=== PATIENT | female | born 1940 | race Caucasian/White ===

== ENCOUNTER 2016-04-13 20:08 | Observation (INO) ==
[2016-04-13 22:48] LABS: Basophils % 0.1 %; Hematocrit 38.5 % (35.3-44.9); Hemoglobin 12.8 g/dL (11.5-15.4); Immature Platelets 9.6 % (1.1-6.1); Lymphocytes # 0.6 K/mcL (0.6-4.6); Lymphocytes % 7.9 %; Mean Corpuscular HGB Conc 33.2 g/dL (31.6-35.5); Mean Corpuscular Volume 87.3 fL (83.0-100.0); Mean Platelet Volume 11.8 fL (9.4-12.4); Monocytes # 0.8 K/mcL (0.0-1.3); Platelet Count 177 K/mcL (140-400); Red Blood Count 4.41 M/mcL (3.82-4.97); Red Cell Distribution Width 14.6 % (11.5-14.5)
[2016-04-13 22:50] LABS: Neutrophils # 5.7 K/mcL (1.6-8.9)
[2016-04-13] MEDS ORDERED: 0.9 % Sodium Chloride 1,000 ML IVC ONE (23:03)
[2016-04-13 23:06] LABS: BUN/Creatinine Ratio 32 (6-26); Blood Urea Nitrogen 19 mg/dL (7-20); Calcium 9.2 mg/dL (8.6-10.8); Carbon Dioxide 23 mEq/L (19-29); Chloride 98 mEq/L (98-109); Glucose 98 mg/dL (70-99); Osmolality,Calculated 278 (280-300); Potassium 3.9 mEq/L (3.5-4.5); Sodium 133 mEq/L (136-145); eGFR For African Americans > 60 (> 60); eGFR For Non-African Americans > 60 (> 60)
[2016-04-13 23:25] LABS: Platelet Estimate Normal (Normal); Reactive Lymphocytes Present (Not Present)
--- NOTE | 2016-04-14 00:45 | Emergency Department Note ---
Disposition Clinical Impression: Community acquired pneumonia Disposition: Admitted As Inpatient Condition: Fair General Adult HPI - General Chief complaint: ED Weakness Stated complaint: poor appetite, weakness Time Seen by Provider: 04/13/16 21:49 Source: patient Limitations: no limitations Nursing Notes Reviewed: Yes Vital Signs Reviewed: Yes - History of Present Illness HPI Narrative: 75 y/o female with 3 days of decreased PO intake. She says she just doesn't feel hungry. She was treated 2 weeks ago for bronchitis but is still coughing. She has had weight loss over the last year. She denies dyspnea or CP. No fever. Pain Scale: 0 Improves with: nothing Worsens with: nothing Associated symptoms: Reports: denies other symptoms - Related Data Allergies Allergy/AdvReac Type Severity Reaction Status Date / Time No Known Allergies Allergy Verified 04/13/16 20:14 All systems ED: reviewed and negative except as stated. Constitutional: Denies: fever ENT ED: Denies: throat pain Cardiovascular: Denies: chest pain Respiratory: Reports: cough Gastrointestinal: Denies: abdominal pain, nausea Integumentary: Denies: rash Past Medical History - Past Medical History Medical history: Reports: myocardial infarction - Social History Smoking Status: Never smoker Smokeless Tobacco Status: No Alcohol use: Reports: none Drug use: Reports: none Physical Exam - General Limitations: no limitations General appearance: alert, in no apparent distress - Head Head exam: atraumatic - Eye Eye exam: Present: normal appearance - ENT ENT exam: normal exam - Respiratory Respiratory exam: Present: other (right sided rhonchi. No resp distress) - Cardiovascular Cardiovascular exam: Present: normal rhythm, tachycardia - Abdominal Exam Abdominal exam: Present: soft, Non-Tender - Extremities Exam Extremities exam: Present: normal inspection - Neurological Exam Neurological exam: Present: alert, oriented X3 - Psychiatric Psychiatric exam: Present: normal affect, normal mood Course Course Narrative: She is afebrile. PNA is present. Due to lack of oral intake and pneumonia in an elderly female I will admit with levaquin and IV NS. Accepted for admission by Dr Ness. Vital Signs Temperature 97.4 F L 04/13/16 20:11 Pulse Rate 104 04/13/16 20:11 Respiratory Rate 18 04/13/16 20:11 Blood Pressure 115/76 04/13/16 20:11 O2 Sat by Pulse Oximetry 93 L 04/13/16 20:11 Temperature 97.4 F L 04/13/16 20:11 Pulse Rate 104 04/14/16 00:42 Respiratory Rate 16 04/14/16 00:42 Blood Pressure 111/74 04/14/16 00:42 O2 Sat by Pulse Oximetry 93 L 04/14/16 00:59 Oxygen Delivery Oxygen Delivery Room Air Medical Decision Making - Medical Records Medical records reviewed: Yes I reviewed the patient's medical records. - Lab Data Lab results reviewed: Yes I reviewed the patient's lab results. Result diagrams: 04/13/16 22:39 04/13/16 22:39 Lab Results 04/13/16 04/13/16 04/13/16 Range/Units 22:39 22:39 22:39 WBC 7.1 (4.3-11.1) K/mcL RBC 4.41 (3.82-4.97) M/mcL Hgb 12.8 (11.5-15.4) g/dL Hct 38.5 (35.3-44.9) % MCV 87.3 (83.0-100.0) fL MCH 29.0 (28.0-33.3) pg MCHC 33.2 (31.6-35.5) g/dL RDW 14.6 H (11.5-14.5) % Plt Count 177 (140-400) K/mcL MPV 11.8 (9.4-12.4) fL Immature Gran % 1.0 (0-4) % Seg Neutrophils % 80.0 % Lymphocytes % 7.9 % Monocytes % 11.0 % Eosinophils % 0.0 % Basophils % 0.1 % Neutrophils # 5.7 (1.6-8.9) K/mcL Lymphocytes # 0.6 (0.6-4.6) K/mcL Monocytes # 0.8 (0.0-1.3) K/mcL Eosinophils # 0.0 (0.0-0.6) K/mcL Basophils # 0.0 (0.0-0.2) K/mcL Reactive Lymphocytes Present A (Not Present) Platelet Estimate Normal (Normal) Immature Plt Fraction 9.6 H (1.1-6.1) % Sodium 133 L (136-145) mEq/L Potassium 3.9 (3.5-4.5) mEq/L Chloride 98 (98-109) mEq/L Carbon Dioxide 23 (19-29) mEq/L BUN 19 (7-20) mg/dL Creatinine 0.59 (0.57-1.11) mg/dL Est GFR ( Amer) > 60 (> 60) Est GFR (Non-Af Amer) > 60 (> 60) BUN/Creatinine Ratio 32 H (6-26) Glucose 98 (70-99) mg/dL Calculated Osmolality 278 L (280-300) Calcium 9.2 (8.6-10.8) mg/dL Troponin I 0.00 (0-0.03) ng/mL - Radiology Data Radiology results reviewed: Yes I reviewed the patient's radiology results. Chest X-Ray 04/13/16 22:30 IMPRESSION: 1. Right mid and right lower lung opacities are suspicious for pneumonia 2. Hyperinflated lungs suggestive of COPD. D/ / Fito Wilkinson MD / Fito Wilkinson MD Interpreting Provider: Fito Wilkinson MD Attestation Statement - Attestation Attestation: I, Horace Macias MD, personally performed a history and physical exam of the patient and discussed their management with the resident. I reviewed the resident's note and agree with the documented findings, medical decision making , and plan of care. 75-year-old female presents to the emergency department with family complaining of decreased appetite and decreased oral intake over the past 3 days. Patient lives with family. She has had significant weight loss over the past several months. She also has had a cough with some green sputum production over the past several days. Subjective fever yesterday. On examination patient is a cachectic elderly female in no acute distress. She is alert and oriented and answers questions appropriately. There is no cyanosis or diaphoresis. Breath sounds are equal bilaterally with some rales over the right. No wheezes noted. Heart regular with a mild tachycardia. Abdomen soft and nontender with normal bowel sounds. Labs reviewed. Chest x-ray shows a right mid and lower lung pneumonia. The hospitalists, Dr. Ness, was consulted and accepted admission of the patient.
[2016-04-14] MEDS ORDERED: Acetaminophen 325 MG TABLET PO PRN (05:11)
--- NOTE | 2016-04-14 05:28 | Internal Med History&Physical ---
Date of Encounter: 04/14/16 Time of Encounter: 05:26 Assessment and Plan (1) Hypoxemia Current visit: Yes Status: Acute We will treat her with oxygen by nasal cannula. Maintain oxygen saturation above 92%. Check oxygen saturation on room air for home oxygen qualification. (2) Adult failure to thrive Current visit: Yes Status: Acute Nutrition consult. (3) Community acquired pneumonia Current visit: Yes Status: Acute Continue with Levaquin. Follow-up blood cultures. Check Streptococcus and Legionella antigens. Oxygen by nasal cannula. Bronchodilators as needed. The patient can be transitioned to oral antibiotics soon and discharged home. Internal Medicine - H&P: HPI Chief complaint: Weight loss Admitted From: Emergency Dept Plans for Post Hospital Care: Home History of present illness: Ms. Brown is a 75 year old female who was brought to the hospital for weight loss and failure to thrive. She reports cough and shortness of breath that has been worsening for the last 3 days. Reports associated fevers and chills and decreased appetite. She had very little oral intake for the last 2 days. Workup done in the emergency department included a chest x-ray which showed right lung infiltrate. She was treated with antibiotics and referred for admission Review of systems pertinent for generalized weakness, chronic joint aches, shortness of breath cough and weight loss otherwise 10 point review of systems was negative. Family history was reviewed and found to be noncontributory due to patient's advanced age. Past Med Surg Social Fam HX - Past Medical History Medical history: myocardial infarction - Past Surgical History Surgical History: hysterectomy - Social History Smoking Status: Former smoker Smokeless Tobacco Status: No Alcohol use: none Drug use: none - Family History Father Family Member Ethnicity: Non- Living Status: Age at : 70 Cause of : lung cancer Hx Family Cancer: Yes (lung cancer) Brother Age: 76 Family Member Ethnicity: Non- Living Status: Still Living Hx Family Cardiac Disorders: Yes (SC) Hx Family Respiratory Disorders: Yes (COPD) Sister Living Status: Age at : 75 Cause of : cancer Hx Family Respiratory Disorders: Yes (COPD) Hx Family Cancer: Yes (lung cancer) Internal Medicine - H&P: Meds Allergies No Known Allergies Allergy (Verified 04/13/16 20:14) All Systems PM: A 10-system review of systems was performed and is negative for pertinent findings except as documented above in the HPI. - Constitutional Vitals: Temp Pulse Resp BP Pulse Ox 99.3 F 107 18 113/77 90 L 04/14/16 02:19 04/14/16 02:19 04/14/16 02:19 04/14/16 02:04/14/16 02:19 - Respiratory Respiratory exam: Present: CTAB. Absent: accessory muscle use, rales, rhonchi, wheezes Additional comments: Severe kyphoscoliosis. - Cardiovascular Cardiovascular exam: Present: RRR, +S1, +S2. Absent: diastolic murmur, gallop, rubs, systolic murmur - GI/Abdominal GI/Abdominal exam: Present: normal bowel sounds, soft, no peritoneal signs. Absent: distended, tenderness - Skin Skin exam: Present: dry, intact Internal Med - H&P Results - Labs CBC & Chem 7: 04/13/16 22:39 04/13/16 22:39
[2016-04-14] MEDS: Levofloxacin 750 MG/150 ML 750 MG/150 ML BAG IVPB SCH ×2 (06:16→09:01)
[2016-04-14] MEDS: *HR* Heparin 5,000 UNIT/ML VIAL SQ SCH ×2 (06:16→18:07)
[2016-04-14] MEDS ORDERED: 0.9 % Sodium Chloride 1,000 ML ONE (06:58)
[2016-04-14] MEDS ORDERED: 0.9 % Sodium Chloride 1,000 ML IVC ONE (06:59)
[2016-04-14] MEDS ORDERED: Levofloxacin 750 MG/150 ML 750 MG/150 ML BAG IVPB SCH (09:00)
[2016-04-14 11:17] LABS: Magnesium 1.2 mg/dL (1.6-2.6); Phosphorous 2.5 mg/dL (2.3-4.7)
--- NOTE | 2016-04-14 11:20 | Event Note ---
Date of Encounter: 04/14/16 Time of Encounter: 11:13 75-year-old female with history of coronary artery disease and possible COPD admitted with failure to thrive, decreased appetite and noted to have right lower lobe pneumonia. Patient seen and examined at bedside. Elderly frail and cachectic female with severe kyphosis. Awake, alert and oriented to place and person. Chest-severe scoliosis noted. S1, S2 heard, regular rate and rhythm, tachycardia. Decreased breath sounds at right base. No active wheezing. Abdomen-soft and nontender Chest x-ray shows hyperexpanded lung aceves with consolidation in right lower and middle aceves Right lung community-acquired pneumonia-follow blood cultures and continue IV Levaquin. Supportive care. Supplemental oxygen as needed. Patient continues to be persistently tachycardic, will get CT angiogram of chest to rule out pulmonary embolism. Start telemetry monitoring. Failure to thrive, cachexia-nutrition consult. Start a trial of Remeron for appetite stimulation and to treat possible depression. Physical therapy evaluation. Check electrolytes, serum albumin.
[2016-04-14 14:04] LABS: Bilirubin,Urine Small (Negative); Blood,Urine Trace-lysed (Negative); Clarity,Urine Slightly Cloudy (Clear); Glucose,Urine (UA) Normal (Normal); Ketones,Urine 40 mg/dL (Negative); Leukocyte Esterase,Urine Negative (Negative); Nitrite,Urine Negative (Negative); Protein,Urine 100 mg/dL (Neg-Trace); Specific Gravity,Urine 1.025 (1.010-1.025); Urobilinogen,Urine >=8.0 mg/dL (Normal)
[2016-04-14 14:06] LABS: Color,Urine Dark Yellow (Yellow)
[2016-04-14 14:06] LABS: Albumin 2.1 g/dL (3.5-5.0); Albumin/Globulin Ratio 0.5 (1.1-2.2); Bilirubin,Direct 0.4 mg/dL (0.0-0.5); Bilirubin,Indirect 0.3 mg/dL (0.0-1.2); Bilirubin,Total 0.7 mg/dL (0.2-1.2); Globulin 3.9 g/dL (2.4-3.5)
[2016-04-14 14:08] LABS: Bacteria,Urine None Seen per hpf (None-Few); Hyaline Casts,Urine None Seen per lpf (None-Few); RBC,Urine 0-3 per hpf (0-3); Squamous Epithelial Cell,Urine Moderate per lpf (None-Few); WBC,Urine 0-3 per hpf (0-3)
[2016-04-14 14:21] LABS: Amorphous Sediment,Urine Few (Few); Yeast,Urine Few per hpf (None Seen)
[2016-04-14] MEDS ORDERED: Magnesium Sulfate 2 GM in D5% in Water 100 ML IVPB ONE (15:45)
--- NOTE | 2016-04-14 20:00 | Electrocardiograph Report ---
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
--- NOTE | 2016-04-14 20:04 | Electrocardiograph Report ---
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
[2016-04-14] MEDS: Mirtazapine 15 MG TABLET PO SCH (21:15)
[2016-04-15] MEDS: *HR* Heparin 5,000 UNIT/ML VIAL SQ SCH ×2 (06:05→18:50)
[2016-04-15 06:16] LABS: Basophils % 0.2 %; Hematocrit 36.3 % (35.3-44.9); Hemoglobin 12.3 g/dL (11.5-15.4); Immature Granulocytes % 2.6 % (0-4); Lymphocytes # 0.5 K/mcL (0.6-4.6); Lymphocytes % 8.4 %; Mean Corpuscular HGB Conc 33.9 g/dL (31.6-35.5); Mean Corpuscular Hemoglobin 29.7 pg (28.0-33.3); Mean Corpuscular Volume 87.7 fL (83.0-100.0); Mean Platelet Volume 11.1 fL (9.4-12.4); Monocytes # 0.7 K/mcL (0.0-1.3); Monocytes % 13.6 %; Platelet Count 213 K/mcL (140-400); Red Blood Count 4.14 M/mcL (3.82-4.97); Red Cell Distribution Width 14.8 % (11.5-14.5); Segmented Neutrophils % 75.2 %
[2016-04-15 06:29] LABS: BUN/Creatinine Ratio 21 (6-26); Blood Urea Nitrogen 11 mg/dL (7-20); Calcium 8.7 mg/dL (8.6-10.8); Carbon Dioxide 26 mEq/L (19-29); Chloride 100 mEq/L (98-109); Glucose 94 mg/dL (70-99); Magnesium 1.6 mg/dL (1.6-2.6); Osmolality,Calculated 279 (280-300); Potassium 3.2 mEq/L (3.5-4.5); Sodium 135 mEq/L (136-145); eGFR For African Americans > 60 (> 60); eGFR For Non-African Americans > 60 (> 60)
[2016-04-15] MEDS ORDERED: Potassium Chloride Elixir 20 MEQ/15 ML UDC PO ONE (10:40)
--- NOTE | 2016-04-15 11:29 | Internal Med Progress Note ---
Date of Encounter: 04/15/16 Time of Encounter: 10:45 - Assessment and plan (1) Community acquired pneumonia Current Visit: Yes Status: Acute Assessment and plan: Chest XRay and CTA chest shows bibasal Pneumonia, no pulmonary embolism, 1.7cm spiculated nodule in RUL. Blood cultures and urine for Legionella and Strep pneumo Ag negative. Continue IV antibiotics-Levaquin. Continue supportive care and supplemental oxygen as needed. Physical therapy evaluation recommends home health services. However, patient is noted to be extremely cachectic and will benefit from inpatient rehabilitation. This has been discussed with the patient and her daughter at bedside in great detail, along with the complex case manager, however patient continues to refuse placement and would like to just go home. (2) Hypokalemia Current Visit: Yes Status: Acute Assessment and plan: Supplement with IV and oral potassium chloride. Serum magnesium noted to be normal today. (3) Lung nodule Current Visit: Yes Status: Chronic Assessment and plan: CT chest showed 1.7 cm nodule in right upper/middle lobe. This has been reviewed with pulmonology, who recommended outpatient follow-up and repeat CT chest in 8 weeks. (4) Adult failure to thrive Current Visit: Yes Status: Chronic Assessment and plan: Started mirtazapine for appetite stimulation and for possible depression. Continue nutritional supplements as tolerated. Patient and family counseled regarding the various reasons for anorexia and weight loss and strongly recommended to follow up as outpatient. Patient is noted to be noncompliant with primary care provider visits. (5) COPD (chronic obstructive pulmonary disease) Current Visit: Yes Status: Chronic Assessment and plan: Not noted to be in acute exacerbation. Not on any treatment at home. Continue when necessary bronchodilators and supplemental oxygen as needed. Qualifiers: COPD type: unspecified COPD Qualified Code(s): J44.9 - Chronic obstructive pulmonary disease, unspecified (6) CAD (coronary artery disease) Current Visit: Yes Status: Chronic Qualifiers: Coronary Disease-Associated Artery/Lesion type: [place] artery [place] vs. transplanted heart: [place] heart Associated angina: without angina Qualified Code(s): I25.10 - Atherosclerotic heart disease of [place] coronary artery without angina pectoris - Subjective Interval history: Has intermittent coughing bouts but reports doing well. No chest pain, dyspnea, weakness. Able to work with PT; refuses to be placed at inpatient rehab and wants to go home; plan of care also d/w patient's daughter at bedside. - Constitutional Vitals: Temp Pulse Resp BP Pulse Ox 98.5 F 96 14 108/78 95 04/15/16 10:27 04/15/16 10:27 04/15/16 10:27 04/15/16 10:27 04/15/16 10:27 General appearance: Present: cachectic (very frail, cachectic, kyphosis), A&O X 3, answers questions appropriately - Respiratory Respiratory exam: Present: rales (faint bibasal rales). Absent: accessory muscle use, rhonchi, wheezes - Cardiovascular Cardiovascular exam: Present: RRR, +S1, +S2, tachycardia. Absent: diastolic murmur, gallop, rubs, systolic murmur - GI/Abdominal GI/Abdominal exam: Present: normal bowel sounds, soft, no peritoneal signs. Absent: distended, tenderness - Extremities Exam Extremities exam: Present: full ROM, warm, radial pulses palpable and symetrical. Absent: calf tenderness, cyanotic, pedal edema Internal Medicine: Result - Labs CBC & Chem 7: 04/15/16 05:56 04/15/16 05:56 Labs: Short CBC 04/15/16 Range/Units 05:56 WBC 5.4 (4.3-11.1) K/mcL Hgb 12.3 (11.5-15.4) g/dL Hct 36.3 (35.3-44.9) % Plt Count 213 (140-400) K/mcL Neutrophils # 4.0 (1.6-8.9) K/mcL BMP 04/15/16 05:56 Sodium 135 L Potassium 3.2 L Chloride 100 Carbon Dioxide 26 BUN 11 Creatinine 0.52 L Glucose 94 Calcium 8.7 Liver Function 04/14/16 Range/Units 10:51 Total Bilirubin 0.7 (0.2-1.2) mg/dL Direct Bilirubin 0.4 (0.0-0.5) mg/dL AST 29 (5-34) Units/L ALT 13 (0-55) Units/L Alkaline Phosphatase 66 (38-126) Units/L Albumin 2.1 L (3.5-5.0) g/dL - Impressions Impressions Chest CTA 04/14/16 11:30 IMPRESSION: No definite pulmonary embolus or aortic dissection Bilateral pleural effusions with bilateral lower lobe lung consolidation. Secretions are seen in the lower lobe airways bilaterally. Consider aspiration in the appropriate clinical scenario. Peripheral opacity in the right middle lobe, extending superiorly into the right upper lobe. The component in the right upper lobe appears spiculated. This area of consolidation could be postinflammatory infectious or an early finding of carcinoma. D/ / Lopez Lind MD / Lopez Lind MD Interpreting Provider: Lopez Lind MD Consult Discharge Plan - Plan Referrals: NO,PCP [Primary Care Provider] -
[2016-04-15] MEDS: Mirtazapine 15 MG TABLET PO SCH (21:29)
[2016-04-16] MEDS: Levofloxacin 750 MG/150 ML 750 MG/150 ML BAG IVPB SCH (06:07)
[2016-04-16] MEDS: *HR* Heparin 5,000 UNIT/ML VIAL SQ SCH ×2 (06:07→20:45)
[2016-04-16] MEDS ORDERED: 0.9 % Sodium Chloride 1,000 ML ONE ×2 (07:14→07:34)
[2016-04-16] MEDS ORDERED: *HR* Heparin 5,000 UNIT/ML VIAL IVP PRN ×2 (08:29)
[2016-04-16] MEDS ORDERED: *HR* Heparin 5,000 UNIT/ML VIAL IVP ONE (08:29)
[2016-04-16] MEDS ORDERED: Heparin 25,000 UNIT/500 ML D5W 25,000 UNIT/500 ML MLS IVC SCH (08:30)
[2016-04-16 08:52] LABS: INR 1.3; Prothrombin Time 13.7 Seconds (9.4-12.1)
[2016-04-16 08:54] LABS: Activated Partial Thrombo Time 40.3 Seconds (26.0-36.0)
--- NOTE | 2016-04-16 08:58 | Internal Med Progress Note ---
Date of Encounter: 04/16/16 Time of Encounter: 08:52 - Assessment and plan (1) Atrial fibrillation with RVR Current Visit: Yes Status: Acute Assessment and plan: Episode of supraventricular tachycardia, currently atrial fibrillation with rapid ventricular response. New-onset. Case discussed with cardiology, will consult to follow. Patient did not respond to 10 mg IV Cardizem push, we will give another 10 mg and start IV Cardizem drip. We will also start IV heparin drip for possible cardioversion, if needed. Check stat CBC, BMP, magnesium and phosphorus, troponin and lactic acid. Check 2-D echocardiogram. Telemetry monitoring. Patient will be transferred to stepdown ICU for closer monitoring. His risk of complications high. Critical care time spent- 45min (2) Community acquired pneumonia Current Visit: Yes Status: Acute Assessment and plan: Improving. Continue IV antibiotics-Levaquin. Continue supportive care and supplemental oxygen as needed. (3) Hypokalemia Current Visit: Yes Status: Resolved (4) Lung nodule Current Visit: Yes Status: Chronic Assessment and plan: CT chest showed 1.7 cm nodule in right upper/middle lobe. This has been reviewed with pulmonology, who recommended outpatient follow-up and repeat CT chest in 8 weeks. (5) Adult failure to thrive Current Visit: Yes Status: Chronic Assessment and plan: Started mirtazapine for appetite stimulation and for possible depression. Continue nutritional supplements as tolerated. Patient and family counseled regarding the various reasons for anorexia and weight loss and strongly recommended to follow up as outpatient. Patient is noted to be noncompliant with primary care provider visits. (6) COPD (chronic obstructive pulmonary disease) Current Visit: Yes Status: Chronic Assessment and plan: Not noted to be in acute exacerbation. Not on any treatment at home. Continue when necessary bronchodilators and supplemental oxygen as needed. We will need to be on bronchodilators and inhaled corticosteroids at home. Qualifiers: COPD type: unspecified COPD Qualified Code(s): J44.9 - Chronic obstructive pulmonary disease, unspecified (7) CAD (coronary artery disease) Current Visit: Yes Status: Chronic Qualifiers: Coronary Disease-Associated Artery/Lesion type: [place] artery [place] vs. transplanted heart: [place] heart Associated angina: without angina Qualified Code(s): I25.10 - Atherosclerotic heart disease of [place] coronary artery without angina pectoris - Subjective Interval history: Rapid response was called at 7:10 AM. Patient was noted to be in mild distress with chest discomfort and shortness of breath. Vital signs showed-afebrile, pulse rate 236, blood [id number], RR- 20, O2 sat- 95% Chest- S1, S2 heard, regular, tachycardic; lungs are clear to auscultation EKG showed an irregular narrow complex tachycardia with rate in 200s. The patient was connected to telemetry and EKG and received 6 mg of IV adenosine push, to which she responded well, with improvement in heart rate to 110s and she felt symptomatically better. She was also started on IV normal saline bolus. Patient continues to have tachycardia, mild shortness of breath. Her heart rate started increasing to 150s and repeat EKG showed narrow complex irregular tachycardia, atrial fibrillation. No reported nausea, vomiting, abdominal pain or chest pain. Plan of care discussed with patient's daughter at bedside. Patient will be transferred to stepdown ICU at this time for closer monitoring. Patient was planned for possible discharge today, which is being held due to the above. - Constitutional Vitals: Temp Pulse Resp BP Pulse Ox 98.1 F 218 15 114/73 99 04/16/16 07:44 04/16/16 07:44 04/16/16 03:55 04/16/16 03:55 04/16/16 07:44 General appearance: Present: cachectic (very frail, cachectic, kyphosis), A&O X 3, answers questions appropriately - Respiratory Respiratory exam: Present: CTAB. Absent: accessory muscle use, rales, rhonchi, wheezes - Cardiovascular Cardiovascular exam: Present: RRR, +S1, +S2, tachycardia. Absent: diastolic murmur, gallop, rubs, systolic murmur - GI/Abdominal GI/Abdominal exam: Present: normal bowel sounds, soft, no peritoneal signs. Absent: distended, tenderness - Extremities Exam Extremities exam: Present: warm, radial pulses palpable and symetrical. Absent : calf tenderness, cyanotic, pedal edema - Neurological Exam Neurological exam: Present: CN II-XII intact, oriented X3, no focal deficits. Absent: pronater drift, facial droop, speech deficit - Skin Skin exam: Present: dry, intact Internal Medicine: Result - Labs CBC & Chem 7: 04/15/16 05:56 04/15/16 05:56 Consult Discharge Plan - Plan Referrals: NO,PCP [Primary Care Provider] -
[2016-04-16 09:38] LABS: Hematocrit 39.8 % (35.3-44.9); Hemoglobin 12.7 g/dL (11.5-15.4); Mean Corpuscular HGB Conc 31.9 g/dL (31.6-35.5); Mean Corpuscular Hemoglobin 28.7 pg (28.0-33.3); Mean Platelet Volume 11.1 fL (9.4-12.4); Platelet Count 253 K/mcL (140-400); Red Blood Count 4.42 M/mcL (3.82-4.97); Red Cell Distribution Width 14.8 % (11.5-14.5)
[2016-04-16 09:51] LABS: BUN/Creatinine Ratio 19 (6-26); Blood Urea Nitrogen 10 mg/dL (7-20); Calcium 7.9 mg/dL (8.6-10.8); Carbon Dioxide 23 mEq/L (19-29); Chloride 104 mEq/L (98-109); Glucose 91 mg/dL (70-99); Osmolality,Calculated 285 (280-300); Phosphorous 2.9 mg/dL (2.3-4.7); Sodium 138 mEq/L (136-145); eGFR For African Americans > 60 (> 60); eGFR For Non-African Americans > 60 (> 60)
[2016-04-16 09:53] LABS: Magnesium 1.4 mg/dL (1.6-2.6); Potassium 3.9 mEq/L (3.5-4.5)
[2016-04-16 10:03] LABS: Lymphocytes # 0.4 K/mcL (0.6-4.6); Neutrophils # 5.9 K/mcL (1.6-8.9)
[2016-04-16 10:04] LABS: Anisocytosis 1+ (Not Present)
--- NOTE | 2016-04-16 11:42 | Pulmonology Consult Note ---
Date of Encounter: 04/16/16 Time of Encounter: 10:15 Assessment and Plan (1) Atrial fibrillation with RVR Current Visit: Yes Status: Resolved Patient seen with Dr. Larry and she is in sinus rhythm, also discussed with pastry cook apprentice, patient will be seen. I talked to the daughter briefly that I don' t think it will be a good idea to do chest compression with her cachexia and chest wall deformity and she understand that. She is going to talk to her mother. Patient in sinus rhythm and it could be hypoxia induced. Echo if not done, it is recommended. (2) Community acquired pneumonia Current Visit: Yes Status: Acute Patient on appropriate antibiotic (3) COPD (chronic obstructive pulmonary disease) Current Visit: Yes Status: Chronic Patient to be on Xopenox inhalation due to her A fib. I feel she has poor prognosis. Qualifiers: COPD type: unspecified COPD Qualified Code(s): J44.9 - Chronic obstructive pulmonary disease, unspecified (4) Lung nodule Current Visit: Yes Status: Suspected Reviewed CT chest, I feel possibility of round atelectasis is in the differential diagnosis and due to her weakness and cachexia, I feel the best course of action to follow up chest CT as outpatient in about 8-12 week. This was discussed with primary team. History of Present Illness Consult date: 04/16/16 Requesting physician: Dalila Larry Reason for consult: dyspnea, other (lung nodule and A.fib.) Chief complaint: Dyspnea History of present illness: This is a pleasant 75 year old female with history of smoking in the past. She is poor historian and was found to have A. fib with RVR, fortunately she responded to the treatment. She denies any chest pain, but she has dyspnea and she has been losing weight. She denies any hemoptysis and overall it is difficult to obtain a good history from patient. She had CT chest and there are multiple abnormalities. She stated she takes inhalers, but she doesn't remember the names. Past Med Surg Social Fam HX - Past Medical History Medical history: myocardial infarction - Past Surgical History Surgical History: hysterectomy - Social History Smoking Status: Former smoker Smokeless Tobacco Status: No Alcohol use: none Drug use: none - Family History Father Family Member Ethnicity: Non- Living Status: Age at : 70 Cause of : lung cancer Hx Family Cancer: Yes (lung cancer) Brother Age: 76 Family Member Ethnicity: Non- Living Status: Still Living Hx Family Cardiac Disorders: Yes ([place]) Hx Family Respiratory Disorders: Yes (COPD) Sister Living Status: Age at : 75 Cause of : cancer Hx Family Respiratory Disorders: Yes (COPD) Hx Family Cancer: Yes (lung cancer) Medications and Allergies Albuterol Sulfate [Albuterol Inhaler] 1 puff IH Q4-6H PRN 04/14/16 [History] Calcium Carbonate/Vitamin D3 [Calcium 500 mg Chewable Tablet] 1 each PO DAILY [History] Potassium 99 mg PO DAILY 04/14/16 [History] Allergies No Known Allergies Allergy (Verified 04/14/16 10:40) All Systems: A 10-system review of systems was performed and is negative for pertinent findings except as documented above in the HPI. Physical Examination Vital Signs: Vital Signs, Last 4 Hours Temp Pulse Resp BP Pulse Ox 04/16/16 11:29 102 18 131/70 95 04/16/16 11:06 98.1 F 106 22 131/70 97 04/16/16 10:00 132/71 04/16/16 09:49 130/69 96 04/16/16 09:43 110 16 141/77 99 04/16/16 09:32 167 16 103/75 96 04/16/16 09:10 98.1 F 167 28 105/81 98 04/16/16 09:04 172 105/81 04/16/16 07:44 98.1 F 218 99 General appearance: lethargic, other (Looks acutely ill) Eyes: nonicteric ENT: oropharynx dry Mallampati (class): 1 Neck: supple Effort: mildly labored Inspection: hyperextended, scoliosis, kyphosis Auscultation: bilateral: diminished breath sounds Cardiovascular: regular rate and rhythm Gastrointestinal: normoactive bowel sounds Extremities: no cyanosis normal mental status, non-focal exam (Patient is very weak) depressed Results - Laboratory Findings CBC and BMP: 04/16/16 09:28 04/16/16 09:28 PT/INR, D-dimer PT 13.7 Seconds (9.4-12.1) H 04/16/16 08:41 Abnormal lab findings: Abnormal lab results RDW 14.8 % (11.5-14.5) H 04/16/16 09:28 Lymphocytes # 0.4 K/mcL (0.6-4.6) L 04/16/16 09:28 Reactive Lymphocytes Present (Not Present) A 04/13/16 22:39 Immature Plt Fraction 9.6 % (1.1-6.1) H 04/13/16 22:39 Anisocytosis 1+ (Not Present) A 04/16/16 09:28 PT 13.7 Seconds (9.4-12.1) H 04/16/16 08:41 APTT 40.3 Seconds (26.0-36.0) H 04/16/16 08:41 Creatinine 0.53 mg/dL (0.57-1.11) L 04/16/16 09:28 Calcium 7.9 mg/dL (8.6-10.8) L 04/16/16 09:28 Magnesium 1.4 mg/dL (1.6-2.6) L 04/16/16 09:28 Albumin 2.1 g/dL (3.5-5.0) L 04/14/16 10:51 Globulin 3.9 g/dL (2.4-3.5) H 04/14/16 10:51 Albumin/Globulin Ratio 0.5 (1.1-2.2) L 04/14/16 10:51 Urine Clarity Slightly Cloudy (Clear) A 04/13/16 13:53 Urine Protein 100 mg/dL (Neg-Trace) H 04/13/16 13:53 Urine Ketones 40 mg/dL (Negative) H 04/13/16 13:53 Urine Blood Trace-lysed (Negative) H 04/13/16 13:53 Urine Bilirubin Small (Negative) H 04/13/16 13:53 Urine Urobilinogen >=8.0 mg/dL (Normal) H 04/13/16 13:53 Ur Squamous Epith Cells Moderate per lpf (None-Few) H 04/13/16 13:53 Urine Yeast Few per hpf (None Seen) H 04/13/16 13:53 - Microbiology Findings Microbiology Findings: Microbiology, Last 48 Hours 04/14/16 13:53 Streptococcus pneumoniae Antigen (M - Final Urine,Clean Catch 04/14/16 13:53 Legionella Antigen - Final Urine,Catheterized 04/14/16 01:17 Blood Culture - Preliminary Peripheral Venipuncture No growth. 04/14/16 01:12 Blood Culture - Preliminary Peripheral Venipuncture No growth. - Diagnostic Findings CT scan - chest: report reviewed, image reviewed - Clinical Findings Intake & Output: Intake & Output 04/15/16 04/16/16 04/16/16 23:59 07:59 15:59 Intake Total 120 / 120 0 / 0 0 / 0 Output Total 400 / 400 0 / 0 Balance -280 / -280 0 / 0 - Weight 34.292 kg 38.3 kg Consult Discharge Plan - Plan Referrals: NO,PCP [Primary Care Provider] -
--- NOTE | 2016-04-16 14:34 | Cardiology Consult Note ---
Date of Encounter: 04/16/16 Time of Encounter: 13:00 Assessment and Plan (1) Tachycardia Current Visit: Yes Status: Acute Ms. Brown's telemetry was reviewed from this morning. It demonstrates a regular narrow complex tachycardia possibly atrial tachycardia in setting of pneumonia. There is no identifiable atrial fibrillation. Presently, she has sinus tachycardia, HR 100's. We will stop heparin. She can be started on low dose aspirin. We are awaiting echo findings. In the meantime, we will start her on low dose BB. Discussion w patient/family: The assessment and plan as outlined above was discussed with the patient and/or family members who expressed understanding and agreement. All questions were answered. Thank you for involving us in the care of your patient. Please call with any questions. History of Present Illness Consult date: 04/16/16 Requesting physician: Dalila Larry Consult reason: Tachycardia Chief complaint: SOB History of present illness: Ms. Brown is a 75 year old female admitted for pneumonia and failure to thrive who developed tachycardia this morning. Primary team was concerned for AF and called for further evaluation. At the bedside, the patient appears comfortable. She is accompanied by her family members. She has no particular concerns. She did not remember having palpitations. She is not having chest pain. Past Med Surg Social Fam HX - Past Medical History Attestation: Yes The following information was validated with the patient. Source: obtained from family Medical history: myocardial infarction - Past Surgical History Surgical History: hysterectomy - Social History Smoking Status: Former smoker Smokeless Tobacco Status: No Alcohol use: none Drug use: none - Family History Father Family Member Ethnicity: Non- Living Status: Age at : 70 Cause of : lung cancer Hx Family Cancer: Yes (lung cancer) Brother Age: 76 Family Member Ethnicity: Non- Living Status: Still Living Hx Family Cardiac Disorders: Yes ([place]) Hx Family Respiratory Disorders: Yes (COPD) Sister Living Status: Age at : 75 Cause of : cancer Hx Family Respiratory Disorders: Yes (COPD) Hx Family Cancer: Yes (lung cancer) Medications and Allergies Albuterol Sulfate [Albuterol Inhaler] 1 puff IH Q4-6H PRN 04/14/16 [History] Calcium Carbonate/Vitamin D3 [Calcium 500 mg Chewable Tablet] 1 each PO DAILY [History] Potassium 99 mg PO DAILY 04/14/16 [History] Allergies No Known Allergies Allergy (Verified 04/14/16 10:40) All Systems Review: A 10-system review of systems was performed and is negative for pertinent findings except as documented above in the HPI. - Cardiovascular Cardiovascular: as per HPI Physical Examination Vital Signs, Last 4 Hours Temp Pulse Resp BP Pulse Ox 04/16/16 12:29 106 16 157/74 98 04/16/16 11:29 102 18 131/70 95 04/16/16 11:06 98.1 F 106 22 131/70 97 General: Conversant, No Apparent Distress HEENT: Mucus Membranes Moist Cardiac: Other (Tachycardia, no murmur) Lungs: Other (diminished breath sounds, poor inspiratory effort) Neuro: Alert and responsive, No focal deficits noted Abdomen: Soft, Other (audible bowel sounds) Extremities: No Edema, Normal Pulses Results 04/16/16 09:28 04/16/16 09:28 Lab Results 04/16/16 04/16/16 04/16/16 08:41 09:28 09:28 WBC 7.4 Hgb 12.7 Hct 39.8 Plt Count 253 INR 1.3 APTT 40.3 H Sodium 138 Potassium 3.9 Chloride 104 Carbon Dioxide 23 BUN 10 Creatinine 0.53 L Glucose 91 Calcium 7.9 L Magnesium 1.4 L Troponin I 04/16/16 09:28 WBC Hgb Hct Plt Count INR APTT Sodium Potassium Chloride Carbon Dioxide BUN Creatinine Glucose Calcium Magnesium Troponin I 0.01 - Imaging and Cardiology Chest Xray: report reviewed Other Results: Chest CT report reviewed - EKG Interpretation EKG results cardiology: other (Telemetry reviewed; demonstrates regular tachycardia possibly atrial tach) Consult Discharge Plan - Plan Referrals: NO,PCP [Primary Care Provider] -
[2016-04-16] MEDS: Levalbuterol Neb 0.63 MG/3 ML IH SCH ×2 (15:40→21:53)
--- NOTE | 2016-04-16 17:01 | ECHO - Doppler Report ---
Echo with Saline Contrast Name: Amparo Brown Date of Study: 04/16/2016 Date: 1940 Ht: 60.0 in Medical Record#: [id number] Age: 75 Wt: 84.0 lb Gender: Female BSA: 1.29 Order #: [id number] Location: [facility] Room #: 2N12 Reading Physician: Lorraine Vásquez DO Segment Assembler: Tim Sosa RDCS Ordering Physician: Gemini Larry MD Primary Physician: Indications: Atrial Fibrillation Impressions: LVEF 60%. Normal left ventricular size and systolic function. There is evidence of mild diastolic dysfunction of the left ventricle. Normal right ventricular size and function. Moderate mitral regurgitation. Mild-moderate tricuspid regurgitation. No pulmonary hypertension. There is evidence of a PFO with agitated saline contrast. Left Ventricular Wall Motion: Rest Echo Findings All wall segments showed normal motion. Findings: Study Quality * Technically adequate exam. ECG Findings * Sinus tachycardia. Left Ventricle * LVEF 60%. * Normal LV chamber size, wall thickness and function. * Mild left ventricular diastolic dysfunction. Mitral Valve * No mitral stenosis. * Mildly thickened mitral valve leaflets. * Moderate mitral regurgitation. Aortic Valve * No aortic regurgitation. * No aortic stenosis. * Mildly calcified aortic valve leaflets. * Trileaflet aortic valve. Tricuspid Valve * Miildly thickened leaflets. * No tricuspid stenosis. * Mild-moderate tricuspid regurgitation. * Estimated RA pressure is 3 mmHg. * Estimated RVSP is 27 mmHg. * No pulmonary hypertension. Pulmonic Valve * Normal pulmonic valve structure. * No pulmonic stenosis. * Trace pulmonic regurgitation. Pulmonary Artery * Normal visualized portions of the main pulmonary artery. Right Ventricle * Normal right ventricular structure and function. Right Atrium * Normal right atrial size. Left Atrium * Severely dilated left atrium. Interatrial Septum * There is a PFO by color doppler. * There is a PFO by agitated saline contrast, IVC * Normal IVC dimensions and inspiratory collapse. History Measurements: BP: 157/ 74 2D Normal Values RVIDd: 3.30 cm <2.7 cm IVSd: 1.00 cm 0.6 - 1.0 cm LVIDd: 3.70 cm 3.7 - 5.6 cm LVPWd: .80 cm 0.6 - 1.1 cm LVIDs: 2.30 cm 1.5 - 3.6 cm AO: 3.00 cm < 4.0 cm LA: 3.30 cm 2.0 - 4.0cm %FS: 37.80 cm >25 % LA volume: 68 Mitral Valve Peak E:.66 m/sec Peak A:.83 m/sec E/A Ratio:0.8 Peak E' Lat Davidson:9.36 cm/s Peak E' Med Davidson:4.97 cm/s E/E' Lat Ratio:7 E/E' Med Ratio:13.2 Tricuspid Valve TV Regurg Peak Grad: 24.00mmHg TV Regurg Peak Davidson: 2.47m/sec Updated by Lorraine Vásquez on 04/16/2016 4:55:17 PM electronically signed on 04/16/2016 4:56:03 PM with status of Final Wall Motion [place]: 1=Normal, 2=Hypokinesis, 3=Akinesis, 4=Dyskinesis, 5=Aneurysmal, 6=Hyperkinetic, X=Not Visualized (Blank)=Missing
[2016-04-16] MEDS ORDERED: Magnesium Sulfate 2 GM in D5% in Water 100 ML IVPB ONE (18:40)
[2016-04-16] MEDS ORDERED: *HR* Heparin 5,000 UNIT/ML VIAL SQ SCH (19:00)
[2016-04-16] MEDS: Mirtazapine 15 MG TABLET PO SCH (20:45)
[2016-04-17] MEDS: Levalbuterol Neb 0.63 MG/3 ML IH SCH ×4 (03:47→21:32)
[2016-04-17] MEDS: *HR* Heparin 5,000 UNIT/ML VIAL SQ SCH ×2 (07:32→21:26)
[2016-04-17] MEDS: Aspirin 81 MG TAB.CHEW PO SCH (07:33)
[2016-04-17] MEDS ORDERED: Magnesium Sulfate 2 GM in D5% in Water 100 ML IVPB ONE (07:45)
--- NOTE | 2016-04-17 11:04 | Event Note ---
Date of Encounter: 04/17/16 Time of Encounter: 11:03 - Cardiology Event Note Overnight telemetry was reviewed. No evidence for AF. Continue aspirin and lopresssor. No further recommendations. We will sign off.
[2016-04-17] MEDS ORDERED: Mag Hydrox/Al Hydrox/Simeth 30 ML UDC PO PRN (11:53)
[2016-04-17] MEDS ORDERED: Pantoprazole 40 MG VIAL IVP ONE (11:53)
--- NOTE | 2016-04-17 13:45 | Discharge Summary ---
Date of Encounter: 04/17/16 Time of Encounter: 13:40 - Discharge Diagnosis (1) Atrial fibrillation with RVR Priority: Primary Status: Ruled-out (2) Community acquired pneumonia Priority: Primary Status: Acute (3) Hypokalemia Priority: Primary Status: Resolved (4) Lung nodule Priority: Secondary Status: Chronic (5) Adult failure to thrive Priority: Secondary Status: Chronic (6) COPD (chronic obstructive pulmonary disease) Priority: Secondary Status: Chronic Qualifiers: COPD type: unspecified COPD Qualified Code(s): J44.9 - Chronic obstructive pulmonary disease, unspecified (7) CAD (coronary artery disease) Priority: Secondary Status: Chronic Qualifiers: Coronary Disease-Associated Artery/Lesion type: [place] artery [place] vs. transplanted heart: [place] heart Associated angina: without angina Qualified Code(s): I25.10 - Atherosclerotic heart disease of [place] coronary artery without angina pectoris (8) Hypomagnesemia Priority: Primary Status: Acute - Discharge Medications Prescriptions: Aspirin 81 mg PO DAILY #30 tab.chew Lactose-Reduced Food [Ensure Active Clear] 1 bottle PO TID #90 can Levofloxacin [Levaquin] 500 mg PO DAILY #7 tablet Magnesium Oxide [Mgo] 400 mg PO BID #30 tablet Metoprolol [Lopressor] 25 mg PO BID #30 tablet Mirtazapine [Remeron] 7.5 mg PO HS #20 tablet Omeprazole [PriLOSEC] 20 mg PO DAILY #30 cap Home Medications: Albuterol Sulfate [Albuterol Inhaler] 1 puff IH Q4-6H PRN 04/14/16 [History] Calcium Carbonate/Vitamin D3 [Calcium 500 mg Chewable Tablet] 1 each PO DAILY [History] Potassium 99 mg PO DAILY 04/14/16 [History] Aspirin 81 mg PO DAILY #30 tab.chew 04/17/16 [Rx] Lactose-Reduced Food [Ensure Active Clear] 1 bottle PO TID #90 can 04/17/16 [Rx] Levofloxacin [Levaquin] 500 mg PO DAILY #7 tablet 04/17/16 [Rx] Magnesium Oxide [Mgo] 400 mg PO BID #30 tablet 04/17/16 [Rx] Metoprolol [Lopressor] 25 mg PO BID #30 tablet 04/17/16 [Rx] Mirtazapine [Remeron] 7.5 mg PO HS #20 tablet 04/17/16 [Rx] Omeprazole [PriLOSEC] 20 mg PO DAILY #30 cap 04/17/16 [Rx] Allergies/Adverse Reactions: Allergies No Known Allergies Allergy (Verified 04/14/16 10:40) Procedures/tests Complete & Pending: Procedures Performed prior 72 hours Category Date Time Status ECG 12 lead ECG [ECG] Routine Y 04/16/16 07:18 Ordered EV echocardiogram Stat Y 04/16/16 08:47 Completed Date of admission: 04/14/16 01:11 Primary care physician: PCP NO Consults: 04/14/16 03:07 Consult to Nutrition [CONS] Routine Comment: Consulting Provider: NUTRITION Reason for Dietary Consult: MST Score Consult to Acute Care Physician [CONS] Routine Reason for SW Consult: Possible need for home health services d/t weakness, weight loss, and increased difficulty walking 04/14/16 10:09 Consult to Occupational Therapy [CONS] Routine Comment: Evaluate, develop and implement POC Consult to Physical Therapy [CONS] Routine Comment: Evaluate, develop and implement POC 04/16/16 08:47 Consult to Cardiology [CONS] Routine Comment: Consulting Provider: Cardiology Marie Reason for Consult: SVT, new-onset a.fib with RVR Call Completed: Yes 04/17/16 08:31 Consult to Palliative Care [CONS] Routine Comment: Consulting Provider: Palliative Care Marie Discharging clinician: Dalila Larry Anticipated date of discharge: 04/17/16 - Patient Status Disposition: Home Health Service Condition: Fair Functional capacity at discharge: uses cane/walker Overall status at discharge: patient is progressing back to baseline - Discharge Instructions Instructions: Metoprolol (By mouth), Aspirin (By mouth), Omeprazole (By mouth) , Mirtazapine (By mouth), Levofloxacin (By mouth), Magnesium (By mouth), Pneumonia (DC) Follow Up With: ColBalbir ross DO [Primary Care Provider] - (THIS OFFICE WILL NOT MAKE A FOLLOW UP APPOINTMENT. HE WANTS THE PATIENT OR FAMILY TO CALL AND MAKE THE APPOINTMENT. THANKS) NO,PCP [Non-Partnered Physician] - Additional Instructions: F/up with PCP in 2 weeks - Diet and Activity Activity: as per physical therapy Diet: low fat, low cholesterol (high calorie, Ensure supplements), low salt diet Hospital course: Ms. Brown is a 75 year old female with the above medical problems who was initially admitted with worsening shortness of breath. Chest x-ray done in the emergency room showed evidence of right lower lobe pneumonia and patient was started on IV hydration and IV antibiotics-Levaquin. She was also started on supplemental oxygen and bronchodilators. Patient was noted to have extreme cachexia and protein calorie malnutrition. She was noted to have poor appetite and started on Megace. Nutrition consult was obtained and she was started on ensure supplements. Physical therapy evaluation was done and recommended home health services. However, given patient's extreme malnutrition and failure to thrive, patient and family were encouraged to consider short-term rehabilitation placement, which patient has strongly refused. Patient was being planned for discharge when she developed acute tachycardia and shortness of breath. She was noted to have SVT, that responded to 6 mg of IV adenosine. She continued to have narrow complex irregular tachycardia after this, and she was briefly started on IV Cardizem and heparin drips for possible new onset atrial fibrillation. Cardiology was consulted and after review of telemetry strips, patient was deemed to be having mostly sinus tachycardia and Cardizem and heparin drips for discontinued. She was started on low-dose aspirin and metoprolol, which she tolerated well, with better heart rate control. Echocardiogram was done which showed preserved ejection fraction, mild left ventricular diastolic dysfunction, moderate MR and mild TR. Patient is currently doing well and not requiring supplemental oxygen. She is medically stable for discharge with outpatient follow-up and oral antibiotics. - Time Spent with Patient Total time spent providing and/or coordinating discharge services: Greater than 30 minutes (50 min) - Constitutional Vitals: Temp Pulse Resp BP Pulse Ox 98.0 F 98 16 147/84 93 L 04/17/16 11:00 04/17/16 11:00 04/17/16 11:00 04/17/16 11:04/17/16 11:00 General appearance: Present: cachectic (very frail, cachectic, kyphosis), A&O X 3, answers questions appropriately - Respiratory Respiratory exam: Present: CTAB. Absent: accessory muscle use, rales, rhonchi, wheezes - Cardiovascular Cardiovascular exam: Present: RRR, +S1, +S2. Absent: diastolic murmur, gallop, rubs, systolic murmur
--- NOTE | 2016-04-17 13:47 | Physician Discharge Referral ---
Home Health/Hosp Referral Info Transfer to: Home Health Attending Provider: Dalila Larry Provider in Charge Post Discharge: PCP - Diagnosis (1) Atrial fibrillation with RVR Priority: Primary Status: Ruled-out (2) Community acquired pneumonia Priority: Primary Status: Acute (3) Hypokalemia Priority: Primary Status: Resolved (4) Lung nodule Priority: Secondary Status: Chronic (5) Adult failure to thrive Priority: Secondary Status: Chronic (6) COPD (chronic obstructive pulmonary disease) Priority: Secondary Status: Chronic (7) CAD (coronary artery disease) Priority: Secondary Status: Chronic (8) Hypomagnesemia Priority: Primary Status: Acute - Respiratory Orders Smoking Cessation: Smoking cessation has been advised. For more information, call the [employer] Quit Line at [phone]-NOW. - Diet/Nutrition Diet/Nutrition Orders: Cardiac (high calorie) Diet/Nutrition: List: Ensure Plus clear 1 can PO TID - Activity Activity Orders: Ambulate - Services Needed Following services are medically necessary services: Nursing, Physical Therapy, Occupational Therapy - Transfer Medications Prescriptions: Aspirin 81 mg PO DAILY #30 tab.chew Lactose-Reduced Food [Ensure Active Clear] 1 bottle PO TID #90 can Levofloxacin [Levaquin] 500 mg PO DAILY #7 tablet Magnesium Oxide [Mgo] 400 mg PO BID #30 tablet Metoprolol [Lopressor] 25 mg PO BID #30 tablet Mirtazapine [Remeron] 7.5 mg PO HS #20 tablet Omeprazole [PriLOSEC] 20 mg PO DAILY #30 cap Home Medications: Albuterol Sulfate [Albuterol Inhaler] 1 puff IH Q4-6H PRN 04/14/16 [History] Calcium Carbonate/Vitamin D3 [Calcium 500 mg Chewable Tablet] 1 each PO DAILY [History] Potassium 99 mg PO DAILY 04/14/16 [History] Aspirin 81 mg PO DAILY #30 tab.chew 04/17/16 [Rx] Lactose-Reduced Food [Ensure Active Clear] 1 bottle PO TID #90 can 04/17/16 [Rx] Levofloxacin [Levaquin] 500 mg PO DAILY #7 tablet 04/17/16 [Rx] Magnesium Oxide [Mgo] 400 mg PO BID #30 tablet 04/17/16 [Rx] Metoprolol [Lopressor] 25 mg PO BID #30 tablet 04/17/16 [Rx] Mirtazapine [Remeron] 7.5 mg PO HS #20 tablet 04/17/16 [Rx] Omeprazole [PriLOSEC] 20 mg PO DAILY #30 cap 04/17/16 [Rx] Allergies/Adverse Reactions: Allergies No Known Allergies Allergy (Verified 04/14/16 10:40) Certification: Further, I certify that my clinical findings support that this patient is homebound (i.e. absences from home require considerable and taxing effort and are for medical reasons or voodoo services or infrequently or short duration when for other reasons) because: Homebound Reason: Patient requires assistance of a person or device to safely leave home, Leaving home requires considerable and taxing effort due to condition Attestation: My signature below is to certify that this patient is under my care and that I, or nurse practitioner, or a physician's media assistant working with me, has a face-to -face encounter with this patient.
--- NOTE | 2016-04-17 16:00 | Palliative - Consult Note ---
Date of Encounter: 04/17/16 Time of Encounter: 12:30 - Assessment and Plan (1) Community acquired pneumonia Current Visit: Yes Status: Acute Assessment and plan: Chest x-ray reported as showing pneumonia. Patient is being treated aggressively for this with antibiotics. At this time white count is normal, her is no fever, blood cultures negative antigens negative. And per hospitalist team. (2) Tachycardia Current Visit: Yes Status: Acute Assessment and plan: episode of SVT might not atrial fibrillation. Cardiology recommended continuing Lopressor they have signed off. (3) COPD (chronic obstructive pulmonary disease) Current Visit: Yes Status: Chronic Qualifiers: COPD type: unspecified COPD Qualified Code(s): J44.9 - Chronic obstructive pulmonary disease, unspecified (4) Lung nodule Current Visit: Yes Status: Chronic Assessment and plan: Pulmonary feels that this is probably round atelectasis would be good to repeat CT scan as an outpatient a every 12 weeks. Further workup until after repeat CT. (5) Hypokalemia Current Visit: Yes Status: Resolved Assessment and plan: She is taking potassium, but having difficult time swallowing it at times. She does not like it. But she is taking it. (6) Adult failure to thrive Current Visit: Yes Status: Chronic Assessment and plan: She is cachectic, and clearly is having trouble with thrive him and is 2.1 at this time. However the patient is able to get around the house fairly well at this time does not meet hospice criteria. She is however willing to accept the possibility of home health care. She does not wish to have any rehabilitation in a nursing facility. Place a social work consult for advanced directives as well as home health care. (7) Goals of care, counseling/discussion Current Visit: Yes Status: Acute Assessment and plan: Patient does not wish to be placed on a ventilator and after describing that in the event of cardiac arrest this would require a ventilator patient has opted for DNRCCA, DNI. The patient wishes to go home and does not wish to entertain going to a long term for rehabilitation. She will however except the possibility of home health care. Does need to fill out advanced directives this and she wishes to have her daughter Kisha Pickens at [phone] for medical power of disability attorney. Have consulted social work to do the advanced directives and to try to set up home health care for her. Palliative-CN HPI - Data of Consult Patient: new to practice Requesting Physician: Dalila Larry MD Primary Care Provider: PCP NO - Consult Narrative Palliative Care/Comfort Measures: Palliative care Reason for consult: Goals of care, CODE STATUS History of present illness: Ms. Brown is a 75 year old female CC: Dalila Larry MD Was initially brought to the hospital for weight loss and failure to thrive. Having cough and shortness of breath and been worsening for 3 days prior to admission. However been having increasing problems with decreased appetite and decreased G for the last year and particularly bad over the last month. She has had repeated bouts of rhonchi this. When she came in the hospital this time it was noted she had very little oral intake. An x-ray showed a right lung infiltrate is treated with antibiotics and the patient admitted. He has had weight loss, joint aches and shortness breath cough with sputum production. It is being treated currently for pneumonia. At this time the patient has no complaints of pain no complaint of shortness of breath. Past Med Surg Social Fam HX - Past Medical History Medical history: myocardial infarction - Past Surgical History Surgical History: hysterectomy - Social History Smoking Status: Former smoker Smokeless Tobacco Status: No Alcohol use: none Drug use: none - Family History Father Family Member Ethnicity: Non- Living Status: Age at : 70 Cause of : lung cancer Hx Family Cancer: Yes (lung cancer) Brother Age: 76 Family Member Ethnicity: Non- Living Status: Still Living Hx Family Cardiac Disorders: Yes ([place]) Hx Family Respiratory Disorders: Yes (COPD) Sister Living Status: Age at : 75 Cause of : cancer Hx Family Respiratory Disorders: Yes (COPD) Hx Family Cancer: Yes (lung cancer) Medications and Allergies Albuterol Sulfate [Albuterol Inhaler] 1 puff IH Q4-6H PRN 04/14/16 [History] Calcium Carbonate/Vitamin D3 [Calcium 500 mg Chewable Tablet] 1 each PO DAILY [History] Potassium 99 mg PO DAILY 04/14/16 [History] Aspirin 81 mg PO DAILY #30 tab.chew 04/17/16 [Rx] Lactose-Reduced Food [Ensure Active Clear] 1 bottle PO TID #90 can 04/17/16 [Rx] Levofloxacin [Levaquin] 500 mg PO DAILY #7 tablet 04/17/16 [Rx] Magnesium Oxide [Mgo] 400 mg PO BID #30 tablet 04/17/16 [Rx] Metoprolol [Lopressor] 25 mg PO BID #30 tablet 04/17/16 [Rx] Mirtazapine [Remeron] 7.5 mg PO HS #20 tablet 04/17/16 [Rx] Omeprazole [PriLOSEC] 20 mg PO DAILY #30 cap 04/17/16 [Rx] Allergies No Known Allergies Allergy (Verified 04/14/16 10:40) - Constitutional Constitutional ROS PAL: decreased appetite, anorexia, chills - EENT Eyes: no discharge, no pain Ears: no ear discharge, no ear pain Ears, nose, mouth, throat: no dysphagia, no epistaxis, no facial pain, no mouth pain, no nasal congestion - Cardiovascular Cardiovascular ROS: no chest pain, no chest pain at rest, no chest pain with activity - Respiratory Respiratory: cough, dyspnea, dyspnea on exertion, chest congestion, excessive phlegm production, change in phlegm color - Gastrointestinal Gastrointestinal: no constipation, no diarrhea, no nausea, no vomiting - Genitourinary Palliative ROS female: no urinary frequency, no urinary hesitancy, no urinary incontinence - Musculoskeletal Musculoskeletal ROS IM: muscle weakness, no myalgias, no neck pain - Integumentary ROS Integumentary: no rash, no skin pain, no sores - Neurological Neurological ROS: frequent falls, weakness, no behavioral changes, no dizziness , no focal weakness - Psychiatric Psychiatric general PM: no change in appetite, no confusion, no homicidal ideation, no hopelessness, no suicidal ideation - Endocrine Endocrine IM: other (Diabetes no thyroid problems.) Palliative Care-Exam - Constitutional Vitals: Temp Pulse Resp BP Pulse Ox 98.0 F 98 16 147/84 93 L 04/17/16 11:00 04/17/16 11:00 04/17/16 11:00 04/17/16 11:00 04/17/16 11:00 General appearance: Present: no acute distress, thin - Eye Eye exam: Present: EOMI, normal appearance, PERRL - ENT ENT exam: Present: mucous membranes dry (Slightly), normal oropharynx (Has dentures) - Neck Neck exam: Present: normal inspection - Respiratory Respiratory exam: Present: decreased breath sounds - Cardiovascular Cardiovascular exam: Present: RRR - GI/Abdominal Exam GI/Abdominal exam: Present: normal bowel sounds. Absent: soft, tenderness - Rectal Rectal exam: Present: deferred - Extremities Exam Extremities exam: Present: normal inspection. Absent: pedal edema, tenderness - Neurological Exam Neurological exam: Present: alert, oriented X3 - Psychiatric Psychiatric exam: Present: normal affect, normal mood. Absent: agitated, anxious - Skin Skin exam: Present: dry, warm Internal Medicine - CN: Reslt - Labs CBC & Chem 7: 04/16/16 09:28 04/16/16 09:28 - ABG Interpretation ABG results: PT/INR, D-dimer PT 13.7 Seconds (9.4-12.1) H 04/16/16 08:41 Consult Discharge Plan - Plan Additional Instructions: F/up with PCP in 2 weeks Referrals: NO,PCP [Primary Care Provider] - Prescriptions: Aspirin 81 mg PO DAILY #30 tab.chew Lactose-Reduced Food [Ensure Active Clear] 1 bottle PO TID #90 can Levofloxacin [Levaquin] 500 mg PO DAILY #7 tablet Magnesium Oxide [Mgo] 400 mg PO BID #30 tablet Metoprolol [Lopressor] 25 mg PO BID #30 tablet Mirtazapine [Remeron] 7.5 mg PO HS #20 tablet Omeprazole [PriLOSEC] 20 mg PO DAILY #30 cap Palliative Quality Palliative Quality: Screen for Code Status: Yes, Screen for Goals of Care: Yes, Screen for Pain: Yes, If Pain Regimen Started, Initiate Bowel Regimen: NA (O pain regimen started.), Screen for Nausea/Vomitting: Yes Code Status: 04/14/16 05:11 Resuscitation Status: Active [RES] Routine Comment: Resuscitation Status: Full Code
[2016-04-17] MEDS: Acetylcysteine 10% 2 ML INHSOL IH SCH ×2 (16:09→21:32)
[2016-04-17] MEDS: Mirtazapine 15 MG TABLET PO SCH (21:25)
[2016-04-17] MEDS: Potassium Chloride Elixir 20 MEQ/15 ML UDC PO SCH (21:31)
[2016-04-18] MEDS: Acetylcysteine 10% 2 ML INHSOL IH SCH ×2 (04:35→10:01)
[2016-04-18] MEDS: Levalbuterol Neb 0.63 MG/3 ML IH SCH ×2 (04:35→10:01)
[2016-04-18] MEDS: Levofloxacin 750 MG/150 ML 750 MG/150 ML BAG IVPB SCH (06:33)
[2016-04-18] MEDS: *HR* Heparin 5,000 UNIT/ML VIAL SQ SCH (08:01)
[2016-04-18] MEDS: Aspirin 81 MG TAB.CHEW PO SCH (08:04)
[2016-04-18] MEDS: Potassium Chloride Elixir 20 MEQ/15 ML UDC PO SCH (08:06)
[2016-04-18 12:11] VITALS: BP 155/79
--- NOTE | 2016-04-18 13:12 | Internal Med Progress Note ---
Date of Encounter: 04/18/16 Time of Encounter: 13:10 - Assessment and plan (1) Atrial fibrillation with RVR Current Visit: Yes Status: Ruled-out (2) Community acquired pneumonia Current Visit: Yes Status: Acute Assessment and plan: Improving. Patient is medically stable for discharge home today. [facility] referral has been completed. She is not requiring any supplemental O2 at this time. Will be discharged on oral antibiotics. (3) Hypokalemia Current Visit: Yes Status: Resolved (4) Lung nodule Current Visit: Yes Status: Chronic (5) Adult failure to thrive Current Visit: Yes Status: Chronic (6) COPD (chronic obstructive pulmonary disease) Current Visit: Yes Status: Chronic Qualifiers: COPD type: unspecified COPD Qualified Code(s): J44.9 - Chronic obstructive pulmonary disease, unspecified (7) CAD (coronary artery disease) Current Visit: Yes Status: Chronic Qualifiers: Coronary Disease-Associated Artery/Lesion type: [place] artery [place] vs. transplanted heart: [place] heart Associated angina: without angina Qualified Code(s): I25.10 - Atherosclerotic heart disease of [place] coronary artery without angina pectoris (8) Hypomagnesemia Current Visit: Yes Status: Acute - Subjective Interval history: Appears and feels much better today. Sitting in a chair, having lunch. No chest pain, shortness of breath. - Constitutional Vitals: Temp Pulse Resp BP Pulse Ox 97.9 F 101 17 155/79 92 L 04/18/16 12:07 04/18/16 12:07 04/18/16 12:07 04/18/16 12:07 04/18/16 12:07 General appearance: Present: cachectic (very frail, cachectic, kyphosis), A&O X 3, answers questions appropriately - Respiratory Respiratory exam: Present: CTAB. Absent: accessory muscle use, rales, rhonchi, wheezes - Cardiovascular Cardiovascular exam: Present: RRR, +S1, +S2. Absent: diastolic murmur, gallop, rubs, systolic murmur Internal Medicine: Result - Labs CBC & Chem 7: 04/16/16 09:28 04/16/16 09:28 - ABG Interpretation ABG results: PT/INR, D-dimer PT 13.7 Seconds (9.4-12.1) H 04/16/16 08:41 Consult Discharge Plan - Plan Additional Instructions: F/up with PCP in 2 weeks Referrals: Colopy,Balbir Shah DO [Primary Care Provider] - (THIS OFFICE WILL NOT MAKE A FOLLOW UP APPOINTMENT. HE WANTS THE PATIENT OR FAMILY TO CALL AND MAKE THE APPOINTMENT. THANKS) NO,PCP [Non-Partnered Physician] - Prescriptions: Aspirin 81 mg PO DAILY #30 tab.chew Lactose-Reduced Food [Ensure Active Clear] 1 bottle PO TID #90 can Levofloxacin [Levaquin] 500 mg PO DAILY #7 tablet Magnesium Oxide [Mgo] 400 mg PO BID #30 tablet Metoprolol [Lopressor] 25 mg PO BID #30 tablet Mirtazapine [Remeron] 7.5 mg PO HS #20 tablet Omeprazole [PriLOSEC] 20 mg PO DAILY #30 cap
--- NOTE | 2016-04-18 13:15 | Event Note ---
Date of Encounter: 04/18/16 Time of Encounter: 11:30 Ms. Brown denies needs. Her daughter-Kisha Cervantes- reports an improvement in health/appearance since yesterday. Advanced directives completed. protective services case worker following for discharge needs. The palliative care team will sign off. Please re-consult if needed.
[2016-04-18] MEDS ORDERED: FLU VACC QS2016-17 36MOS UP/PF 0.5 ML SYRINGE IM ONE (14:06)
--- NOTE | 2016-04-18 16:02 | Electrocardiograph Report ---
[place] [id number] Test Date: 2016-04-16 Pat Name: Amparo Brown Department: 115 Room: 2N12 Gender: F Shower Room Attendant: : 1940 Requested By: Gemini Larry Order Number: [id number] Reading MD: Joseph Wolf MD Measurements Intervals [place] Rate: 218 P: SC: 0 QRS: -26 QRSD: 87 T: 171 QT: 198 QTc: 301 Interpretive Statements SUPRAVENTRICULAR TACHYCARDIA BORDERLINE LEFT AXIS DEVIATION Electronically Signed On 04-18-2016 16:00:18 EST by Joseph Wolf MD
--- NOTE | 2016-04-18 21:39 | Electrocardiograph Report ---
[place] [id number] Test Date: 2016-04-16 Pat Name: Amparo Brown Department: 115 Room: 2N12 Gender: F Brand Manager: : 1940 Requested By: Gemini Larry Order Number: [id number] Reading MD: Joseph Wolf MD Measurements Intervals [place] Rate: 168 P: ND: 0 QRS: -22 QRSD: 94 T: 25 QT: 254 QTc: 345 Interpretive Statements ATRIAL FIBRILLATION WITH RAPID VENTRICULAR RESPONSE BORDERLINE LEFT AXIS DEVIATION NONSPECIFIC ST \T\ T-WAVE ABNORMALITY Electronically Signed On 04-18-2016 21:37:23 EST by Joseph Wolf MD
--- NOTE | 2016-04-18 21:41 | Electrocardiograph Report ---
[place] [id number] Test Date: 2016-04-16 Pat Name: Amparo Brown Department: 110 Room: 2N12 Gender: F Jig Filler: : 1940 Requested By: Gemini Larry Order Number: [id number] Reading MD: Joseph Wolf MD Measurements Intervals [place] Rate: 110 P: 41 HI: 122 QRS: -25 QRSD: 93 T: -7 QT: 317 QTc: 382 Interpretive Statements SINUS TACHYCARDIA WITH OCCASIONAL ECTOPIC PREMATURE COMPLEXES BORDERLINE LEFT AXIS DEVIATION poor r wave progression Electronically Signed On 04-18-2016 21:39:16 EST by Joseph Wolf MD
[2016-04-19] MEDS ORDERED: levoFLOXacin 750 MG TABLET PO SCH (09:00)
== END 2016-04-18 14:50 | disposition home health service (06) ==
LOC: EMEROO 20:08 → 3ANU 20:08 → 2NNU 04-16 09:13
PROVIDERS: ADMIT Internal Medicine; ATTEND Internal Medicine

== ENCOUNTER 2016-09-22 12:30 | Inpatient (IN) ==
[2016-09-22] MEDS ORDERED: Ondansetron 4 MG/2 ML VIAL IVP ONE ×2 (13:17→18:23)
[2016-09-22] MEDS ORDERED: *HR* Morphine 2 MG/ML SYRINGE IVP ONE ×2 (13:17→18:20)
[2016-09-22] MEDS ORDERED: 0.9 % Sodium Chloride 1,000 ML IVC ONE (13:17)
--- NOTE | 2016-09-22 13:22 | Emergency Department Note ---
Disposition Clinical Impression: Small bowel obstruction Disposition: Admitted As Inpatient Condition: Fair Referrals: NO,PCP [Primary Care Provider] - Forms: Work/School Release, ED Satisfaction Letter Time of Disposition: 17:55 Abdominal Pain HPI - General Chief Complaint: ED Abdominal Pain Stated Complaint: Vomiting/Weakness/Abd Pain Time Seen by Provider: 09/22/16 13:09 Source: patient, family Mode of arrival: private vehicle Limitations: no limitations Nursing Notes Reviewed: Yes Vital Signs Reviewed: Yes - History of Present Illness Pt Subjective Complaint: abdominal pain Onset (ago): hour(s) (Started yesterday evening) Consistency: constant Location: RUQ, RLQ Pain Severity: moderate Pain Scale: 6 Quality: cramping, sharp Radiation: none Migration to: no migration Improves with: nothing Worsens with: nothing Associated symptoms: Reports: nausea, vomiting. Denies: diarrhea Treatments prior to arrival: none - Related Data Home Medications Medication Instructions Recorded Confirmed Albuterol Sulfate [Albuterol 1 puff IH Q4-6H PRN 04/14/16 09/22/16 Inhaler] Calcium Carbonate/Vitamin D3 1 each PO DAILY 04/14/16 09/22/16 [Calcium 500 mg Chewable Tablet] Potassium 99 mg PO DAILY 04/14/16 09/22/16 Cyanocobalamin (Vitamin B-12) 1,000 mcg PO DAILY 09/22/16 09/22/16 [Vitamin B12] Famotidine [Pepcid] 20 mg PO DAILY 09/22/16 09/22/16 Previous Rx's Medication Instructions Recorded Magnesium Oxide [Mgo] 400 mg PO BID #30 tablet 04/17/16 Metoprolol [Lopressor] 25 mg PO BID #30 tablet 04/17/16 Allergies Allergy/AdvReac Type Severity Reaction Status Date / Time No Known Allergies Allergy Verified 04/14/16 10:40 All systems ED: reviewed and negative except as stated. Constitutional: Denies: fever, chills ENT ED: Denies: ear pain, throat pain, congestion Cardiovascular: Denies: chest pain, palpitations Respiratory: Denies: cough, dyspnea Gastrointestinal: Reports: abdominal pain, nausea, vomiting. Denies: diarrhea, constipation Genitourinary: Denies: urgency, dysuria, frequency Musculoskeletal: Denies: back pain Integumentary: Denies: rash Neurological: Denies: headache Abdominal Pain PMH - Past Medical History Medical history: Reports: hypertension, myocardial infarction Female Surgical History: Reports: hysterectomy, other (Hiatal hernia repair) - Social History Smoking status: Former smoker Alcohol use: Reports: none Drug use: Reports: none Physical Exam - General Limitations: no limitations General appearance: alert, in no apparent distress - Head Head exam: atraumatic, normocephalic - Eye Eye exam: Present: normal appearance, PERRL, EOMI. Absent: scleral icterus, conjunctival injection - ENT ENT exam: normal exam, normal oropharynx, mucous membranes moist, normal external ear exam - Neck Neck exam: Present: normal inspection, full ROM - Chest Chest inspection: Present: normal inspection, symmetric chest wall rise. Absent : tenderness - Respiratory Respiratory exam: Present: normal lung sounds bilaterally. Absent: respiratory distress, wheezes - Cardiovascular Cardiovascular exam: Present: regular rate, normal rhythm, normal heart sounds - Abdominal Exam Abdominal exam: Present: soft, tenderness, distention, diminished bowel sounds Abdominal tenderness: Present: RUQ, RLQ - Extremities Exam Extremities exam: Present: normal inspection, full ROM. Absent: pedal edema - Back Exam Back exam: Absent: tenderness - Neurological Exam Neurological exam: Present: alert, oriented X3 - Psychiatric Psychiatric exam: Present: normal affect, normal mood - Skin Skin exam: Present: warm, dry. Absent: rash Course Course Narrative: Patient presents with a complaint of vomiting and abdominal pain. All this came on yesterday evening. She does not remember if the pain or the vomiting came first. Pain has been persistent. On exam her belly looks distended and she is very tender to palpation in the right lower quadrant and right mid to upper quadrants. I started belly pain workup. I think we need to proceed with CT scan of the abdomen. Medications were ordered for symptom relief. Disposition will be based on diagnostic results and reevaluation. - Reevaluation(s) Reevaluation #1: Labs look okay but CAT scan shows a small bowel obstruction. Patient will need to be admitted. We will place the NG tube and I will consult surgery. Time: 16:48 - Consultations Consultation #1: Dr. More, surgery - I discussed the case with surgery on-call. We discussed the presentation and ER course and imaging results. He agrees his NG tube and recommends admission to hospitalist with a surgery consult. I will call the hospitalist Time: 17:29 Consultation #2: Gale rCuz, hospitalist service - I discussed the case with hospital service. We discussed presentation and ER course. We discussed diagnostic results and consultations. Patient has been accepted to the hospitalist service. Time: 17:55 Vital Signs Temperature 98.1 F 09/22/16 12:32 Pulse Rate 95 09/22/16 12:32 Respiratory Rate 16 09/22/16 12:32 Blood Pressure 137/86 09/22/16 12:32 O2 Sat by Pulse Oximetry 94 09/22/16 12:32 Temperature 98.1 F 09/22/16 12:32 Pulse Rate 104 09/22/16 16:47 Respiratory Rate 16 09/22/16 16:47 Blood Pressure 101/89 09/22/16 16:47 O2 Sat by Pulse Oximetry 94 09/22/16 16:47 Oxygen Delivery Oxygen Delivery Room Air Abdominal Pain - Medical Records Medical records reviewed: Yes I reviewed the patient's medical records. - Lab Data Lab results reviewed: Yes I reviewed the patient's lab results. Result diagrams: 09/22/16 12:48 09/22/16 12:48 Lab Results 09/22/16 09/22/16 09/22/16 Range/Units 12:48 12:48 12:48 WBC 10.1 (4.3-11.1) K/mcL RBC 4.86 (3.82-4.97) M/mcL Hgb 14.3 (11.5-15.4) g/dL Hct 43.1 (35.3-44.9) % MCV 88.7 (83.0-100.0) fL MCH 29.4 (28.0-33.3) pg MCHC 33.2 (31.6-35.5) g/dL RDW 15.0 H (11.5-14.5) % Plt Count 218 (140-400) K/mcL MPV 11.3 (9.4-12.4) fL Immature Gran % 0.7 (0-4) % Seg Neutrophils % 91.2 % Lymphocytes % 4.1 % Monocytes % 3.9 % Eosinophils % 0.0 % Basophils % 0.1 % Neutrophils # 9.2 H (1.6-8.9) K/mcL Lymphocytes # 0.4 L (0.6-4.6) K/mcL Monocytes # 0.4 (0.0-1.3) K/mcL Eosinophils # 0.0 (0.0-0.6) K/mcL Basophils # 0.0 (0.0-0.2) K/mcL PT 10.9 (9.4-12.1) Seconds INR 1.0 APTT 30.6 (26.0-36.0) Seconds Sodium 133 L (136-145) mEq/L Potassium 4.1 (3.5-4.5) mEq/L Chloride 97 L (98-109) mEq/L Carbon Dioxide 28 (19-29) mEq/L BUN 14 (7-20) mg/dL Creatinine 0.66 (0.57-1.11) mg/dL Est GFR ( Amer) > 60 (> 60) Est GFR (Non-Af Amer) > 60 (> 60) BUN/Creatinine Ratio 21 (6-26) Glucose 148 H (70-99) mg/dL Calculated Osmolality 279 L (280-300) Lactic Acid (0.5-2.2) mmol/L Calcium 9.9 (8.6-10.8) mg/dL Total Bilirubin 0.7 (0.2-1.2) mg/dL Direct Bilirubin 0.3 (0.0-0.5) mg/dL Indirect Bilirubin 0.4 (0.0-1.2) mg/dL AST 21 (5-34) Units/L ALT 15 (0-55) Units/L Alkaline Phosphatase 70 (38-126) Units/L Troponin I (0-0.03) ng/mL Serum Total Protein 8.4 H (6.0-8.3) g/dL Albumin 4.2 (3.5-5.0) g/dL Globulin 4.2 H (2.4-3.5) g/dL Albumin/Globulin Ratio 1.0 L (1.1-2.2) Amylase 44 (25-125) Units/L Lipase < 10 (8-78) Units/L Urine Color (Yellow) Urine Clarity (Clear) Urine pH (5.0-8.0) pH Units Ur Specific [place] (1.010-1.025) Urine Protein (Neg-Trace) mg/dL Urine Glucose (UA) (Normal) mg/dL Urine Ketones (Negative) mg/dL Urine Blood (Negative) Urine Nitrite (Negative) Urine Bilirubin (Negative) Urine Urobilinogen (Normal) mg/dL Ur Leukocyte Esterase (Negative) Urine Microscopic RBC (0-3) per hpf Urine Microscopic WBC (0-3) per hpf Ur Squamous Epith Cells (None-Few) per lpf Urine Bacteria (None-Few) per hpf Hyaline Casts (None-Few) per lpf Ur Culture Indicated? (NO) 09/22/16 09/22/16 09/22/16 Range/Units 12:48 13:44 14:20 WBC (4.3-11.1) K/mcL RBC (3.82-4.97) M/mcL Hgb (11.5-15.4) g/dL Hct (35.3-44.9) % MCV (83.0-100.0) fL MCH (28.0-33.3) pg MCHC (31.6-35.5) g/dL RDW (11.5-14.5) % Plt Count (140-400) K/mcL MPV (9.4-12.4) fL Immature Gran % (0-4) % Seg Neutrophils % % Lymphocytes % % Monocytes % % Eosinophils % % Basophils % % Neutrophils # (1.6-8.9) K/mcL Lymphocytes # (0.6-4.6) K/mcL Monocytes # (0.0-1.3) K/mcL Eosinophils # (0.0-0.6) K/mcL Basophils # (0.0-0.2) K/mcL PT (9.4-12.1) Seconds INR APTT (26.0-36.0) Seconds Sodium (136-145) mEq/L Potassium (3.5-4.5) mEq/L Chloride (98-109) mEq/L Carbon Dioxide (19-29) mEq/L BUN (7-20) mg/dL Creatinine (0.57-1.11) mg/dL Est GFR ( Amer) (> 60) Est GFR (Non-Af Amer) (> 60) BUN/Creatinine Ratio (6-26) Glucose (70-99) mg/dL Calculated Osmolality (280-300) Lactic Acid 2.3 H (0.5-2.2) mmol/L Calcium (8.6-10.8) mg/dL Total Bilirubin (0.2-1.2) mg/dL Direct Bilirubin (0.0-0.5) mg/dL Indirect Bilirubin (0.0-1.2) mg/dL AST (5-34) Units/L ALT (0-55) Units/L Alkaline Phosphatase (38-126) Units/L Troponin I 0.00 (0-0.03) ng/mL Serum Total Protein (6.0-8.3) g/dL Albumin (3.5-5.0) g/dL Globulin (2.4-3.5) g/dL Albumin/Globulin Ratio (1.1-2.2) Amylase (25-125) Units/L Lipase (8-78) Units/L Urine Color Yellow (Yellow) Urine Clarity Slightly Hazy (Clear) Urine pH 7.0 (5.0-8.0) pH Units Ur Specific [place] 1.016 (1.010-1.025) Urine Protein 30 H (Neg-Trace) mg/dL Urine Glucose (UA) Normal (Normal) mg/dL Urine Ketones Trace H (Negative) mg/dL Urine Blood Negative (Negative) Urine Nitrite Negative (Negative) Urine Bilirubin Negative (Negative) Urine Urobilinogen Normal (Normal) mg/dL Ur Leukocyte Esterase Negative (Negative) Urine Microscopic RBC 5-15 H (0-3) per hpf Urine Microscopic WBC 0-3 (0-3) per hpf Ur Squamous Epith Cells Moderate H (None-Few) per lpf Urine Bacteria None Seen (None-Few) per hpf Hyaline Casts None Seen (None-Few) per lpf Ur Culture Indicated? NO (NO) - Radiology Data Radiology results reviewed: Yes I reviewed the patient's radiology results.
[2016-09-22 13:38] LABS: Basophils % 0.1 %; Hematocrit 43.1 % (35.3-44.9); Hemoglobin 14.3 g/dL (11.5-15.4); Immature Granulocytes % 0.7 % (0-4); Lymphocytes # 0.4 K/mcL (0.6-4.6); Lymphocytes % 4.1 %; Mean Corpuscular HGB Conc 33.2 g/dL (31.6-35.5); Mean Corpuscular Hemoglobin 29.4 pg (28.0-33.3); Mean Corpuscular Volume 88.7 fL (83.0-100.0); Mean Platelet Volume 11.3 fL (9.4-12.4); Monocytes # 0.4 K/mcL (0.0-1.3); Monocytes % 3.9 %; Neutrophils # 9.2 K/mcL (1.6-8.9); Platelet Count 218 K/mcL (140-400); Red Blood Count 4.86 M/mcL (3.82-4.97); Segmented Neutrophils % 91.2 %
[2016-09-22 13:48] LABS: Alanine Aminotransferase 15 Units/L (0-55); Albumin 4.2 g/dL (3.5-5.0); Alkaline Phosphatase 70 Units/L (38-126); Amylase 44 Units/L (25-125); Aspartate Amino Transferase 21 Units/L (5-34); BUN/Creatinine Ratio 21 (6-26); Bilirubin,Direct 0.3 mg/dL (0.0-0.5); Bilirubin,Indirect 0.4 mg/dL (0.0-1.2); Bilirubin,Total 0.7 mg/dL (0.2-1.2); Blood Urea Nitrogen 14 mg/dL (7-20); Calcium 9.9 mg/dL (8.6-10.8); Carbon Dioxide 28 mEq/L (19-29); Chloride 97 mEq/L (98-109); Globulin 4.2 g/dL (2.4-3.5); Glucose 148 mg/dL (70-99); Osmolality,Calculated 279 (280-300); Potassium 4.1 mEq/L (3.5-4.5); Sodium 133 mEq/L (136-145); Total Protein 8.4 g/dL (6.0-8.3); eGFR For African Americans > 60 (> 60); eGFR For Non-African Americans > 60 (> 60)
[2016-09-22 13:49] LABS: Lipase < 10 Units/L (8-78)
[2016-09-22 13:50] LABS: Prothrombin Time 10.9 Seconds (9.4-12.1)
[2016-09-22 13:53] LABS: Activated Partial Thrombo Time 30.6 Seconds (26.0-36.0)
[2016-09-22 14:26] LABS: Bilirubin,Urine Negative (Negative); Blood,Urine Negative (Negative); Color,Urine Yellow (Yellow); Glucose,Urine (UA) Normal (Normal); Ketones,Urine Trace mg/dL (Negative); Leukocyte Esterase,Urine Negative (Negative); Nitrite,Urine Negative (Negative); Protein,Urine 30 mg/dL (Neg-Trace); Specific Gravity,Urine 1.016 (1.010-1.025); Urobilinogen,Urine Normal (Normal)
[2016-09-22 14:28] LABS: Bacteria,Urine None Seen per hpf (None-Few); Hyaline Casts,Urine None Seen per lpf (None-Few); Squamous Epithelial Cell,Urine Moderate per lpf (None-Few); WBC,Urine 0-3 per hpf (0-3)
[2016-09-22 14:30] LABS: Clarity,Urine Slightly Hazy (Clear)
[2016-09-22] MEDS ORDERED: Naloxone 0.4 MG/ML INJ IVP PRN (20:07)
--- NOTE | 2016-09-22 20:14 | Internal Med History&Physical ---
Date of Encounter: 09/22/16 Time of Encounter: 20:12 Assessment and Plan (1) Small bowel obstruction Current visit: Yes Status: Acute Consult surgery. Conservative management with nothing by mouth, okay for mouth swab and ice chips. IV fluids, monitor hospital course closely (2) COPD (chronic obstructive pulmonary disease) Current visit: No Status: Chronic Stable no acute exacerbation on albuterol when necessary at home Qualifiers: COPD type: unspecified COPD Qualified Code(s): J44.9 - Chronic obstructive pulmonary disease, unspecified (3) Atrial fibrillation Current visit: No Status: Chronic On metoprolol by mouth. Given nothing by mouth status would convert to IV metoprolol schedule. She is not on anticoagulation for atrial fibrillation at home Qualifiers: Qualified Code(s): I48.2 - Chronic atrial fibrillation Internal Medicine - H&P: HPI Chief complaint: Nausea vomiting abdominal pain History of present illness: Ms. Brown is a 75 year old female who presents with acute onset nausea with clear emesis and abdominal pain. Was subsequently found to have small bowel obstruction. She reports developing symptoms since yesterday evening with a sensation of nausea with intermittent clear emesis. Associated with belly pain poorly localized in the epigastric periumbilical region. Worse with food improve without food. She reports last bowel movements yesterday morning and was noted to be regular by her standards. Of note her surgical history includes a hysterectomy many decades ago. She also had a hiatal hernia surgery about 3- 4 years ago. She denies any other history of surgery and abdomen otherwise. Past Med Surg Social Fam HX - Past Medical History Medical history: hypertension, myocardial infarction - Past Surgical History Surgical History: hysterectomy, other (Surgery for Hiatal Hernia) - Social History Smoking Status: Former smoker Smokeless Tobacco Status: No Alcohol use: none Drug use: none - Family History Father Family Member Ethnicity: Non- Living Status: Hx Family Cancer: Yes (lung cancer) Brother Family Member Ethnicity: Non- Living Status: Still Living Hx Family Cardiac Disorders: Yes ([place]) Hx Family Respiratory Disorders: Yes (COPD) Sister Living Status: Hx Family Respiratory Disorders: Yes (COPD) Hx Family Cancer: Yes (lung cancer) Internal Medicine - H&P: Meds Albuterol Sulfate [Albuterol Inhaler] 1 puff IH Q4-6H PRN 04/14/16 [History] Calcium Carbonate/Vitamin D3 [Calcium 500 mg Chewable Tablet] 1 each PO DAILY [History] Potassium 99 mg PO DAILY 04/14/16 [History] Magnesium Oxide [Mgo] 400 mg PO BID #30 tablet 04/17/16 [Rx] Metoprolol [Lopressor] 25 mg PO BID #30 tablet 04/17/16 [Rx] Cyanocobalamin (Vitamin B-12) [Vitamin B12] 1,000 mcg PO DAILY 09/22/16 [History ] Famotidine [Pepcid] 20 mg PO DAILY 09/22/16 [History] Allergies No Known Allergies Allergy (Verified 04/14/16 10:40) All Systems PM: A 10-system review of systems was performed and is negative for pertinent findings except as documented above in the HPI. Review of systems: ROS 14 point review of systems reviewed. Pertinent positive or negative as per HPI or otherwise reviewed as negative - Constitutional Vitals: Temp Pulse Resp BP Pulse Ox 98.3 F 108 16 116/84 90 09/22/16 19:41 09/22/16 19:41 09/22/16 19:41 09/22/16 19:41 09/22/16 19:41 Exam: General - AAO x 3 Psych - Appropriate affect/speech. No agitation Eyes - CRISTOBAL. Eye lids intact. No scleral icterus ENT - Oral mucosa pink, dentition intact. External ear clear/dry/intact. No thyromegaly Lymphatics - No cervical/inguinal lympadenopathy Neuro - No gross peripheral or central neuro deficits with intact CN 2-12 exam Heart - tachycardia. RRR. S1 and S2 present. No added HS/murmurs appreciated. No elevated JVD appreciated. No calf swellings/erythema Lung - Adequate air entry b/l, No crackes/wheezes appreciated GI - NG tube in situ, periumbilical epigastric tenderness, no guarding or rigidity noted. No hepatosplenomegaly/ascities. - No CVA/suprapubic tenderness or palpable bladder distension Skin - Intact. No rash/petechiae/ecchymosis. Warm extremities MSK - Joints with normal ROM. No joint swellings Internal Med - H&P Results - Labs CBC & Chem 7: 09/22/16 12:48 09/22/16 12:48
[2016-09-22] MEDS ORDERED: Ipratropium/Albuterol Neb 3 ML IH PRN (20:17)
[2016-09-22] MEDS: Ringers Solution, Lactated 1,000 ML IVC SCH (22:01)
[2016-09-22] MEDS: Ipratropium/Albuterol Neb 3 ML IH SCH (22:40)
[2016-09-22] MEDS: *HR* Metoprolol 5 MG/5 ML VIAL IVP SCH (23:28)
[2016-09-23] MEDS: Prochlorperazine 10 MG/2 ML VIAL IVP PRN (00:25)
[2016-09-23] MEDS: Ipratropium/Albuterol Neb 3 ML IH SCH ×4 (03:27→21:15)
[2016-09-23] MEDS: *HR* Enoxaparin 30 MG/0.3 ML SYRINGE SQ SCH (05:22)
[2016-09-23] MEDS: *HR* Metoprolol 5 MG/5 ML VIAL IVP SCH ×4 (05:22→23:17)
[2016-09-23 05:23] LABS: Basophils % 0.1 %; Hematocrit 45.5 % (35.3-44.9); Hemoglobin 15.2 g/dL (11.5-15.4); Immature Granulocytes % 0.6 % (0-4); Lymphocytes # 0.6 K/mcL (0.6-4.6); Lymphocytes % 3.9 %; Mean Corpuscular HGB Conc 33.4 g/dL (31.6-35.5); Mean Corpuscular Hemoglobin 29.9 pg (28.0-33.3); Mean Corpuscular Volume 89.4 fL (83.0-100.0); Mean Platelet Volume 11.7 fL (9.4-12.4); Neutrophils # 13.1 K/mcL (1.6-8.9); Platelet Count 227 K/mcL (140-400); Red Blood Count 5.09 M/mcL (3.82-4.97); Red Cell Distribution Width 15.2 % (11.5-14.5); Segmented Neutrophils % 88.4 %
[2016-09-23 05:38] LABS: BUN/Creatinine Ratio 19 (6-26); Blood Urea Nitrogen 13 mg/dL (7-20); Calcium 9.3 mg/dL (8.6-10.8); Carbon Dioxide 28 mEq/L (19-29); Chloride 98 mEq/L (98-109); Glucose 133 mg/dL (70-99); Magnesium 1.7 mg/dL (1.6-2.6); Osmolality,Calculated 280 (280-300); Potassium 4.2 mEq/L (3.5-4.5); Sodium 134 mEq/L (136-145); eGFR For African Americans > 60 (> 60); eGFR For Non-African Americans > 60 (> 60)
[2016-09-23] MEDS: *HR* Morphine 2 MG/ML SYRINGE IVP PRN ×3 (06:59→20:44)
[2016-09-23] MEDS: Ringers Solution, Lactated 1,000 ML IVC SCH ×2 (08:00→16:54)
[2016-09-23] MEDS: Ondansetron 4 MG/2 ML VIAL IVP PRN ×2 (08:01→20:44)
[2016-09-23] MEDS: Pantoprazole 40 MG VIAL IVP SCH (08:01)
--- NOTE | 2016-09-23 13:05 | Internal Med Progress Note ---
<Jamil Puentes - Last Filed: 09/23/16 17:34> Date of Encounter: 09/23/16 Time of Encounter: 10:15 - Assessment and plan (1) Small bowel obstruction Current Visit: Yes Status: Acute Assessment and plan: -SBO likely secondary to adhesions from previous abdominal surgeries -CT abdomen shows SBO with mild-moderate bowel wall inflammation -Hx of hysterectomy and hiatal hernia repair in past 3 years. -Constipation and obstipation for 2d -Nonbloody emesis, possible billiary fluid per patient description -Surgery is on board, Patient is NPO with NG tube for gastric decompression -We will provide IV fluids for hydration and monitor vitals. This patient is currently a good candidate for conservative therapy, but we will be prepared to evaluate surgical necessity throughout her stay. (2) Leukocytosis Current Visit: Yes Status: Acute Assessment and plan: -Etiology unknown -Patient has known SBO shown on CT, likely secondary to adhesions from previous surgery -CT: 1. Multiple dilated loops of small bowel suspicious for a small bowel obstruction at the level of the distal small bowel. Delineation of anatomy is difficult given paucity of intraperitoneal fat and absence of oral contrast in the distal bowel. Although not well seen on this exam, there may be thickening of multiple loops of small bowel wall in the right hemipelvis/right lower quadrant, secondary to edema/inflammation. 2. Small amount of free fluid in the pelvis. -WBC 14.8. -Patient is currently afebrile, normotensive, and HR wnl -We have started ciprofloxacin and metronidazole IV for empiric coverage of anaerobes and GI bacteria -We will monitor Qualifiers: Leukocytosis type: unspecified Qualified Code(s): D72.829 - Elevated white blood cell count, unspecified (3) COPD (chronic obstructive pulmonary disease) Current Visit: No Status: Chronic Assessment and plan: -Stable condition, O2 94 on room air -No acute distress, patient is not complaining of active productive cough -We will provide Duonebs and monitor O2 Qualifiers: COPD type: unspecified COPD Qualified Code(s): J44.9 - Chronic obstructive pulmonary disease, unspecified (4) HTN (hypertension) Current Visit: Yes Status: Acute Assessment and plan: -The patient is currently hypertensive at 154/87 -We will monitor vitals closely, and consider adjusting anti-hypertensives after determining that the patient is stable, however we do not want to attempt too tight regulation with a rising WBC and potential infection. Qualifiers: Hypertension type: essential hypertension Qualified Code(s): I10 - Essential (primary) hypertension (5) DVT prophylaxis Current Visit: Yes Status: Acute Assessment and plan: BRITTNEY Barton Patient is not on home anticoagulation because AFib has been ruled out on previous admission by cardiology 04/17/16 - "Cardiology was consulted and after review of telemetry strips, patient was deemed to be having mostly sinus tachycardia and Cardizem and heparin drips for discontinued." We will consider the risk for paroxismal atrial fibrillation, however there is currently no documentation or irregular rhythm from this admission. 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 - Subjective Interval history: The patient is lying in bed at time of the exam. She has an NG tube in place which appears to have drained about 200 mL. He says that she is still uncomfortable and experiencing some pain however she is feeling mildly better. She denies any flatulence at this time. - Constitutional Vitals: Temp Pulse Resp BP Pulse Ox 98.6 F 89 16 159/97 98 09/23/16 11:37 09/23/16 11:37 09/23/16 11:37 09/23/16 11:37 09/23/16 11:37 General appearance: Present: cooperative, mild distress, A&O X 3, pleasant, underweight, answers questions appropriately Exam: The patient does not appear to be in any distress. - Head Head exam: Present: atraumatic, normocephalic - Eye Eye exam: Present: PERRL, conjuntiva pink, sclera anicteric Pupils: Present: PERRL - Neck Neck exam general surgery: Present: supple, trachea midline. Absent: lymphadenopathy - Respiratory Respiratory exam: Present: CTAB. Absent: accessory muscle use, rales, rhonchi, wheezes - Cardiovascular Cardiovascular exam: Present: RRR, +S1, +S2. Absent: diastolic murmur, gallop, rubs, systolic murmur - GI/Abdominal GI/Abdominal exam: Present: distended, firm, hypoactive bowel sounds, soft, no peritoneal signs. Absent: guarding, mass, normal bowel sounds, rigid, tenderness - Extremities Exam Extremities exam: Present: warm, radial pulses palpable and symetrical. Absent : calf tenderness, cyanotic, pedal edema - Neurological Exam Neurological exam: Present: CN II-XII intact, oriented X3, no focal deficits. Absent: pronater drift, facial droop, speech deficit - Skin Skin exam: Present: dry, intact Internal Medicine: Result - Labs CBC & Chem 7: 09/23/16 04:27 09/23/16 04:27 Labs: Short CBC 09/23/16 Range/Units 04:27 WBC 14.8 H (4.3-11.1) K/mcL Hgb 15.2 (11.5-15.4) g/dL Hct 45.5 H (35.3-44.9) % Plt Count 227 (140-400) K/mcL Neutrophils # 13.1 H (1.6-8.9) K/mcL BMP 09/23/16 04:27 Sodium 134 L Potassium 4.2 Chloride 98 Carbon Dioxide 28 BUN 13 Creatinine 0.69 Glucose 133 H Calcium 9.3 - ABG Interpretation ABG results: PT/INR, D-dimer PT 10.9 Seconds (9.4-12.1) 09/22/16 12:48 Consult Discharge Plan - Plan Referrals: Balbir Cole DO [Primary Care Provider] - <Tom Vanessa P - Last Filed: 09/23/16 17:41> Date of Encounter: 09/23/16 - Constitutional Vitals: Temp Pulse Resp BP Pulse Ox 98.5 F 80 16 154/87 94 09/23/16 15:00 09/23/16 15:00 09/23/16 15:00 09/23/16 15:00 09/23/16 15:00 Internal Medicine: Result - Labs CBC & Chem 7: 09/23/16 04:27 09/23/16 04:27 Labs: Short CBC 09/23/16 Range/Units 04:27 WBC 14.8 H (4.3-11.1) K/mcL Hgb 15.2 (11.5-15.4) g/dL Hct 45.5 H (35.3-44.9) % Plt Count 227 (140-400) K/mcL Neutrophils # 13.1 H (1.6-8.9) K/mcL BMP 09/23/16 04:27 Sodium 134 L Potassium 4.2 Chloride 98 Carbon Dioxide 28 BUN 13 Creatinine 0.69 Glucose 133 H Calcium 9.3 - ABG Interpretation ABG results: PT/INR, D-dimer PT 10.9 Seconds (9.4-12.1) 09/22/16 12:48 - Attending Attestation I examined this patient and my medical decision-making was reviewed with the Resident Physician. I agree with the documented findings, disposition and treatment plan as described except to the extent set forth below. awaiting surgical consult
[2016-09-23] MEDS: MetroNIDAZOLE 500 MG/100 ML 500 MG/100 ML BAG IVPB SCH ×2 (16:55→23:17)
--- NOTE | 2016-09-23 18:30 | General Surgery Consult Note ---
<Jose Billingsley - Last Filed: 09/23/16 18:56> Date of Encounter: 09/23/16 Time of Encounter: 18:27 Assessment and Plan (1) Small bowel obstruction Current Visit: Yes Status: Acute CT of the abdomen and pelvis on 09/22/2016 demonstrates multiple dilated loops of small bowel suspicious for a small bowel obstruction at the level of the distal small bowel. No free air was noted. Mild to moderate bowel wall inflammation was noted. KUB performed on 09/23/2016 demonstrates the tip of the NG tube is in the body of the stomach along with a gas pattern consistent with a small bowel. - Will need to advance 4-5 cm Nothing by mouth except ice chips IV fluids PPI Pain control Supportive care On exam today, faint bowel sounds were noted. Patient denies any flatus or bowel movement. NG tube to low intermittent wall suction. 200 mL output. Encouraged ICS and ambulation 3 times a day with assistance. Okay for nursing clamp NG tube. We will proceed with conservative therapy at this time and re-evaluate tomorrow. (2) Leukocytosis Current Visit: Yes Status: Acute Elevated to 14.8. Afebrile. Medicine started patient on Cipro and Flagyl IV for empiric coverage We will continue to follow Qualifiers: Leukocytosis type: unspecified Qualified Code(s): D72.829 - Elevated white blood cell count, unspecified (3) COPD (chronic obstructive pulmonary disease) Current Visit: No Status: Chronic Patient is satting 96 on room air. Continue bronchodilators. Defer to medicine. Qualifiers: COPD type: unspecified COPD Qualified Code(s): J44.9 - Chronic obstructive pulmonary disease, unspecified (4) HTN (hypertension) Current Visit: Yes Status: Acute Management per medicine Qualifiers: Hypertension type: essential hypertension Qualified Code(s): I10 - Essential (primary) hypertension (5) DVT prophylaxis Current Visit: Yes Status: Acute Lovenox injections History of Present Illness Consult date: 09/22/16 Reason for consult: other (Small bowel obstruction) Requesting physician: Constantin Padilla History of present illness: Ms. Brown is a very pleasant 75-year-old female with a past medical history of COPD and hypertension who presented to the [facility] emergency department yesterday with a chief complaint of abdominal pain for duration of one day. She states that the pain started on Monday, was achy and constant in nature, and associated with clear emesis. When asked to point to the area of greatest concern, she pointed to her epigastric region. Pain is nonradiating and there is no history of this complaint previously. Patient did not take anything else for this complaint. On arrival to the emergency room, vitals were stable, CBC and BMP were normal, UA negative, lipase negative . LFTs normal. CT of abdomen and pelvis demonstrated multiple dilated loops of small bowel suspicious for small bowel obstruction at the level of the distal small bowel and thus, surgery was consulted. NG tube was placed for recommendation in the emergency room. Patient was ultimately admitted to via the hospitalist service and started on conservative management including nothing by mouth, IV fluids, pain control and supportive care. KUB was ordered to confirm NG tube placement along with a gas pattern consistent with a small bowel obstruction. On evaluation today, her WBC increased to 14.8 and the patient states that she regularly has a bowel movement 1-2 times per day. Her last bowel movement was Monday morning. Pertinent abdominal surgical history includes hysterectomy and a hiatal hernia repair several years ago. Patient denies any headaches, chest pain, shortness of breath, hemoptysis, fevers, change in vision, dysuria, change in bowel fluids prior to Monday, lower extremity edema, joint pain, or rashes. We will continue to follow Ms. Brown and offer recommendations as appropriate. Past Med Surg Social Fam HX - Past Medical History Medical history: hypertension, myocardial infarction - Past Surgical History Surgical History: hysterectomy, other (Surgery for Hiatal Hernia) - Social History Smoking Status: Former smoker Smokeless Tobacco Status: No Alcohol use: none Drug use: none - Family History Father Family Member Ethnicity: Non- Living Status: Hx Family Cancer: Yes (lung cancer) Brother Family Member Ethnicity: Non- Living Status: Still Living Hx Family Cardiac Disorders: Yes ([place]) Hx Family Respiratory Disorders: Yes (COPD) Sister Name: mio Brown Living Status: Hx Family Respiratory Disorders: Yes (COPD) Hx Family Cancer: Yes (lung cancer) Medications and Allergies Albuterol Sulfate [Albuterol Inhaler] 1 puff IH Q4-6H PRN 04/14/16 [History] Calcium Carbonate/Vitamin D3 [Calcium 500 mg Chewable Tablet] 1 each PO DAILY [History] Potassium 99 mg PO DAILY 04/14/16 [History] Magnesium Oxide [Mgo] 400 mg PO BID #30 tablet 04/17/16 [Rx] Metoprolol [Lopressor] 25 mg PO BID #30 tablet 04/17/16 [Rx] Cyanocobalamin (Vitamin B-12) [Vitamin B12] 1,000 mcg PO DAILY 09/22/16 [History ] Famotidine [Pepcid] 20 mg PO DAILY 09/22/16 [History] Allergies No Known Allergies Allergy (Verified 04/14/16 10:40) Review of Systems All systems PM: See history of present illness General Surgery Exam Initial Vital Signs Temp Pulse Resp BP Pulse Ox 98.1 F 95 16 137/86 94 09/22/16 12:32 09/22/16 12:32 09/22/16 12:32 09/22/16 12:32 09/22/16 12:32 - General physical appearance no distress, cachectic, other (Patient favors went into her right side when speaking) - Eyes normal ocular movement - ENT atraumatic, normocephalic - Respiratory normal expansion, normal respiratory effort, clear to auscultation - Cardiovascular Cardiovascular exam: Present: RRR, no murmurs/rubs/gallops - Abdomen Abdomen general surgery: Present: bowel sounds present (faint), soft, non tender , surgical scars - Integumentary Integumentary general surgery: Present: warm and dry - Neurologic Present: CN 2-12 grossly intact - Psychiatric Psychiatric general surgery: Present: appropriate, oriented to person, oriented to place, oriented to time, speech is normal, memory intact Exam Initial Vital Signs Temp Pulse Resp BP Pulse Ox 98.1 F 95 16 137/86 94 09/22/16 12:32 09/22/16 12:32 09/22/16 12:32 09/22/16 12:32 09/22/16 12:32 Results - Labs 09/23/16 04:27 09/23/16 04:27 Abnormal lab results WBC 14.8 K/mcL (4.3-11.1) H 09/23/16 04:27 RBC 5.09 M/mcL (3.82-4.97) H 09/23/16 04:27 Hct 45.5 % (35.3-44.9) H 09/23/16 04:27 RDW 15.2 % (11.5-14.5) H 09/23/16 04:27 Neutrophils # 13.1 K/mcL (1.6-8.9) H 09/23/16 04:27 Sodium 134 mEq/L (136-145) L 09/23/16 04:27 Glucose 133 mg/dL (70-99) H 09/23/16 04:27 POC Glucose 146 (58-89) H 09/23/16 17:52 Lactic Acid 2.3 mmol/L (0.5-2.2) H 09/22/16 13:44 Serum Total Protein 8.4 g/dL (6.0-8.3) H 09/22/16 12:48 Globulin 4.2 g/dL (2.4-3.5) H 09/22/16 12:48 Albumin/Globulin Ratio 1.0 (1.1-2.2) L 09/22/16 12:48 Urine Protein 30 mg/dL (Neg-Trace) H 09/22/16 14:20 Urine Ketones Trace mg/dL (Negative) H 09/22/16 14:20 Urine Microscopic RBC 5-15 per hpf (0-3) H 09/22/16 14:20 Ur Squamous Epith Cells Moderate per lpf (None-Few) H 09/22/16 14:20 Diabetes panel 09/23/16 Range/Units 04:27 Sodium 134 L (136-145) mEq/L Potassium 4.2 (3.5-4.5) mEq/L Chloride 98 (98-109) mEq/L Carbon Dioxide 28 (19-29) mEq/L BUN 13 (7-20) mg/dL Creatinine 0.69 (0.57-1.11) mg/dL Glucose 133 H (70-99) mg/dL Calcium 9.3 (8.6-10.8) mg/dL Calcium panel 09/23/16 Range/Units 04:27 Calcium 9.3 (8.6-10.8) mg/dL Pituitary panel 09/23/16 Range/Units 04:27 Sodium 134 L (136-145) mEq/L Potassium 4.2 (3.5-4.5) mEq/L Chloride 98 (98-109) mEq/L Carbon Dioxide 28 (19-29) mEq/L BUN 13 (7-20) mg/dL Creatinine 0.69 (0.57-1.11) mg/dL Glucose 133 H (70-99) mg/dL Calcium 9.3 (8.6-10.8) mg/dL Adrenal panel 09/23/16 Range/Units 04:27 Sodium 134 L (136-145) mEq/L Potassium 4.2 (3.5-4.5) mEq/L Chloride 98 (98-109) mEq/L Carbon Dioxide 28 (19-29) mEq/L BUN 13 (7-20) mg/dL Creatinine 0.69 (0.57-1.11) mg/dL Glucose 133 H (70-99) mg/dL Calcium 9.3 (8.6-10.8) mg/dL All other labs normal. - Imaging Abdominal x-ray: report reviewed, image reviewed CT scan - abdomen: report reviewed, image reviewed Consult Discharge Plan - Plan Referrals: Balbir Cole DO [Primary Care Provider] - <Sayda Benton - Last Filed: 09/24/16 18:18> Date of Encounter: 09/23/16 Assessment and Plan (1) Urinary retention Current Visit: Yes Status: Acute place oconnell for urinary retention (2) Small bowel obstruction Current Visit: Yes Status: Acute continue conservative therapy for sbo prn pain control ngt decompression LIWS HOB 30 degrees npo ivf hydration serial abdominal exams leukocystosis likely reactive to sbo (3) Physical deconditioning Current Visit: Yes Status: Chronic History of Present Illness History of present illness: Patient complains of abdominal distention and diffuse abdominal pain for 24 hrs. She has had nausea and emesis. No hematemesis. No flatus or bm over last 24 hrs. She has never previously had a sbo. She is having difficulty urinating and doesnt feel she is able to go. She hasnt had much relief with ngt decompression Past Med Surg Social Fam HX - Past Medical History Source: patient Medical history: GERD Psychiatric history: no psych history - Past Surgical History Surgical History: hysterectomy, other (Surgery for Hiatal Hernia/[facility]) Review of Systems All systems PM: reviewed and no additional remarkable complaints except as stated All systems PM: A 10-system review of systems was performed and is negative for pertinent findings except as documented above in the HPI. General Surgery Exam Initial Vital Signs Temp Pulse Resp BP Pulse Ox 98.1 F 95 16 137/86 94 09/22/16 12:32 09/22/16 12:32 09/22/16 12:32 09/22/16 12:32 09/22/16 12:32 - General physical appearance no distress, no pain, chronically ill - Eyes PERRL, normal ocular movement - ENT dry mucosa, atraumatic - Neck trachea midline - Respiratory normal expansion, clear to auscultation - Cardiovascular Cardiovascular exam: Present: RRR - Abdomen Abdomen general surgery: Present: distended, tender (at incisional hernia, reducible). Absent: bowel sounds present Hernia: Present: reducible, incisional - Integumentary Integumentary general surgery: Present: warm and dry, no abnormal pigmentation - Neurologic Present: CN 2-12 grossly intact - Musculoskeletal Present: normal posture - Psychiatric Psychiatric general surgery: Present: A&Ox3, speech is normal Exam Initial Vital Signs Temp Pulse Resp BP Pulse Ox 98.1 F 95 16 137/86 94 09/22/16 12:32 09/22/16 12:32 09/22/16 12:32 09/22/16 12:32 09/22/16 12:32 Results - Labs 09/24/16 03:51 09/24/16 03:51 Abnormal lab results RDW 15.1 % (11.5-14.5) H 09/24/16 03:51 Sodium 132 mEq/L (136-145) L 09/24/16 03:51 Chloride 97 mEq/L (98-109) L 09/24/16 03:51 Glucose 104 mg/dL (70-99) H 09/24/16 03:51 POC Glucose 112 (58-89) H 09/24/16 06:12 Calculated Osmolality 274 (280-300) L 09/24/16 03:51 Lactic Acid 2.3 mmol/L (0.5-2.2) H 09/22/16 13:44 Serum Total Protein 8.4 g/dL (6.0-8.3) H 09/22/16 12:48 Globulin 4.2 g/dL (2.4-3.5) H 09/22/16 12:48 Albumin/Globulin Ratio 1.0 (1.1-2.2) L 09/22/16 12:48 Urine Protein 30 mg/dL (Neg-Trace) H 09/22/16 14:20 Urine Ketones Trace mg/dL (Negative) H 09/22/16 14:20 Urine Microscopic RBC 5-15 per hpf (0-3) H 09/22/16 14:20 Ur Squamous Epith Cells Moderate per lpf (None-Few) H 09/22/16 14:20 Diabetes panel 09/24/16 Range/Units 03:51 Sodium 132 L (136-145) mEq/L Potassium 4.2 (3.5-4.5) mEq/L Chloride 97 L (98-109) mEq/L Carbon Dioxide 29 (19-29) mEq/L BUN 13 (7-20) mg/dL Creatinine 0.57 (0.57-1.11) mg/dL Glucose 104 H (70-99) mg/dL Calcium 8.6 (8.6-10.8) mg/dL Calcium panel 09/24/16 Range/Units 03:51 Calcium 8.6 (8.6-10.8) mg/dL Pituitary panel 09/24/16 Range/Units 03:51 Sodium 132 L (136-145) mEq/L Potassium 4.2 (3.5-4.5) mEq/L Chloride 97 L (98-109) mEq/L Carbon Dioxide 29 (19-29) mEq/L BUN 13 (7-20) mg/dL Creatinine 0.57 (0.57-1.11) mg/dL Glucose 104 H (70-99) mg/dL Calcium 8.6 (8.6-10.8) mg/dL Adrenal panel 09/24/16 Range/Units 03:51 Sodium 132 L (136-145) mEq/L Potassium 4.2 (3.5-4.5) mEq/L Chloride 97 L (98-109) mEq/L Carbon Dioxide 29 (19-29) mEq/L BUN 13 (7-20) mg/dL Creatinine 0.57 (0.57-1.11) mg/dL Glucose 104 H (70-99) mg/dL Calcium 8.6 (8.6-10.8) mg/dL All other labs normal. - Imaging CT scan - abdomen: report reviewed, image reviewed CT scan - pelvis: report reviewed, image reviewed - Attending Attestation I examined this patient and my medical decision-making was reviewed with the Resident Physician. I agree with the documented findings, disposition and treatment plan as described except to the extent set forth below. SBO
[2016-09-24] MEDS: Ipratropium/Albuterol Neb 3 ML IH SCH ×4 (04:36→21:37)
[2016-09-24] MEDS: Prochlorperazine 10 MG/2 ML VIAL IVP PRN (04:43)
[2016-09-24] MEDS: *HR* Morphine 2 MG/ML SYRINGE IVP PRN (04:43)
[2016-09-24 04:54] LABS: Basophils % 0.2 %; Hematocrit 42.1 % (35.3-44.9); Hemoglobin 13.6 g/dL (11.5-15.4); Immature Granulocytes % 0.4 % (0-4); Lymphocytes # 0.6 K/mcL (0.6-4.6); Lymphocytes % 5.5 %; Mean Corpuscular HGB Conc 32.3 g/dL (31.6-35.5); Mean Corpuscular Hemoglobin 29.4 pg (28.0-33.3); Mean Corpuscular Volume 91.1 fL (83.0-100.0); Mean Platelet Volume 11.1 fL (9.4-12.4); Monocytes # 1.3 K/mcL (0.0-1.3); Neutrophils # 8.2 K/mcL (1.6-8.9); Platelet Count 215 K/mcL (140-400); Red Blood Count 4.62 M/mcL (3.82-4.97); Red Cell Distribution Width 15.1 % (11.5-14.5); Segmented Neutrophils % 80.9 %
[2016-09-24] MEDS: Ringers Solution, Lactated 1,000 ML IVC SCH ×2 (05:00→15:57)
[2016-09-24] MEDS: MetroNIDAZOLE 500 MG/100 ML 500 MG/100 ML BAG IVPB SCH ×3 (05:01→17:53)
[2016-09-24] MEDS: *HR* Enoxaparin 30 MG/0.3 ML SYRINGE SQ SCH (05:02)
[2016-09-24] MEDS: *HR* Metoprolol 5 MG/5 ML VIAL IVP SCH ×4 (05:02→23:34)
[2016-09-24 05:03] LABS: BUN/Creatinine Ratio 23 (6-26); Blood Urea Nitrogen 13 mg/dL (7-20); Calcium 8.6 mg/dL (8.6-10.8); Carbon Dioxide 29 mEq/L (19-29); Chloride 97 mEq/L (98-109); Glucose 104 mg/dL (70-99); Osmolality,Calculated 274 (280-300); Potassium 4.2 mEq/L (3.5-4.5); Sodium 132 mEq/L (136-145); eGFR For African Americans > 60 (> 60); eGFR For Non-African Americans > 60 (> 60)
--- NOTE | 2016-09-24 06:59 | Internal Med Progress Note ---
<Tom Vanessa - Last Filed: 09/24/16 13:18> Date of Encounter: 09/24/16 - Constitutional Vitals: Temp Pulse Resp BP Pulse Ox 98.3 F 105 16 162/80 91 09/24/16 11:19 09/24/16 11:19 09/24/16 11:19 09/24/16 11:19 09/24/16 11:19 Internal Medicine: Result - Labs CBC & Chem 7: 09/24/16 03:51 09/24/16 03:51 Labs: Short CBC 09/24/16 Range/Units 03:51 WBC 10.1 (4.3-11.1) K/mcL Hgb 13.6 D (11.5-15.4) g/dL Hct 42.1 (35.3-44.9) % Plt Count 215 (140-400) K/mcL Neutrophils # 8.2 (1.6-8.9) K/mcL BMP 09/24/16 03:51 Sodium 132 L Potassium 4.2 Chloride 97 L Carbon Dioxide 29 BUN 13 Creatinine 0.57 Glucose 104 H Calcium 8.6 - ABG Interpretation ABG results: PT/INR, D-dimer PT 10.9 Seconds (9.4-12.1) 09/22/16 12:48 - Impressions Impressions KUB X-Ray 09/23/16 17:48 IMPRESSION: 1. Enteric tube terminating in the body of the stomach. 2. Diffuse small bowel distention suggesting a small bowel obstruction. D/ / 09/23/2016 18:19:03 Joaquín Reyez MD / lay Interpreting Provider: Joaquín Reyez MD Consult Discharge Plan - Plan Referrals: Balbir Cole DO [Primary Care Provider] - - Attending Attestation I examined this patient and my medical decision-making was reviewed with the Resident Physician. I agree with the documented findings, disposition and treatment plan as described except to the extent set forth below. <Jamil Puentes - Last Filed: 09/24/16 13:57> Date of Encounter: 09/24/16 Time of Encounter: 08:00 - Assessment and plan (1) Small bowel obstruction Current Visit: Yes Status: Acute Assessment and plan: -SBO likely secondary to adhesions from previous abdominal surgeries -KUB demonstrated NG tube in body of stomach. Surgery recommended advancement of the tube by 4-5cm. I received report that this was done last night -The patient says that she feels mildly better since the tube was advanced, however she is still having no bowel movements of movement of gas. -The abdomen is distended and firm. No tenderness upon palpation, bowel sounds hypoactive in all four quadrants. -Surgery recommends continuing conservative therapy at this time. We will continue to monitor the patient, and we will follow their recommendations. 09/23/16 -SBO likely secondary to adhesions from previous abdominal surgeries -CT abdomen shows SBO with mild-moderate bowel wall inflammation -Hx of hysterectomy and hiatal hernia repair in past 3 years. -Constipation and obstipation for 2d -Non-bloody emesis, possible billiary fluid per patient description -Surgery is on board, Patient is NPO with NG tube for gastric decompression -We will provide IV fluids for hydration and monitor vitals. This patient is currently a good candidate for conservative therapy, but we will be prepared to evaluate surgical necessity throughout her stay. (2) Leukocytosis Current Visit: Yes Status: Acute Assessment and plan: -Etiology unknown -Patient has known SBO shown on CT, likely secondary to adhesions from previous surgery. Surgery has been consulted. -Patient was started on IV metronidazole and ciprofloxacin -WBC 10.1. Afebrile, normotensive, HR WNL. 09/23/16 -Etiology unknown -Patient has known SBO shown on CT, likely secondary to adhesions from previous surgery -CT: 1. Multiple dilated loops of small bowel suspicious for a small bowel obstruction at the level of the distal small bowel. Delineation of anatomy is difficult given paucity of intraperitoneal fat and absence of oral contrast in the distal bowel. Although not well seen on this exam, there may be thickening of multiple loops of small bowel wall in the right hemipelvis/right lower quadrant, secondary to edema/inflammation. 2. Small amount of free fluid in the pelvis. -WBC 14.8. -Patient is currently afebrile, normotensive, and HR wnl -We have started ciprofloxacin and metronidazole IV for empiric coverage of anaerobes and GI bacteria -We will monitor Qualifiers: Leukocytosis type: unspecified Qualified Code(s): D72.829 - Elevated white blood cell count, unspecified (3) COPD (chronic obstructive pulmonary disease) Current Visit: No Status: Chronic Assessment and plan: -Stable condition, O2 91 on room air. -No acute dyspnea or cough. -Continue PRN Duonebs 09/23/16 -Stable condition, O2 94 on room air -No acute distress, patient is not complaining of active productive cough -We will provide Duonebs and monitor O2 Qualifiers: COPD type: unspecified COPD Qualified Code(s): J44.9 - Chronic obstructive pulmonary disease, unspecified (4) HTN (hypertension) Current Visit: Yes Status: Acute Assessment and plan: -The patient's BP has been elevated throughout the duration of the stay. -BP 162/80 HR 105 -We will increase the patient's metoprolol from 2.5mg to 5mg q6hr -We will continue to monitor 09/23/16 -The patient is currently hypertensive at 154/87 -We will monitor vitals closely, and consider adjusting anti-hypertensives after determining that the patient is stable, however we do not want to attempt too tight regulation with a rising WBC and potential infection. Qualifiers: Hypertension type: essential hypertension Qualified Code(s): I10 - Essential (primary) hypertension (5) DVT prophylaxis Current Visit: Yes Status: Acute Assessment and plan: SQ Lovenox Patient is not on home anticoagulation because AFib has been ruled out on previous admission by cardiology 04/17/16 - "Cardiology was consulted and after review of telemetry strips, patient was deemed to be having mostly sinus tachycardia and Cardizem and heparin drips for discontinued." We will consider the risk for paroxismal atrial fibrillation, however there is currently no documentation or irregular rhythm from this admission. The patient is on neurosurgeon. - Subjective Interval history: The patient is lying in bed at time of the exam. She has an NG tube in place which appears to have drained about 50ml. She says that she feels mildly better than before. She is still not having any flatus, and denies bowel movement. - Constitutional Vitals: Temp Pulse Resp BP Pulse Ox 98.1 F 100 14 174/93 92 09/24/16 05:04 09/24/16 05:04 09/24/16 05:04 09/24/16 05:04 09/24/16 05:04 General appearance: Present: cooperative, mild distress, A&O X 3, pleasant, underweight, answers questions appropriately Exam: - Head Head exam: Present: atraumatic, normocephalic - Eye Eye exam: Present: PERRL, conjuntiva pink, sclera anicteric Pupils: Present: PERRL - Neck Neck exam : Present: supple, trachea midline. Absent: lymphadenopathy - Respiratory Respiratory exam: Present: CTAB. Absent: accessory muscle use, rales, rhonchi, wheezes - Cardiovascular Cardiovascular exam: Present: RRR, +S1, +S2. Absent: diastolic murmur, gallop, rubs, systolic murmur - GI/Abdominal GI/Abdominal exam: Present: distended, firm, hypoactive bowel sounds, soft, no peritoneal signs. Absent: guarding, mass, normal bowel sounds, rigid, tenderness - Extremities Exam Extremities exam: Present: warm, radial pulses palpable and symmetrical. Absent : calf tenderness, cyanotic, pedal edema - Neurological Exam Neurological exam: Present: CN II-XII intact, oriented X3, no focal deficits. Absent: pronater drift, facial droop, speech deficit - Skin Skin exam: Present: dry, intact Internal Medicine: Result - Labs CBC & Chem 7: 09/24/16 03:51 09/24/16 03:51 Labs: Short CBC 09/24/16 Range/Units 03:51 WBC 10.1 (4.3-11.1) K/mcL Hgb 13.6 D (11.5-15.4) g/dL Hct 42.1 (35.3-44.9) % Plt Count 215 (140-400) K/mcL Neutrophils # 8.2 (1.6-8.9) K/mcL BMP 09/24/16 03:51 Sodium 132 L Potassium 4.2 Chloride 97 L Carbon Dioxide 29 BUN 13 Creatinine 0.57 Glucose 104 H Calcium 8.6 - ABG Interpretation ABG results: PT/INR, D-dimer PT 10.9 Seconds (9.4-12.1) 09/22/16 12:48 - Impressions Impressions KUB X-Ray 09/23/16 17:48
[2016-09-24] MEDS: Pantoprazole 40 MG VIAL IVP SCH (09:22)
[2016-09-24] MEDS ORDERED: *HR* HYDROcodone/Acet 5/325 mg TABLET PO PRN (16:18)
[2016-09-24] MEDS: Ketorolac 15 MG/ML VIAL IVP PRN (17:54)
--- NOTE | 2016-09-24 18:09 | General Surgery Progress Note ---
Date of Encounter: 09/24/16 Time of Encounter: 12:45 - Assessment and Plan (1) Urinary retention Current Visit: Yes Status: Acute check urine culture (patient has been on cipro/flagyl for leukocystosis) continue oconnell for accurate I/O's and retention (2) Small bowel obstruction Current Visit: Yes Status: Acute patient with SBO will continue conservative therapy currently, discussed with patient and daughter she may need operative intervention but will give a few days to resolve on its own picc/tpn monday if hasnt had flatus stop abx as leukocystosis likely reactive to sbo and has since resolved with ngt decompression serial abdominal exams npo ivf hydration PT/OT (3) Physical deconditioning Current Visit: Yes Status: Chronic consult PT/OT Subjective Patient reports: no new complaints, feels better, still having pain, pain is less, no flatus, no bowel movement, afebrile Objective Vital Signs - Last 8 Hours Temp Pulse Resp BP Pulse Ox 09/24/16 17:50 98.5 F 112 20 160/82 90 09/24/16 16:30 16 97 09/24/16 11:19 98.3 F 105 16 162/80 91 09/24/16 10:21 14 92 Intake and Output 09/24/16 09/24/16 09/24/16 07:59 15:59 23:59 Intake Total 1100 / 1100 1300 / 1300 0 / 0 Output Total 550 / 550 200 / 200 Balance 550 / 550 1100 / 1100 0 / 0 Intake: IV Fluids 1100 / 1100 1300 / 1300 Lactated Ringers 1,000 ML 1000 / 1000 1000 / 1000 @ 100 mls/hr IVC .Q10H [facility] Rx#:[id number] Cipro Premix 200 MG/100 100 / 100 ML 200 mg In 100 ml @ 100 mls/hr IVPB Q12HR [facility] Rx #:[id number] Flagyl Premix 500 MG/100 100 / 100 200 / 200 ML 500 mg In 100 ml @ 100 mls/hr IVPB Q6HR [facility] Rx# :[id number] Oral 0 / 0 0 / 0 0 / 0 Output: Catheter 550 / 550 200 / 200 Other: Meal NPO NPO Percent of Meal Consumed 0% 0% Weight 34.927 kg Blood Glucose* 112 79 Patient Weight 09/24/16 23:59 Weight 34.927 kg - General physical appearance no distress, no pain - Eyes PERRL, normal ocular movement - ENT dry mucosa, atraumatic, normocephalic - Neck Neck exam: trachea midline - Respiratory normal expansion, clear to auscultation - Cardiovascular Cardiovascular exam: Present: RRR - Abdomen Abdomen: Present: distended, tender (at hernia site). Absent: bowel sounds present, guarding, rebound - Integumentary no rash, no growths - Neurologic CN 2-12 grossly intact - Musculoskeletal normal posture - Psychiatric oriented to time, oriented to person, oriented to place, memory intact - Labs 09/24/16 03:51 09/24/16 03:51 Diabetes panel 09/24/16 Range/Units 03:51 Sodium 132 L (136-145) mEq/L Potassium 4.2 (3.5-4.5) mEq/L Chloride 97 L (98-109) mEq/L Carbon Dioxide 29 (19-29) mEq/L BUN 13 (7-20) mg/dL Creatinine 0.57 (0.57-1.11) mg/dL Glucose 104 H (70-99) mg/dL Calcium 8.6 (8.6-10.8) mg/dL Calcium panel 09/24/16 Range/Units 03:51 Calcium 8.6 (8.6-10.8) mg/dL Pituitary panel 09/24/16 Range/Units 03:51 Sodium 132 L (136-145) mEq/L Potassium 4.2 (3.5-4.5) mEq/L Chloride 97 L (98-109) mEq/L Carbon Dioxide 29 (19-29) mEq/L BUN 13 (7-20) mg/dL Creatinine 0.57 (0.57-1.11) mg/dL Glucose 104 H (70-99) mg/dL Calcium 8.6 (8.6-10.8) mg/dL Adrenal panel 09/24/16 Range/Units 03:51 Sodium 132 L (136-145) mEq/L Potassium 4.2 (3.5-4.5) mEq/L Chloride 97 L (98-109) mEq/L Carbon Dioxide 29 (19-29) mEq/L BUN 13 (7-20) mg/dL Creatinine 0.57 (0.57-1.11) mg/dL Glucose 104 H (70-99) mg/dL Calcium 8.6 (8.6-10.8) mg/dL Consult Discharge Plan - Plan Referrals: ColopyBalbir DO [Primary Care Provider] -
[2016-09-25] MEDS: Ipratropium/Albuterol Neb 3 ML IH SCH ×4 (03:45→22:14)
[2016-09-25] MEDS: Ringers Solution, Lactated 1,000 ML IVC SCH (05:10)
[2016-09-25] MEDS: *HR* Enoxaparin 30 MG/0.3 ML SYRINGE SQ SCH (05:11)
[2016-09-25 05:20] LABS: Hematocrit 37.6 % (35.3-44.9); Hemoglobin 12.4 g/dL (11.5-15.4); Mean Platelet Volume 11.1 fL (9.4-12.4); Monocytes # 0.8 K/mcL (0.0-1.3); Platelet Count 173 K/mcL (140-400); Red Blood Count 4.13 M/mcL (3.82-4.97); Red Cell Distribution Width 15.1 % (11.5-14.5)
[2016-09-25] MEDS: *HR* Metoprolol 5 MG/5 ML VIAL IVP SCH ×3 (05:23→13:57)
[2016-09-25 05:33] LABS: Magnesium 1.7 mg/dL (1.6-2.6); Phosphorous 3.5 mg/dL (2.3-4.7)
[2016-09-25 05:38] LABS: BUN/Creatinine Ratio 36 (6-26); Blood Urea Nitrogen 20 mg/dL (7-20); Calcium 8.5 mg/dL (8.6-10.8); Carbon Dioxide 24 mEq/L (19-29); Chloride 96 mEq/L (98-109); Glucose 69 mg/dL (70-99); Osmolality,Calculated 271 (280-300); Potassium 3.6 mEq/L (3.5-4.5); Sodium 130 mEq/L (136-145); eGFR For African Americans > 60 (> 60); eGFR For Non-African Americans > 60 (> 60)
[2016-09-25 05:57] LABS: Lymphocytes # 0.5 K/mcL (0.6-4.6); Neutrophils # 2.8 K/mcL (1.6-8.9); Platelet Estimate Normal (Normal)
--- NOTE | 2016-09-25 08:11 | Internal Med Progress Note ---
<Jamil Puentes - Last Filed: 09/25/16 08:05> Date of Encounter: 09/25/16 Time of Encounter: 08:05 - Assessment and plan (1) Small bowel obstruction Current Visit: Yes Status: Acute Assessment and plan: -SBO likely secondary to adhesions from -NG tube in place, drained about 50cc -Patient denies flatus or BM at this time. -Surgery is on board. Recommends conservative therapy, however may discuss PICC with TPN on monday. -Continue NG tube, IVF. Surgery discontinued Cipro/Flagylr 09/24/16 -SBO likely secondary to adhesions from previous abdominal surgeries -KUB demonstrated NG tube in body of stomach. Surgery recommended advancement of the tube by 4-5cm. I received report that this was done last night -The patient says that she feels mildly better since the tube was advanced, however she is still having no bowel movements of movement of gas. -The abdomen is distended and firm. No tenderness upon palpation, bowel sounds hypoactive in all four quadrants. -Surgery recommends continuing conservative therapy at this time. We will continue to monitor the patient, and we will follow their recommendations. (2) Leukocytosis Current Visit: Yes Status: Acute Assessment and plan: -Etiology unknown -Patient has known SBO shown on CT, likely secondary to adhesions from previous surgery. Surgery has been consulted. -Surgery recommends discontinuing cipro/flagyl. They recommend Benito catheter insertion for urinary retention -WBC 4.2. Afebrile, normotensive, HR WNL. -We will continue to monitor. 09/24/16 -Etiology unknown -Patient has known SBO shown on CT, likely secondary to adhesions from previous surgery. Surgery has been consulted. -Patient was started on IV metronidazole and ciprofloxacin -WBC 10.1. Afebrile, normotensive, HR WNL. Qualifiers: Leukocytosis type: unspecified Qualified Code(s): D72.829 - Elevated white blood cell count, unspecified (3) COPD (chronic obstructive pulmonary disease) Current Visit: No Status: Chronic Assessment and plan: -Stable condition, 90% on room air -No SOB, cough, fever -PRN duoneb 09/24/16 -Stable condition, O2 91 on room air. -No acute dyspnea or cough. -Continue PRN Duonebs Qualifiers: COPD type: unspecified COPD Qualified Code(s): J44.9 - Chronic obstructive pulmonary disease, unspecified (4) HTN (hypertension) Current Visit: Yes Status: Acute Assessment and plan: -Stable condition -BP 134/71; HR 91 -Metoprolol was held once overnight for hypotension -We will continue to monitor 09/24/16 -The patient's BP has been elevated throughout the duration of the stay. -BP 162/80 HR 105 -We will increase the patient's metoprolol from 2.5mg to 5mg q6hr -We will continue to monitor Qualifiers: Hypertension type: essential hypertension Qualified Code(s): I10 - Essential (primary) hypertension (5) DVT prophylaxis Current Visit: Yes Status: Acute Assessment and plan: SQ Lovenox Patient is not on home anticoagulation because AFib has been ruled out on previous admission by cardiology 04/17/16 - "Cardiology was consulted and after review of telemetry strips, patient was deemed to be having mostly sinus tachycardia and Cardizem and heparin drips for discontinued." We will consider the risk for paroxismal atrial fibrillation, however there is currently no documentation or irregular rhythm from this admission. 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 - Subjective Interval history: The patient is lying in bed at time of the exam. She is accompanied by a family member. She has an NG tube in place which appears to have drained about 50ml. She says that she feels mildly better than before. She is still not having any flatus, and denies bowel movement. - Constitutional Vitals: Temp Pulse Resp BP Pulse Ox 97.6 F 91 20 134/71 90 09/25/16 07:38 09/25/16 07:38 09/25/16 07:38 09/25/16 07:38 09/25/16 07:53 General appearance: Present: cooperative, mild distress, A&O X 3, pleasant, underweight, answers questions appropriately Exam: - Head Head exam: Present: atraumatic, normocephalic - Eye Eye exam: Present: PERRL, conjuntiva pink, sclera anicteric Pupils: Present: PERRL - Neck Neck exam : Present: supple, trachea midline. Absent: lymphadenopathy - Respiratory Respiratory exam: Present: CTAB. Absent: accessory muscle use, rales, rhonchi, wheezes - Cardiovascular Cardiovascular exam: Present: RRR, +S1, +S2. Absent: diastolic murmur, gallop, rubs, systolic murmur - GI/Abdominal GI/Abdominal exam: Present: distended, firm, hypoactive bowel sounds, soft, no peritoneal signs. Absent: guarding, mass, normal bowel sounds, rigid, tenderness - Extremities Exam Extremities exam: Present: warm, radial pulses palpable and symmetrical. Absent : calf tenderness, cyanotic, pedal edema - Neurological Exam Neurological exam: Present: CN II-XII intact, oriented X3, no focal deficits. Absent: pronater drift, facial droop, speech deficit - Skin Skin exam: Present: dry, intact Internal Medicine: Result - Labs CBC & Chem 7: 09/25/16 04:21 09/25/16 04:21 Labs: Short CBC 09/25/16 Range/Units 04:21 WBC 4.2 L D (4.3-11.1) K/mcL Hgb 12.4 (11.5-15.4) g/dL Hct 37.6 (35.3-44.9) % Plt Count 173 (140-400) K/mcL Neutrophils # 2.8 (1.6-8.9) K/mcL BMP 09/25/16 04:21 Sodium 130 L Potassium 3.6 Chloride 96 L Carbon Dioxide 24 BUN 20 Creatinine 0.56 L Glucose 69 L Calcium 8.5 L - ABG Interpretation ABG results: PT/INR, D-dimer PT 10.9 Seconds (9.4-12.1) 09/22/16 12:48 Consult Discharge Plan - Plan Referrals: Balbir Cole DO [Primary Care Provider] - <Tom Vanessa - Last Filed: 09/25/16 16:03> Date of Encounter: 09/25/16 - Constitutional Vitals: Temp Pulse Resp BP Pulse Ox 97.5 F L 100 20 139/72 91 09/25/16 11:46 09/25/16 11:46 09/25/16 11:46 09/25/16 11:46 09/25/16 11:46 Internal Medicine: Result - Labs CBC & Chem 7: 09/25/16 04:21 09/25/16 04:21 Labs: Short CBC 09/25/16 Range/Units 04:21 WBC 4.2 L D (4.3-11.1) K/mcL Hgb 12.4 (11.5-15.4) g/dL Hct 37.6 (35.3-44.9) % Plt Count 173 (140-400) K/mcL Neutrophils # 2.8 (1.6-8.9) K/mcL BMP 09/25/16 04:21 Sodium 130 L Potassium 3.6 Chloride 96 L Carbon Dioxide 24 BUN 20 Creatinine 0.56 L Glucose 69 L Calcium 8.5 L - ABG Interpretation ABG results: PT/INR, D-dimer PT 10.9 Seconds (9.4-12.1) 09/22/16 12:48 - Attending Attestation I examined this patient and my medical decision-making was reviewed with the Resident Physician. I agree with the documented findings, disposition and treatment plan as described except to the extent set forth below. surgical input appreciated.
[2016-09-25] MEDS: Pantoprazole 40 MG VIAL IVP SCH (10:24)
--- NOTE | 2016-09-25 11:25 | General Surgery Progress Note ---
Date of Encounter: 09/25/16 Time of Encounter: 10:00 - Assessment and Plan (1) Urinary retention Current Visit: Yes Status: Acute continue oconnell for urinary retention awaiting urine culture (2) Small bowel obstruction Current Visit: Yes Status: Acute continue conservative therapy for sbo prn pain control ngt decompression LIWS HOB 30 degrees npo ivf hydration serial abdominal exams I discussed with patient and her daughter that she doesnt seem to be progressive much (although abdomen is softer today) with conservative therapy and I am concerned she will need surgical intervention to resolve this episode of sbo. Patient understands but asked for another day or so of conservative therapy to see if it will resolve on its own. GIven that she is not peritoneal, no wbc, vitals stable and elderly and frail it not unreasonable. We decided and discussed that if she doesnt open up by Monday we will plan surgery. will place picc/start tpn tomorrow (3) Physical deconditioning Current Visit: Yes Status: Chronic consult PT/OT (4) Unable to eat Current Visit: Yes Status: Acute will start PICC/tpn tomorrow (5) DVT prophylaxis Current Visit: Yes Status: Acute lovenox Subjective Patient reports: no new complaints, feels better, no flatus, no bowel movement, afebrile Objective Vital Signs - Last 8 Hours Temp Pulse Resp BP Pulse Ox 09/25/16 10:51 18 93 09/25/16 07:53 90 09/25/16 07:38 97.6 F 91 20 134/71 90 09/25/16 05:17 135/76 09/25/16 03:45 16 92 09/25/16 03:31 97.7 F 95 16 133/71 94 Intake and Output 09/24/16 09/25/16 09/25/16 23:59 07:59 15:59 Intake Total 200 / 200 1000 / 1000 Output Total 250 / 250 350 / 350 Balance -50 / -50 650 / 650 Intake: IV Fluids 200 / 200 1000 / 1000 Lactated Ringers 1,000 ML 1000 / 1000 @ 100 mls/hr IVC .Q10H [facility] Rx#:[id number] Cipro Premix 200 MG/100 100 / 100 ML 200 mg In 100 ml @ 100 mls/hr IVPB Q12HR [facility] Rx #:[id number] Flagyl Premix 500 MG/100 100 / 100 ML 500 mg In 100 ml @ 100 mls/hr IVPB Q6HR [facility] Rx# :[id number] Oral 0 / 0 0 / 0 Output: Catheter 250 / 250 150 / 150 Gastric Drainage 0 / 0 200 / 200 Other: Meal NPO Percent of Meal Consumed 0% Weight 36.1 kg Blood Glucose* 67 64 Patient Weight 09/25/16 23:59 Weight 36.1 kg - General physical appearance no distress, cachectic, chronically ill - Eyes PERRL, normal ocular movement - ENT dry mucosa, atraumatic - Neck Neck exam: trachea midline - Respiratory normal expansion, clear to auscultation - Cardiovascular Cardiovascular exam: Present: RRR - Abdomen Abdomen: Present: soft (softer than yesterday), tender (slightly at site of abdominal hernia). Absent: bowel sounds present - Genitourinary other (oconnell in place, draining tea colored urine) - Integumentary no rash, no growths - Neurologic CN 2-12 grossly intact - Musculoskeletal normal posture - Psychiatric oriented to time, oriented to person, oriented to place, memory intact - Labs 09/25/16 04:21 09/25/16 04:21 Short CBC 09/25/16 Range/Units 04:21 WBC 4.2 L D (4.3-11.1) K/mcL Hgb 12.4 (11.5-15.4) g/dL Hct 37.6 (35.3-44.9) % Plt Count 173 (140-400) K/mcL Neutrophils # 2.8 (1.6-8.9) K/mcL BMP 09/25/16 Range/Units 04:21 Sodium 130 L (136-145) mEq/L Potassium 3.6 (3.5-4.5) mEq/L Chloride 96 L (98-109) mEq/L Carbon Dioxide 24 (19-29) mEq/L BUN 20 (7-20) mg/dL Creatinine 0.56 L (0.57-1.11) mg/dL Glucose 69 L (70-99) mg/dL Calcium 8.5 L (8.6-10.8) mg/dL Vital Signs Temp Pulse Resp BP Pulse Ox 09/25/16 10:51 18 93 09/25/16 07:53 90 09/25/16 07:38 97.6 F 91 20 134/71 90 09/25/16 05:17 135/76 09/25/16 03:45 16 92 09/25/16 03:31 97.7 F 95 16 133/71 94 09/24/16 23:39 98.8 F 105 17 114/66 92 09/24/16 21:37 17 92 09/24/16 19:37 98.5 F 100 17 93/64 92 09/24/16 17:50 98.5 F 112 20 160/82 90 09/24/16 16:30 16 97 Intake and Output 09/24/16 09/25/16 09/25/16 23:59 07:59 15:59 Intake Total 200 / 200 1000 / 1000 Output Total 250 / 250 350 / 350 Balance -50 / -50 650 / 650 Intake: IV Fluids 200 / 200 1000 / 1000 Lactated Ringers 1,000 ML 1000 / 1000 @ 100 mls/hr IVC .Q10H [facility] Rx#:[id number] Cipro Premix 200 MG/100 100 / 100 ML 200 mg In 100 ml @ 100 mls/hr IVPB Q12HR [facility] Rx #:[id number] Flagyl Premix 500 MG/100 100 / 100 ML 500 mg In 100 ml @ 100 mls/hr IVPB Q6HR [facility] Rx# :[id number] Oral 0 / 0 0 / 0 Output: Catheter 250 / 250 150 / 150 Gastric Drainage 0 / 0 200 / 200 Other: Meal NPO Percent of Meal Consumed 0% Weight 36.1 kg Blood Glucose* 67 64 Patient Weight 09/25/16 23:59 Weight 36.1 kg Consult Discharge Plan - Plan Referrals: ColBalbir ross DO [Primary Care Provider] -
[2016-09-25] MEDS: D5% in 0.45% NACL 1,000 ML IVC SCH (13:13)
[2016-09-25] MEDS: Ketorolac 15 MG/ML VIAL IVP PRN (16:31)
[2016-09-26] MEDS: *HR* Metoprolol 5 MG/5 ML VIAL IVP SCH ×5 (00:38→18:22)
[2016-09-26] MEDS: D5% in 0.45% NACL 1,000 ML IVC SCH ×2 (02:48→20:54)
[2016-09-26] MEDS: Ipratropium/Albuterol Neb 3 ML IH SCH ×4 (04:38→22:19)
[2016-09-26] MEDS: *HR* Enoxaparin 30 MG/0.3 ML SYRINGE SQ SCH (05:44)
[2016-09-26 05:52] LABS: Basophils % 0.2 %; Eosinophils # 0.1 K/mcL (0.0-0.6); Eosinophils % 1.7 %; Hemoglobin 12.3 g/dL (11.5-15.4); Immature Granulocytes % 0.2 % (0-4); Lymphocytes # 0.6 K/mcL (0.6-4.6); Lymphocytes % 14.7 %; Mean Corpuscular HGB Conc 32.4 g/dL (31.6-35.5); Mean Corpuscular Hemoglobin 29.6 pg (28.0-33.3); Mean Corpuscular Volume 91.3 fL (83.0-100.0); Mean Platelet Volume 10.8 fL (9.4-12.4); Monocytes # 0.8 K/mcL (0.0-1.3); Monocytes % 18.7 %; Neutrophils # 2.6 K/mcL (1.6-8.9); Platelet Count 191 K/mcL (140-400); Red Blood Count 4.16 M/mcL (3.82-4.97); Red Cell Distribution Width 14.8 % (11.5-14.5); Segmented Neutrophils % 64.5 %
[2016-09-26 06:02] LABS: BUN/Creatinine Ratio 28 (6-26); Blood Urea Nitrogen 15 mg/dL (7-20); Calcium 8.1 mg/dL (8.6-10.8); Carbon Dioxide 27 mEq/L (19-29); Chloride 99 mEq/L (98-109); Glucose 98 mg/dL (70-99); Osmolality,Calculated 273 (280-300); Potassium 3.4 mEq/L (3.5-4.5); Sodium 131 mEq/L (136-145); eGFR For African Americans > 60 (> 60); eGFR For Non-African Americans > 60 (> 60)
[2016-09-26 06:23] LABS: Platelet Estimate Normal (Normal)
[2016-09-26] MEDS: Ketorolac 15 MG/ML VIAL IVP PRN ×2 (06:33→16:09)
[2016-09-26] MEDS: Pantoprazole 40 MG VIAL IVP SCH (07:44)
--- NOTE | 2016-09-26 13:04 | General Surgery Progress Note ---
<Chloe Sapp Wu - Last Filed: 09/26/16 13:05> Date of Encounter: 09/26/16 Time of Encounter: 13:00 - Assessment and Plan (1) Small bowel obstruction Current Visit: Yes Status: Acute Continue bowel rest NG tube to LIWS SBFT with gastrograffin today via NG tube IV fluids- 75ml/hour Supportive care Serial abdominal exams Surgery will continue to follow and assess progress (2) Urinary retention Current Visit: Yes Status: Acute Continue Oconnell catheter to straight drain (3) DVT prophylaxis Current Visit: Yes Status: Acute Lovenox 30 mg daily for DVT prophylaxis Ambulate hallways 3 times a day with assistance Subjective Patient reports: no new complaints, feels better, flatus, bowel movement (X2), afebrile Objective Vital Signs - Last 8 Hours Temp Pulse Resp BP Pulse Ox 09/26/16 11:12 98.0 F 90 16 143/76 92 09/26/16 09:36 17 92 09/26/16 08:11 97.6 F 75 17 151/72 92 09/26/16 07:39 92 09/26/16 05:11 97.8 F 91 18 153/69 92 Intake and Output 09/25/16 09/26/16 09/26/16 23:59 07:59 15:59 Intake Total 1000 / 1000 0 / 0 Output Total 150 / 150 400 / 400 450 / 450 Balance -150 / -150 600 / 600 -450 / -450 Intake: IV Fluids 1000 / 1000 D5% And 0.45% Nacl 1000 1000 / 1000 Ml Bag 1,000 ML @ 75 mls/ hr IVC .[id number] [facility] Rx#: [id number] Oral 0 / 0 0 / 0 Output: Catheter 150 / 150 200 / 200 350 / 350 Gastric Drainage 200 / 200 100 / 100 Other: Meal NPO for lunch NPO Stool Size Smear Small Stool Consistency formed soft formed Stool Color Brown # Bowel Movements 1 Weight 36.832 kg 36.832 kg Blood Glucose* 81 106 110 Patient Weight 09/26/16 23:59 Weight 36.832 kg - General physical appearance well developed, well nourished, no distress - Eyes normal ocular movement - ENT dry mucosa, atraumatic, normocephalic - Neck Neck exam: trachea midline - Respiratory normal respiratory effort, clear to auscultation, other (diminished bibasilar bases) - Cardiovascular Cardiovascular exam: Present: RRR - Abdomen Abdomen: Present: bowel sounds present, soft, distended (mildly and improved), wound (NG tube to LIWS with bilious drainage noted (350ml since midnight)) - Genitourinary other (oconnell catheter to SD with clear, yellow urine noted) - Neurologic CN 2-12 grossly intact - Psychiatric oriented to time, oriented to person, oriented to place, speech is normal, memory intact - Labs 09/26/16 04:56 09/26/16 04:56 Diabetes panel 09/26/16 Range/Units 04:56 Sodium 131 L (136-145) mEq/L Potassium 3.4 L (3.5-4.5) mEq/L Chloride 99 (98-109) mEq/L Carbon Dioxide 27 (19-29) mEq/L BUN 15 (7-20) mg/dL Creatinine 0.53 L (0.57-1.11) mg/dL Glucose 98 (70-99) mg/dL Calcium 8.1 L (8.6-10.8) mg/dL Calcium panel 09/26/16 Range/Units 04:56 Calcium 8.1 L (8.6-10.8) mg/dL Pituitary panel 09/26/16 Range/Units 04:56 Sodium 131 L (136-145) mEq/L Potassium 3.4 L (3.5-4.5) mEq/L Chloride 99 (98-109) mEq/L Carbon Dioxide 27 (19-29) mEq/L BUN 15 (7-20) mg/dL Creatinine 0.53 L (0.57-1.11) mg/dL Glucose 98 (70-99) mg/dL Calcium 8.1 L (8.6-10.8) mg/dL Adrenal panel 09/26/16 Range/Units 04:56 Sodium 131 L (136-145) mEq/L Potassium 3.4 L (3.5-4.5) mEq/L Chloride 99 (98-109) mEq/L Carbon Dioxide 27 (19-29) mEq/L BUN 15 (7-20) mg/dL Creatinine 0.53 L (0.57-1.11) mg/dL Glucose 98 (70-99) mg/dL Calcium 8.1 L (8.6-10.8) mg/dL Consult Discharge Plan - Plan Referrals: ColBalbir ross, DO [Primary Care Provider] - <Sayda Benton Lupe - Last Filed: 09/26/16 17:45> Date of Encounter: 09/26/16 - Assessment and Plan (1) Urinary retention Current Visit: Yes Status: Acute (2) Small bowel obstruction Current Visit: Yes Status: Acute patient had two bowel movements but denies flatus with them, states had flatus only once sbft to evaluate npo, ngt to LIWS after SBFT prn pain control (3) Physical deconditioning Current Visit: Yes Status: Chronic PT/OT (4) Unable to eat Current Visit: Yes Status: Acute may need tpn soon if doesnt open up (5) DVT prophylaxis Current Visit: Yes Status: Acute Subjective Patient reports: no new complaints, feels better, bowel movement Narrative: started sbft and now having increased abdominal pain Objective Vital Signs - Last 8 Hours Temp Pulse Resp BP Pulse Ox 09/26/16 16:35 93 09/26/16 15:15 98.2 F 69 15 134/87 97 09/26/16 11:12 98.0 F 90 16 143/76 92 Intake and Output 09/26/16 09/26/16 09/26/16 07:59 15:59 23:59 Intake Total 1000 / 1000 0 / 0 Output Total 400 / 400 450 / 450 Balance 600 / 600 -450 / -450 Intake: IV Fluids 1000 / 1000 D5% And 0.45% Nacl 1000 1000 / 1000 Ml Bag 1,000 ML @ 75 mls/ hr IVC .[id number] [facility] Rx#: [id number] Oral 0 / 0 0 / 0 Output: Catheter 200 / 200 350 / 350 Gastric Drainage 200 / 200 100 / 100 Other: Meal NPO Stool Size Small Stool Consistency soft formed # Bowel Movements 1 Weight 36.832 kg 36.832 kg Blood Glucose* 106 110 122 Patient Weight 09/26/16 23:59 Weight 36.832 kg - General physical appearance cachectic, chronically ill - Eyes PERRL, normal ocular movement - ENT normal mucosa, normocephalic - Neck Neck exam: trachea midline - Respiratory normal expansion, clear to auscultation - Cardiovascular Cardiovascular exam: Present: RRR - Abdomen Abdomen: Present: soft, distended, tender (mildly and diffusely). Absent: bowel sounds present - Integumentary no growths - Neurologic CN 2-12 grossly intact - Musculoskeletal normal posture - Psychiatric oriented to time, oriented to person, oriented to place, speech is normal, memory intact - Labs 09/26/16 04:56 09/26/16 04:56 Vital Signs Temp Pulse Resp BP Pulse Ox 09/26/16 16:35 93 09/26/16 15:15 98.2 F 69 15 134/87 97 09/26/16 11:12 98.0 F 90 16 143/76 92 09/26/16 09:36 17 92 09/26/16 08:11 97.6 F 75 17 151/72 92 09/26/16 07:39 92 09/26/16 05:11 97.8 F 91 18 153/69 92 09/26/16 04:39 14 93 09/26/16 00:43 96 09/25/16 22:05 98.6 F 90 16 145/80 94 Intake and Output 09/26/16 09/26/16 09/26/16 07:59 15:59 23:59 Intake Total 1000 / 1000 0 / 0 Output Total 400 / 400 450 / 450 Balance 600 / 600 -450 / -450 Intake: IV Fluids 1000 / 1000 D5% And 0.45% Nacl 1000 1000 / 1000 Ml Bag 1,000 ML @ 75 mls/ hr IVC .[id number] [facility] Rx#: [id number] Oral 0 / 0 0 / 0 Output: Catheter 200 / 200 350 / 350 Gastric Drainage 200 / 200 100 / 100 Other: Meal NPO Stool Size Small Stool Consistency soft formed # Bowel Movements 1 Weight 36.832 kg 36.832 kg Blood Glucose* 106 110 122 Patient Weight 09/26/16 23:59 Weight 36.832 kg Short CBC 09/26/16 Range/Units 04:56 WBC 4.1 L (4.3-11.1) K/mcL Hgb 12.3 (11.5-15.4) g/dL Hct 38.0 (35.3-44.9) % Plt Count 191 (140-400) K/mcL Neutrophils # 2.6 (1.6-8.9) K/mcL BMP 09/26/16 Range/Units 04:56 Sodium 131 L (136-145) mEq/L Potassium 3.4 L (3.5-4.5) mEq/L Chloride 99 (98-109) mEq/L Carbon Dioxide 27 (19-29) mEq/L BUN 15 (7-20) mg/dL Creatinine 0.53 L (0.57-1.11) mg/dL Glucose 98 (70-99) mg/dL Calcium 8.1 L (8.6-10.8) mg/dL - Attending Attestation I have personally performed a face to face evaluation on this patient. I have reviewed and agree with the care plan. History and Exam by me shows: SBO
[2016-09-26] MEDS: Ondansetron 4 MG/2 ML VIAL IVP PRN (16:55)
[2016-09-26] MEDS: *HR* Morphine 2 MG/ML SYRINGE IVP PRN (18:22)
--- NOTE | 2016-09-26 18:25 | Internal Med Progress Note ---
Date of Encounter: 09/26/16 Time of Encounter: 18:23 - Assessment and plan (1) Small bowel obstruction Current Visit: Yes Status: Acute Assessment and plan: Admitted with small bowel obstructions. SBO is likely from previous abdominal surgeries/adhesions. Surgery on board. We will follow recommendations from surgery. (2) COPD (chronic obstructive pulmonary disease) Current Visit: No Status: Chronic Assessment and plan: -Stable condition, 90% on room air -No SOB, cough, fever -PRN duoneb Qualifiers: COPD type: unspecified COPD Qualified Code(s): J44.9 - Chronic obstructive pulmonary disease, unspecified (3) HTN (hypertension) Current Visit: Yes Status: Acute Assessment and plan: -Stable condition -We will continue to monitor Qualifiers: Hypertension type: essential hypertension Qualified Code(s): I10 - Essential (primary) hypertension - Subjective Interval history: Patient seen and examined. Chart reviewed. patient is comfortably lying in the bed. Patient denies chest pain, shortness of breath, abdominal pain diarrhea or dizziness - Constitutional Vitals: Temp Pulse Resp BP Pulse Ox 98.2 F 69 15 134/87 93 09/26/16 15:15 09/26/16 15:15 09/26/16 15:15 09/26/16 15:15 09/26/16 16:35 General appearance: Present: cooperative, mild distress, A&O X 3, pleasant, underweight, answers questions appropriately - Head Head exam: Present: atraumatic, normocephalic - Eye Eye exam: Present: PERRL, conjuntiva pink, sclera anicteric Pupils: Present: PERRL - Neck Neck exam general surgery: Present: supple, trachea midline. Absent: lymphadenopathy - Respiratory Respiratory exam: Present: CTAB. Absent: accessory muscle use, rales, rhonchi, wheezes - Cardiovascular Cardiovascular exam: Present: RRR, +S1, +S2. Absent: diastolic murmur, gallop, rubs, systolic murmur - GI/Abdominal GI/Abdominal exam: Present: normal bowel sounds, soft, no peritoneal signs. Absent: distended, tenderness - Extremities Exam Extremities exam: Present: warm, radial pulses palpable and symetrical. Absent : calf tenderness, cyanotic, pedal edema - Neurological Exam Neurological exam: Present: CN II-XII intact, oriented X3, no focal deficits. Absent: pronater drift, facial droop, speech deficit - Skin Skin exam: Present: dry, intact Internal Medicine: Result - Labs CBC & Chem 7: 09/26/16 04:56 09/26/16 04:56 Labs: Short CBC 09/26/16 Range/Units 04:56 WBC 4.1 L (4.3-11.1) K/mcL Hgb 12.3 (11.5-15.4) g/dL Hct 38.0 (35.3-44.9) % Plt Count 191 (140-400) K/mcL Neutrophils # 2.6 (1.6-8.9) K/mcL BMP 09/26/16 04:56 Sodium 131 L Potassium 3.4 L Chloride 99 Carbon Dioxide 27 BUN 15 Creatinine 0.53 L Glucose 98 Calcium 8.1 L - ABG Interpretation ABG results: PT/INR, D-dimer PT 10.9 Seconds (9.4-12.1) 09/22/16 12:48 Consult Discharge Plan - Plan Referrals: Balbir Cole DO [Primary Care Provider] -
--- NOTE | 2016-09-26 19:57 | Anesthesia Evaluation PreOp ---
Date of Encounter: 09/27/16 Time of Encounter: 06:48 - Past History Planned Operation: Exploratory Laparotomy Cardiac History: RI, HTN, Arrhythmia (A-Fib) Pulmonary History: Former smoker (quit 20+ years ago), COPD [employer]ING [employer] History: Denies Any Significant HX Other Medical History: GERD Anesthesia History: No Prior Anesthetic Complications, Past Anesthesia ( hysterectomy, hiatal hernia repair) Alcohol Use: none Drug use: none Medications and Allergies Albuterol Sulfate [Albuterol Inhaler] 1 puff IH Q4-6H PRN 04/14/16 [History] Calcium Carbonate/Vitamin D3 [Calcium 500 mg Chewable Tablet] 1 each PO DAILY [History] Potassium 99 mg PO DAILY 04/14/16 [History] Magnesium Oxide [Mgo] 400 mg PO BID #30 tablet 04/17/16 [Rx] Metoprolol [Lopressor] 25 mg PO BID #30 tablet 04/17/16 [Rx] Cyanocobalamin (Vitamin B-12) [Vitamin B12] 1,000 mcg PO DAILY 09/22/16 [History ] Famotidine [Pepcid] 20 mg PO DAILY 09/22/16 [History] Allergies No Known Allergies Allergy (Verified 04/14/16 10:40) - Meds/Allergy Pre-op Review Medications Reviewed: Yes Allergies Reviewed: Yes Beta Blockers on Current Med List: Yes If Beta Blockers taken, Date/Time (Last Dose taken): 09/27/2016 at 0523 Anesthesia Results - Labs 09/26/16 04:56 09/27/16 03:54 Laboratory Tests 09/22/16 12:48 PT 10.9 INR 1.0 APTT 30.6 - Imaging EKG: report reviewed (04/16/2016 SUPRAVENTRICULAR TACHYCARDIA BORDERLINE LEFT AXIS DEVIATION) Additional studies: 04/16/2016 Echo Impressions: LVEF 60%. Normal left ventricular size and systolic function. There is evidence of mild diastolic dysfunction of the left ventricle. Normal right ventricular size and function. Moderate mitral regurgitation. Mild-moderate tricuspid regurgitation. No pulmonary hypertension. There is evidence of a PFO with agitated saline contrast. Anesthesia Exam Vital Signs/O2 Sat/Glucose, Most Recent Temp Pulse Resp BP Pulse Ox 98.2 F 69 15 134/87 93 09/26/16 15:15 09/26/16 15:15 09/26/16 15:15 09/26/16 15:15 09/26/16 16:35 Blood Glucose* 122 Height: 5'/1.52 m Weight: 81 lbs/36.832 kg NPO (# of Hours): 8 Pain Scale: 7 (abdomen) Pain Scale Used: Numeric (1 - 10) - HEENT Pupil (Motor): EOMI Mallampati: II Teeth: Edentulous Oral Opening: Greater than 3 - [employer] LOC: Oriented [employer]ING [employer] Motor: Normal RUE, Normal LUE, Normal RLE, Normal LLE, Normal Face [employer] Sensory: Normal: RUE, LUE, RLE, LLE, Face - Cardiac Rhythm: Regular Murmur: None - Pulmonary Breath Sounds: bilateral Clear Respiratory Effort: Symmetrical Anesthesia Assess/Plan ASA Score: 3 Modified [place] Scale for Level of Consciousness: Cooperative, oriented, and tranquil Anesthetic Plan: General Monitoring Plan: Standard Monitors Recovery Plan: PACU
[2016-09-27] MEDS: *HR* Metoprolol 5 MG/5 ML VIAL IVP SCH ×5 (00:23→23:07)
[2016-09-27] MEDS: Ketorolac 15 MG/ML VIAL IVP PRN ×2 (00:30→07:20)
[2016-09-27] MEDS: Ipratropium/Albuterol Neb 3 ML IH SCH ×5 (03:48→21:05)
[2016-09-27 04:53] LABS: BUN/Creatinine Ratio 30 (6-26); Blood Urea Nitrogen 16 mg/dL (7-20); Calcium 8.5 mg/dL (8.6-10.8); Carbon Dioxide 27 mEq/L (19-29); Chloride 101 mEq/L (98-109); Glucose 131 mg/dL (70-99); Osmolality,Calculated 289 (280-300); Potassium 3.6 mEq/L (3.5-4.5); eGFR For African Americans > 60 (> 60); eGFR For Non-African Americans > 60 (> 60)
[2016-09-27 04:56] LABS: Sodium 138 mEq/L (136-145)
[2016-09-27] MEDS: *HR* Enoxaparin 30 MG/0.3 ML SYRINGE SQ SCH (05:23)
[2016-09-27] MEDS: Pantoprazole 40 MG VIAL IVP SCH (08:55)
[2016-09-27] MEDS: D5% in 0.45% NACL 1,000 ML IVC SCH ×2 (11:40→17:02)
[2016-09-27] MEDS ORDERED: D10% in Water 500 ML IVC PRN ×2 (11:46→17:30)
[2016-09-27] MEDS ORDERED: Albuterol 2.5 MG/3 ML NEBULIZER IH PRN ×2 (12:09→17:30)
[2016-09-27] MEDS ORDERED: *HR* Rocuronium Bromide 50 MG/5 ML VIAL ONE (12:24)
[2016-09-27] MEDS ORDERED: Neostigmine Methylsulfate 3 MG/3 ML SYRINGE ONE (12:24)
[2016-09-27] MEDS ORDERED: Dexamethasone 4 MG/ML VIAL ONE (12:24)
[2016-09-27] MEDS ORDERED: Ondansetron 4 MG/2 ML VIAL ONE (12:24)
[2016-09-27] MEDS ORDERED: *HR* Propofol 200 MG/20 ML VIAL IVP ONE (12:25)
[2016-09-27] MEDS ORDERED: *HR* FentaNYL (PF) 100 MCG/2 ML VIAL ONE (12:25)
[2016-09-27] MEDS ORDERED: *HR* Phenylephrine 10 MG/ML VIAL ONE (12:26)
[2016-09-27] MEDS ORDERED: Lidocaine -MPF 2% 2 ML VIAL ONE (12:26)
[2016-09-27] MEDS ORDERED: *HR* Morphine 10 MG/ML VIAL ONE (14:30)
--- NOTE | 2016-09-27 15:42 | Operative Note ---
Date of procedure: 09/27/16 Pre-op diagnosis: small bowel obstruction Post-op diagnosis: same (due to internal hernia due to adhesions) Procedure: Exploratory laparotomy, small bowel resection converted to ileocectomy Complications: none immediate Anesthesia: ASHLEY Surgeon: Sayda Benton Nougat Candy Maker Helper: Baylee Maravilla Nougat Candy Maker Helper Other: Maik Goldman Estimated blood loss (cc): 20 IV fluids (cc): 1,900 Urine output (cc): 50 Specimen: small bowel, terminal ileum/cecum Condition: stable Disposition: PACU Procedure in Detail: She was brought to the operating suite and placed supine on the operating table. Sign in was performed and everyone was in agreement. Anesthesia was induced and patient was endotracheally intubated by anesthesia without incident. Patient already had an NG tube and Benito catheter that was placed on the floor placed previously. Her abdomen was prepped and draped in the usual sterile fashion. Timeout was performed again everyone was in agreement. A midline incision through the skin and the subcutaneous tissue beginning at the umbilicus and moving distally was made with a 15 blade. We dissected through the subcutaneous tissue to the anterior abdominal wall linea alba fascia with the Bovie. Guille's were placed on either side of the fascia for retraction and the abdomen was entered with the Bovie. The small bowel was extremely dilated and there was a superficial Bovie burn to the small bowel. This was oversewn with 3-0 silk Lembert stitches. The small bowel was eviscerated from the abdomen. At the distal small bowel there were peritoneal adhesions that essentially formed an internal hernia and multiple loops of small bowel were through this. The small bowel was reduced from this hernia site and the peritoneal adhesion taken down with the Bovie. The small bowel was run from the terminal ileum to the ligament of Treitz. There was a small area in the terminal ileum which was significantly scarred down. We did manually milk succus proximally and distally into the colon and up into the stomach. The area in the terminal ileum that was significantly strictured down and did not distend and significantly delayed the passage of succus. The decision was made to resect this area. An area in the small bowel proximal and distal to this area of stricture were chosen for transection. An opening in the mesentery beneath each area was made with the Bovie. A linear GERMAN-75 stapler using a blue load was placed across both areas of small bowel and they were transected. The area small bowel with the stricture was taken off the mesentery with the impact LigaSure. Babcocks were placed on the transected end of the small bowel for approximation. An opening in the antimesenteric side of each piece of small bowel was made with the Bovie. A common channel was created with a linear GERMAN-75 stapler using a blue load. The end of the nfqa-es-pggl anastomosis was closed with a TA 60 stapler blue load. The staple line was oversewn with 3-0 silk interrupted muwear-op-lvenm stitches. A 3-0 silk crotch stitch was placed. The mesentery defect was closed with a 3-0 silk running stitch. An interval appendectomy was performed first grabbing the appendix with the Donell and a hemostat was used to dissect below the appendix at the base of the cecum. The appendix was transected at the base of the cecum with an linear GERMAN-75 stapler blue load. The mesoappendix was taken down with the Bovie. The abdomen was irrigated with sterile saline. A second look at the anastomosis revealed the proximal end of the anastomosis was ischemic and purple. It was wrapped in a warm wet lap for several minutes. The ischemia did not improve. The anastomosis was too close to the ileocecal valve to create another ccbl-ms-bocr small bowel anastomosis. The right colon was elevated off the sidewall of the white line of Toldt with the Bovie. An area just proximal to the right colic vessels was chosen for cecal transection and an opening in the mesentery beneath the right colon was made with the Bovie. The cecum was transected with a linear GERMAN-75 stapler using the blue load. An area of small bowel proximal to the ischemic area of the anastomosis was chosen for transection and an opening in the mesentery beneath this was made with the Bovie. The small bowel was transected with a linear GERMAN-75 stapler blue load. The terminal ileum and cecum was taken off the mesentery with the impact LigaSure and placed off the back table for pathology. An opening in the anterior tinea was made with the Bovie and succus was evacuated via suction from the right colon. The tip of the small bowel was transected with heavy curved scissors. A opsf-xp-sxuw ileocolic anastomosis was first created with a linear GERMAN-75 stapler forming the common channel. The end of the side to side anastomosis was closed with a TL 60 stapler. The end staple line was oversewn with 3-0 silk interrupted Lembert stitches. A 3-0 silk crotch stitch was placed. The mesentery was closed with a 3-0 silk running stitch. The ileocolic anastomosis was placed in the right lower quadrant. The small bowel was returned to the abdomen. Guille's were placed on either side of the fascia for retraction. The fascia was closed with 2 separate non-looped #1 PDS running stitches meeting in the middle. The subcutaneous tissue was copiously irrigated with sterile saline. 3-0 Vicryl interrupted subcutaneous stitches were used to approximate the subcutaneous tissue. The skin was closed with ambrose. 4 x 4 gauze and Medipore tape were applied as a dressing. All lap and instrument counts were correct at the end of the case. The patient tolerated the procedure well. She was extubated in the OR by anesthesia after being awoken. She was taken to PACU in stable condition.
--- NOTE | 2016-09-27 16:32 | Anesthesia Evaluation Post Op ---
Date of Encounter: 09/27/16 Time of Encounter: 16:30 - Vital Signs Vital Signs: Vital Signs/O2 Sat/Glucose, Most Current Temp Pulse Resp BP Pulse Ox 09/27/16 16:20 97.8 F 75 18 142/90 94 09/27/16 16:10 97.6 F 76 16 131/89 98 09/27/16 16:00 83 18 127/91 100 09/27/16 15:50 75 18 131/83 100 09/27/16 15:40 97.1 F L 82 20 138/94 100 - Lungs Lungs: Clear Ascult./Percussion - Airway Airway: Non-obstructed - Cardiovascular Regular Rate - Mental Status Mental Status: Alert & Oriented, Answers Appropriately - Pain Pain Scale: 0 - Nausea Vomiting Nausea Vomiting: Not Present - Hydration Hydration: Ice chips - Discharge PostOp Status: Transfer Patient to floor
[2016-09-27] MEDS ORDERED: Clinimix E 5%-15% SOLUTION 2,000 ML with MVI, adult with vitamin K 10 ML IVC SCH ×2 (17:00→17:30)
--- NOTE | 2016-09-27 17:00 | Internal Med Progress Note ---
Date of Encounter: 09/27/16 Time of Encounter: 10:10 - Assessment and plan (1) Small bowel obstruction Current Visit: Yes Status: Acute Assessment and plan: -SBO likely secondary to adhesions -NG tube in place, drained about 50cc -Patient denies flatus or BM at this time. -Gen. Surgery is on board - patient scheduled for exploratory laparotomy today -Continue NG tube, IVF -The abdomen is distended and firm. No tenderness upon palpation, bowel sounds hypoactive in all four quadrants. (2) COPD (chronic obstructive pulmonary disease) Current Visit: No Status: Chronic Assessment and plan: Stable, not in exacerbation Qualifiers: COPD type: unspecified COPD Qualified Code(s): J44.9 - Chronic obstructive pulmonary disease, unspecified (3) HTN (hypertension) Current Visit: Yes Status: Acute Assessment and plan: Essential hypertension, controlled, monitor, continue metoprolol Qualifiers: Hypertension type: essential hypertension Qualified Code(s): I10 - Essential (primary) hypertension (4) DVT prophylaxis Current Visit: Yes Status: Acute Assessment and plan: Continue Lovenox - Time Spent With Patient 25 - 35 minutes - Subjective Interval history: Examined this morning. Patient is awake and alert. Not in any distress. Denies chest pain or shortness of breath. Complains of persistent abdominal pain and bloating. Denies diarrhea. No fever. NG tube in place connected to low intermittent suction. No other acute events or complaints. Patient is being followed by general surgery and patient to undergo ex-lap due to persistent small bowel obstruction. - Constitutional Vitals: Temp Pulse Resp BP Pulse Ox 97.8 F 75 18 142/90 94 09/27/16 16:20 09/27/16 16:20 09/27/16 16:20 09/27/16 16:20 09/27/16 16:20 General appearance: Present: cachectic, cooperative, mild distress, A&O X 3, pleasant, answers questions appropriately Exam: Generalized weakness, ill-appearing - Head Head exam: Present: atraumatic - Eye Eye exam: Present: EOMI - ENT ENT exam: Present: mucous membranes dry Additional comments: NG tube in place - Neck Neck exam general surgery: Present: supple - Respiratory Respiratory exam: Present: CTAB. Absent: rhonchi, wheezes, tachypnea - Cardiovascular Cardiovascular exam: Present: RRR, +S1, +S2 - GI/Abdominal GI/Abdominal exam: Present: distended, firm, tenderness (Mild generalized), no peritoneal signs. Absent: guarding, soft - Extremities Exam Extremities exam: Present: radial pulses palpable and symetrical. Absent: cyanotic, pedal edema, tenderness - Neurological Exam Neurological exam: Present: alert, oriented X3, no focal deficits. Absent: facial droop, speech deficit Internal Medicine: Result - Labs CBC & Chem 7: 09/26/16 04:56 09/27/16 03:54 Labs: BMP 09/27/16 03:54 Sodium 138 D Potassium 3.6 Chloride 101 Carbon Dioxide 27 BUN 16 Creatinine 0.54 L Glucose 131 H Calcium 8.5 L - ABG Interpretation ABG results: PT/INR, D-dimer PT 10.9 Seconds (9.4-12.1) 09/22/16 12:48 - Impressions Impressions Small Bowel X-Ray 09/26/16 13:07 IMPRESSION: Findings consistent with a high-grade distal small bowel obstruction D/ / Roldan Sadler MD / Roldan Sadler MD Interpreting Provider: Roldan Sadler MD Consult Discharge Plan - Plan Referrals: Balbir Cole DO [Primary Care Provider] -
[2016-09-27] MEDS ORDERED: Naloxone 0.4 MG/ML INJ IVP PRN (17:30)
[2016-09-27] MEDS ORDERED: Acetaminophen IV 1,000 MG/100 ML INFUS..BTL IVPB SCH (17:30)
[2016-09-27] MEDS ORDERED: *HR* Morphine 2 MG/ML SYRINGE IVP PRN ×2 (17:30)
[2016-09-27] MEDS: Ondansetron 4 MG/2 ML VIAL IVP PRN (18:23)
[2016-09-27] MEDS: 0.9 % Sodium Chloride 1,000 ML IVC SCH (18:28)
[2016-09-27] MEDS ORDERED: 0.9 % Sodium Chloride 1,000 ML IVC ONE (20:38)
[2016-09-27] MEDS ORDERED: Ringers Solution, Lactated 500 ML IVC ONE (20:42)
[2016-09-28] MEDS ORDERED: Ringers Solution, Lactated 500 ML IVC ONE (00:43)
[2016-09-28] MEDS: Acetaminophen IV 1,000 MG/100 ML INFUS..BTL IVPB SCH ×3 (01:35→15:35)
[2016-09-28] MEDS ORDERED: 0.9 % Sodium Chloride 500 ML IVC ONE (02:17)
[2016-09-28] MEDS ORDERED: Dexamethasone 4 MG/ML VIAL IVP ONE (02:18)
--- NOTE | 2016-09-28 02:19 | Event Note ---
Date of Encounter: 09/28/16 Time of Encounter: 02:00 I was paged multiple times throughout the night for low blood pressure (in 80s / high 50s range) despite of multiple rounds of IV fluid were given (2L given so far). Patient just had exploratory laparotomy with small bowel resection converted to ileocectomy this afternoon. Patient was seen and examined. Manual BP at 90/76. Patient reports having some lightheadedness earlier but that has resolved after IV fluid. Patient denies significant abdominal pain, shortness of breath, chest pain, fever, chills. Patient denies chronic steroid use at home. CBC and CMP are unremarkable. Will give another 500 mL of NS. Given concern of acute adrenal insufficiency, will give one dose of dexamethasone 4 mg IV bolus (per UpToDate, it is not measured in serum cortisol assays). Will also check serum cortisol level at 5 am. Patient's nurse is instructed to closely monitor patient's blood pressure.
[2016-09-28 02:57] LABS: Basophils % 0.1 %; Hematocrit 38.5 % (35.3-44.9); Hemoglobin 12.4 g/dL (11.5-15.4); Immature Granulocytes % 0.4 % (0-4); Lymphocytes # 0.4 K/mcL (0.6-4.6); Lymphocytes % 2.9 %; Mean Corpuscular HGB Conc 32.2 g/dL (31.6-35.5); Mean Corpuscular Hemoglobin 29.6 pg (28.0-33.3); Mean Corpuscular Volume 91.9 fL (83.0-100.0); Mean Platelet Volume 10.7 fL (9.4-12.4); Monocytes # 0.8 K/mcL (0.0-1.3); Monocytes % 5.5 %; Neutrophils # 12.8 K/mcL (1.6-8.9); Platelet Count 212 K/mcL (140-400); Red Blood Count 4.19 M/mcL (3.82-4.97); Segmented Neutrophils % 91.1 %
[2016-09-28 02:57] LABS: Bilirubin,Urine Small (Negative); Blood,Urine Negative (Negative); Clarity,Urine Turbid (Clear); Color,Urine Yellow (Yellow); Glucose,Urine (UA) Normal (Normal); Ketones,Urine Negative (Negative); Leukocyte Esterase,Urine Negative (Negative); Nitrite,Urine Negative (Negative); Protein,Urine Trace mg/dL (Neg-Trace); Specific Gravity,Urine > 1.030 (1.010-1.025); Urobilinogen,Urine Normal (Normal)
[2016-09-28 02:59] LABS: Bacteria,Urine Moderate per hpf (None-Few); Squamous Epithelial Cell,Urine Moderate per lpf (None-Few); WBC,Urine 30-50 per hpf (0-3)
[2016-09-28 03:07] LABS: Hyaline Casts,Urine Few per lpf (None-Few)
[2016-09-28 03:08] LABS: Mucus,Urine Many (Few); Yeast,Urine Many per hpf (None Seen)
[2016-09-28 03:09] LABS: RBC,Urine 0-3 per hpf (0-3)
[2016-09-28 03:12] LABS: Alanine Aminotransferase 9 Units/L (0-55); Albumin 2.2 g/dL (3.5-5.0); Alkaline Phosphatase 33 Units/L (38-126); Aspartate Amino Transferase 17 Units/L (5-34); BUN/Creatinine Ratio 27 (6-26); Bilirubin,Total 0.6 mg/dL (0.2-1.2); Blood Urea Nitrogen 18 mg/dL (7-20); Calcium 7.6 mg/dL (8.6-10.8); Carbon Dioxide 30 mEq/L (19-29); Chloride 102 mEq/L (98-109); Globulin 2.3 g/dL (2.4-3.5); Glucose 172 mg/dL (70-99); Magnesium 1.3 mg/dL (1.6-2.6); Osmolality,Calculated 290 (280-300); Phosphorous 3.7 mg/dL (2.3-4.7); Potassium 3.8 mEq/L (3.5-4.5); Sodium 137 mEq/L (136-145); Total Protein 4.5 g/dL (6.0-8.3); eGFR For African Americans > 60 (> 60); eGFR For Non-African Americans > 60 (> 60)
[2016-09-28] MEDS: Ipratropium/Albuterol Neb 3 ML IH SCH ×4 (03:39→22:00)
[2016-09-28] MEDS ORDERED: Magnesium Sulfate 2 GM in D5% in Water 100 ML IVPB ONE (04:05)
[2016-09-28] MEDS: *HR* Metoprolol 5 MG/5 ML VIAL IVP SCH ×2 (04:31→11:28)
[2016-09-28] MEDS: *HR* Enoxaparin 30 MG/0.3 ML SYRINGE SQ SCH (06:15)
[2016-09-28] MEDS: Pantoprazole 40 MG VIAL IVP SCH (07:37)
[2016-09-28] MEDS ORDERED: Levofloxacin 750 MG/150 ML 750 MG/150 ML BAG IVPB SCH (09:00)
--- NOTE | 2016-09-28 10:02 | General Surgery Progress Note ---
<Joaquín Dorman - Last Filed: 09/29/16 16:39> Date of Encounter: 09/29/16 Time of Encounter: 09:40 - Assessment and Plan (1) S/P exploratory laparotomy Current Visit: Yes Status: Acute Post-op day 1 exploratory laparotomy with small bowel resection converted to ileocectomy NPO - Patient denies flatus or bowel movements. IV fluids at 100mL per hour - catheter draining well Continue pain management as needed - Morphine sulfate 1mg prn Wound care with colostomy care and dressing changes ambulate as tolerated supportive care (2) DVT prophylaxis Current Visit: Yes Status: Acute Continue Lovenox 30 mg daily Ambulate as tolerated. (5) Hypotension Current Visit: Yes Status: Acute Hypotensive episodes with light headedness yesterday night in the 80s/50s - Dexamethasone 4 mg IV bolus was given. Random Cortisol = 7.0 this AM. Current BP = 96/65 Continue close BP monitoring Continue 1000mls at 25 mls/hr IVC q24h Consider hold on Lopressor 5mg Qualifiers: Hypotension type: unspecified hypotension type Qualified Code(s): I95.9 - Hypotension, unspecified Subjective Patient reports: no flatus, no bowel movement, afebrile, other (Patient continues to have poor appetitie. unable to tolerate any food. ) Objective Vital Signs - Last 8 Hours Temp Pulse Resp BP Pulse Ox 09/28/16 06:59 94 09/28/16 06:58 97.8 F 93 18 96/65 94 09/28/16 05:00 98 95/66 96 09/28/16 03:54 99 17 80/52 96 09/28/16 03:39 18 96 09/28/16 02:48 97.4 F L 96 17 89/59 95 09/28/16 02:00 86/64 Intake and Output 09/27/16 09/28/16 09/28/16 23:59 07:59 15:59 Intake Total 1600 / 1600 2368 / 2368 400 / 400 Output Total 350 / 350 450 / 450 Balance 1250 / 1250 1917 / 1917 400 / 400 Intake: IV Fluids 1600 / 1600 2368 / 2368 400 / 400 0.9 % Sodium Chloride 1, 1000 / 1000 750 / 750 000 ML @ 25 mls/hr IVC . Q24H [facility] Rx#:[id number] 0.9 % Sodium Chloride 500 500 / 500 ML @ 1875 mls/hr IVC . Q16M [facility] Rx#:[id number] ALBURX 5% 12.5 gm In 250 250 / 250 ml @ 60 mls/hr IVC . Q4H10M [facility] Rx#:[id number] Clinimix E 5%-15% 314 / 314 SOLUTION 2,000 ML @ 30 mls/hr IVC .Q24H [facility] with M.v.i. Adult 10 ml Rx#: [id number] Lactated Ringers 500 ML @ 500 / 500 500 / 500 1000 mls/hr IVC .Q30M [facility] Rx#:[id number] Ofirmev 1,000 mg/100 ml 1 100 / 100 200 / 200 ,000 mg In 100 ml @ 400 mls/hr IVPB Q8HR [facility] Rx#: [id number] Levaquin Premix 750mg/150 150 / 150 mL 750 mg In 150 ml @ 100 mls/hr IVPB DAILY [facility] Rx#:[id number] Magnesium Sulfate 2 GM In 104 / 104 Dextrose 5% 100 ML @ 100 mls/hr IVPB ONCE [facility] Rx# :[id number] Oral 0 / 0 0 / 0 0 / 0 Output: Catheter 450 / 450 Gastric Drainage 350 / 350 0 / 0 Other: Meal NPO NPO Percent of Meal Consumed 0% 0% Weight 34.1 kg Blood Glucose* 118 224 Patient Weight 09/28/16 23:59 Weight 34.1 kg - General physical appearance no distress, no pain, other (malnourished) - Eyes normal ocular movement - ENT CN 2-12 grossly intact - Cardiovascular Cardiovascular exam: Present: RRR, no murmurs/rubs/gallops - Abdomen Abdomen: Present: bowel sounds present, soft, non tender - Incision Incision: Present: clean and dry, intact - Neurologic CN 2-12 grossly intact - Labs 09/29/16 03:44 09/29/16 03:44 Diabetes panel 09/28/16 09/28/16 Range/Units 02:51 02:51 Sodium 137 (136-145) mEq/L Potassium 3.8 (3.5-4.5) mEq/L Chloride 102 (98-109) mEq/L Carbon Dioxide 30 H (19-29) mEq/L BUN 18 (7-20) mg/dL Creatinine 0.67 (0.57-1.11) mg/dL Glucose 172 H (70-99) mg/dL Calcium 7.6 L (8.6-10.8) mg/dL AST 17 (5-34) Units/L ALT 9 (0-55) Units/L Alkaline Phosphatase 33 L (38-126) Units/L Albumin 2.2 L (3.5-5.0) g/dL Triglycerides 75 (< 150) mg/dL Calcium panel 09/28/16 Range/Units 02:51 Calcium 7.6 L (8.6-10.8) mg/dL Phosphorus 3.7 (2.3-4.7) mg/dL Albumin 2.2 L (3.5-5.0) g/dL Pituitary panel 09/28/16 Range/Units 02:51 Sodium 137 (136-145) mEq/L Potassium 3.8 (3.5-4.5) mEq/L Chloride 102 (98-109) mEq/L Carbon Dioxide 30 H (19-29) mEq/L BUN 18 (7-20) mg/dL Creatinine 0.67 (0.57-1.11) mg/dL Glucose 172 H (70-99) mg/dL Calcium 7.6 L (8.6-10.8) mg/dL Adrenal panel 09/28/16 Range/Units 02:51 Sodium 137 (136-145) mEq/L Potassium 3.8 (3.5-4.5) mEq/L Chloride 102 (98-109) mEq/L Carbon Dioxide 30 H (19-29) mEq/L BUN 18 (7-20) mg/dL Creatinine 0.67 (0.57-1.11) mg/dL Glucose 172 H (70-99) mg/dL Calcium 7.6 L (8.6-10.8) mg/dL Total Bilirubin 0.6 (0.2-1.2) mg/dL AST 17 (5-34) Units/L ALT 9 (0-55) Units/L Alkaline Phosphatase 33 L (38-126) Units/L Albumin 2.2 L (3.5-5.0) g/dL - VTE Documentation of Mechanical Device: Intermittent pneumatic compression device Consult Discharge Plan - Plan Referrals: Balbir Cole DO [Primary Care Provider] - <Sayda Benton - Last Filed: 09/30/16 08:38> Date of Encounter: 09/28/16 - Assessment and Plan (1) Urinary retention Current Visit: Yes Status: Acute continue oconnell for strict I/O's and urinary retention (2) Small bowel obstruction Current Visit: Yes Status: Acute pod 1 ex lap, LASHAE, ileocectomy await return of bowel function continue TPN, prn pain control, ngt decompression OOB to chair (3) Physical deconditioning Current Visit: Yes Status: Chronic continue PT/OT (4) Unable to eat Current Visit: Yes Status: Acute continue TPN until able to take in adequate po intake (5) DVT prophylaxis Current Visit: Yes Status: Acute Subjective Patient reports: no new complaints (denies abdominal pain, no nausea, no flatus or bm) Objective Vital Signs - Last 8 Hours Temp Pulse Resp BP Pulse Ox 09/30/16 07:04 97.9 F 98 19 101/69 96 09/30/16 03:10 98.1 F 94 14 94/61 95 Intake and Output 09/29/16 09/30/16 09/30/16 23:59 07:59 15:59 Intake Total 400 / 400 2313 / 2313 100 / 100 Output Total 950 / 950 950 / 950 Balance -550 / -550 1363 / 1363 100 / 100 Intake: IV Fluids 400 / 400 2313 / 2313 100 / 100 0.9 % Sodium Chloride 1, 400 / 400 1480 / 1480 000 ML @ 75 mls/hr IVC . [id number] [facility] Rx#: [id number] Clinimix E 5%-15% 0 / 0 633 / 633 SOLUTION 2,000 ML @ 60 mls/hr IVC .Q24H [facility] with M.v.i. Adult 10 ml Rx#: [id number] Ofirmev 1,000 mg/100 ml 1 200 / 200 100 / 100 ,000 mg In 100 ml @ 400 mls/hr IVPB Q8HR [facility] Rx#: [id number] Oral 0 / 0 0 / 0 Output: Catheter 700 / 700 900 / 900 Gastric Drainage 250 / 250 50 / 50 Other: Weight 33.566 kg Blood Glucose* 107 101 128 Patient Weight 09/30/16 23:59 Weight 33.566 kg - General physical appearance no distress, chronically ill - Eyes normal ocular movement - ENT dry mucosa, atraumatic - Neck Neck exam: trachea midline - Respiratory normal expansion, clear to auscultation - Cardiovascular Cardiovascular exam: Present: RRR - Abdomen Abdomen: Present: soft, tender (appropriate post op tenderness). Absent: bowel sounds present - Incision Incision: Present: clean and dry, intact - Integumentary no rash, no growths - Neurologic CN 2-12 grossly intact - Musculoskeletal normal posture - Psychiatric oriented to time, oriented to person, oriented to place, speech is normal, memory intact - Labs 09/30/16 03:35 09/30/16 03:35 Diabetes panel 09/30/16 Range/Units 03:35 Sodium 133 L (136-145) mEq/L Potassium 3.0 L (3.5-4.5) mEq/L Chloride 97 L (98-109) mEq/L Carbon Dioxide 31 H (19-29) mEq/L BUN 10 (7-20) mg/dL Creatinine 0.46 L (0.57-1.11) mg/dL Glucose 98 (70-99) mg/dL Calcium 7.9 L (8.6-10.8) mg/dL AST 13 (5-34) Units/L ALT 6 (0-55) Units/L Alkaline Phosphatase 42 (38-126) Units/L Albumin 2.1 L (3.5-5.0) g/dL Calcium panel 09/30/16 Range/Units 03:35 Calcium 7.9 L (8.6-10.8) mg/dL Phosphorus 2.1 L (2.3-4.7) mg/dL Albumin 2.1 L (3.5-5.0) g/dL Pituitary panel 09/30/16 Range/Units 03:35 Sodium 133 L (136-145) mEq/L Potassium 3.0 L (3.5-4.5) mEq/L Chloride 97 L (98-109) mEq/L Carbon Dioxide 31 H (19-29) mEq/L BUN 10 (7-20) mg/dL Creatinine 0.46 L (0.57-1.11) mg/dL Glucose 98 (70-99) mg/dL Calcium 7.9 L (8.6-10.8) mg/dL Adrenal panel 09/30/16 Range/Units 03:35 Sodium 133 L (136-145) mEq/L Potassium 3.0 L (3.5-4.5) mEq/L Chloride 97 L (98-109) mEq/L Carbon Dioxide 31 H (19-29) mEq/L BUN 10 (7-20) mg/dL Creatinine 0.46 L (0.57-1.11) mg/dL Glucose 98 (70-99) mg/dL Calcium 7.9 L (8.6-10.8) mg/dL Total Bilirubin 0.4 (0.2-1.2) mg/dL AST 13 (5-34) Units/L ALT 6 (0-55) Units/L Alkaline Phosphatase 42 (38-126) Units/L Albumin 2.1 L (3.5-5.0) g/dL - Attending Attestation I examined this patient and my medical decision-making was reviewed with the Resident Physician. I agree with the documented findings, disposition and treatment plan as described except to the extent set forth below. patient does NOT have a colostomy - disregard resident comment
[2016-09-28] MEDS ORDERED: Magnesium Sulfate 1 GM in D5% in Water 100 ML IVPB ONE (12:05)
[2016-09-28] MEDS ORDERED: *HR* Metoprolol 5 MG/5 ML VIAL IVP PRN (12:17)
[2016-09-28] MEDS: 0.9 % Sodium Chloride 1,000 ML IVC SCH ×2 (13:52→15:00)
--- NOTE | 2016-09-28 14:45 | Internal Med Progress Note ---
Date of Encounter: 09/28/16 Time of Encounter: 09:10 - Assessment and plan (1) Small bowel obstruction Current Visit: Yes Status: Acute Assessment and plan: -SBO likely secondary to adhesions - s/p ex-lap with small bowel resection converted to ileocectomy POD #1 IV Morphine PRN -NPO, NG tube in place -Patient denies flatus or BM at this time -Gen. Surgery following patient -Continue NG tube, IVF continue wound care and dressing changes (2) Hypotension Current Visit: Yes Status: Acute Assessment and plan: Persistent hypotension - probably due to volume depletion IV Dexamethasone, IV Albumin given continue IV fluids, monitor closely Hold antihypertensives Qualifiers: Hypotension type: unspecified hypotension type Qualified Code(s): I95.9 - Hypotension, unspecified (3) COPD (chronic obstructive pulmonary disease) Current Visit: No Status: Chronic Assessment and plan: Stable, not in exacerbation Qualifiers: COPD type: unspecified COPD Qualified Code(s): J44.9 - Chronic obstructive pulmonary disease, unspecified (4) DVT prophylaxis Current Visit: Yes Status: Acute Assessment and plan: Continue Lovenox - Time Spent With Patient 25 - 35 minutes - Subjective Interval history: Examined this morning. Patient is awake and alert. Not in any distress. Denies chest pain or shortness of breath. Denies abdominal pain. Denies diarrhea. No fever. NG tube in place connected to low intermittent suction. No other acute events or complaints. Patient underwent ex-lap with small bowel resection converted to ileocectomy. POD #1. Patient had persistent hypotension last night. She responded to IV fluids, IV Albumin and IV Dexamethasone. Patient continues to be hypotensive. TPN to be continued. - Constitutional Vitals: Temp Pulse Resp BP Pulse Ox 97.6 F 101 18 86/57 98 09/28/16 14:06 09/28/16 14:06 09/28/16 14:06 09/28/16 14:06 09/28/16 14:06 General appearance: Present: cachectic, cooperative, A&O X 3, pleasant, no acute distress, answers questions appropriately - Head Head exam: Present: atraumatic - Eye Eye exam: Present: EOMI - ENT ENT exam: Present: mucous membranes dry - Neck Neck exam general surgery: Present: supple - Respiratory Respiratory exam: Present: CTAB. Absent: rales, rhonchi, stridor, wheezes, tachypnea - Cardiovascular Cardiovascular exam: Present: RRR, +S1, +S2 - GI/Abdominal GI/Abdominal exam: Present: distended (slightly distended), firm, no peritoneal signs. Absent: guarding, rigid, soft, tenderness - Extremities Exam Extremities exam: Present: radial pulses palpable and symetrical. Absent: cyanotic, pedal edema, tenderness - Neurological Exam Neurological exam: Present: alert, oriented X3, no focal deficits. Absent: facial droop, speech deficit Internal Medicine: Result - Labs CBC & Chem 7: 09/28/16 02:51 09/28/16 02:51 Labs: Short CBC 09/28/16 Range/Units 02:51 WBC 14.0 H D (4.3-11.1) K/mcL Hgb 12.4 (11.5-15.4) g/dL Hct 38.5 (35.3-44.9) % Plt Count 212 (140-400) K/mcL Neutrophils # 12.8 H (1.6-8.9) K/mcL BMP 09/28/16 02:51 Sodium 137 Potassium 3.8 Chloride 102 Carbon Dioxide 30 H BUN 18 Creatinine 0.67 Glucose 172 H Calcium 7.6 L Liver Function 09/28/16 Range/Units 02:51 Total Bilirubin 0.6 (0.2-1.2) mg/dL AST 17 (5-34) Units/L ALT 9 (0-55) Units/L Alkaline Phosphatase 33 L (38-126) Units/L Albumin 2.2 L (3.5-5.0) g/dL Urine 09/28/16 Range/Units 02:48 Urine Color Yellow (Yellow) Urine Clarity Turbid A (Clear) Urine pH 6.0 (5.0-8.0) pH Units Ur Specific [place] > 1.030 H (1.010-1.025) Urine Protein Trace (Neg-Trace) mg/dL Urine Glucose (UA) Normal (Normal) mg/dL - ABG Interpretation ABG results: PT/INR, D-dimer PT 10.9 Seconds (9.4-12.1) 09/22/16 12:48 - VTE Documentation of Mechanical Device: Intermittent pneumatic compression device Consult Discharge Plan - Plan Referrals: Balbir Cole DO [Primary Care Provider] -
[2016-09-28] MEDS ORDERED: Clinimix E 5%-15% SOLUTION 2,000 ML with MVI, adult with vitamin K 10 ML IVC SCH (17:00)
[2016-09-28] MEDS: *HR* Morphine 2 MG/ML SYRINGE IVP PRN ×2 (18:03→20:14)
[2016-09-28] MEDS: Ondansetron 4 MG/2 ML VIAL IVP PRN (20:14)
[2016-09-28] MEDS ORDERED: 0.9 % Sodium Chloride 500 ML IV ONE (23:21)
--- NOTE | 2016-09-29 00:04 | Event Note ---
Date of Encounter: 09/29/16 Time of Encounter: 00:03 75F admitted for SBO, POD 1 exploratory laparotomy with bowel resection and iliocectomy. Patient was lying in bed with family when she was seen to have a sudden increase in her heart rate to 210. Patient usually runs in 90-110 range. Upon arrival to room patient was awake and alert, tachycardic, tachypenic and stated she felt lethargic. Denied any chest pain. She was DNR-CCA but when asked about possible intubation if necessary she stated she does not want to be intubated and code status was changed. In the process of getting EKG patient's heart rate decreased to 110 range without intervention. EKG done showed sinus tachycardia. Patient reported feeling better. Clinical access showed at time of rapid response patient had SVT with rate of 210.
[2016-09-29] MEDS: *HR* Metoprolol 5 MG/5 ML VIAL IVP SCH ×2 (00:44→06:28)
[2016-09-29] MEDS: Acetaminophen IV 1,000 MG/100 ML INFUS..BTL IVPB SCH ×3 (00:45→17:18)
[2016-09-29] MEDS: *HR* Morphine 2 MG/ML SYRINGE IVP PRN ×2 (02:36→20:56)
[2016-09-29] MEDS: 0.9 % Sodium Chloride 1,000 ML IVC SCH (02:40)
[2016-09-29] MEDS: Ipratropium/Albuterol Neb 3 ML IH SCH ×4 (03:25→22:38)
[2016-09-29 04:33] LABS: Basophils % 0.1 %; Eosinophils % 0.2 %; Hematocrit 33.6 % (35.3-44.9); Immature Granulocytes % 0.3 % (0-4); Lymphocytes # 0.4 K/mcL (0.6-4.6); Lymphocytes % 3.2 %; Mean Corpuscular HGB Conc 32.7 g/dL (31.6-35.5); Mean Corpuscular Hemoglobin 30.1 pg (28.0-33.3); Mean Corpuscular Volume 91.8 fL (83.0-100.0); Monocytes # 0.8 K/mcL (0.0-1.3); Neutrophils # 11.4 K/mcL (1.6-8.9); Platelet Count 170 K/mcL (140-400); Red Blood Count 3.66 M/mcL (3.82-4.97); Red Cell Distribution Width 14.9 % (11.5-14.5); Segmented Neutrophils % 90.2 %
[2016-09-29 04:53] LABS: Alanine Aminotransferase 8 Units/L (0-55); Albumin 2.4 g/dL (3.5-5.0); Alkaline Phosphatase 38 Units/L (38-126); Aspartate Amino Transferase 16 Units/L (5-34); BUN/Creatinine Ratio 22 (6-26); Bilirubin,Total 0.4 mg/dL (0.2-1.2); Blood Urea Nitrogen 12 mg/dL (7-20); Calcium 7.6 mg/dL (8.6-10.8); Carbon Dioxide 31 mEq/L (19-29); Chloride 101 mEq/L (98-109); Globulin 2.5 g/dL (2.4-3.5); Glucose 130 mg/dL (70-99); Magnesium 1.6 mg/dL (1.6-2.6); Osmolality,Calculated 280 (280-300); Phosphorous 1.7 mg/dL (2.3-4.7); Potassium 3.3 mEq/L (3.5-4.5); Sodium 134 mEq/L (136-145); Total Protein 4.9 g/dL (6.0-8.3); eGFR For African Americans > 60 (> 60); eGFR For Non-African Americans > 60 (> 60)
[2016-09-29] MEDS: *HR* Enoxaparin 30 MG/0.3 ML SYRINGE SQ SCH (06:28)
[2016-09-29] MEDS: Pantoprazole 40 MG VIAL IVP SCH (07:40)
--- NOTE | 2016-09-29 08:44 | General Surgery Progress Note ---
<DormanJoaquín - Last Filed: 09/29/16 16:41> Date of Encounter: 09/29/16 Time of Encounter: 08:40 - Assessment and Plan (1) S/P exploratory laparotomy Current Visit: Yes Status: Acute Post-op day 2 exploratory laparotomy with small bowel resection converted to ileocectomy continue NPO - Patient denies flatus or bowel movements. IV fluids at 100mL per hour - catheter draining well Continue NGT Continue pain management as needed - Morphine sulfate 1mg prn Wound care with colostomy care and dressing changes ambulate as tolerated supportive care monitor I/Os CBC/ CMP series (2) DVT prophylaxis Current Visit: Yes Status: Acute Continue Lovenox 30 mg daily Ambulate as tolerated. (3) SVT (supraventricular tachycardia) Current Visit: Yes Status: Acute Patient had an episode of SVT with lethargy yesterday at around midnight. She is currently doing well. Denies dizziness or palpitations. DNR/ DNI status. Patient has history of arrhythmias. Continue Routine 12 lead EKG Consider Adenosine 6mg IVP prn (4) Unable to eat Current Visit: Yes Status: Acute Continue TPN Subjective Patient reports: no new complaints, no flatus, no bowel movement, afebrile Objective Vital Signs - Last 8 Hours Temp Pulse Resp BP Pulse Ox 09/29/16 07:17 98.3 F 96 18 100/66 98 09/29/16 06:27 91 105/66 09/29/16 03:29 97.8 F 99 18 104/65 97 09/29/16 03:25 97 Intake and Output 09/28/16 09/29/16 09/29/16 23:59 07:59 15:59 Intake Total 659 / 659 1100 / 1100 Output Total 500 / 500 1300 / 1300 Balance 159 / 159 -200 / -200 Intake: IV Fluids 659 / 659 1100 / 1100 0.9 % Sodium Chloride 500 500 / 500 ML @ 1875 mls/hr IV . Q16M [facility] Rx#:[id number] 0.9 % Sodium Chloride 1, 1000 / 1000 000 ML @ 75 mls/hr IVC . [id number] [facility] Rx#: [id number] Clinimix E 5%-15% 159 / 159 SOLUTION 2,000 ML @ 30 mls/hr IVC .Q24H [facility] with M.v.i. Adult 10 ml Rx#: [id number] Ofirmev 1,000 mg/100 ml 1 100 / 100 ,000 mg In 100 ml @ 400 mls/hr IVPB Q8HR [facility] Rx#: [id number] Oral 0 / 0 0 / 0 Output: Catheter 275 / 275 1125 / 1125 Gastric Drainage 225 / 225 175 / 175 Other: Meal NPO Percent of Meal Consumed 0% Weight 33.974 kg Blood Glucose* 156 109 Patient Weight 09/29/16 23:59 Weight 33.974 kg - General physical appearance no distress (malnourished. ) - Eyes normal ocular movement - ENT atraumatic, normocephalic - Neck Neck exam: trachea midline - Cardiovascular Cardiovascular exam: Present: tachycardia, no murmurs/rubs/gallops - Abdomen Abdomen: Present: soft, non tender. Absent: bowel sounds present - Incision Incision: Present: clean and dry, intact - Labs 09/29/16 03:44 09/29/16 03:44 Diabetes panel 09/29/16 Range/Units 03:44 Sodium 134 L (136-145) mEq/L Potassium 3.3 L (3.5-4.5) mEq/L Chloride 101 (98-109) mEq/L Carbon Dioxide 31 H (19-29) mEq/L BUN 12 (7-20) mg/dL Creatinine 0.54 L (0.57-1.11) mg/dL Glucose 130 H (70-99) mg/dL Calcium 7.6 L (8.6-10.8) mg/dL AST 16 (5-34) Units/L ALT 8 (0-55) Units/L Alkaline Phosphatase 38 (38-126) Units/L Albumin 2.4 L (3.5-5.0) g/dL Calcium panel 09/29/16 Range/Units 03:44 Calcium 7.6 L (8.6-10.8) mg/dL Phosphorus 1.7 L D (2.3-4.7) mg/dL Albumin 2.4 L (3.5-5.0) g/dL Pituitary panel 09/29/16 Range/Units 03:44 Sodium 134 L (136-145) mEq/L Potassium 3.3 L (3.5-4.5) mEq/L Chloride 101 (98-109) mEq/L Carbon Dioxide 31 H (19-29) mEq/L BUN 12 (7-20) mg/dL Creatinine 0.54 L (0.57-1.11) mg/dL Glucose 130 H (70-99) mg/dL Calcium 7.6 L (8.6-10.8) mg/dL Adrenal panel 09/29/16 Range/Units 03:44 Sodium 134 L (136-145) mEq/L Potassium 3.3 L (3.5-4.5) mEq/L Chloride 101 (98-109) mEq/L Carbon Dioxide 31 H (19-29) mEq/L BUN 12 (7-20) mg/dL Creatinine 0.54 L (0.57-1.11) mg/dL Glucose 130 H (70-99) mg/dL Calcium 7.6 L (8.6-10.8) mg/dL Total Bilirubin 0.4 (0.2-1.2) mg/dL AST 16 (5-34) Units/L ALT 8 (0-55) Units/L Alkaline Phosphatase 38 (38-126) Units/L Albumin 2.4 L (3.5-5.0) g/dL - VTE Documentation of Mechanical Device: Intermittent pneumatic compression device Consult Discharge Plan - Plan Referrals: Balbir Cole DO [Primary Care Provider] - <Sayda Benton - Last Filed: 09/30/16 08:45> Date of Encounter: 09/29/16 Time of Encounter: 12:20 - Assessment and Plan (1) Urinary retention Current Visit: Yes Status: Acute continue oconnell for urinary retention (2) Small bowel obstruction Current Visit: Yes Status: Acute pod 2 ex lap, shane, ileocectomy await return of bowel function, pt has a few bowel sounds today but are very faint continue ngt and decompression until return of bowel function continue TPN prn pain control gi/dvt prophylaxis OOB to chair (3) Physical deconditioning Current Visit: Yes Status: Chronic continue PT/OT (4) Unable to eat Current Visit: Yes Status: Acute (5) DVT prophylaxis Current Visit: Yes Status: Acute Subjective Narrative: no complaints, no pain, no nausea, no flatus or bm Objective Vital Signs - Last 8 Hours Temp Pulse Resp BP Pulse Ox 09/30/16 07:04 97.9 F 98 19 101/69 96 09/30/16 03:10 98.1 F 94 14 94/61 95 Intake and Output 09/29/16 09/30/16 09/30/16 23:59 07:59 15:59 Intake Total 400 / 400 2313 / 2313 100 / 100 Output Total 950 / 950 950 / 950 Balance -550 / -550 1363 / 1363 100 / 100 Intake: IV Fluids 400 / 400 2313 / 2313 100 / 100 0.9 % Sodium Chloride 1, 400 / 400 1480 / 1480 000 ML @ 75 mls/hr IVC . [id number] [facility] Rx#: [id number] Clinimix E 5%-15% 0 / 0 633 / 633 SOLUTION 2,000 ML @ 60 mls/hr IVC .Q24H [facility] with M.v.i. Adult 10 ml Rx#: [id number] Ofirmev 1,000 mg/100 ml 1 200 / 200 100 / 100 ,000 mg In 100 ml @ 400 mls/hr IVPB Q8HR [facility] Rx#: [id number] Oral 0 / 0 0 / 0 Output: Catheter 700 / 700 900 / 900 Gastric Drainage 250 / 250 50 / 50 Other: Weight 33.566 kg Blood Glucose* 107 101 128 Patient Weight 09/30/16 23:59 Weight 33.566 kg - General physical appearance no distress, no pain, chronically ill - Eyes PERRL, normal ocular movement - ENT dry mucosa, atraumatic, normocephalic - Neck Neck exam: trachea midline - Respiratory normal expansion, clear to auscultation - Cardiovascular Cardiovascular exam: Present: RRR - Abdomen Abdomen: Present: bowel sounds present (faint), soft, tender (appropriate post op discomfort) - Incision Incision: Present: clean and dry - Genitourinary other (oconnell in place) - Integumentary no rash, no growths - Neurologic CN 2-12 grossly intact - Musculoskeletal normal posture - Psychiatric oriented to time, oriented to person, speech is normal - Labs 09/30/16 03:35 09/30/16 03:35 Diabetes panel 09/30/16 Range/Units 03:35 Sodium 133 L (136-145) mEq/L Potassium 3.0 L (3.5-4.5) mEq/L Chloride 97 L (98-109) mEq/L Carbon Dioxide 31 H (19-29) mEq/L BUN 10 (7-20) mg/dL Creatinine 0.46 L (0.57-1.11) mg/dL Glucose 98 (70-99) mg/dL Calcium 7.9 L (8.6-10.8) mg/dL AST 13 (5-34) Units/L ALT 6 (0-55) Units/L Alkaline Phosphatase 42 (38-126) Units/L Albumin 2.1 L (3.5-5.0) g/dL Calcium panel 09/30/16 Range/Units 03:35 Calcium 7.9 L (8.6-10.8) mg/dL Phosphorus 2.1 L (2.3-4.7) mg/dL Albumin 2.1 L (3.5-5.0) g/dL Pituitary panel 09/30/16 Range/Units 03:35 Sodium 133 L (136-145) mEq/L Potassium 3.0 L (3.5-4.5) mEq/L Chloride 97 L (98-109) mEq/L Carbon Dioxide 31 H (19-29) mEq/L BUN 10 (7-20) mg/dL Creatinine 0.46 L (0.57-1.11) mg/dL Glucose 98 (70-99) mg/dL Calcium 7.9 L (8.6-10.8) mg/dL Adrenal panel 09/30/16 Range/Units 03:35 Sodium 133 L (136-145) mEq/L Potassium 3.0 L (3.5-4.5) mEq/L Chloride 97 L (98-109) mEq/L Carbon Dioxide 31 H (19-29) mEq/L BUN 10 (7-20) mg/dL Creatinine 0.46 L (0.57-1.11) mg/dL Glucose 98 (70-99) mg/dL Calcium 7.9 L (8.6-10.8) mg/dL Total Bilirubin 0.4 (0.2-1.2) mg/dL AST 13 (5-34) Units/L ALT 6 (0-55) Units/L Alkaline Phosphatase 42 (38-126) Units/L Albumin 2.1 L (3.5-5.0) g/dL - Attending Attestation I examined this patient and my medical decision-making was reviewed with the Resident Physician. I agree with the documented findings, disposition and treatment plan as described except to the extent set forth below. patient does NOT have a colostomy, please disregard resident comments regarding such
[2016-09-29] MEDS ORDERED: *HR* Alteplase (Cathflo) 2 MG VIAL IVP ONE (10:57)
[2016-09-29] MEDS ORDERED: *HR* Metoprolol 5 MG/5 ML VIAL IVP PRN (11:45)
--- NOTE | 2016-09-29 14:17 | Internal Med Progress Note ---
Date of Encounter: 09/29/16 Time of Encounter: 09:20 - Assessment and plan (1) Small bowel obstruction Current Visit: Yes Status: Acute Assessment and plan: -SBO likely secondary to adhesions - s/p ex-lap with small bowel resection converted to ileocectomy POD #2 IV Morphine PRN -NPO, NG tube in place -Patient denies flatus or BM at this time -Gen. Surgery following patient -Continue NG tube, IVF continue wound care and dressing changes, supportive care Labs in a.m. (2) SVT (supraventricular tachycardia) Current Visit: Yes Status: Acute Assessment and plan: Patient had an episode of SVT around midnight last night - resolved without any intervention - unclear etiology EKG - sinus tachycardia History of arrhythmias Echocardiogram (04/16/2016) - LVEF 60%, normal LV size and systolic function no evidence of diastolic dysfunction normal RV size and function, no valve motion abnormalities, evidence of a PFO with agitated saline contrast (3) Hypotension Current Visit: Yes Status: Acute Assessment and plan: Persistent hypotension - probably due to volume depletion -hemodynamically stable for now IV Dexamethasone, IV Albumin given continue IV fluids, monitor closely, Hold antihypertensives Qualifiers: Hypotension type: unspecified hypotension type Qualified Code(s): I95.9 - Hypotension, unspecified (4) COPD (chronic obstructive pulmonary disease) Current Visit: No Status: Chronic Assessment and plan: Stable, not in exacerbation, DuoNeb's breathing treatment Qualifiers: COPD type: unspecified COPD Qualified Code(s): J44.9 - Chronic obstructive pulmonary disease, unspecified (5) DVT prophylaxis Current Visit: Yes Status: Acute Assessment and plan: Continue Lovenox - Time Spent With Patient 25 - 35 minutes - Subjective Interval history: Examined this morning. Patient is awake and alert. Not in any distress. Denies chest pain or shortness of breath. Denies abdominal pain. Denies diarrhea. No fever. NG tube in place connected to low intermittent suction. No other acute events or complaints. Patient underwent ex-lap with small bowel resection converted to ileocectomy. POD #2. Patient developed an SVT last night and her heart rate went up to 210. Her heart rate came back down without any intervention. EKG done at that time revealed sinus tachycardia. Patient was also hypotensive yesterday and she responded to IV fluids, IV Albumin and IV Dexamethasone. Hemodynamically stable at present. TPN to be continued. - Constitutional Vitals: Temp Pulse Resp BP Pulse Ox 98.3 F 90 18 97/66 97 09/29/16 11:41 09/29/16 11:41 09/29/16 11:41 09/29/16 11:41 09/29/16 11:41 General appearance: Present: cachectic, cooperative, A&O X 3, pleasant, no acute distress, answers questions appropriately - Head Head exam: Present: atraumatic - Eye Eye exam: Present: EOMI - ENT ENT exam: Present: mucous membranes dry Additional comments: NG tube in place and is draining dark colored fluid - Neck Neck exam general surgery: Present: supple - Respiratory Respiratory exam: Absent: CTAB, rales, rhonchi, stridor, wheezes, tachypnea - Cardiovascular Cardiovascular exam: Present: RRR, +S1, +S2 - GI/Abdominal GI/Abdominal exam: Present: distended, firm, no peritoneal signs. Absent: guarding, rigid, soft, tenderness Additional comments: Surgical site seems to be healing well, dressing intact, no bleeding and no drainage - Extremities Exam Extremities exam: Present: radial pulses palpable and symetrical. Absent: cyanotic, pedal edema, tenderness - Neurological Exam Neurological exam: Present: alert, oriented X3, no focal deficits Internal Medicine: Result - Labs CBC & Chem 7: 09/29/16 03:44 09/29/16 03:44 Labs: Short CBC 09/29/16 Range/Units 03:44 WBC 12.7 H (4.3-11.1) K/mcL Hgb 11.0 L (11.5-15.4) g/dL Hct 33.6 L (35.3-44.9) % Plt Count 170 (140-400) K/mcL Neutrophils # 11.4 H (1.6-8.9) K/mcL BMP 09/29/16 03:44 Sodium 134 L Potassium 3.3 L Chloride 101 Carbon Dioxide 31 H BUN 12 Creatinine 0.54 L Glucose 130 H Calcium 7.6 L Liver Function 09/29/16 Range/Units 03:44 Total Bilirubin 0.4 (0.2-1.2) mg/dL AST 16 (5-34) Units/L ALT 8 (0-55) Units/L Alkaline Phosphatase 38 (38-126) Units/L Albumin 2.4 L (3.5-5.0) g/dL - ABG Interpretation ABG results: PT/INR, D-dimer PT 10.9 Seconds (9.4-12.1) 09/22/16 12:48 - VTE Documentation of Mechanical Device: Intermittent pneumatic compression device Consult Discharge Plan - Plan Referrals: ColopyBalbir DO [Primary Care Provider] -
[2016-09-29] MEDS ORDERED: Clinimix E 5%-15% SOLUTION 2,000 ML with MVI, adult with vitamin K 10 ML IVC SCH (17:00)
[2016-09-30] MEDS: Acetaminophen IV 1,000 MG/100 ML INFUS..BTL IVPB SCH ×3 (00:03→15:45)
[2016-09-30] MEDS: 0.9 % Sodium Chloride 1,000 ML IVC SCH ×2 (01:23→07:00)
[2016-09-30] MEDS: Ipratropium/Albuterol Neb 3 ML IH SCH ×4 (03:48→20:40)
[2016-09-30 04:07] LABS: Eosinophils # 0.1 K/mcL (0.0-0.6); Eosinophils % 1.2 %; Hematocrit 33.7 % (35.3-44.9); Hemoglobin 11.1 g/dL (11.5-15.4); Immature Granulocytes % 0.7 % (0-4); Lymphocytes # 0.5 K/mcL (0.6-4.6); Mean Corpuscular HGB Conc 32.9 g/dL (31.6-35.5); Mean Corpuscular Hemoglobin 30.2 pg (28.0-33.3); Mean Corpuscular Volume 91.8 fL (83.0-100.0); Mean Platelet Volume 11.1 fL (9.4-12.4); Monocytes # 0.5 K/mcL (0.0-1.3); Monocytes % 4.8 %; Platelet Count 183 K/mcL (140-400); Red Blood Count 3.67 M/mcL (3.82-4.97); Red Cell Distribution Width 14.6 % (11.5-14.5); Segmented Neutrophils % 89.3 %
[2016-09-30 04:19] LABS: Alanine Aminotransferase 6 Units/L (0-55); Albumin 2.1 g/dL (3.5-5.0); Albumin/Globulin Ratio 0.8 (1.1-2.2); Alkaline Phosphatase 42 Units/L (38-126); Aspartate Amino Transferase 13 Units/L (5-34); BUN/Creatinine Ratio 22 (6-26); Bilirubin,Total 0.4 mg/dL (0.2-1.2); Blood Urea Nitrogen 10 mg/dL (7-20); Calcium 7.9 mg/dL (8.6-10.8); Carbon Dioxide 31 mEq/L (19-29); Chloride 97 mEq/L (98-109); Globulin 2.8 g/dL (2.4-3.5); Glucose 98 mg/dL (70-99); Magnesium 1.3 mg/dL (1.6-2.6); Osmolality,Calculated 275 (280-300); Phosphorous 2.1 mg/dL (2.3-4.7); Sodium 133 mEq/L (136-145); Total Protein 4.9 g/dL (6.0-8.3); eGFR For African Americans > 60 (> 60); eGFR For Non-African Americans > 60 (> 60)
[2016-09-30] MEDS: *HR* Enoxaparin 30 MG/0.3 ML SYRINGE SQ SCH (06:10)
[2016-09-30] MEDS ORDERED: Magnesium Sulfate 2 GM in D5% in Water 100 ML IVPB ONE (07:25)
[2016-09-30] MEDS: Pantoprazole 40 MG VIAL IVP SCH (07:51)
[2016-09-30] MEDS: Levofloxacin 750 MG/150 ML 750 MG/150 ML BAG IVPB SCH (07:53)
[2016-09-30] MEDS ORDERED: *HR* Amiodarone 150 MG/3 ML VIAL IVPB ONE (09:39)
[2016-09-30] MEDS: Potassium Phosphate 44 MEQ in 0.9 % Sodium Chloride 250 ML IVPB SCH (12:44)
--- NOTE | 2016-09-30 13:25 | General Surgery Progress Note ---
<Joaquín Dorman - Last Filed: 09/30/16 15:48> Date of Encounter: 09/30/16 Time of Encounter: 09:00 - Assessment and Plan (1) S/P exploratory laparotomy Current Visit: Yes Status: Acute Post-op day 3 exploratory laparotomy with small bowel resection converted to ileocectomy NPO - Patient denies flatus or bowel movements. TPN at 60 IV fluids at 100mL per hour NGT draining well Pain management as needed - Morphine sulfate 1mg prn Ambulate as tolerated Supportive care Monitor I/Os CBC/ CMP series (2) SVT (supraventricular tachycardia) Current Visit: Yes Status: Acute Patient had another episode of SVT with lethargy this a.m. She is currently doing well. Denies dizziness or palpitations. Per Dr. Arias: limited echo. Continue playground monitor DNR/ DNI status Patient has history of arrhythmias (3) Hypophosphatemia Current Visit: Yes Status: Acute Potassium Phosphate 44meq Spoke with Dr. Arias, he also ordered KCl infusion. Closely monitor potassium levels. (4) DVT prophylaxis Current Visit: Yes Status: Acute Continue Lovenox 30 mg daily Ambulate as tolerated Subjective Patient reports: no new complaints (Event: patient had another episode of SVT last night where her heart rate went up to 120. Heart rate normalized without intervention.), no flatus, no bowel movement, afebrile Objective Vital Signs - Last 8 Hours Temp Pulse Resp BP Pulse Ox 09/30/16 10:22 98.6 F 81 17 118/81 98 09/30/16 10:14 96 09/30/16 07:04 97.9 F 98 19 101/69 96 Intake and Output 09/29/16 09/30/16 09/30/16 23:59 07:59 15:59 Intake Total 400 / 400 2313 / 2313 910 / 910 Output Total 950 / 950 950 / 950 250 / 250 Balance -550 / -550 1363 / 1363 660 / 660 Intake: IV Fluids 400 / 400 2313 / 2313 910 / 910 0.9 % Sodium Chloride 1, 400 / 400 1480 / 1480 000 ML @ 75 mls/hr IVC . [id number] [facility] Rx#: [id number] Clinimix E 5%-15% 0 / 0 633 / 633 160 / 160 SOLUTION 2,000 ML @ 60 mls/hr IVC .Q24H [facility] with M.v.i. Adult 10 ml Rx#: [id number] Ofirmev 1,000 mg/100 ml 1 200 / 200 100 / 100 ,000 mg In 100 ml @ 400 mls/hr IVPB Q8HR [facility] Rx#: [id number] Levaquin Premix 750mg/150 150 / 150 mL 750 mg In 150 ml @ 100 mls/hr IVPB Q48H [facility] Rx#:[id number] Magnesium Sulfate 2 GM In 200 / 200 Dextrose 5% 100 ML @ 100 mls/hr IVPB ONCE ONE Rx# :[id number] Potassium Chloride 10 mEq 300 / 300 /100mL 10 meq In 100 ml @ 100 mls/hr IVPB Q1H [facility] Rx#:[id number] Oral 0 / 0 0 / 0 0 / 0 Output: Catheter 700 / 700 900 / 900 150 / 150 Gastric Drainage 250 / 250 50 / 50 100 / 100 Other: Meal NPO Weight 33.566 kg 33.566 kg Blood Glucose* 107 101 143 Patient Weight 09/30/16 23:59 Weight 33.566 kg - General physical appearance no distress, other (Patient is malnourished.) - Eyes normal ocular movement - Neck Neck exam: trachea midline - Cardiovascular Cardiovascular exam: Present: tachycardia, regular rhythm, no murmurs/rubs/ gallops - Abdomen Abdomen: Present: bowel sounds present, soft, non tender - Incision Incision: Present: clean and dry, intact - Genitourinary other (Catheter output 150ml this a.m., yellow, non-purulent) - Neurologic CN 2-12 grossly intact - Labs 09/30/16 03:35 09/30/16 03:35 Diabetes panel 09/30/16 Range/Units 03:35 Sodium 133 L (136-145) mEq/L Potassium 3.0 L (3.5-4.5) mEq/L Chloride 97 L (98-109) mEq/L Carbon Dioxide 31 H (19-29) mEq/L BUN 10 (7-20) mg/dL Creatinine 0.46 L (0.57-1.11) mg/dL Glucose 98 (70-99) mg/dL Calcium 7.9 L (8.6-10.8) mg/dL AST 13 (5-34) Units/L ALT 6 (0-55) Units/L Alkaline Phosphatase 42 (38-126) Units/L Albumin 2.1 L (3.5-5.0) g/dL Calcium panel 09/30/16 Range/Units 03:35 Calcium 7.9 L (8.6-10.8) mg/dL Phosphorus 2.1 L (2.3-4.7) mg/dL Albumin 2.1 L (3.5-5.0) g/dL Pituitary panel 09/30/16 Range/Units 03:35 Sodium 133 L (136-145) mEq/L Potassium 3.0 L (3.5-4.5) mEq/L Chloride 97 L (98-109) mEq/L Carbon Dioxide 31 H (19-29) mEq/L BUN 10 (7-20) mg/dL Creatinine 0.46 L (0.57-1.11) mg/dL Glucose 98 (70-99) mg/dL Calcium 7.9 L (8.6-10.8) mg/dL Adrenal panel 09/30/16 Range/Units 03:35 Sodium 133 L (136-145) mEq/L Potassium 3.0 L (3.5-4.5) mEq/L Chloride 97 L (98-109) mEq/L Carbon Dioxide 31 H (19-29) mEq/L BUN 10 (7-20) mg/dL Creatinine 0.46 L (0.57-1.11) mg/dL Glucose 98 (70-99) mg/dL Calcium 7.9 L (8.6-10.8) mg/dL Total Bilirubin 0.4 (0.2-1.2) mg/dL AST 13 (5-34) Units/L ALT 6 (0-55) Units/L Alkaline Phosphatase 42 (38-126) Units/L Albumin 2.1 L (3.5-5.0) g/dL - VTE Documentation of Mechanical Device: Intermittent pneumatic compression device Consult Discharge Plan - Plan Referrals: Balbir Cole DO [Primary Care Provider] - <Godwin More - Last Filed: 10/01/16 08:10> Date of Encounter: 09/30/16 Objective Vital Signs - Last 8 Hours Temp Pulse Resp BP Pulse Ox 10/01/16 07:26 99.8 F H 115 28 100/69 94 10/01/16 04:41 29 95 10/01/16 04:22 97.1 F L 120 30 127/91 92 10/01/16 04:15 120 10/01/16 02:08 115 110/62 10/01/16 01:58 162 86/73 10/01/16 01:56 161 87/77 10/01/16 01:50 168 89/75 10/01/16 01:49 191 99/80 10/01/16 01:43 215 30 82/62 92 Intake and Output 09/30/16 10/01/16 10/01/16 23:59 07:59 15:59 Intake Total 474 / 474 1600 / 1600 Output Total 650 / 650 1200 / 1200 Balance -176 / -176 400 / 400 Intake: IV Fluids 474 / 474 1600 / 1600 0.9 % Sodium Chloride 1, 20 / 20 1000 / 1000 000 ML @ 75 mls/hr IVC . [id number] [facility] Rx#: [id number] 0.9 % Sodium Chloride 500 500 / 500 ML @ 1875 mls/hr IVC . Q16M ONE Rx#:[id number] Clinimix E 5%-15% 354 / 354 SOLUTION 2,000 ML @ 60 mls/hr IVC .Q24H [facility] with M.v.i. Adult 10 ml Rx#: [id number] Ofirmev 1,000 mg/100 ml 1 100 / 100 100 / 100 ,000 mg In 100 ml @ 400 mls/hr IVPB Q8HR [facility] Rx#: [id number] Oral 0 / 0 Output: Gastric Tube Lavage 0 / 0 0 / 0 Amount Right Nare 0 / 0 0 / 0 Catheter 650 / 650 1150 / 1150 Gastric Drainage 50 / 50 Other: Meal NPO Stool Size Small Stool Consistency liquid Weight 45.5 kg 45.4 kg Blood Glucose* 132 143 Patient Weight 10/01/16 23:59 Weight 45.4 kg - Labs 10/01/16 02:50 10/01/16 02:50 Diabetes panel 10/01/16 Range/Units 02:50 Sodium 131 L (136-145) mEq/L Potassium 3.9 (3.5-4.5) mEq/L Chloride 95 L (98-109) mEq/L Carbon Dioxide 29 (19-29) mEq/L BUN 11 (7-20) mg/dL Creatinine 0.49 L (0.57-1.11) mg/dL Glucose 126 H (70-99) mg/dL Calcium 8.1 L (8.6-10.8) mg/dL AST 17 (5-34) Units/L ALT 11 (0-55) Units/L Alkaline Phosphatase 66 (38-126) Units/L Albumin 2.1 L (3.5-5.0) g/dL Calcium panel 10/01/16 10/01/16 Range/Units 02:50 02:50 Calcium 8.1 L (8.6-10.8) mg/dL Phosphorus 2.8 (2.3-4.7) mg/dL Albumin 2.1 L (3.5-5.0) g/dL Pituitary panel 10/01/16 Range/Units 02:50 Sodium 131 L (136-145) mEq/L Potassium 3.9 (3.5-4.5) mEq/L Chloride 95 L (98-109) mEq/L Carbon Dioxide 29 (19-29) mEq/L BUN 11 (7-20) mg/dL Creatinine 0.49 L (0.57-1.11) mg/dL Glucose 126 H (70-99) mg/dL Calcium 8.1 L (8.6-10.8) mg/dL Adrenal panel 10/01/16 Range/Units 02:50 Sodium 131 L (136-145) mEq/L Potassium 3.9 (3.5-4.5) mEq/L Chloride 95 L (98-109) mEq/L Carbon Dioxide 29 (19-29) mEq/L BUN 11 (7-20) mg/dL Creatinine 0.49 L (0.57-1.11) mg/dL Glucose 126 H (70-99) mg/dL Calcium 8.1 L (8.6-10.8) mg/dL Total Bilirubin 0.4 (0.2-1.2) mg/dL AST 17 (5-34) Units/L ALT 11 (0-55) Units/L Alkaline Phosphatase 66 (38-126) Units/L Albumin 2.1 L (3.5-5.0) g/dL - Attending Attestation I examined this patient and my medical decision-making was reviewed with the Resident Physician. I agree with the documented findings, disposition and treatment plan as described except to the extent set forth below. I reviewed the above assessment and evaluation and agree with the above- mentioned plan. Patient with history of SVT to be followed by hospitalist. Await current return of bowel function. Incision is clean dry and intact with no signs of erythema. On TPN.
--- NOTE | 2016-09-30 14:11 | Internal Med Progress Note ---
Date of Encounter: 09/30/16 Time of Encounter: 09:00 - Assessment and plan (1) Small bowel obstruction Current Visit: Yes Status: Acute Assessment and plan: SBO likely secondary to adhesions - s/p ex-lap with small bowel resection converted to ileocectomy POD #3 - currently doing well IV Morphine PRN -NPO, Continue NG tube, IVF, TPN -Patient denies flatus or BM at this time -Gen. Surgery following patient continue wound care and dressing changes, supportive care Labs in a.m. (2) SVT (supraventricular tachycardia) Current Visit: Yes Status: Acute Assessment and plan: Paroxysmal SVT - resolved without any intervention - unclear etiology - possibly due to hypomagnesemia and electrolyte disturbance Magnesium and potassium replaced EKG - sinus tachycardia, repeat EKG in a.m. History of arrhythmias Echocardiogram (04/16/2016) - LVEF 60%, normal LV size and systolic function no evidence of diastolic dysfunction normal RV size and function, no wall motion abnormalities, evidence of a PFO with agitated saline contrast Limited echocardiogram - pending (3) Hypotension Current Visit: Yes Status: Acute Assessment and plan: Hemodynamically stable for now IV Dexamethasone, IV Albumin given continue IV fluids, monitor closely, Hold antihypertensives Qualifiers: Hypotension type: unspecified hypotension type Qualified Code(s): I95.9 - Hypotension, unspecified (4) COPD (chronic obstructive pulmonary disease) Current Visit: No Status: Chronic Assessment and plan: Stable, not in exacerbation, DuoNeb's breathing treatment Qualifiers: COPD type: unspecified COPD Qualified Code(s): J44.9 - Chronic obstructive pulmonary disease, unspecified (5) DVT prophylaxis Current Visit: Yes Status: Acute Assessment and plan: Continue Lovenox - Time Spent With Patient 25 - 35 minutes - Subjective Interval history: Examined this morning. Patient is awake and alert. Not in any distress. Denies chest pain or shortness of breath. Denies abdominal pain. No bowel movement and no flatus. No fever. NG tube in place connected to low intermittent suction. No other acute events or complaints. Patient underwent ex -lap with small bowel resection converted to ileocectomy. POD #3. Patient developed an SVT again last night and her heart rate went up to 215. Heart rate came back down without any intervention. Episode lasted for about 1 minute. Initial hypotension has improved and patient responded to IV fluids, IV Albumin and IV Dexamethasone. Hemodynamically stable at present. TPN to be continued. - Constitutional Vitals: Temp Pulse Resp BP Pulse Ox 98.6 F 81 17 118/81 98 09/30/16 10:22 09/30/16 10:22 09/30/16 10:22 09/30/16 10:22 09/30/16 10:22 General appearance: Present: cachectic, cooperative, A&O X 3, pleasant, no acute distress, answers questions appropriately - Head Head exam: Present: atraumatic - Eye Eye exam: Present: EOMI - ENT ENT exam: Present: mucous membranes dry Additional comments: NG tube in place - Neck Neck exam general surgery: Present: supple - Respiratory Respiratory exam: Present: CTAB. Absent: rales, rhonchi, stridor, wheezes, tachypnea - Cardiovascular Cardiovascular exam: Present: RRR, +S1, +S2 - GI/Abdominal GI/Abdominal exam: Present: distended, soft. Absent: firm, guarding, rigid, tenderness Additional comments: Surgical site seems to be healing well, dressing intact, no bleeding and no drainage - Extremities Exam Extremities exam: Present: radial pulses palpable and symetrical. Absent: cyanotic, pedal edema, tenderness - Neurological Exam Neurological exam: Present: alert, oriented X3, no focal deficits Internal Medicine: Result - Labs CBC & Chem 7: 09/30/16 03:35 09/30/16 03:35 Labs: Short CBC 09/30/16 Range/Units 03:35 WBC 11.2 H (4.3-11.1) K/mcL Hgb 11.1 L (11.5-15.4) g/dL Hct 33.7 L (35.3-44.9) % Plt Count 183 (140-400) K/mcL Neutrophils # 10.0 H (1.6-8.9) K/mcL BMP 09/30/16 03:35 Sodium 133 L Potassium 3.0 L Chloride 97 L Carbon Dioxide 31 H BUN 10 Creatinine 0.46 L Glucose 98 Calcium 7.9 L Liver Function 09/30/16 Range/Units 03:35 Total Bilirubin 0.4 (0.2-1.2) mg/dL AST 13 (5-34) Units/L ALT 6 (0-55) Units/L Alkaline Phosphatase 42 (38-126) Units/L Albumin 2.1 L (3.5-5.0) g/dL - ABG Interpretation ABG results: PT/INR, D-dimer PT 10.9 Seconds (9.4-12.1) 09/22/16 12:48 - VTE Documentation of Mechanical Device: Intermittent pneumatic compression device Consult Discharge Plan - Plan Referrals: ColBalbir ross DO [Primary Care Provider] -
[2016-09-30] MEDS ORDERED: Clinimix E 5%-15% SOLUTION 2,000 ML with MVI, adult with vitamin K 10 ML IVC SCH (17:00)
[2016-09-30] MEDS ORDERED: *HR* Metoprolol 5 MG/5 ML VIAL IVP ONE (20:13)
--- NOTE | 2016-09-30 20:45 | Event Note ---
Date of Encounter: 09/30/16 Time of Encounter: 20:03 called to see pt who reportedly had a pulse ox reading of 82% and per family at bedside she walked into the room and this was the case and allegedly went on for about 10 minutes before she saw an intervention. Limited exam showed an elderly frail looking lady in mild-moderate resp distress on oxygen via NC saturating in the early 90's, exam revealed subcostal and intercostal recessions , diminished breath sounds in the middle to lower lung zones, no crackles or wheeze was noted. We will move her to a unit with a better nurse to patient ratio for closer monitoring, we will also start her on BiPAP to reduce her work of breathing and for alveoli recruitment. Dw with pt's nurse, bed management, respiratory therapist, charge nurse on 2N as well as family at bedside.
[2016-10-01] MEDS: Acetaminophen IV 1,000 MG/100 ML INFUS..BTL IVPB SCH ×3 (00:32→17:14)
[2016-10-01] MEDS ORDERED: 0.9 % Sodium Chloride 500 ML ONE (01:47)
[2016-10-01] MEDS ORDERED: *HR* Metoprolol 5 MG/5 ML VIAL IVP ONE (01:50)
[2016-10-01] MEDS ORDERED: 0.9 % Sodium Chloride 500 ML IVC ONE (01:50)
[2016-10-01] MEDS: 0.9 % Sodium Chloride 1,000 ML IVC SCH ×3 (01:55→14:05)
[2016-10-01] MEDS ORDERED: *HR* Adenosine 6 MG/2 ML VIAL IVP ONE (02:04)
[2016-10-01 02:57] LABS: Mean Platelet Volume 10.6 fL (9.4-12.4)
[2016-10-01 02:59] LABS: Hematocrit 38.3 % (35.3-44.9); Hemoglobin 12.7 g/dL (11.5-15.4); Lymphocytes # 0.5 K/mcL (0.6-4.6); Mean Corpuscular HGB Conc 33.2 g/dL (31.6-35.5); Mean Corpuscular Hemoglobin 29.9 pg (28.0-33.3); Mean Corpuscular Volume 90.1 fL (83.0-100.0); Platelet Count 228 K/mcL (140-400); Red Blood Count 4.25 M/mcL (3.82-4.97); Red Cell Distribution Width 14.6 % (11.5-14.5)
[2016-10-01 03:11] LABS: Alanine Aminotransferase 11 Units/L (0-55); Albumin 2.1 g/dL (3.5-5.0); Albumin/Globulin Ratio 0.6 (1.1-2.2); Alkaline Phosphatase 66 Units/L (38-126); Aspartate Amino Transferase 17 Units/L (5-34); BUN/Creatinine Ratio 22 (6-26); Bilirubin,Total 0.4 mg/dL (0.2-1.2); Blood Urea Nitrogen 11 mg/dL (7-20); Calcium 8.1 mg/dL (8.6-10.8); Carbon Dioxide 29 mEq/L (19-29); Chloride 95 mEq/L (98-109); Globulin 3.5 g/dL (2.4-3.5); Glucose 126 mg/dL (70-99); Magnesium 1.5 mg/dL (1.6-2.6); Osmolality,Calculated 273 (280-300); Potassium 3.9 mEq/L (3.5-4.5); Sodium 131 mEq/L (136-145); Total Protein 5.6 g/dL (6.0-8.3); eGFR For African Americans > 60 (> 60); eGFR For Non-African Americans > 60 (> 60)
[2016-10-01 03:28] LABS: Monocytes # 0.5 K/mcL (0.0-1.3); Neutrophils # 25.3 K/mcL (1.6-8.9); Platelet Estimate Normal (Normal)
[2016-10-01] MEDS ORDERED: Magnesium Sulfate 2 GM in D5% in Water 100 ML IVPB ONE (03:42)
[2016-10-01] MEDS ORDERED: Haloperidol Lactate 5 MG/ML VIAL IVP ONE (03:56)
[2016-10-01] MEDS: Ipratropium/Albuterol Neb 3 ML IH SCH ×4 (04:38→22:33)
[2016-10-01] MEDS: *HR* Enoxaparin 30 MG/0.3 ML SYRINGE SQ SCH (05:56)
[2016-10-01] MEDS: Pantoprazole 40 MG VIAL IVP SCH (09:37)
--- NOTE | 2016-10-01 09:42 | Cardiology Consult Note ---
Date of Encounter: 10/01/16 Time of Encounter: 09:38 Assessment and Plan (1) PAT (paroxysmal atrial tachycardia) Current Visit: Yes Status: Acute Has PAT, especially during respiratory distress. Would recommend scheduled IV metoprolol if possible. Switch to po when able. Discussion w patient/family: The assessment and plan as outlined above was discussed with the patient and/or family members who expressed understanding and agreement. All questions were answered. Thank you for involving us in the care of your patient. Please call with any questions. History of Present Illness Consult date: 10/01/16 Requesting physician: Dalila Larry Consult reason: Tachycardia History of present illness: Ms. Brown is a 75 year old female admitted at this time for bowel obstruction. She has a history of atrial tachycardia and was noted to have recurrent episodes yesterday. An echo yesterday also showed a possible mass external to the RA. A CT scan did not reveal a mass. Past Med Surg Social Fam HX - Past Medical History Medical history: GERD Psychiatric history: no psych history - Past Surgical History Surgical History: hysterectomy, other (Surgery for Hiatal Hernia/[facility]) - Social History Smoking Status: Former smoker Smokeless Tobacco Status: No Alcohol use: none Drug use: none - Family History Father Family Member Ethnicity: Non- Living Status: Hx Family Cancer: Yes (lung cancer) Brother Family Member Ethnicity: Non- Living Status: Still Living Hx Family Cardiac Disorders: Yes ([place]) Hx Family Respiratory Disorders: Yes (COPD) Sister Name: mio Brown Living Status: Hx Family Respiratory Disorders: Yes (COPD) Hx Family Cancer: Yes (lung cancer) Medications and Allergies Albuterol Sulfate [Albuterol Inhaler] 1 puff IH Q4-6H PRN 04/14/16 [History] Calcium Carbonate/Vitamin D3 [Calcium 500 mg Chewable Tablet] 1 each PO DAILY [History] Potassium 99 mg PO DAILY 04/14/16 [History] Magnesium Oxide [Mgo] 400 mg PO BID #30 tablet 04/17/16 [Rx] Metoprolol [Lopressor] 25 mg PO BID #30 tablet 04/17/16 [Rx] Cyanocobalamin (Vitamin B-12) [Vitamin B12] 1,000 mcg PO DAILY 09/22/16 [History ] Famotidine [Pepcid] 20 mg PO DAILY 09/22/16 [History] Allergies No Known Allergies Allergy (Verified 04/14/16 10:40) All Systems Review: A 10-system review of systems was performed and is negative for pertinent findings except as documented above in the HPI. Physical Examination Vital Signs, Last 4 Hours Temp Pulse Resp BP Pulse Ox 10/01/16 07:26 99.8 F H 115 28 100/69 94 General: Conversant, No Apparent Distress HEENT: Atraumatic, Normocephaly, Mucus Membranes Moist Neck: No JVD, Normal carotid pulses Cardiac: Other (Tachy, ) Lungs: Normal Breath Sounds, Other (decreased air movement, scattered ronchi. ) Neuro: Alert and responsive Abdomen: Other (decreased bowel sounds) Skin: No rashes noted on visualized skin Musculoskeletal: No Chest Wall Tenderness Results 10/01/16 02:50 10/01/16 02:50 Lab Results 10/01/16 10/01/16 02:50 02:50 WBC 26.3 H D Hgb 12.7 D Hct 38.3 Plt Count 228 Sodium 131 L Potassium 3.9 Chloride 95 L Carbon Dioxide 29 BUN 11 Creatinine 0.49 L Glucose 126 H Calcium 8.1 L Magnesium 1.5 L Total Bilirubin 0.4 AST 17 ALT 11 Alkaline Phosphatase 66 Consult Discharge Plan - Plan Referrals: ColopyBalbir DO [Primary Care Provider] -
[2016-10-01] MEDS: Potassium Phosphate 44 MEQ in 0.9 % Sodium Chloride 250 ML IVPB SCH (10:09)
[2016-10-01] MEDS: *HR* Metoprolol 5 MG/5 ML VIAL IVP SCH ×3 (10:09→22:15)
--- NOTE | 2016-10-01 12:06 | General Surgery Progress Note ---
Date of Encounter: 10/01/16 Time of Encounter: 09:30 - Assessment and Plan (1) DVT prophylaxis Current Visit: Yes Status: Acute On Lovenox 30 mg daily. (2) S/P exploratory laparotomy Current Visit: Yes Status: Acute Patient is postoperative day #4 from an exporter laparotomy with ileocecectomy. NG tube in place with minimal drainage. Will clamp NG tube. Continue with TPN for now. Overall await continued return in her bowel function. Noted elevated the BBC. This may likely be due to some pulmonary versus distress of the patient's overnight events require transfer to [facility]. Recommend continue to follow WBC. She has been started empirically on levofloxacin. (3) SVT (supraventricular tachycardia) Current Visit: Yes Status: Acute Followed by primary service. Subjective Patient reports: other (Noted event overnight with SOB. NGT in place; no nausea or vomiting. Positive BM.) Objective Vital Signs - Last 8 Hours Temp Pulse Resp BP Pulse Ox 10/01/16 09:42 28 114/76 95 10/01/16 07:26 99.8 F H 115 28 100/69 94 10/01/16 04:41 29 95 10/01/16 04:22 97.1 F L 120 30 127/91 92 10/01/16 04:15 120 Intake and Output 09/30/16 10/01/16 10/01/16 23:59 07:59 15:59 Intake Total 474 / 474 1600 / 1600 1360 / 1360 Output Total 650 / 650 1200 / 1200 Balance -176 / -176 400 / 400 1360 / 1360 Intake: IV Fluids 474 / 474 1600 / 1600 1360 / 1360 0.9 % Sodium Chloride 1, 20 / 20 1000 / 1000 1000 / 1000 000 ML @ 75 mls/hr IVC . [id number] [facility] Rx#: [id number] 0.9 % Sodium Chloride 500 500 / 500 ML @ 1875 mls/hr IVC . Q16M ONE Rx#:[id number] Clinimix E 5%-15% 354 / 354 SOLUTION 2,000 ML @ 60 mls/hr IVC .Q24H [facility] with M.v.i. Adult 10 ml Rx#: [id number] Ofirmev 1,000 mg/100 ml 1 100 / 100 100 / 100 100 / 100 ,000 mg In 100 ml @ 400 mls/hr IVPB Q8HR [facility] Rx#: [id number] Potassium Phosphate 44 260 / 260 MEQ In 0.9 % Sodium Chloride 250 ML @ 40 mls/ hr IVPB ONCE [facility] Rx#: [id number] Oral 0 / 0 0 / 0 Output: Gastric Tube Lavage 0 / 0 0 / 0 Amount Right Nare 0 / 0 0 / 0 Catheter 650 / 650 1150 / 1150 Gastric Drainage 50 / 50 Other: Meal NPO Breakfast Percent of Meal Consumed 100% Stool Size Small Stool Consistency liquid Weight 45.5 kg 45.4 kg Blood Glucose* 132 143 Patient Weight 10/01/16 23:59 Weight 45.4 kg - General physical appearance other (Noted mild increase in effort of breathing) - Abdomen Abdomen: Present: bowel sounds present, soft, non tender (Incision is CDI. No erythema. No drainage.) - Labs 10/01/16 02:50 10/01/16 02:50 Diabetes panel 10/01/16 Range/Units 02:50 Sodium 131 L (136-145) mEq/L Potassium 3.9 (3.5-4.5) mEq/L Chloride 95 L (98-109) mEq/L Carbon Dioxide 29 (19-29) mEq/L BUN 11 (7-20) mg/dL Creatinine 0.49 L (0.57-1.11) mg/dL Glucose 126 H (70-99) mg/dL Calcium 8.1 L (8.6-10.8) mg/dL AST 17 (5-34) Units/L ALT 11 (0-55) Units/L Alkaline Phosphatase 66 (38-126) Units/L Albumin 2.1 L (3.5-5.0) g/dL Calcium panel 10/01/16 10/01/16 Range/Units 02:50 02:50 Calcium 8.1 L (8.6-10.8) mg/dL Phosphorus 2.8 (2.3-4.7) mg/dL Albumin 2.1 L (3.5-5.0) g/dL Pituitary panel 10/01/16 Range/Units 02:50 Sodium 131 L (136-145) mEq/L Potassium 3.9 (3.5-4.5) mEq/L Chloride 95 L (98-109) mEq/L Carbon Dioxide 29 (19-29) mEq/L BUN 11 (7-20) mg/dL Creatinine 0.49 L (0.57-1.11) mg/dL Glucose 126 H (70-99) mg/dL Calcium 8.1 L (8.6-10.8) mg/dL Adrenal panel 10/01/16 Range/Units 02:50 Sodium 131 L (136-145) mEq/L Potassium 3.9 (3.5-4.5) mEq/L Chloride 95 L (98-109) mEq/L Carbon Dioxide 29 (19-29) mEq/L BUN 11 (7-20) mg/dL Creatinine 0.49 L (0.57-1.11) mg/dL Glucose 126 H (70-99) mg/dL Calcium 8.1 L (8.6-10.8) mg/dL Total Bilirubin 0.4 (0.2-1.2) mg/dL AST 17 (5-34) Units/L ALT 11 (0-55) Units/L Alkaline Phosphatase 66 (38-126) Units/L Albumin 2.1 L (3.5-5.0) g/dL - VTE Documentation of Mechanical Device: Intermittent pneumatic compression device Consult Discharge Plan - Plan Referrals: ColBalbir ross DO [Primary Care Provider] -
--- NOTE | 2016-10-01 12:34 | Internal Med Progress Note ---
Date of Encounter: 10/01/16 Time of Encounter: 12:31 - Assessment and plan (1) Small bowel obstruction Current Visit: Yes Status: Acute Assessment and plan: SBO likely secondary to adhesions - s/p ex-lap with small bowel resection converted to ileocectomy POD #4 - currently doing well IV Morphine PRN -NPO, Continue NG tube, TPN - Had BM today - Clamped NG tube now.. posisble d/c NG tube later today or in AM -Gen. Surgery following patient - continue wound care and dressing changes, supportive care - cont empirical abx - Will add Zosyn too.. since pt's WBC started trending up Labs in a.m. (2) S/P exploratory laparotomy Current Visit: Yes Status: Acute (3) Leukocytosis Current Visit: Yes Status: Acute Assessment and plan: WBC started trending up mostly reactive pt remained afebrile cont Levofloxacin + added Zosyn Qualifiers: Leukocytosis type: unspecified Qualified Code(s): D72.829 - Elevated white blood cell count, unspecified (4) Acute respiratory failure with hypoxia Current Visit: Yes Status: Acute Assessment and plan: Due to severe physical deconditioning and pleural effusions No wheezing noticed no need of steroids cont duoneb currently on 10 lit O2 will d/c IVF cont clinimex no need of Lasix yet due to intra vascular volume depletion reviewed CT of chest from last night - No PE noticed strict I & O ordered CXR (5) PAT (paroxysmal atrial tachycardia) Current Visit: Yes Status: Acute Assessment and plan: Improving started IV Lopressor 2.5 mg Q6hr Card consulted (6) COPD (chronic obstructive pulmonary disease) Current Visit: No Status: Chronic Assessment and plan: Stable, not in exacerbation, DuoNeb's breathing treatment Qualifiers: COPD type: unspecified COPD Qualified Code(s): J44.9 - Chronic obstructive pulmonary disease, unspecified (7) Physical deconditioning Current Visit: Yes Status: Chronic Assessment and plan: PT / OT eval (8) Severe protein-calorie malnutrition Current Visit: Yes Status: Acute Assessment and plan: Cont clinimex now (9) DVT prophylaxis Current Visit: Yes Status: Acute Assessment and plan: Continue Lovenox - Subjective Interval history: This is a 75 y/o F with known h/o PSVT, COPD, who admitted here for small bowel obstruction and went for ex-lap with small bowel resection converted to ileocectomy on 09/27/16. Lats night pt went into SVT and Severe hypoxic respiratory failure so pt was transferred to PCU for close monitoring. Today pt is more alert, awake and O x3. NG tube + , miminal secretions only. Had BM this morning and passing gas ok. She denied any CP. - Constitutional Vitals: Temp Pulse Resp BP Pulse Ox 98.2 F 115 24 118/83 95 10/01/16 12:15 10/01/16 12:15 10/01/16 12:15 10/01/16 12:15 10/01/16 09:42 General appearance: Present: cachectic, cooperative, mild distress, A&O X 3, answers questions appropriately - Head Head exam: Present: atraumatic, normal inspection - Neck Neck exam general surgery: Present: supple. Absent: lymphadenopathy, thyromegaly - Respiratory Respiratory exam: Present: decreased breath sounds, rales (mild), respiratory distress, wheezes, tachypnea. Absent: rhonchi - Cardiovascular Cardiovascular exam: Present: +S1, +S2, tachycardia. Absent: systolic murmur - GI/Abdominal GI/Abdominal exam: Present: normal bowel sounds, soft. Absent: distended, rebound, rigid, tenderness Additional comments: clean incisions ..no drainage / discharge noticed - Neurological Exam Neurological exam: Present: alert, oriented X3 - Psychiatric Psychiatric exam: Present: normal affect, normal mood Internal Medicine: Result - Labs CBC & Chem 7: 10/01/16 02:50 10/01/16 02:50 Labs: Short CBC 10/01/16 Range/Units 02:50 WBC 26.3 H D (4.3-11.1) K/mcL Hgb 12.7 D (11.5-15.4) g/dL Hct 38.3 (35.3-44.9) % Plt Count 228 (140-400) K/mcL Neutrophils # 25.3 H (1.6-8.9) K/mcL BMP 10/01/16 02:50 Sodium 131 L Potassium 3.9 Chloride 95 L Carbon Dioxide 29 BUN 11 Creatinine 0.49 L Glucose 126 H Calcium 8.1 L Liver Function 10/01/16 Range/Units 02:50 Total Bilirubin 0.4 (0.2-1.2) mg/dL AST 17 (5-34) Units/L ALT 11 (0-55) Units/L Alkaline Phosphatase 66 (38-126) Units/L Albumin 2.1 L (3.5-5.0) g/dL - ABG Interpretation ABG results: PT/INR, D-dimer PT 10.9 Seconds (9.4-12.1) 09/22/16 12:48 - Impressions Impressions Echocardiogram Limited Views 09/30/16 14:07 Impressions: LVEF 60-65%. Normal left ventricular size and systolic function. Normal right ventricular size and function. The right atrium appears to be compressed by an external mass. Recommend CT imaging for further exploration. Findings communicated to ordering provider. Left Ventricular Wall Motion: Rest Echo Findings All wall segments showed normal motion. Findings: Study Quality * Technically adequate exam. ECG Findings * Normal sinus rhythm. Left Ventricle * LVEF 60-65%. Aorta * Normally sized aortic root. Left Atrium * Left atrium is dilated. Right Atrium * The right atrium appears to be compressed by an external mass as seen in the apical views. Chest CT 09/30/16 15:54 IMPRESSION: No evidence of a mediastinal or right atrial mass seen. There is some eventration of the right hemidiaphragm with the dome of the liver on the right subjacent to the right atrium. Mild size bilateral pleural effusions with bibasilar compressive atelectasis. Osteopenia with chronic compression deformities of mid and lower thoracic vertebrae with accentuation of the thoracic kyphosis. D/ / 09/30/2016 17:17:20 Salinas Shahid MD / evie Interpreting Provider: Salinas Shahid MD - VTE Documentation of Mechanical Device: Intermittent pneumatic compression device Consult Discharge Plan - Plan Referrals: Balbir Cole DO [Primary Care Provider] -
[2016-10-01] MEDS ORDERED: Clinimix E 5%-15% SOLUTION 2,000 ML with MVI, adult with vitamin K 10 ML IVC SCH (17:00)
[2016-10-02] MEDS: Ipratropium/Albuterol Neb 3 ML IH SCH ×4 (04:10→22:58)
[2016-10-02] MEDS: *HR* Metoprolol 5 MG/5 ML VIAL IVP SCH ×4 (04:14→19:03)
[2016-10-02 05:42] LABS: Basophils % 0.1 %; Hematocrit 36.6 % (35.3-44.9); Hemoglobin 12.1 g/dL (11.5-15.4); Lymphocytes # 0.4 K/mcL (0.6-4.6); Lymphocytes % 1.9 %; Mean Corpuscular HGB Conc 33.1 g/dL (31.6-35.5); Mean Corpuscular Hemoglobin 29.7 pg (28.0-33.3); Mean Corpuscular Volume 89.9 fL (83.0-100.0); Mean Platelet Volume 10.7 fL (9.4-12.4); Monocytes # 0.8 K/mcL (0.0-1.3); Monocytes % 3.9 %; Neutrophils # 19.6 K/mcL (1.6-8.9); Platelet Count 278 K/mcL (140-400); Red Blood Count 4.07 M/mcL (3.82-4.97); Red Cell Distribution Width 14.3 % (11.5-14.5); Segmented Neutrophils % 93.1 %
[2016-10-02 05:55] LABS: BUN/Creatinine Ratio 26 (6-26); Blood Urea Nitrogen 12 mg/dL (7-20); Calcium 8.4 mg/dL (8.6-10.8); Carbon Dioxide 29 mEq/L (19-29); Chloride 94 mEq/L (98-109); Glucose 125 mg/dL (70-99); Magnesium 1.6 mg/dL (1.6-2.6); Osmolality,Calculated 271 (280-300); Phosphorous 2.8 mg/dL (2.3-4.7); Potassium 4.2 mEq/L (3.5-4.5); Sodium 130 mEq/L (136-145); eGFR For African Americans > 60 (> 60); eGFR For Non-African Americans > 60 (> 60)
[2016-10-02] MEDS: *HR* Enoxaparin 30 MG/0.3 ML SYRINGE SQ SCH (06:15)
[2016-10-02] MEDS: Pantoprazole 40 MG VIAL IVP SCH (08:32)
[2016-10-02] MEDS: Levofloxacin 750 MG/150 ML 750 MG/150 ML BAG IVPB SCH (08:32)
[2016-10-02] MEDS: Potassium Phosphate 44 MEQ in 0.9 % Sodium Chloride 250 ML IVPB SCH (12:02)
--- NOTE | 2016-10-02 12:17 | General Surgery Progress Note ---
Date of Encounter: 10/02/16 Time of Encounter: 12:16 - Assessment and Plan (1) S/P exploratory laparotomy Current Visit: Yes Status: Acute Patient is postoperative day #5 from an exploratory laparotomy with ileocecectomy. No obvious residual from the NG tube and will remove and start clear diet. WBC has decreased compared to yesterday. On IV antibiotics per the primary service. Subjective Patient reports: no new complaints (Positive BMs. Noted continued diarrhea. NGT clamped-no nausea or vomiting.) Objective Vital Signs - Last 8 Hours Temp Pulse Resp BP Pulse Ox 10/02/16 11:56 131 16 121/84 94 10/02/16 10:55 18 93 10/02/16 08:26 98.3 F 129 18 113/87 94 Intake and Output 10/01/16 10/02/16 10/02/16 23:59 07:59 15:59 Intake Total 360 / 360 0 / 0 Output Total 600 / 600 550 / 550 425 / 425 Balance -240 / -240 -550 / -550 -425 / -425 Intake: IV Fluids 360 / 360 Ofirmev 1,000 mg/100 ml 1 100 / 100 ,000 mg In 100 ml @ 400 mls/hr IVPB Q8HR [facility] Rx#: [id number] Potassium Phosphate 44 260 / 260 MEQ In 0.9 % Sodium Chloride 250 ML @ 40 mls/ hr IVPB ONCE [facility] Rx#: [id number] Oral 0 / 0 0 / 0 Output: Catheter 600 / 600 550 / 550 425 / 425 Gastric Drainage 0 / 0 Other: Meal Dinner Percent of Meal Consumed 0% Stool Size Small Stool Consistency loose Stool Color Brown # Bowel Movements 4 Weight 44.9 kg Blood Glucose* 127 124 121 Patient Weight 10/02/16 23:59 Weight 44.9 kg - General physical appearance no distress - Abdomen Abdomen: Present: bowel sounds present, soft, non tender (Incision CDI. No erythema or drainage.) - Labs 10/03/16 05:05 10/03/16 05:05 Diabetes panel 10/02/16 Range/Units 05:33 Sodium 130 L (136-145) mEq/L Potassium 4.2 (3.5-4.5) mEq/L Chloride 94 L (98-109) mEq/L Carbon Dioxide 29 (19-29) mEq/L BUN 12 (7-20) mg/dL Creatinine 0.47 L (0.57-1.11) mg/dL Glucose 125 H (70-99) mg/dL Calcium 8.4 L (8.6-10.8) mg/dL Calcium panel 10/02/16 Range/Units 05:33 Calcium 8.4 L (8.6-10.8) mg/dL Phosphorus 2.8 (2.3-4.7) mg/dL Pituitary panel 10/02/16 Range/Units 05:33 Sodium 130 L (136-145) mEq/L Potassium 4.2 (3.5-4.5) mEq/L Chloride 94 L (98-109) mEq/L Carbon Dioxide 29 (19-29) mEq/L BUN 12 (7-20) mg/dL Creatinine 0.47 L (0.57-1.11) mg/dL Glucose 125 H (70-99) mg/dL Calcium 8.4 L (8.6-10.8) mg/dL Adrenal panel 10/02/16 Range/Units 05:33 Sodium 130 L (136-145) mEq/L Potassium 4.2 (3.5-4.5) mEq/L Chloride 94 L (98-109) mEq/L Carbon Dioxide 29 (19-29) mEq/L BUN 12 (7-20) mg/dL Creatinine 0.47 L (0.57-1.11) mg/dL Glucose 125 H (70-99) mg/dL Calcium 8.4 L (8.6-10.8) mg/dL - VTE Documentation of Mechanical Device: Intermittent pneumatic compression device Consult Discharge Plan - Plan Referrals: Balbir Cole DO [Primary Care Provider] -
--- NOTE | 2016-10-02 14:21 | Internal Med Progress Note ---
Date of Encounter: 10/02/16 Time of Encounter: 14:19 - Assessment and plan (1) Small bowel obstruction Current Visit: Yes Status: Acute Assessment and plan: SBO likely secondary to adhesions - s/p ex-lap with small bowel resection converted to ileocectomy POD #4 - currently doing well IV Morphine PRN -NG tube removed..Ice chips.. When surgery clears for pO intake will resume her PO meds - Had BM today -Gen. Surgery following patient - continue wound care and dressing changes, supportive care - cont empirical abx - Will add Zosyn too.. since pt's WBC started trending up Labs in a.m. (2) S/P exploratory laparotomy Current Visit: Yes Status: Acute (3) Leukocytosis Current Visit: Yes Status: Acute Assessment and plan: WBC started trending down now mostly reactive pt remained afebrile cont Levofloxacin + added Zosyn Qualifiers: Leukocytosis type: unspecified Qualified Code(s): D72.829 - Elevated white blood cell count, unspecified (4) Acute respiratory failure with hypoxia Current Visit: Yes Status: Acute Assessment and plan: Due to severe physical deconditioning and pleural effusions No wheezing noticed no need of steroids cont duoneb currently on 6 lit O2 cont clinimex no need of Lasix yet due to intra vascular volume depletion reviewed CT of chest - No PE noticed strict I & O (5) PAT (paroxysmal atrial tachycardia) Current Visit: Yes Status: Acute Assessment and plan: HR fairly controlled will inc IV Lopressor 2.5 mg frequency to Q4Hr Card is on board If surgery clears her for pO meds, will resume home dose of Metoprolol (6) COPD (chronic obstructive pulmonary disease) Current Visit: No Status: Chronic Assessment and plan: Stable, not in exacerbation, DuoNeb's breathing treatment Qualifiers: COPD type: unspecified COPD Qualified Code(s): J44.9 - Chronic obstructive pulmonary disease, unspecified (7) Physical deconditioning Current Visit: Yes Status: Chronic Assessment and plan: PT / OT eval (8) Severe protein-calorie malnutrition Current Visit: Yes Status: Acute Assessment and plan: Cont clinimex now (9) DVT prophylaxis Current Visit: Yes Status: Acute Assessment and plan: Continue Lovenox - Subjective Interval history: This is a 75 y/o F with known h/o PSVT, COPD, who admitted here for small bowel obstruction and went for ex-lap with small bowel resection converted to ileocectomy on 09/27/16. On 09/30/16 night pt went into SVT and Severe hypoxic respiratory failure so pt was transferred to PCU for close monitoring. Today pt is more alert, awake and O x3. Had BM this morning and passing gas ok. She denied any CP. NG tube was removed. - Constitutional Vitals: Temp Pulse Resp BP Pulse Ox 98.3 F 131 18 121/84 94 10/02/16 08:26 10/02/16 11:56 10/02/16 11:56 10/02/16 11:56 10/02/16 11:56 General appearance: Present: cachectic, cooperative, mild distress, A&O X 3, answers questions appropriately - Head Head exam: Present: atraumatic, normal inspection - Respiratory Respiratory exam: Present: decreased breath sounds, respiratory distress (mild) , wheezes, tachypnea. Absent: rales - Cardiovascular Cardiovascular exam: Present: +S1, +S2, tachycardia. Absent: systolic murmur - GI/Abdominal GI/Abdominal exam: Present: normal bowel sounds, soft. Absent: distended, guarding, rebound, rigid - Extremities Exam Extremities exam: Present: pedal edema (1+). Absent: calf tenderness, tenderness - Neurological Exam Neurological exam: Present: alert, oriented X3 - Psychiatric Psychiatric exam: Present: normal affect, normal mood Internal Medicine: Result - Labs CBC & Chem 7: 10/02/16 05:33 10/02/16 05:33 Labs: Short CBC 10/02/16 Range/Units 05:33 WBC 21.1 H (4.3-11.1) K/mcL Hgb 12.1 (11.5-15.4) g/dL Hct 36.6 (35.3-44.9) % Plt Count 278 (140-400) K/mcL Neutrophils # 19.6 H (1.6-8.9) K/mcL BMP 10/02/16 05:33 Sodium 130 L Potassium 4.2 Chloride 94 L Carbon Dioxide 29 BUN 12 Creatinine 0.47 L Glucose 125 H Calcium 8.4 L - ABG Interpretation ABG results: PT/INR, D-dimer PT 10.9 Seconds (9.4-12.1) 09/22/16 12:48 - VTE Documentation of Mechanical Device: Intermittent pneumatic compression device Consult Discharge Plan - Plan Referrals: ColopyBalbir DO [Primary Care Provider] -
[2016-10-02] MEDS: 0.9 % Sodium Chloride 1,000 ML IVC SCH (15:50)
[2016-10-02] MEDS: Piperacillin/Tazobactam 3.375 GM in D5% in Water (Mini-Bag+) 100 ML IVPB SCH (15:54)
[2016-10-02] MEDS ORDERED: Clinimix E 5%-15% SOLUTION 2,000 ML with MVI, adult with vitamin K 10 ML IVC SCH (17:00)
[2016-10-03] MEDS: *HR* Metoprolol 5 MG/5 ML VIAL IVP SCH ×5 (01:00→13:51)
[2016-10-03] MEDS: Piperacillin/Tazobactam 3.375 GM in D5% in Water (Mini-Bag+) 100 ML IVPB SCH ×3 (01:01→18:53)
[2016-10-03] MEDS: Ipratropium/Albuterol Neb 3 ML IH SCH ×5 (03:48→22:43)
[2016-10-03] MEDS: *HR* Enoxaparin 30 MG/0.3 ML SYRINGE SQ SCH (04:46)
[2016-10-03 05:25] LABS: Basophils % 0.1 %; Hematocrit 34.4 % (35.3-44.9); Hemoglobin 11.4 g/dL (11.5-15.4); Immature Granulocytes % 1.6 % (0-4); Lymphocytes # 0.4 K/mcL (0.6-4.6); Lymphocytes % 1.7 %; Mean Corpuscular HGB Conc 33.1 g/dL (31.6-35.5); Mean Corpuscular Hemoglobin 29.6 pg (28.0-33.3); Mean Corpuscular Volume 89.4 fL (83.0-100.0); Mean Platelet Volume 10.7 fL (9.4-12.4); Monocytes # 1.1 K/mcL (0.0-1.3); Monocytes % 4.9 %; Platelet Count 290 K/mcL (140-400); Red Blood Count 3.85 M/mcL (3.82-4.97); Red Cell Distribution Width 14.4 % (11.5-14.5); Segmented Neutrophils % 91.7 %
[2016-10-03 05:30] LABS: BUN/Creatinine Ratio 35 (6-26); Blood Urea Nitrogen 16 mg/dL (7-20); Calcium 8.6 mg/dL (8.6-10.8); Carbon Dioxide 29 mEq/L (19-29); Chloride 94 mEq/L (98-109); Glucose 128 mg/dL (70-99); Magnesium 1.4 mg/dL (1.6-2.6); Osmolality,Calculated 275 (280-300); Phosphorous 2.9 mg/dL (2.3-4.7); Potassium 4.1 mEq/L (3.5-4.5); Sodium 131 mEq/L (136-145); eGFR For African Americans > 60 (> 60); eGFR For Non-African Americans > 60 (> 60)
[2016-10-03] MEDS: Pantoprazole 40 MG VIAL IVP SCH (10:18)
--- NOTE | 2016-10-03 12:15 | General Surgery Progress Note ---
<DormanJoaquín - Last Filed: 10/03/16 13:07> Date of Encounter: 10/03/16 Time of Encounter: 11:00 - Assessment and Plan (2) S/P exploratory laparotomy Current Visit: Yes Status: Acute Post-op day 6 exploratory laparotomy with small bowel resection converted to ileocectomy NPO - Patient still has no appetite and has complaints of diarrhea. The patient and her family would like to have her start on clear diet tonight if possible NGT was removed yesterday Pain management as needed Supportive care Monitor I/Os CBC/ CMP series No overnight SVT episodes (3) SVT (supraventricular tachycardia) Current Visit: Yes Status: Acute No overnight event DNR/ DNI status Patient has history of arrhythmias Continue to monitor (4) DVT prophylaxis Current Visit: Yes Status: Acute Continue Lovenox 30 mg daily Ambulate as tolerated Subjective Patient reports: no new complaints, voiding w/o difficulty (via catheter), flatus, bowel movement, afebrile Objective Vital Signs - Last 8 Hours Temp Pulse Resp BP Pulse Ox 10/03/16 11:57 97.5 F L 122 36 89/65 87 10/03/16 07:36 97.8 F 127 30 97/68 90 10/03/16 04:15 98.9 F 130 32 107/77 87 Intake and Output 10/02/16 10/03/16 10/03/16 23:59 07:59 15:59 Intake Total 260 / 260 100 / 100 Output Total 600 / 600 Balance 260 / 260 -600 / -600 100 / 100 Intake: IV Fluids 260 / 260 100 / 100 Zosyn 3.375 GM In 0 / 0 100 / 100 Dextrose 5% (Minibag+) 100 ML 100 ML @ 25 mls/hr IVPB Q8HR [facility] Rx#: [id number] Potassium Phosphate 44 260 / 260 MEQ In 0.9 % Sodium Chloride 250 ML @ 40 mls/ hr IVPB ONCE [facility] Rx#: [id number] Output: Catheter 600 / 600 Other: Meal npo breakfast Stool Size Small Stool Consistency liquid Stool Color Brown # Bowel Movements 1 Weight 45.3 kg Blood Glucose* 131 142 159 Patient Weight 10/03/16 23:59 Weight 45.3 kg - General physical appearance no distress, other (Patient is malnourished) - Eyes normal ocular movement - ENT normocephalic, CN 2-12 grossly intact - Neck Neck exam: trachea midline - Respiratory normal expansion, clear to auscultation - Cardiovascular Cardiovascular exam: Present: tachycardia, no murmurs/rubs/gallops - Abdomen Abdomen: Present: bowel sounds present, soft, non tender - Incision Incision: Present: clean and dry, intact - Labs 10/03/16 05:05 10/03/16 05:05 Diabetes panel 10/03/16 Range/Units 05:05 Sodium 131 L (136-145) mEq/L Potassium 4.1 (3.5-4.5) mEq/L Chloride 94 L (98-109) mEq/L Carbon Dioxide 29 (19-29) mEq/L BUN 16 (7-20) mg/dL Creatinine 0.46 L (0.57-1.11) mg/dL Glucose 128 H (70-99) mg/dL Calcium 8.6 (8.6-10.8) mg/dL Calcium panel 10/03/16 Range/Units 05:05 Calcium 8.6 (8.6-10.8) mg/dL Phosphorus 2.9 (2.3-4.7) mg/dL Pituitary panel 10/03/16 Range/Units 05:05 Sodium 131 L (136-145) mEq/L Potassium 4.1 (3.5-4.5) mEq/L Chloride 94 L (98-109) mEq/L Carbon Dioxide 29 (19-29) mEq/L BUN 16 (7-20) mg/dL Creatinine 0.46 L (0.57-1.11) mg/dL Glucose 128 H (70-99) mg/dL Calcium 8.6 (8.6-10.8) mg/dL Adrenal panel 10/03/16 Range/Units 05:05 Sodium 131 L (136-145) mEq/L Potassium 4.1 (3.5-4.5) mEq/L Chloride 94 L (98-109) mEq/L Carbon Dioxide 29 (19-29) mEq/L BUN 16 (7-20) mg/dL Creatinine 0.46 L (0.57-1.11) mg/dL Glucose 128 H (70-99) mg/dL Calcium 8.6 (8.6-10.8) mg/dL - VTE Documentation of Mechanical Device: Intermittent pneumatic compression device Consult Discharge Plan - Plan Referrals: Balbir Cole DO [Primary Care Provider] - (DR. COLE'S OFFICE WILL NOT MAKE A FOLLOW UP APPOINTMENT FOR US, THEY WANT THE PATIENT TO CALL AND MAKE THEIR OWN.) <Sayda Benton - Last Filed: 10/04/16 10:08> Date of Encounter: 10/03/16 Time of Encounter: 17:30 - Assessment and Plan (1) Urinary retention Current Visit: Yes Status: Acute continue oconnell for accurate I/O's, urine culture ordered (2) Small bowel obstruction Current Visit: Yes Status: Resolved (3) Physical deconditioning Current Visit: Yes Status: Chronic continue PT/OT once more stable from respiratory standpoint (4) Unable to eat Current Visit: Yes Status: Acute continue tpn until adequate po intake (5) DVT prophylaxis Current Visit: Yes Status: Acute (6) H/O colectomy Current Visit: Yes Status: Acute (7) S/P colectomy Current Visit: Yes Status: Acute pt s/p ileocectomy diarrhea, leukocystosis, check cdiff on clears and tolerating but currently unable due to respiratory distress ( receiving lasix) incision C/D/I no abdominal pain flatus/diarrhea (8) Respiratory distress Current Visit: Yes Status: Acute patient receiving lasix monitor aggressive pulmonary toilet (9) SVT (supraventricular tachycardia) Current Visit: Yes Status: Acute cardiology following and managing Subjective Patient reports: no new complaints, tolerating liquids well, voiding w/o difficulty, flatus, bowel movement, diarrhea Objective Vital Signs - Last 8 Hours Temp Pulse Resp BP Pulse Ox 10/04/16 07:45 120 10/04/16 07:31 98.7 F 124 26 87/63 89 10/04/16 04:20 124 10/04/16 04:00 97.3 F L 127 24 94/71 89 Intake and Output 10/03/16 10/04/16 10/04/16 23:59 07:59 15:59 Intake Total 8848.6 / 8848.6 202 / 202 Output Total 1600 / 1600 1300 / 1300 Balance 7248.6 / 7248.6 -1098 / -1098 Intake: IV Fluids 8848.6 / 8848.6 202 / 202 0.9 % Sodium Chloride 1, 214 / 214 0 / 0 000 ML @ 20 mls/hr IVC . Q24H [facility] Rx#:[id number] Clinimix E 5%-15% 2977 / 2977 SOLUTION 2,000 ML @ 60 mls/hr IVC .Q24H [facility] with M.v.i. Adult 10 ml Rx#: [id number] Intralipid 20% 250 ML @ 69.6 / 69.6 21 mls/hr IVPB MoWeFr@ 1700 [facility] Rx#:[id number] Magnesium Sulfate 1 GM In 104 / 104 102 / 102 Dextrose 5% 100 ML @ 100 mls/hr IVPB ONCE [facility] Rx# :[id number] Zosyn 3.375 GM In 100 / 100 100 / 100 Dextrose 5% (Minibag+) 100 ML 100 ML @ 25 mls/hr IVPB Q8HR [facility] Rx#: [id number] Potassium Phosphate 44 260 / 260 MEQ In 0.9 % Sodium Chloride 250 ML @ 40 mls/ hr IVPB ONCE [facility] Rx#: [id number] Output: Catheter 1600 / 1600 1300 / 1300 Other: Weight 45.5 kg 44.8 kg Blood Glucose* 163 139 Patient Weight 10/04/16 23:59 Weight 44.8 kg - General physical appearance no distress, no pain, chronically ill - Eyes normal ocular movement - ENT dry mucosa, atraumatic - Neck Neck exam: trachea midline - Respiratory crackles: bilateral - Cardiovascular Cardiovascular exam: Present: tachycardia - Abdomen Abdomen: Present: bowel sounds present, soft, non tender. Absent: distended - Incision Incision: Present: clean and dry, intact. Absent: erythema - Integumentary no rash, no growths - Neurologic CN 2-12 grossly intact - Musculoskeletal other (kyphosis) - Psychiatric oriented to time, oriented to person, oriented to place - Labs 10/04/16 04:56 10/04/16 04:56 Diabetes panel 10/03/16 10/04/16 Range/Units 00:19 04:56 Sodium 131 L (136-145) mEq/L Potassium 3.9 3.5 (3.5-4.5) mEq/L Chloride 90 L (98-109) mEq/L Carbon Dioxide 32 H (19-29) mEq/L BUN 14 (7-20) mg/dL Creatinine 0.51 L (0.57-1.11) mg/dL Glucose 121 H (70-99) mg/dL Calcium 8.4 L (8.6-10.8) mg/dL Calcium panel 10/04/16 Range/Units 04:56 Calcium 8.4 L (8.6-10.8) mg/dL Phosphorus 4.2 (2.3-4.7) mg/dL Pituitary panel 10/03/16 10/04/16 Range/Units 00:19 04:56 Sodium 131 L (136-145) mEq/L Potassium 3.9 3.5 (3.5-4.5) mEq/L Chloride 90 L (98-109) mEq/L Carbon Dioxide 32 H (19-29) mEq/L BUN 14 (7-20) mg/dL Creatinine 0.51 L (0.57-1.11) mg/dL Glucose 121 H (70-99) mg/dL Calcium 8.4 L (8.6-10.8) mg/dL Adrenal panel 10/03/16 10/04/16 Range/Units 00:19 04:56 Sodium 131 L (136-145) mEq/L Potassium 3.9 3.5 (3.5-4.5) mEq/L Chloride 90 L (98-109) mEq/L Carbon Dioxide 32 H (19-29) mEq/L BUN 14 (7-20) mg/dL Creatinine 0.51 L (0.57-1.11) mg/dL Glucose 121 H (70-99) mg/dL Calcium 8.4 L (8.6-10.8) mg/dL - Imaging Chest x-ray: report reviewed, image reviewed - Attending Attestation I examined this patient and my medical decision-making was reviewed with the Resident Physician. I agree with the documented findings, disposition and treatment plan as described except to the extent set forth below.
--- NOTE | 2016-10-03 13:19 | Internal Med Progress Note ---
Date of Encounter: 10/03/16 Time of Encounter: 13:17 - Assessment and plan (1) Small bowel obstruction Current Visit: Yes Status: Acute Assessment and plan: SBO likely secondary to adhesions - s/p ex-lap with small bowel resection converted to ileocectomy POD #4 - currently doing well IV Morphine PRN -NG tube removed..tolerating ice chips well. will talk to surgery to start her on clear liquid diet at least - continue wound care and dressing changes, supportive care - cont broad spec abx Zosyn and Levofloxacin. (2) S/P exploratory laparotomy Current Visit: Yes Status: Acute (3) Leukocytosis Current Visit: Yes Status: Acute Assessment [place] plan: [place] [id number] mostly reactive pt remained afebrile cont Levofloxacin + Zosyn Qualifiers: Leukocytosis type: unspecified Qualified Code(s): D72.829 - Elevated white blood cell count, unspecified (4) Acute respiratory failure with hypoxia Current Visit: Yes Status: Acute Assessment and plan: Due to severe physical deconditioning and pleural effusions No wheezing noticed no need of steroids cont duoneb currently on 6 lit O2 cont clinimex no need of Lasix yet due to intra vascular volume depletion reviewed CT of chest - No PE noticed will get a f/u CXR strict I & O (5) PAT (paroxysmal atrial tachycardia) Current Visit: Yes Status: Acute Assessment and plan: HR fairly controlled Cont IV Lopressor 2.5 mg @ Q4Hr Card is on board If surgery clears her for pO meds, will resume home dose of Metoprolol also will add cardizem 30mg Q6hr (6) COPD (chronic obstructive pulmonary disease) Current Visit: No Status: Chronic Assessment and plan: Stable, not in exacerbation, DuoNeb's breathing treatment Qualifiers: COPD type: unspecified COPD Qualified Code(s): J44.9 - Chronic obstructive pulmonary disease, unspecified (7) Physical deconditioning Current Visit: Yes Status: Chronic Assessment and plan: PT / OT eval (8) Severe protein-calorie malnutrition Current Visit: Yes Status: Acute Assessment and plan: Cont clinimex now (9) DVT prophylaxis Current Visit: Yes Status: Acute Assessment and plan: Continue Lovenox - Subjective Interval history: This is a 75 y/o F with known h/o PSVT, COPD, who admitted here for small bowel obstruction and went for ex-lap with small bowel resection converted to ileocecotomy on 09/27/16. On 09/30/16 night pt went into SVT and Severe hypoxic respiratory failure so pt was transferred to PCU for close monitoring. Today pt is more alert, awake and O x3. Had BM this morning and passing gas ok. She denied any CP. NG tube was removed on 10/02/16, since then no nausea / vomiting. Tolerating ice chips well. - Constitutional Vitals: Temp Pulse Resp BP Pulse Ox 97.5 F L 122 36 89/65 87 10/03/16 11:57 10/03/16 11:57 10/03/16 11:57 10/03/16 11:57 10/03/16 11:57 General appearance: Present: cachectic, cooperative, mild distress, A&O X 3, answers questions appropriately - Head Head exam: Present: atraumatic, normal inspection - Respiratory Respiratory exam: Present: decreased breath sounds, rales (basal regions b/l), respiratory distress, wheezes. Absent: rhonchi - Cardiovascular Cardiovascular exam: Present: +S1, +S2, tachycardia. Absent: systolic murmur - GI/Abdominal GI/Abdominal exam: Present: normal bowel sounds, soft. Absent: rebound, rigid, tenderness - Extremities Exam Extremities exam: Absent: calf tenderness, pedal edema, tenderness - Psychiatric Psychiatric exam: Present: normal affect, normal mood Internal Medicine: Result - Labs CBC & Chem 7: 10/03/16 05:05 10/03/16 05:05 Labs: Short CBC 10/03/16 Range/Units 05:05 WBC 21.9 H (4.3-11.1) K/mcL Hgb 11.4 L (11.5-15.4) g/dL Hct 34.4 L (35.3-44.9) % Plt Count 290 (140-400) K/mcL Neutrophils # 20.0 H (1.6-8.9) K/mcL BMP 10/03/16 05:05 Sodium 131 L Potassium 4.1 Chloride 94 L Carbon Dioxide 29 BUN 16 Creatinine 0.46 L Glucose 128 H Calcium 8.6 - ABG Interpretation ABG results: PT/INR, D-dimer PT 10.9 Seconds (9.4-12.1) 09/22/16 12:48 - VTE Documentation of Mechanical Device: Intermittent pneumatic compression device Consult Discharge Plan - Plan Referrals: Balbir Aranda DO [Primary Care Provider] - (DR. ARANDA'S OFFICE WILL NOT MAKE A FOLLOW UP APPOINTMENT FOR US, THEY WANT THE PATIENT TO CALL AND MAKE THEIR OWN.)
[2016-10-03] MEDS: 0.9 % Sodium Chloride 1,000 ML IVC SCH (13:49)
[2016-10-03] MEDS: Potassium Phosphate 44 MEQ in 0.9 % Sodium Chloride 250 ML IVPB SCH (13:51)
[2016-10-03] MEDS ORDERED: Magnesium Sulfate 2 GM in D5% in Water 100 ML IVPB ONE (14:34)
[2016-10-03] MEDS ORDERED: *HR* Metoprolol 5 MG/5 ML VIAL IVP SCH (15:01)
--- NOTE | 2016-10-03 15:10 | Electrocardiograph Report ---
[place] [address] Test Date: 2016-10-01 Pat Name: Amparo Brown Department: 110 Room: 2N11 Gender: F High Value Associate: [id number] : 1940 Requested By: Mu Cloud Order Number: [id number] Reading MD: Lorraine Vásquez Measurements Intervals [place] Rate: 211 P: MS: 0 QRS: -25 QRSD: 95 T: 160 QT: 207 QTc: 309 Interpretive Statements SUPRAVENTRICULAR TACHYCARDIA BORDERLINE LEFT AXIS DEVIATION ST-T ABNORMALITIES PROBABLY RATE RELATED Electronically Signed On 10-02-2016 12:03:37 EDT by Lorraine Vásquez
[2016-10-03] MEDS ORDERED: Furosemide 40 MG/4 ML VIAL IVP SCH (15:58)
--- NOTE | 2016-10-03 16:08 | Cardiology Progress Note ---
<Bernabe Kumar - Last Filed: 10/03/16 16:33> Date of Encounter: 10/03/16 Time of Encounter: 15:59 Assessment and Plan (1) Paroxysmal atrial tachycardia Current Visit: Yes Status: Acute Patient is currently hemodynamically stable. Has p waves present on telemetry. Rate ranging from 110-130 during interview. Patient has become more tachypneic and is requiring more oxygen today. Tachycardia is likely from current respiratory abnormalities. Patient has bilateral edema, crackles in the lung on the right and is cumulative nearly 10L since admission. She has been afebrile but has had a trend up in her WBC as well. Reviewed CXR but very difficult to interpret with her altered anatomy. Would consider possible developing pulmonary edema or pneumonia. . Currently she is on Zosyn and Levofloxacin. May consider adding MRSA coverage. Recommendations: Would address any underlying causes of her tachycardia. Patient also appears volume overloaded so would diurese the patient. We will add some IV lasix. Continue PRN IV metoprolol. patient may need higher level of care if she continues to decline. (2) Acute hypoxemic respiratory failure Current Visit: Yes Status: Acute multifactorial. Patient has marked anatomical abnormalities. Appears to be from prior compression fractures. Concern for possible volume overload or developing pneumonia. We will diurese patient. May consider broadening antibiotic coverage if patient continues to worsen. (3) SIRS (systemic inflammatory response syndrome) Current Visit: Yes Status: Acute as stated above. (4) Kyphosis Current Visit: Yes Status: Chronic severe Chronic Likely contributing to her respiratory failure. Qualifiers: Qualified Code(s): M40.209 - Unspecified kyphosis, site unspecified (5) Recent major surgery Current Visit: Yes Status: Acute patient is POD #6 for ex lap with ileocectomy. management per surgery. (6) Hypomagnesemia Current Visit: Yes Status: Acute mild has been replaced today. doubt this is contributing to her tachycardia. continue to follow and replace electrolytes as needed. Discussion w patient/family: The assessment and plan as outlined above was discussed with the patient and/or family members who expressed understanding and agreement. All questions were answered. Thank you for involving us in the care of your patient. Please call with any questions. Subjective Principal diagnosis: PAT Interval history: Spoke with hospitalist today and was asked if cardiology would continue to follow with patient as she has still bee tachycardic with prn metoprolol. Today Mrs. Brown states that she is not feeling well. She states she is having more difficulty breathing today. She admits to cough with clear sputum production. Denies wheeze and hemoptysis. She denies pain or discomfort at this time. She states that she has been eating and drinking a little. She has no further complaints or concerns at this time. Objective Vital Signs, Last 4 Hours Pulse Resp BP Pulse Ox 10/03/16 13:42 120 24 102/67 90 General: Conversant, Other (mild distress) HEENT: Atraumatic, Normocephaly, Mucus Membranes Moist Neck: No JVD (however difficulty to examine with her altered anatomy. ), Normal carotid pulses Cardiac: Other (tachycardic. regular. No murmurs rubs or gallops. ) Lungs: Other (She has an increased work of breathing with tachypnea and some parodoxical abdominal movements. She has crackles in the right lung aceves. ) Neuro: Alert and responsive, No focal deficits noted Abdomen: Soft, Non-Tender, Other (incision is clean and well dressed. ) Skin: No rashes noted on visualized skin Extremities: No Clubbing, No Cyanosis, Normal Pulses, Other (She has 2+ edema bilaterally to the level of the knee. ) Results 10/03/16 05:05 10/03/16 05:05 Lab Results 10/03/16 10/03/16 05:05 05:05 WBC 21.9 H Hgb 11.4 L Hct 34.4 L Plt Count 290 Sodium 131 L Potassium 4.1 Chloride 94 L Carbon Dioxide 29 BUN 16 Creatinine 0.46 L Glucose 128 H Calcium 8.6 Magnesium 1.4 L - VTE Documentation of Mechanical Device: Intermittent pneumatic compression device Consult Discharge Plan - Plan Referrals: Balbir Cole, [Primary Care Provider] - (DR. COLE'S OFFICE WILL NOT MAKE A FOLLOW UP APPOINTMENT FOR US, THEY WANT THE PATIENT TO CALL AND MAKE THEIR OWN.) <Lorraine Vásquez - Last Filed: 10/03/16 16:53> Date of Encounter: 10/03/16 Assessment and Plan Discussion w patient/family: We've been asked to re-evaluate Ms. Brown. She was seen over the weekend by Dr. Constantin Kevin for PAT. She continues to have episodes of PAT and probably sinus tachycardia. Dysrhythmia appears to be a result of her underlying condition. She appears ill at the bedside. She is tachypneic and is 10L net positive. She also meet SIRS criteria. I discussed my concerns with the hospitalist and nursing staff. I also spoke with the patient's POA (Daughter, Katarzyna) over the telephone at her request. I recommend zhu culture and will leave choice of antibiotic therapy up to hospitalist team. We will attempt diuresis although BP may not allow us to be aggressive. Her daughter Katarzyna who is a nurse would be open to temporary vasopressors if needed. Both Katarzyna and patient declined mechanical ventilation (as documented in code status). Katarzyna expressed understanding of her mother's guarded condition. All questions were answered. Otherwise, would hold PO metoprolol due to BP and use metoprolol IV prn. Objective Vital Signs, Last 4 Hours Temp Pulse Resp BP Pulse Ox 10/03/16 16:12 97.8 F 127 30 110/75 88 10/03/16 13:42 120 24 102/67 90 Results 10/03/16 05:05 10/03/16 05:05 Lab Results 10/03/16 10/03/16 05:05 05:05 WBC 21.9 H Hgb 11.4 L Hct 34.4 L Plt Count 290 Sodium 131 L Potassium 4.1 Chloride 94 L Carbon Dioxide 29 BUN 16 Creatinine 0.46 L Glucose 128 H Calcium 8.6 Magnesium 1.4 L
[2016-10-03] MEDS ORDERED: Clinimix E 5%-15% SOLUTION 2,000 ML with MVI, adult with vitamin K 10 ML IVC SCH (17:00)
[2016-10-03] MEDS ORDERED: *HR* LORazepam 0.5 MG TABLET PO PRN (17:34)
[2016-10-03] MEDS: Furosemide 20 MG/2 ML VIAL IVP SCH (20:01)
[2016-10-03] MEDS ORDERED: Furosemide 40 MG/4 ML VIAL IVP ONE (23:39)
[2016-10-03] MEDS ORDERED: *HR* Digoxin 0.5 MG/2 ML AMPUL IVP ONE (23:39)
[2016-10-04] MEDS: Piperacillin/Tazobactam 3.375 GM in D5% in Water (Mini-Bag+) 100 ML IVPB SCH ×3 (00:31→16:41)
[2016-10-04 00:47] LABS: Magnesium 1.8 mg/dL (1.6-2.6); Potassium 3.9 mEq/L (3.5-4.5)
[2016-10-04] MEDS ORDERED: Magnesium Sulfate 1 GM in D5% in Water 100 ML IVPB ONE (01:10)
[2016-10-04] MEDS: Ipratropium/Albuterol Neb 3 ML IH SCH ×4 (04:22→22:01)
[2016-10-04 05:53] LABS: Basophils % 0.2 %; Hemoglobin 11.5 g/dL (11.5-15.4)
[2016-10-04 05:54] LABS: Basophils # 0.1 K/mcL (0.0-0.2); Hematocrit 35.3 % (35.3-44.9); Immature Granulocytes % 4.1 % (0-4); Lymphocytes # 0.4 K/mcL (0.6-4.6); Lymphocytes % 1.3 %; Mean Corpuscular HGB Conc 32.6 g/dL (31.6-35.5); Mean Corpuscular Hemoglobin 29.2 pg (28.0-33.3); Mean Corpuscular Volume 89.6 fL (83.0-100.0); Monocytes # 1.4 K/mcL (0.0-1.3); Monocytes % 4.4 %; Neutrophils # 27.9 K/mcL (1.6-8.9); Platelet Count 352 K/mcL (140-400); Red Blood Count 3.94 M/mcL (3.82-4.97); Red Cell Distribution Width 14.2 % (11.5-14.5)
[2016-10-04] MEDS: *HR* Enoxaparin 30 MG/0.3 ML SYRINGE SQ SCH (06:03)
[2016-10-04 06:07] LABS: BUN/Creatinine Ratio 27 (6-26); Blood Urea Nitrogen 14 mg/dL (7-20); Calcium 8.4 mg/dL (8.6-10.8); Carbon Dioxide 32 mEq/L (19-29); Chloride 90 mEq/L (98-109); Glucose 121 mg/dL (70-99); Magnesium 1.8 mg/dL (1.6-2.6); Osmolality,Calculated 274 (280-300); Phosphorous 4.2 mg/dL (2.3-4.7); Potassium 3.5 mEq/L (3.5-4.5); Sodium 131 mEq/L (136-145); eGFR For African Americans > 60 (> 60); eGFR For Non-African Americans > 60 (> 60)
[2016-10-04] MEDS ORDERED: Vancomycin 750 MG in D5% in Water 250 ML IVPB ONE (07:00)
[2016-10-04] MEDS ORDERED: Vancomycin 750 MG in D5% in Water 250 ML IVPB SCH (07:00)
[2016-10-04] MEDS: Furosemide 20 MG/2 ML VIAL IVP SCH ×2 (07:49→16:42)
[2016-10-04] MEDS: Levofloxacin 750 MG/150 ML 750 MG/150 ML BAG IVPB SCH (07:49)
[2016-10-04] MEDS: Pantoprazole 40 MG VIAL IVP SCH (07:49)
[2016-10-04] MEDS: Vancomycin Oral Soln 250 MG/2.5 ML UDC PO SCH ×5 (08:56→19:54)
--- NOTE | 2016-10-04 09:50 | General Surgery Progress Note ---
<Joaquín Dorman - Last Filed: 10/04/16 13:00> Date of Encounter: 10/04/16 Time of Encounter: 09:40 - Assessment and Plan (1) SIRS (systemic inflammatory response syndrome) Current Visit: Yes Status: Acute WBC = 31.0 Hypotensive = 87/63 Patient and her family requests for aggressive treatment but remains DNR- [facility] Transfer to ICU Pressors as needed Urine Culture ordered yesterday at 1552 but not collected C. Diff negative CT pelvis with IV no oral pending CXR limited with basilar consolidation and pleural effusion Continue Antibiotics Levofloxacin, Zosyn, Vancomycin until infection source determined (2) Leukocytosis Current Visit: Yes Status: Acute WBC = 31.0 follow SIRS protocol Qualifiers: Leukocytosis type: unspecified Qualified Code(s): D72.829 - Elevated white blood cell count, unspecified (3) S/P exploratory laparotomy Current Visit: Yes Status: Acute Post-op day 7 exploratory laparotomy with small bowel resection converted to ileocectomy Supportive care Monitor I/Os CBC/ CMP series Treatment based on leukocytosis (4) SVT (supraventricular tachycardia) Current Visit: Yes Status: Acute DNR/ DNI status Patient has history of arrhythmias Continue to monitor (5) DVT prophylaxis Current Visit: Yes Status: Acute Continue Lovenox 30 mg daily Ambulate as tolerated Objective Vital Signs - Last 8 Hours Temp Pulse Resp BP Pulse Ox 10/04/16 07:45 120 10/04/16 07:31 98.7 F 124 26 87/63 89 10/04/16 04:20 124 10/04/16 04:00 97.3 F L 127 24 94/71 89 Intake and Output 10/03/16 10/04/16 10/04/16 23:59 07:59 15:59 Intake Total 8848.6 / 8848.6 Output Total 1600 / 1600 1300 / 1300 Balance 7248.6 / 7248.6 -1098 / -1098 Intake: IV Fluids 8848.6 / 8848.6 / 202 0.9 % Sodium Chloride 1, 214 / 214 0 / 0 000 ML @ 20 mls/hr IVC . Q24H [facility] Rx#:[id number] Clinimix E 5%-15% 2977 / 2977 SOLUTION 2,000 ML @ 60 mls/hr IVC .Q24H [facility] with Adithyav.i. Adult 10 ml Rx#: [id number] Intralipid 20% 250 ML @ 69.6 / 69.6 21 mls/hr IVPB MoWeFr@ 1700 [facility] Rx#:[id number] Magnesium Sulfate 1 GM In 104 / 104 102 / 102 Dextrose 5% 100 ML @ 100 mls/hr IVPB ONCE ONE Rx# :[id number] Zosyn 3.375 GM In 100 / 100 100 / 100 Dextrose 5% (Minibag+) 100 ML 100 ML @ 25 mls/hr IVPB Q8HR [facility] Rx#: [id number] Potassium Phosphate 44 260 / 260 MEQ In 0.9 % Sodium Chloride 250 ML @ 40 mls/ hr IVPB ONCE [facility] Rx#: [id number] Output: Catheter 1600 / 1600 1300 / 1300 Other: Weight 45.5 kg 44.8 kg Blood Glucose* 163 139 Patient Weight 10/04/16 23:59 Weight 44.8 kg - Labs 10/04/16 04:56 10/04/16 04:56 Diabetes panel 10/03/16 10/04/16 Range/Units 00:19 04:56 Sodium 131 L (136-145) mEq/L Potassium 3.9 3.5 (3.5-4.5) mEq/L Chloride 90 L (98-109) mEq/L Carbon Dioxide 32 H (19-29) mEq/L BUN 14 (7-20) mg/dL Creatinine 0.51 L (0.57-1.11) mg/dL Glucose 121 H (70-99) mg/dL Calcium 8.4 L (8.6-10.8) mg/dL Calcium panel 10/04/16 Range/Units 04:56 Calcium 8.4 L (8.6-10.8) mg/dL Phosphorus 4.2 (2.3-4.7) mg/dL Pituitary panel 10/03/16 10/04/16 Range/Units 00:19 04:56 Sodium 131 L (136-145) mEq/L Potassium 3.9 3.5 (3.5-4.5) mEq/L Chloride 90 L (98-109) mEq/L Carbon Dioxide 32 H (19-29) mEq/L BUN 14 (7-20) mg/dL Creatinine 0.51 L (0.57-1.11) mg/dL Glucose 121 H (70-99) mg/dL Calcium 8.4 L (8.6-10.8) mg/dL Adrenal panel 10/03/16 10/04/16 Range/Units 00:19 04:56 Sodium 131 L (136-145) mEq/L Potassium 3.9 3.5 (3.5-4.5) mEq/L Chloride 90 L (98-109) mEq/L Carbon Dioxide 32 H (19-29) mEq/L BUN 14 (7-20) mg/dL Creatinine 0.51 L (0.57-1.11) mg/dL Glucose 121 H (70-99) mg/dL Calcium 8.4 L (8.6-10.8) mg/dL - VTE Documentation of Mechanical Device: Intermittent pneumatic compression device Consult Discharge Plan - Plan Referrals: Balbir Cole DO [Primary Care Provider] - (DR. COLE'S OFFICE WILL NOT MAKE A FOLLOW UP APPOINTMENT FOR US, THEY WANT THE PATIENT TO CALL AND MAKE THEIR OWN.) <Sayda Benton - Last Filed: 10/04/16 16:58> Date of Encounter: 10/04/16 Time of Encounter: 16:00 - Assessment and Plan (1) Urinary retention Current Visit: Yes Status: Acute oconnell for strict I/Os (2) Physical deconditioning Current Visit: Yes Status: Chronic (3) Unable to eat Current Visit: Yes Status: Acute (4) DVT prophylaxis Current Visit: Yes Status: Acute (5) H/O colectomy Current Visit: Yes Status: Acute (6) S/P colectomy Current Visit: Yes Status: Acute s/p ileocectomy for small bowel stricture, shane, ex lap for SBO patient was tolerating clears well yesterday but she is volume overloaded with possible pneumonia and leukocytosis and respiratory distress patient transfered to ICU today holding TPN secondary to volume, is being diuresed CT scan abd/pelvis personally reviewed, pt with ascites from volume overload (7) Respiratory distress Current Visit: Yes Status: Acute management per pulmonary CCM (8) SVT (supraventricular tachycardia) Current Visit: Yes Status: Acute management per cardiology Subjective Patient reports: no new complaints Narrative: denies any abdominal pain denies nausea Objective Vital Signs - Last 8 Hours Temp Pulse Resp BP Pulse Ox 10/04/16 16:07 29 94 10/04/16 16:00 96.8 F L 120 28 81/57 93 10/04/16 15:00 119 30 72/50 91 10/04/16 14:00 122 32 74/50 94 10/04/16 13:00 125 33 81/62 95 10/04/16 12:19 125 30 90/65 94 10/04/16 11:59 123 30 102/62 93 10/04/16 11:19 96.7 F L 122 32 89/64 92 10/04/16 11:08 36 95 10/04/16 10:45 125 10/04/16 10:05 123 32 88/59 94 Intake and Output 10/04/16 10/04/16 10/04/16 07:59 15:59 23:59 Intake Total 202 / 202 490 / 490 Output Total 1300 / 1300 1300 / 1300 Balance -1098 / -1098 -810 / -810 Intake: IV Fluids 202 / 202 490 / 490 0.9 % Sodium Chloride 1, 0 / 0 140 / 140 000 ML @ 20 mls/hr IVC . Q24H [facility] Rx#:[id number] Levaquin Premix 750mg/150 150 / 150 mL 750 mg In 150 ml @ 100 mls/hr IVPB Q48H [facility] Rx#:[id number] Magnesium Sulfate 1 GM In 102 / 102 Dextrose 5% 100 ML @ 100 mls/hr IVPB ONCE ONE Rx# :[id number] Mycamine 100 MG In 0.9 % 100 / 100 Sodium Chloride (Mini-Bag +) 100 ML @ 100 mls/hr IVPB Q24H [facility] Rx#: [id number] Zosyn 3.375 GM In 100 / 100 100 / 100 Dextrose 5% (Minibag+) 100 ML 100 ML @ 25 mls/hr IVPB Q8HR [facility] Rx#: [id number] Output: Catheter 1300 / 1300 1300 / 1300 Other: Weight 44.8 kg Blood Glucose* 139 110 102 Patient Weight 10/04/16 23:59 Weight 44.8 kg - General physical appearance cachectic, chronically ill - Eyes PERRL, normal ocular movement - ENT dry mucosa, atraumatic, normocephalic - Neck Neck exam: trachea midline - Respiratory other (BIPAP) crackles: bilateral - Cardiovascular Cardiovascular exam: Present: tachycardia. Absent: no murmurs/rubs/gallops - Abdomen Abdomen: Present: bowel sounds present, soft, non tender - Incision Incision: Present: clean and dry, intact - Genitourinary other (oconnell in place) - Integumentary no rash, no growths - Neurologic CN 2-12 grossly intact - Musculoskeletal normal posture - Psychiatric oriented to time, oriented to person, oriented to place, speech is normal, memory intact - Labs 10/04/16 04:56 10/04/16 04:56 Diabetes panel 10/03/16 10/04/16 10/04/16 Range/Units 00:19 04:56 11:38 Sodium 131 L (136-145) mEq/L Potassium 3.9 3.5 (3.5-4.5) mEq/L Chloride 90 L (98-109) mEq/L Carbon Dioxide 32 H (19-29) mEq/L BUN 14 (7-20) mg/dL Creatinine 0.51 L (0.57-1.11) mg/dL Glucose 121 H (70-99) mg/dL Calcium 8.4 L (8.6-10.8) mg/dL AST 49 H (5-34) Units/L ALT 69 H (0-55) Units/L Alkaline Phosphatase 94 (38-126) Units/L Albumin 1.8 L (3.5-5.0) g/dL Calcium panel 10/04/16 10/04/16 Range/Units 04:56 11:38 Calcium 8.4 L (8.6-10.8) mg/dL Phosphorus 4.2 (2.3-4.7) mg/dL Albumin 1.8 L (3.5-5.0) g/dL Pituitary panel 10/03/16 10/04/16 Range/Units 00:19 04:56 Sodium 131 L (136-145) mEq/L Potassium 3.9 3.5 (3.5-4.5) mEq/L Chloride 90 L (98-109) mEq/L Carbon Dioxide 32 H (19-29) mEq/L BUN 14 (7-20) mg/dL Creatinine 0.51 L (0.57-1.11) mg/dL Glucose 121 H (70-99) mg/dL Calcium 8.4 L (8.6-10.8) mg/dL Adrenal panel 10/03/16 10/04/16 10/04/16 Range/Units 00:19 04:56 11:38 Sodium 131 L (136-145) mEq/L Potassium 3.9 3.5 (3.5-4.5) mEq/L Chloride 90 L (98-109) mEq/L Carbon Dioxide 32 H (19-29) mEq/L BUN 14 (7-20) mg/dL Creatinine 0.51 L (0.57-1.11) mg/dL Glucose 121 H (70-99) mg/dL Calcium 8.4 L (8.6-10.8) mg/dL Total Bilirubin 0.7 (0.2-1.2) mg/dL AST 49 H (5-34) Units/L ALT 69 H (0-55) Units/L Alkaline Phosphatase 94 (38-126) Units/L Albumin 1.8 L (3.5-5.0) g/dL - Imaging CT scan - abdomen: report reviewed, image reviewed CT scan - pelvis: report reviewed, image reviewed - Attending Attestation I examined this patient and my medical decision-making was reviewed with the Resident Physician. I agree with the documented findings, disposition and treatment plan as described except to the extent set forth below.
[2016-10-04 09:54] LABS: Bilirubin,Urine Negative (Negative); Blood,Urine Negative (Negative); Clarity,Urine Clear (Clear); Color,Urine Yellow (Yellow); Glucose,Urine (UA) Normal (Normal); Ketones,Urine Negative (Negative); Leukocyte Esterase,Urine Negative (Negative); Nitrite,Urine Negative (Negative); Protein,Urine Negative (Neg-Trace); Specific Gravity,Urine 1.012 (1.010-1.025); Urobilinogen,Urine Normal (Normal)
--- NOTE | 2016-10-04 10:04 | Internal Med Progress Note ---
Date of Encounter: 10/04/16 Time of Encounter: 10:02 - Assessment and plan (1) Small bowel obstruction Current Visit: Yes Status: Acute Assessment and plan: SBO likely secondary to adhesions - s/p ex-lap with small bowel resection converted to ileocectomy POD #7 IV Morphine PRN - cont broad spec abx Zosyn and Levofloxacin will add fungal coverage and Vancomycin since her WBC going up C. Diff - negative Talked to the pt's family at bed side and updated them about current care. Family requested for DNR / DNI, however they would like to continue aggressive care to stabilize her. So will transfer her to ICU today (2) S/P exploratory laparotomy Current Visit: Yes Status: Acute (3) Leukocytosis Current Visit: Yes Status: Acute Assessment and plan: WBC went up to 31,000 cont Levofloxacin + Zosyn + Added Vancomycin y/d CT of Abd / Pelvis just done Will add fungal coverage too with Diflucan Qualifiers: Qualified Code(s): D72.829 - Elevated white blood cell count, unspecified (4) Acute respiratory failure with hypoxia Current Visit: Yes Status: Acute Assessment and plan: Due to severe physical deconditioning and pleural effusions no need of steroids cont duoneb Switched to BiPAP cont clinimex reviewed CT of chest - No PE noticed strict I & O Her resp function is worsening She will transferred to ICU today for further care Readiness Paraprofessional on board (5) PAT (paroxysmal atrial tachycardia) Current Visit: Yes Status: Acute Assessment and plan: Cont Lopressor IV Card is on board (6) COPD (chronic obstructive pulmonary disease) Current Visit: No Status: Chronic Assessment and plan: Cont BiPAP for now Qualifiers: Qualified Code(s): J44.9 - Chronic obstructive pulmonary disease, unspecified (7) Physical deconditioning Current Visit: Yes Status: Chronic (8) Severe protein-calorie malnutrition Current Visit: Yes Status: Acute Assessment and plan: Cont clinimex now (9) DVT prophylaxis Current Visit: Yes Status: Acute Assessment and plan: Continue Lovenox - Subjective Interval history: This is a 75 y/o F with known h/o PSVT, COPD, who admitted here for small bowel obstruction and went for ex-lap with small bowel resection converted to ileocecotomy on 09/27/16. On 09/30/16 night pt went into SVT and Severe hypoxic respiratory failure so pt was transferred to PCU for close monitoring. Today pt is more alert, awake and O x3. Had BM this morning and passing gas ok. She denied any CP. NG tube was removed on 10/02/16, since then no nausea / vomiting. Since y/d evening pt became more SOB / STAPLES and worsening respiratory condition. We gave Lasix x 2 doses. Still on NRB O2, with Spo2 in mid 90's. Pt is alert, awake and oriented x3, denied any CP. - Constitutional Vitals: Temp Pulse Resp BP Pulse Ox 98.7 F 120 26 87/63 89 10/04/16 07:31 10/04/16 07:45 10/04/16 07:31 10/04/16 07:31 10/04/16 07:31 General appearance: Present: cachectic, cooperative, A&O X 3, severe distress, answers questions appropriately - Head Head exam: Present: atraumatic, normal inspection - Respiratory Respiratory exam: Present: rales, respiratory distress, rhonchi, wheezes, tachypnea - Cardiovascular Cardiovascular exam: Present: +S1, +S2, tachycardia. Absent: systolic murmur - GI/Abdominal GI/Abdominal exam: Present: normal bowel sounds, soft. Absent: rebound, rigid, tenderness - Extremities Exam Extremities exam: Present: pedal edema. Absent: calf tenderness, tenderness - Neurological Exam Neurological exam: Present: alert, oriented X3 - Psychiatric Psychiatric exam: Present: anxious Internal Medicine: Result - Labs CBC & Chem 7: 10/04/16 04:56 10/04/16 04:56 Labs: Short CBC 10/04/16 Range/Units 04:56 WBC 31.0 H* (4.3-11.1) K/mcL Hgb 11.5 (11.5-15.4) g/dL Hct 35.3 (35.3-44.9) % Plt Count 352 (140-400) K/mcL Neutrophils # 27.9 H (1.6-8.9) K/mcL BMP 10/03/16 10/04/16 00:19 04:56 Sodium 131 L Potassium 3.9 3.5 Chloride 90 L Carbon Dioxide 32 H BUN 14 Creatinine 0.51 L Glucose 121 H Calcium 8.4 L Urine 10/04/16 Range/Units 09:49 Urine Color Yellow (Yellow) Urine Clarity Clear (Clear) Urine pH 6.0 (5.0-8.0) pH Units Ur Specific [place] 1.012 (1.010-1.025) Urine Protein Negative (Neg-Trace) mg/dL Urine Glucose (UA) Normal (Normal) mg/dL - ABG Interpretation ABG results: PT/INR, D-dimer PT 10.9 Seconds (9.4-12.1) 09/22/16 12:48 - Impressions Impressions Chest X-Ray 10/03/16 13:44 IMPRESSION: Limited exam due to patient positioning with stable basilar consolidation and pleural effusions. D/ / 10/03/2016 14:15:44 Omid Yu MD / [employer] Interpreting Provider: Omid Yu MD - VTE Documentation of Mechanical Device: Intermittent pneumatic compression device Consult Discharge Plan - Plan Referrals: Balbir Aranda DO [Primary Care Provider] - (DR. ARANDA'S OFFICE WILL NOT MAKE A FOLLOW UP APPOINTMENT FOR US, THEY WANT THE PATIENT TO CALL AND MAKE THEIR OWN.)
[2016-10-04] MEDS ORDERED: Fluconazole 100 MG/50 ML 100 MG/50 ML BAG IVPB SCH (10:15)
--- NOTE | 2016-10-04 10:44 | Cardiology Progress Note ---
<Bernabe Kumar - Last Filed: 10/04/16 13:03> Date of Encounter: 10/04/16 Time of Encounter: 10:42 Assessment and Plan (1) Paroxysmal atrial tachycardia Current Visit: Yes Status: Acute Patient is currently hemodynamically stable. Has p waves present on telemetry. Rate ranging from 120-130s during interview. She also had a run of SVT overnight that resolved without intervention. Clinically she is declining. She is saturating in the mid 80s with a nonrebreather mask. WBC is trending up. CT of the abdomen reveals bilateral basilar airspace disease. She meets Sepsis criteria with source being possible Hospital acquired pneumonia. Would also consider aspiration given her altered anatomy ad difficulty swallowing over the past few months. Currently she is on vancomycin, Zosyn, Levofloxacin and surgery is adding an antifungal as well. I think most likely her tachycardia is secondary to her respiratory failure and sepsis. Family is still wanting agressive care and she is being transferred to the ICU. I am concerned for further decline as she is volume overloaded, requiring increased O2 requirements and has had a decrease in urine output since this AM. She is currently DNRCCA/DNI May consider palliative care consult/hospice discussion. Recommendations: Would address any underlying causes of her tachycardia. Primary team is managing respiratory failure and Sepsis. Would consider further diuresis. However may need vassopressors as she is having some hypotension as well. Would decrease IV fluids as much as possible. Continue PRN IV metoprolol. (2) SVT (supraventricular tachycardia) Current Visit: Yes Status: Acute patient had an episode of SVT overnight. This resolved without any intervention. I think this is from her respiratory failure and sepsis. continue PRN beta avis. (3) Sepsis Current Visit: Yes Status: Acute melinda meets sepsis criteria with tachycardia, tachypnia, and leukocytosis. Leukocytosis is neutrophil predominant. There are also increased immature granulocytes as well. No obvious source of intraabdominal infection noted on CT of the abdomen. Ther is some diffuse abdominal and pelvice ascities. There is bilateral airspace disease noted on CT. This has changed significantly from CT of the chest. I think this is the likely source of infection. With decrease urine output and hypotension may be developing septic shock. currently on broad spectrum antibiotics. Will defer management to ICU team. Qualifiers: Qualified Code(s): A41.9 - Sepsis, unspecified organism (4) Acute hypoxemic respiratory failure Current Visit: Yes Status: Acute Worsening. Now on nonrebreather and saturating in the mid to upper 80s. multifactorial. Patient has marked anatomical abnormalities. Appears to be from prior compression fractures. Possible HAP versus aspiration PNA. On broad spectrum antibiotics. recommend continued diuresis if patient is able to tolerate. . (5) Kyphosis Current Visit: Yes Status: Chronic severe Chronic Likely contributing to her respiratory failure. Qualifiers: Qualified Code(s): M40.209 - Unspecified kyphosis, site unspecified (6) Recent major surgery Current Visit: Yes Status: Acute patient is POD #7 for ex lap with ileocectomy. management per surgery. Discussion w patient/family: The assessment and plan as outlined above was discussed with the patient and/or family members who expressed understanding and agreement. All questions were answered. Thank you for involving us in the care of your patient. Please call with any questions. Subjective Principal diagnosis: PAT Interval history: Patient continues to decline. she is requiring more oxygen and is now on non rebreather and her O2 sats are in the mid 80s. She did have a run of SVT overnight but this resolved spontaneously without any intervention. She is now in sinus tachycardia. At this time Mrs. haywood states that she is feeling worse. She is not able to breath very well. She admits to continued cough. She denies pain or discomfort at this time. I also spoke with Nursing staff this AM. She has had very little urine output since the beginning of shift this AM. Objective Vital Signs, Last 4 Hours Temp Pulse Resp BP Pulse Ox 10/04/16 10:05 123 32 88/59 94 10/04/16 07:45 120 10/04/16 07:31 98.7 F 124 26 87/63 89 General: Conversant, No Apparent Distress HEENT: Atraumatic, Normocephaly, Mucus Membranes Moist Neck: No JVD, Normal carotid pulses Cardiac: Other (Patietn is tachycardia, regula, no M/R/G noted. No JVD but patient has altered anatomy as well. ) Lungs: Other (patient is tachypneic. She has use of acessory muscles and speaks in phrases. She has some crackles in the right lower lung field no wheezes or rhonchi. ) Neuro: Alert and responsive, No focal deficits noted Abdomen: Soft, Non-Tender, Other Skin: No rashes noted on visualized skin Musculoskeletal: No Chest Wall Tenderness Extremities: No Clubbing, No Cyanosis, Other (She has 2+ edema of the lower extremities to the level of the knees bilaterally. ) Results 10/04/16 04:56 10/04/16 04:56 Lab Results 10/03/16 10/04/16 10/04/16 00:19 04:56 04:56 WBC 31.0 H* Hgb 11.5 Hct 35.3 Plt Count 352 Sodium 131 L Potassium 3.9 3.5 Chloride 90 L Carbon Dioxide 32 H BUN 14 Creatinine 0.51 L Glucose 121 H Calcium 8.4 L Magnesium 1.8 1.8 - VTE Documentation of Mechanical Device: Intermittent pneumatic compression device Consult Discharge Plan - Plan Referrals: Balbir Cole DO [Primary Care Provider] - (DR. COLE'S OFFICE WILL NOT MAKE A FOLLOW UP APPOINTMENT FOR US, THEY WANT THE PATIENT TO CALL AND MAKE THEIR OWN.) <Lorraine Vásquez - Last Filed: 10/04/16 17:54> Date of Encounter: 10/04/16 Assessment and Plan Discussion w patient/family: I examined this patient and my medical decision-making was reviewed with the Resident Physician. I agree with the documented findings, disposition and treatment plan. Ms. Haywood has clinically deteriorated. She continues to have increased oxygen demands and is quite tachypneic. Her WBCs continue to climb and she meets SIRS criteria. There is concern for developing PNA. Also compromising her pulmonary status is significant kyphosis and pulmonary congestion from fluid overload. She has been transferred to the ICU for higher level care. Recommend diuresis as blood pressure allows and also use of IV metoprolol as BP allows for tachycardia. She is in guarded condition. Recommend considering hospice evaluation. Objective Vital Signs, Last 4 Hours Temp Pulse Resp BP Pulse Ox 10/04/16 17:00 119 32 82/60 94 10/04/16 16:07 29 94 10/04/16 16:00 96.8 F L 120 28 81/57 93 10/04/16 15:00 119 30 72/50 91 10/04/16 14:00 122 32 74/50 94 Results 10/04/16 04:56 10/04/16 04:56 Lab Results 10/03/16 10/04/16 10/04/16 00:19 04:56 04:56 WBC 31.0 H* Hgb 11.5 Hct 35.3 Plt Count 352 Sodium 131 L Potassium 3.9 3.5 Chloride 90 L Carbon Dioxide 32 H BUN 14 Creatinine 0.51 L Glucose 121 H Calcium 8.4 L Magnesium 1.8 1.8 Total Bilirubin AST ALT Alkaline Phosphatase Troponin I 10/04/16 10/04/16 11:38 11:39 WBC Hgb Hct Plt Count Sodium Potassium Chloride Carbon Dioxide BUN Creatinine Glucose Calcium Magnesium Total Bilirubin 0.7 AST 49 H ALT 69 H Alkaline Phosphatase 94 Troponin I 0.01
[2016-10-04] MEDS: Potassium Phosphate 44 MEQ in 0.9 % Sodium Chloride 250 ML IVPB SCH (11:00)
[2016-10-04] MEDS ORDERED: Furosemide 40 MG/4 ML VIAL IVP ONE (11:09)
--- NOTE | 2016-10-04 11:10 | Pulmonology Consult Note ---
<Ihsan Hamilton W - Last Filed: 10/04/16 12:29> Date of Encounter: 10/04/16 Medications and Allergies Albuterol Sulfate [Albuterol Inhaler] 1 puff IH Q4-6H PRN 04/14/16 [History] Calcium Carbonate/Vitamin D3 [Calcium 500 mg Chewable Tablet] 1 each PO DAILY [History] Potassium 99 mg PO DAILY 04/14/16 [History] Magnesium Oxide [Mgo] 400 mg PO BID #30 tablet 04/17/16 [Rx] Metoprolol [Lopressor] 25 mg PO BID #30 tablet 04/17/16 [Rx] Cyanocobalamin (Vitamin B-12) [Vitamin B12] 1,000 mcg PO DAILY 09/22/16 [History ] Famotidine [Pepcid] 20 mg PO DAILY 09/22/16 [History] Allergies No Known Allergies Allergy (Verified 04/14/16 10:40) All Systems: A 10-system review of systems was performed and is negative for pertinent findings except as documented above in the HPI. Physical Examination Vital Signs: Vital Signs, Last 4 Hours Temp Pulse Resp BP Pulse Ox 10/04/16 11:59 123 30 102/62 93 10/04/16 11:19 96.7 F L 122 32 89/64 92 10/04/16 11:08 36 95 10/04/16 10:45 125 10/04/16 10:05 123 32 88/59 94 Results - Laboratory Findings CBC and BMP: 10/04/16 04:56 10/04/16 04:56 PT/INR, D-dimer PT 10.9 Seconds (9.4-12.1) 09/22/16 12:48 Abnormal lab findings: Abnormal lab results WBC 31.0 K/mcL (4.3-11.1) H* 10/04/16 04:56 Immature Gran % 4.1 % (0-4) H 10/04/16 04:56 Band Neutrophils % 6.0 % (0-4) H 10/01/16 02:50 Myelocytes % 2.0 % (0) H 09/25/16 04:21 Neutrophils # 27.9 K/mcL (1.6-8.9) H 10/04/16 04:56 Lymphocytes # 0.4 K/mcL (0.6-4.6) L 10/04/16 04:56 Monocytes # 1.4 K/mcL (0.0-1.3) H 10/04/16 04:56 Sodium 131 mEq/L (136-145) L 10/04/16 04:56 Chloride 90 mEq/L (98-109) L 10/04/16 04:56 Carbon Dioxide 32 mEq/L (19-29) H 10/04/16 04:56 Creatinine 0.51 mg/dL (0.57-1.11) L 10/04/16 04:56 BUN/Creatinine Ratio 27 (6-26) H 10/04/16 04:56 Glucose 121 mg/dL (70-99) H 10/04/16 04:56 POC Glucose 110 (58-89) H 10/04/16 10:10 Calculated Osmolality 274 (280-300) L 10/04/16 04:56 Calcium 8.4 mg/dL (8.6-10.8) L 10/04/16 04:56 AST 49 Units/L (5-34) H 10/04/16 11:38 Serum Total Protein 5.9 g/dL (6.0-8.3) L 10/04/16 11:38 Albumin 1.8 g/dL (3.5-5.0) L 10/04/16 11:38 Globulin 4.1 g/dL (2.4-3.5) H 10/04/16 11:38 Albumin/Globulin Ratio 0.4 (1.1-2.2) L 10/04/16 11:38 Urine Microscopic WBC 30-50 per hpf (0-3) H 09/28/16 02:48 Ur Squamous Epith Cells Moderate per lpf (None-Few) H 09/28/16 02:48 Urine Bacteria Moderate per hpf (None-Few) H 09/28/16 02:48 Urine Mucus Many (Few) H 09/28/16 02:48 Urine Yeast Many per hpf (None Seen) H 09/28/16 02:48 - Clinical Findings Intake & Output: Intake & Output 10/03/16 10/04/16 10/04/16 23:59 07:59 15:59 Intake Total 8848.6 / 8848.6 202 / 202 290 / 290 Output Total 1600 / 1600 1300 / 1300 850 / 850 Balance 7248.6 / 7248.6 -1098 / -1098 -560 / -560 Weight 45.5 kg 44.8 kg Consult Discharge Plan - Plan Referrals: Balbir Cole DO [Primary Care Provider] - (DR. COLE'S OFFICE WILL NOT MAKE A FOLLOW UP APPOINTMENT FOR US, THEY WANT THE PATIENT TO CALL AND MAKE THEIR OWN.) - Attending Attestation I examined this patient and my medical decision-making was reviewed with the Resident Physician. I agree with the documented findings, disposition and treatment plan as described except to the extent set forth below. Patient seen and examined at bedside Labs, radiology, chart personally reviewed. Management was reviewed during multidisciplinary critical care rounds. Neuropsych: The patient is awake she is lethargic but easily arousable no focal neurological deficit Pulm: Worsening hypoxic respiratory failure which is likely secondary pulmonary vascular congestion complicated by probable pneumonia and underlying musculoskeletal deformities of the chest wall including severe kyphoscoliosis. She is tolerating bilevel positive airway pressure support to help his work of breathing although extremely tenuous respiratory status there is no arterial blood gas pending Cards: Sinus tachycardia likely related to sepsis she has a history of paroxysmal SVT which has been seen by cardiology do not think that this is impacting her filling pressures at this time blood pressure fluctuates but do not feel that she is in shock physiology lactate is normal urine output is good she does have evidence of pulmonary vascular congestion for which a trial of diuresis will be attempted FEN-GI: She is nothing by mouth she was receiving total parenteral nutrition because of recent exploratory laparoscopy small bowel resection converted to ileocectomy small bowel obstruction we are holding that acutely because of volume overload. General surgery is following Renal: No evidence of acute kidney injury continue to monitor electrolytes while actively diuresing ID: Evidence of sepsis without shock physiology treating broadly for possibility of hospital-acquired pneumonia with vancomycin and Zosyn will also add fungal coverage in the form of Tylor function given that she has been receiving TPN. Pizano cultures including fungal culture pending Heme/Onc: DVT prophylaxis given hemoglobin and platelets are stable Endo: Glucose monitored Integ/MSK: Skin care per routine ICU protocol to prevent ulcers Lines: All lines examined without evidence of infection including right PICC and Benito Urinary catheter CODE: DNAR/DNI I discussed with the patient and family overall prognosis is poor and she has the risk for sudden deterioration from a respiratory standpoint. Family and Patient including HKPOA (Daughter) is okay pursuing aggressive care up to the point of intubation at this time we will continue to discuss at length. I believe given underlying chronic fraility and clinical deterioration while in the hospital after surgery palliative care consult is warranted <Tim Qiu - Last Filed: 10/04/16 14:41> Date of Encounter: 10/04/16 Time of Encounter: 11:05 Assessment and Plan (1) Acute hypoxemic respiratory failure Current Visit: Yes Status: Acute I believe that this ptient in acute hypoxemic respiratory failure seconday to volume overload, pneumonia, extreme kyphosis that could be inhibiting her ability to take deep breaths, and her documented history of COPD. The patient is currently on BiPAP to assist with her hypoxia. We are giving her 40 mg of Lasix for diuresis of the volume overload. She has been treating with Zosyn, vancomycin, and micafungin. (2) Pneumonia Current Visit: Yes Status: Acute See above (3) Volume overload Current Visit: Yes Status: Acute We will continue diuresis using Lasix. We will restrict fluid administration at this time. Qualifiers: Qualified Code(s): E87.79 - Other fluid overload (4) Severe protein-calorie malnutrition Current Visit: Yes Status: Acute We will continue TPN once we have controlled the volume overload component of this patient's illness as she is extremely cachectic and malnourished. (5) Paroxysmal atrial tachycardia Current Visit: Yes Status: Acute She has had of past history of multifocal atrial tachycardia. This new exacerbation could be multifactorial. At this time, the ventricular rate is in the low 120s. This is probably due to her respiratory distress . We will continue to monitor this as her blood pressure has been low in a lot of medications that control rate we will also lower the blood pressure. Her current EKG reveals sinus tachycardia, left axis deviation, and left ventricular hypertrophy. (6) Small bowel obstruction Current Visit: Yes Status: Resolved She is postop day 7 from a small bowel resection. Continue management as surgery recommends. (7) DVT prophylaxis Current Visit: Yes Status: Acute This patient is on enoxaparin for DVT prophylaxis. We will continue monitoring her coagulation studies as well as monitoring for active bleeding. History of Present Illness Consult date: 10/04/16 Requesting physician: Sayda Benton Reason for consult: dyspnea, COPD, pneumonia Chief complaint: Shortness of breath History of present illness: This is a 75-year-old female who presents to the intensive care unit due to hypoxic respiratory failure. She is postop day 7 from a small bowel resection for SBO. She has a past medical history of COPD, paroxysmal atrial tachycardia , physical deconditioning, severe malnutrition. Patient starting develop shortness of breath over the last few days. She was on 6 L of oxygen yesterday. She was started on Zosyn for a possible pneumonia 2 days ago. This is not helped with her shortness of breath. Today she was placed on BiPAP. Patient states that she has no complaints at this time other than her shortness of breath. Past Med Surg Social Fam HX - Past Medical History Medical history: GERD Psychiatric history: no psych history - Past Surgical History Surgical History: hysterectomy, other (Surgery for Hiatal Hernia/[facility]) - Social History Smoking Status: Former smoker Smokeless Tobacco Status: No Alcohol use: none Drug use: none - Family History Father Family Member Ethnicity: Non- Living Status: Hx Family Cancer: Yes (lung cancer) Brother Family Member Ethnicity: Non- Living Status: Still Living Hx Family Cardiac Disorders: Yes ([place]) Hx Family Respiratory Disorders: Yes (COPD) Sister Name: mio Brown Living Status: Hx Family Respiratory Disorders: Yes (COPD) Hx Family Cancer: Yes (lung cancer) ROS unobtainable: other (On BiPAP and very dyspneic) All Systems: A 10-system review of systems was performed and is negative for pertinent findings except as documented above in the HPI. Physical Examination Vital Signs: Vital Signs, Last 4 Hours Temp Pulse Resp BP Pulse Ox 10/04/16 10:45 125 10/04/16 10:05 123 32 88/59 94 10/04/16 07:45 120 10/04/16 07:31 98.7 F 124 26 87/63 89 General appearance: other (This is a very cachectic elderly female who has extreme kyphosis and is dyspneic while on BiPAP.) Eyes: nonicteric ENT: oropharynx moist Effort: other (Tachypnic) Inspection: kyphosis Auscultation: bilateral: diminished breath sounds, rales Cardiovascular: other (Telemetry: sinus tachycardia) Integumentary: normal Extremities: no cyanosis, edema (1+ pitting) Musculoskeletal: other (Kyphotic, cachectic) normal mental status, non-focal exam mood appropriate, affect normal Results - Laboratory Findings CBC and BMP: 10/04/16 04:56 10/04/16 04:56 PT/INR, D-dimer PT 10.9 Seconds (9.4-12.1) 09/22/16 12:48 Abnormal lab findings: Abnormal lab results WBC 31.0 K/mcL (4.3-11.1) H* 10/04/16 04:56 Immature Gran % 4.1 % (0-4) H 10/04/16 04:56 Band Neutrophils % 6.0 % (0-4) H 10/01/16 02:50 Myelocytes % 2.0 % (0) H 09/25/16 04:21 Neutrophils # 27.9 K/mcL (1.6-8.9) H 10/04/16 04:56 Lymphocytes # 0.4 K/mcL (0.6-4.6) L 10/04/16 04:56 Monocytes # 1.4 K/mcL (0.0-1.3) H 10/04/16 04:56 Sodium 131 mEq/L (136-145) L 10/04/16 04:56 Chloride 90 mEq/L (98-109) L 10/04/16 04:56 Carbon Dioxide 32 mEq/L (19-29) H 10/04/16 04:56 Creatinine 0.51 mg/dL (0.57-1.11) L 10/04/16 04:56 BUN/Creatinine Ratio 27 (6-26) H 10/04/16 04:56 Glucose 121 mg/dL (70-99) H 10/04/16 04:56 POC Glucose 110 (58-89) H 10/04/16 10:10 Calculated Osmolality 274 (280-300) L 10/04/16 04:56 Calcium 8.4 mg/dL (8.6-10.8) L 10/04/16 04:56 Serum Total Protein 5.6 g/dL (6.0-8.3) L 10/01/16 02:50 Albumin 2.1 g/dL (3.5-5.0) L 10/01/16 02:50 Albumin/Globulin Ratio 0.6 (1.1-2.2) L 10/01/16 02:50 Urine Microscopic WBC 30-50 per hpf (0-3) H 09/28/16 02:48 Ur Squamous Epith Cells Moderate per lpf (None-Few) H 09/28/16 02:48 Urine Bacteria Moderate per hpf (None-Few) H 09/28/16 02:48 Urine Mucus Many (Few) H 09/28/16 02:48 Urine Yeast Many per hpf (None Seen) H 09/28/16 02:48 - Clinical Findings Intake & Output: Intake & Output 10/03/16 10/04/16 10/04/16 23:59 07:59 15:59 Intake Total 8848.6 / 8848.6 202 / 202 290 / 290 Output Total 1600 / 1600 1300 / 1300 550 / 550 Balance 7248.6 / 7248.6 -1098 / -1098 -260 / -260 Weight 45.5 kg 44.8 kg
[2016-10-04] MEDS ORDERED: Micafungin 100 MG in 0.9 % Sodium Chloride 100 ML IVPB SCH (12:00)
[2016-10-04 12:12] LABS: Albumin/Globulin Ratio 0.4 (1.1-2.2); Bilirubin,Direct 0.4 mg/dL (0.0-0.5); Bilirubin,Indirect 0.3 mg/dL (0.0-1.2); Bilirubin,Total 0.7 mg/dL (0.2-1.2); Globulin 4.1 g/dL (2.4-3.5); Total Protein 5.9 g/dL (6.0-8.3)
[2016-10-04 12:14] LABS: Albumin 1.8 g/dL (3.5-5.0)
[2016-10-04 12:20] LABS: ABG Base Excess 10.6 mEq/L (-2.0 to 3.0); ABG HCO3 35.7 mEQ/L (21-27); ABG Oxygen Saturation 94 % (95-98); ABG PCO2 49 mmHg (35-45); ABG PH 7.47 pH Units (7.32-7.45); ABG PO2 67 mmHg (85-104); ABG TCO2 37.2 mEq/L (20-26)
[2016-10-04 12:21] LABS: Blood Gas FiO2 100 %
[2016-10-04] MEDS: Micafungin 100 MG in 0.9 % Sodium Chloride Mini Bag 100 ML IVPB SCH (12:57)
[2016-10-04] MEDS ORDERED: *HR* Alteplase (Cathflo) 2 MG VIAL IVP ONE (13:46)
[2016-10-04] MEDS ORDERED: Furosemide 20 MG/2 ML VIAL IVP SCH (17:15)
[2016-10-05] MEDS: Piperacillin/Tazobactam 3.375 GM in D5% in Water (Mini-Bag+) 100 ML IVPB SCH ×4 (00:11→23:16)
[2016-10-05] MEDS ORDERED: Vancomycin 1,250 MG in D5% in Water 250 ML IVPB ONE (02:00)
[2016-10-05] MEDS: Ipratropium/Albuterol Neb 3 ML IH SCH ×4 (03:23→21:44)
[2016-10-05 03:43] LABS: Hematocrit 32.6 % (35.3-44.9); Hemoglobin 10.6 g/dL (11.5-15.4); Mean Corpuscular HGB Conc 32.5 g/dL (31.6-35.5); Mean Corpuscular Hemoglobin 29.5 pg (28.0-33.3); Mean Corpuscular Volume 90.8 fL (83.0-100.0); Mean Platelet Volume 10.6 fL (9.4-12.4); Platelet Count 372 K/mcL (140-400); Red Blood Count 3.59 M/mcL (3.82-4.97)
[2016-10-05 03:51] LABS: Alanine Aminotransferase 81 Units/L (0-55); Albumin 1.7 g/dL (3.5-5.0); Albumin/Globulin Ratio 0.4 (1.1-2.2); Alkaline Phosphatase 82 Units/L (38-126); Aspartate Amino Transferase 68 Units/L (5-34); BUN/Creatinine Ratio 30 (6-26); Blood Urea Nitrogen 15 mg/dL (7-20); Calcium 8.5 mg/dL (8.6-10.8); Carbon Dioxide 34 mEq/L (19-29); Chloride 90 mEq/L (98-109); Globulin 3.8 g/dL (2.4-3.5); Glucose 108 mg/dL (70-99); Osmolality,Calculated 275 (280-300); Potassium 3.4 mEq/L (3.5-4.5); Sodium 132 mEq/L (136-145); Total Protein 5.5 g/dL (6.0-8.3); eGFR For African Americans > 60 (> 60); eGFR For Non-African Americans > 60 (> 60)
[2016-10-05 03:59] LABS: Bilirubin,Total 0.6 mg/dL (0.2-1.2)
[2016-10-05 04:23] LABS: Lymphocytes # 0.9 K/mcL (0.6-4.6); Monocytes # 0.9 K/mcL (0.0-1.3); Neutrophils # 21.7 K/mcL (1.6-8.9); Platelet Estimate Normal (Normal)
[2016-10-05 04:24] LABS: Hypersegmented Neutrophils Present (Not Present)
[2016-10-05] MEDS: *HR* Enoxaparin 30 MG/0.3 ML SYRINGE SQ SCH (06:51)
--- NOTE | 2016-10-05 07:45 | Pulmonology Progress Note ---
<YvontomiIhsan smith W - Last Filed: 10/05/16 10:14> Date of Encounter: 10/05/16 Objective PUL Vital signs: Last Vital Signs Temp 97.2 F L 10/05/16 07:43 Pulse 110 10/05/16 07:48 Resp 26 10/05/16 07:48 BP 88/56 10/05/16 07:48 Pulse Ox 92 10/05/16 07:48 Results - Laboratory Findings CBC and BMP: 10/05/16 03:19 10/05/16 03:19 ABG ABG pH 7.47 pH Units (7.32-7.45) H 10/04/16 12:10 ABG pCO2 49 mmHg (35-45) H 10/04/16 12:10 ABG pO2 67 mmHg (85-104) L 10/04/16 12:10 ABG O2 Saturation 94 % (95-98) L 10/04/16 12:10 PT/INR, D-dimer PT 10.9 Seconds (9.4-12.1) 09/22/16 12:48 Abnormal lab findings: Abnormal lab results WBC 23.6 K/mcL (4.3-11.1) H 10/05/16 03:19 RBC 3.59 M/mcL (3.82-4.97) L 10/05/16 03:19 Hgb 10.6 g/dL (11.5-15.4) L 10/05/16 03:19 Hct 32.6 % (35.3-44.9) L 10/05/16 03:19 Immature Gran % 4.1 % (0-4) H 10/04/16 04:56 Myelocytes % 2.0 % (0) H 09/25/16 04:21 Neutrophils # 21.7 K/mcL (1.6-8.9) H 10/05/16 03:19 Hypersegmented Neuts Present (Not Present) A 10/05/16 03:19 ABG pH 7.47 pH Units (7.32-7.45) H 10/04/16 12:10 ABG pCO2 49 mmHg (35-45) H 10/04/16 12:10 ABG pO2 67 mmHg (85-104) L 10/04/16 12:10 ABG HCO3 35.7 mEQ/L (21-27) H 10/04/16 12:10 ABG Total CO2 37.2 mEq/L (20-26) H 10/04/16 12:10 ABG O2 Saturation 94 % (95-98) L 10/04/16 12:10 ABG Base Excess 10.6 mEq/L (-2.0 to 3.0) H 10/04/16 12:10 Sodium 132 mEq/L (136-145) L 10/05/16 03:19 Potassium 3.4 mEq/L (3.5-4.5) L 10/05/16 03:19 Chloride 90 mEq/L (98-109) L 10/05/16 03:19 Carbon Dioxide 34 mEq/L (19-29) H 10/05/16 03:19 Creatinine 0.50 mg/dL (0.57-1.11) L 10/05/16 03:19 BUN/Creatinine Ratio 30 (6-26) H 10/05/16 03:19 Glucose 108 mg/dL (70-99) H 10/05/16 03:19 Calculated Osmolality 275 (280-300) L 10/05/16 03:19 Calcium 8.5 mg/dL (8.6-10.8) L 10/05/16 03:19 AST 68 Units/L (5-34) H 10/05/16 03:19 ALT 81 Units/L (0-55) H 10/05/16 03:19 Serum Total Protein 5.5 g/dL (6.0-8.3) L 10/05/16 03:19 Albumin 1.7 g/dL (3.5-5.0) L 10/05/16 03:19 Globulin 3.8 g/dL (2.4-3.5) H 10/05/16 03:19 Albumin/Globulin Ratio 0.4 (1.1-2.2) L 10/05/16 03:19 Urine Microscopic WBC 30-50 per hpf (0-3) H 09/28/16 02:48 Ur Squamous Epith Cells Moderate per lpf (None-Few) H 09/28/16 02:48 Urine Bacteria Moderate per hpf (None-Few) H 09/28/16 02:48 Urine Mucus Many (Few) H 09/28/16 02:48 Urine Yeast Many per hpf (None Seen) H 09/28/16 02:48 - Microbiology Findings Microbiology Findings: Microbiology, Last 48 Hours 10/04/16 09:45 Legionella Antigen - Final Urine,Catheterized Streptococcus pneumoniae Antigen (M - Final - Clinical Findings Intake & Output: Intake & Output 10/04/16 10/05/16 10/05/16 23:59 07:59 15:59 Intake Total 100 / 100 350 / 350 Output Total 350 / 350 350 / 350 Balance -250 / -250 0 / 0 Consult Discharge Plan - Plan Referrals: Balbir Cole DO [Primary Care Provider] - (DR. COLE'S OFFICE WILL NOT MAKE A FOLLOW UP APPOINTMENT FOR US, THEY WANT THE PATIENT TO CALL AND MAKE THEIR OWN.) - Attending Attestation I examined this patient and my medical decision-making was reviewed with the Resident Physician. I agree with the documented findings, disposition and treatment plan as described except to the extent set forth below. Patient seen and examined at bedside Labs, radiology, chart personally reviewed. Management was reviewed during multidisciplinary critical care rounds. Neuropsych: The patient is awake and follows commands but easily arousable no focal neurological deficit Pulm: Hypoxic Respiratory failure s/t to Cardiogenic and Non Cardiogenic Pulmonary edema (mediated by PNA); cont Bilevel PAP support. Acceptable Sao2 but very high Fio2 support 90-100% bleed Cards: Sinus tachycardia with periodic runs of SVT into the 200s that resolves with Valsalva. BP tenusous for Felix blocking agent. Cardiology follow will discuss for possible alternative for HR control e.g Digoxin FEN-GI: She is nothing by mouth s/ exploratory laparoscopy small bowel resection converted to ileocectomy small bowel obstruction. General surgery is following. Nutrition Following. Restart TPN today Renal: No evidence of acute kidney injury continue to monitor electrolytes while actively diuresing replace per protocol ID: Evidence of sepsis likely s/t HAP without shock physiology treating broadly for possibility of hospital-acquired pneumonia with vancomycin and Zosyn and fungal coverage (Micafungin) given that she has been receiving TPN. Pizano cultures including fungal culture pending Heme/Onc: DVT prophylaxis given hemoglobin and platelets are stable Endo: Glucose monitored Integ/MSK: Skin care per routine ICU protocol to prevent ulcers Lines: All lines examined without evidence of infection including right PICC and Benito Urinary catheter CODE: DNAR/DNI Prognosis poor. Palliative Care Consult <Tim Qiu - Last Filed: 10/05/16 12:45> Date of Encounter: 10/05/16 Time of Encounter: 07:44 Assessment and Plan (1) Acute hypoxemic respiratory failure Current Visit: Yes Status: Acute She is no longer hypoxic on the BiPAP. We will continue BiPAP through the day and try to wean her off tomorrow. Due to this patient's deconditioning, wasting , and kyphosis, may be very difficult to wean her off the BiPAP. (2) Pneumonia Current Visit: Yes Status: Acute Her leukocytosis is significantly improved from yesterday. It was 31.0 and now is 23.6. The current antimicrobial regimen that she is on seems to be appropriate for her management. We will continue Zosyn, vancomycin, micafungin. (3) Volume overload Current Visit: Yes Status: Acute She has diuresed very well over the last 24 hours. She has taken in 792 mL of fluid and put out 2950 mL of fluid. I have given her another 40 mg of Lasix. I will continue to pulse dose this throughout the day as much as her blood pressure tolerates it. Qualifiers: Qualified Code(s): E87.70 - Fluid overload, unspecified (4) Severe protein-calorie malnutrition Current Visit: Yes Status: Acute Patient was restarted on 30 mL of TPN per hour. She is also getting a 250 mL infusion of lipids. The prognosis for this patient post hospital stay is very poor due to her severe muscle wasting and progressive weight loss over the past year. This was discussed with the family today and palliative care was consulted. (5) Paroxysmal atrial tachycardia Current Visit: Yes Status: Acute This patient had 3 episodes of SVT and a period of 15 minutes. Valsalva maneuver aborted these episodes. Her heart rate is now in the 110s. We will continue to monitor her very closely. The family has agreed to use pads if there was a time when we needed to synchronize cardiovert her. (6) Small bowel obstruction Current Visit: Yes Status: Resolved (7) DVT prophylaxis Current Visit: Yes Status: Acute Subjective Principal diagnosis: Acute hypoxic respiratory failure Interval history: No events overnight. Patient states that she is doing well. She has no complaints at this time. She states that her shortness of breath has improved since yesterday. Objective PUL Vital signs: Last Vital Signs Temp 96.1 F L 10/05/16 03:00 Pulse 114 10/05/16 06:00 Resp 25 10/05/16 06:00 BP 88/65 10/05/16 06:00 Pulse Ox 98 10/05/16 06:00 General appearance: alert, other (cachectic,Tachypnic, on BiPAP. She is alert, kyphotic, but sitting up in the bed) Eyes: nonicteric ENT: oropharynx dry Effort: other (Tachypnic) Cardiovascular: other (Tachycardic, but regular rhythm) Gastrointestinal: normoactive bowel sounds, soft, non-tender, other Integumentary: normal Extremities: no cyanosis, edema (1+ in the lower extremities bilaterally) normal mental status, non-focal exam, pupils equal and round mood appropriate, affect normal Results - Laboratory Findings CBC and BMP: 10/05/16 03:19 10/05/16 03:19 ABG ABG pH 7.47 pH Units (7.32-7.45) H 10/04/16 12:10 ABG pCO2 49 mmHg (35-45) H 10/04/16 12:10 ABG pO2 67 mmHg (85-104) L 10/04/16 12:10 ABG O2 Saturation 94 % (95-98) L 10/04/16 12:10 PT/INR, D-dimer PT 10.9 Seconds (9.4-12.1) 09/22/16 12:48 Abnormal lab findings: Abnormal lab results WBC 23.6 K/mcL (4.3-11.1) H 10/05/16 03:19 RBC 3.59 M/mcL (3.82-4.97) L 10/05/16 03:19 Hgb 10.6 g/dL (11.5-15.4) L 10/05/16 03:19 Hct 32.6 % (35.3-44.9) L 10/05/16 03:19 Immature Gran % 4.1 % (0-4) H 10/04/16 04:56 Myelocytes % 2.0 % (0) H 09/25/16 04:21 Neutrophils # 21.7 K/mcL (1.6-8.9) H 10/05/16 03:19 Hypersegmented Neuts Present (Not Present) A 10/05/16 03:19 ABG pH 7.47 pH Units (7.32-7.45) H 10/04/16 12:10 ABG pCO2 49 mmHg (35-45) H 10/04/16 12:10 ABG pO2 67 mmHg (85-104) L 10/04/16 12:10 ABG HCO3 35.7 mEQ/L (21-27) H 10/04/16 12:10 ABG Total CO2 37.2 mEq/L (20-26) H 10/04/16 12:10 ABG O2 Saturation 94 % (95-98) L 10/04/16 12:10 ABG Base Excess 10.6 mEq/L (-2.0 to 3.0) H 10/04/16 12:10 Sodium 132 mEq/L (136-145) L 10/05/16 03:19 Potassium 3.4 mEq/L (3.5-4.5) L 10/05/16 03:19 Chloride 90 mEq/L (98-109) L 10/05/16 03:19 Carbon Dioxide 34 mEq/L (19-29) H 10/05/16 03:19 Creatinine 0.50 mg/dL (0.57-1.11) L 10/05/16 03:19 BUN/Creatinine Ratio 30 (6-26) H 10/05/16 03:19 Glucose 108 mg/dL (70-99) H 10/05/16 03:19 Calculated Osmolality 275 (280-300) L 10/05/16 03:19 Calcium 8.5 mg/dL (8.6-10.8) L 10/05/16 03:19 AST 68 Units/L (5-34) H 10/05/16 03:19 ALT 81 Units/L (0-55) H 10/05/16 03:19 Serum Total Protein 5.5 g/dL (6.0-8.3) L 10/05/16 03:19 Albumin 1.7 g/dL (3.5-5.0) L 10/05/16 03:19 Globulin 3.8 g/dL (2.4-3.5) H 10/05/16 03:19 Albumin/Globulin Ratio 0.4 (1.1-2.2) L 10/05/16 03:19 Urine Microscopic WBC 30-50 per hpf (0-3) H 09/28/16 02:48 Ur Squamous Epith Cells Moderate per lpf (None-Few) H 09/28/16 02:48 Urine Bacteria Moderate per hpf (None-Few) H 09/28/16 02:48 Urine Mucus Many (Few) H 09/28/16 02:48 Urine Yeast Many per hpf (None Seen) H 09/28/16 02:48 - Microbiology Findings Microbiology Findings: Microbiology, Last 48 Hours 10/04/16 09:45 Legionella Antigen - Final Urine,Catheterized Streptococcus pneumoniae Antigen (M - Final - Clinical Findings Intake & Output: Intake & Output 10/04/16 10/04/16 10/05/16 15:59 23:59 07:59 Intake Total 490 / 490 100 / 100 350 / 350 Output Total 1300 / 1300 350 / 350 300 / 300 Balance -810 / -810 -250 / -250 50 / 50 - VTE Documentation of Mechanical Device: Graduated compression elastic hosiery
[2016-10-05] MEDS ORDERED: Albumin 25% 25gram/100mL 25 GM/100 ML IV.SOLN IVPB ONE (07:54)
[2016-10-05] MEDS ORDERED: Sodium Phosphate 30 MMOL in D5% in Water 100 ML IVPB PRN (08:10)
[2016-10-05] MEDS: Furosemide 20 MG/2 ML VIAL IVP SCH (08:17)
[2016-10-05] MEDS: Pantoprazole 40 MG VIAL IVP SCH (08:17)
[2016-10-05] MEDS: Vancomycin Oral Soln 250 MG/2.5 ML UDC PO SCH (08:18)
[2016-10-05] MEDS ORDERED: Furosemide 40 MG/4 ML VIAL IVP ONE (08:52)
--- NOTE | 2016-10-05 10:14 | General Surgery Progress Note ---
<LakiaJoaquín - Last Filed: 10/05/16 11:11> Date of Encounter: 10/05/16 Time of Encounter: 08:40 - Assessment and Plan (1) SIRS (systemic inflammatory response syndrome) Current Visit: Yes Status: Acute Patient is improving. Pulse 67-138, RR 12-43. on BIPAP. afrebile Abdominal/Pelvic CT indicates pneumonia as most likely source of infection WBC = 23.6, downtrending Continue Antibiotics Levofloxacin, Zosyn, Vancomycin, Micafungin Hypotensive = 91/59. administer pressors as needed Continue BIPAP (2) Leukocytosis Current Visit: Yes Status: Acute WBC downtrending. Continue antibiotic therapy. (3) S/P exploratory laparotomy Current Visit: Yes Status: Acute Post-op day 8 exploratory laparotomy with small bowel resection converted to ileocectomy Supportive and wound care Monitor I/Os CBC/ CMP series Treatment based on leukocytosis (4) SVT (supraventricular tachycardia) Current Visit: Yes Status: Acute DNR/ DNI status SVT overnight Cardiology is on board. Tachycardia most likely secondary to respiratory failure and sepsis Continue to monitor (5) DVT prophylaxis Current Visit: Yes Status: Acute Lovenox 30 mg daily Subjective Patient reports: no new complaints, feels better, voiding w/o difficulty, no flatus, no bowel movement, afebrile Objective Vital Signs - Last 8 Hours Temp Pulse Resp BP Pulse Ox 10/05/16 09:40 107 25 89/61 92 10/05/16 08:40 115 26 90/61 93 10/05/16 07:48 107 26 88/56 92 10/05/16 07:43 97.2 F L 10/05/16 06:00 114 25 88/65 98 10/05/16 05:00 108 29 94/64 94 10/05/16 04:00 110 24 89/64 98 10/05/16 03:25 21 98 10/05/16 03:00 96.1 F L 110 28 88/62 97 Intake and Output 10/04/16 10/05/16 10/05/16 23:59 07:59 15:59 Intake Total 100 / 100 350 / 350 Output Total 350 / 350 350 / 350 Balance -250 / -250 0 / 0 Intake: IV Fluids 100 / 100 350 / 350 Zosyn 3.375 GM In 100 / 100 100 / 100 Dextrose 5% (Minibag+) 100 ML 100 ML @ 25 mls/hr IVPB Q8HR [facility] Rx#: [id number] Vancocin 1,250 MG In 250 / 250 Dextrose 5% 250 ML @ 166. 67 mls/hr IVPB ONCE ONE Rx#:[id number] Output: Catheter 350 / 350 350 / 350 Other: Blood Glucose* 96 80 - General physical appearance no distress, other (malnourished) - Eyes PERRL, normal ocular movement (cachectic, chronically ill ) - ENT dry mucosa, atraumatic, normocephalic, CN 2-12 grossly intact - Neck Neck exam: trachea midline - Respiratory other (BIPAP. Increased respiratory effort) crackles: bilateral - Cardiovascular Cardiovascular exam: Present: tachycardia, distant heart sounds, no murmurs/rubs /gallops - Abdomen Abdomen: Present: bowel sounds present, soft, non tender - Incision Incision: Present: clean and dry, intact - Genitourinary other (Oconnell in place with dark yellow urine ) - Labs 10/05/16 03:19 10/05/16 03:19 Diabetes panel 10/04/16 10/05/16 Range/Units 11:38 03:19 Sodium 132 L (136-145) mEq/L Potassium 3.4 L (3.5-4.5) mEq/L Chloride 90 L (98-109) mEq/L Carbon Dioxide 34 H (19-29) mEq/L BUN 15 (7-20) mg/dL Creatinine 0.50 L (0.57-1.11) mg/dL Glucose 108 H (70-99) mg/dL Calcium 8.5 L (8.6-10.8) mg/dL AST 49 H 68 H (5-34) Units/L ALT 69 H 81 H (0-55) Units/L Alkaline Phosphatase 94 82 (38-126) Units/L Albumin 1.8 L 1.7 L (3.5-5.0) g/dL Calcium panel 10/04/16 10/05/16 Range/Units 11:38 03:19 Calcium 8.5 L (8.6-10.8) mg/dL Albumin 1.8 L 1.7 L (3.5-5.0) g/dL Pituitary panel 10/05/16 Range/Units 03:19 Sodium 132 L (136-145) mEq/L Potassium 3.4 L (3.5-4.5) mEq/L Chloride 90 L (98-109) mEq/L Carbon Dioxide 34 H (19-29) mEq/L BUN 15 (7-20) mg/dL Creatinine 0.50 L (0.57-1.11) mg/dL Glucose 108 H (70-99) mg/dL Calcium 8.5 L (8.6-10.8) mg/dL Adrenal panel 10/04/16 10/05/16 Range/Units 11:38 03:19 Sodium 132 L (136-145) mEq/L Potassium 3.4 L (3.5-4.5) mEq/L Chloride 90 L (98-109) mEq/L Carbon Dioxide 34 H (19-29) mEq/L BUN 15 (7-20) mg/dL Creatinine 0.50 L (0.57-1.11) mg/dL Glucose 108 H (70-99) mg/dL Calcium 8.5 L (8.6-10.8) mg/dL Total Bilirubin 0.7 0.6 (0.2-1.2) mg/dL AST 49 H 68 H (5-34) Units/L ALT 69 H 81 H (0-55) Units/L Alkaline Phosphatase 94 82 (38-126) Units/L Albumin 1.8 L 1.7 L (3.5-5.0) g/dL - VTE Documentation of Mechanical Device: Graduated compression elastic hosiery Consult Discharge Plan - Plan Referrals: Balbir Cole DO [Primary Care Provider] - (DR. COLE'S OFFICE WILL NOT MAKE A FOLLOW UP APPOINTMENT FOR US, THEY WANT THE PATIENT TO CALL AND MAKE THEIR OWN.) <Sayda Benton - Last Filed: 10/05/16 19:15> Date of Encounter: 10/05/16 - Assessment and Plan (1) Urinary retention Current Visit: Yes Status: Acute continue oconnell, pedro while diuresing (2) Physical deconditioning Current Visit: Yes Status: Chronic PT/OT once patient able to tolerate (3) Unable to eat Current Visit: Yes Status: Acute continue TPN (4) DVT prophylaxis Current Visit: Yes Status: Acute (5) S/P colectomy Current Visit: Yes Status: Acute pt s/p ileocolectomy for sbo/stricture small bowel npo currently until respiratory status improves, nurse reports pt had ice earlier and she was concerned patient aspirated may need swallow eval TPN restarted at 30cc/hr no abdominal pain (6) Respiratory distress Current Visit: Yes Status: Acute improving, management per pulmonary (7) SVT (supraventricular tachycardia) Current Visit: Yes Status: Acute (8) Leukocytosis Current Visit: Yes Status: Acute Qualifiers: Leukocytosis type: unspecified Qualified Code(s): D72.829 - Elevated white blood cell count, unspecified Subjective Patient reports: no new complaints, feels better, voiding w/o difficulty (oconnell in place), flatus, bowel movement, afebrile Objective Vital Signs - Last 8 Hours Temp Pulse Resp BP Pulse Ox 10/05/16 18:57 106 27 84/54 94 10/05/16 17:45 110 29 84/59 93 10/05/16 16:45 112 28 83/53 94 10/05/16 16:42 97.8 F 10/05/16 16:24 28 92 10/05/16 15:40 111 27 86/64 93 10/05/16 14:00 108 28 78/59 92 10/05/16 13:40 117 28 81/50 93 10/05/16 12:40 113 26 75/55 94 10/05/16 11:57 28 84/57 96 10/05/16 11:40 121 28 84/57 96 10/05/16 11:36 97.2 F L Intake and Output 10/05/16 10/05/16 10/05/16 07:59 15:59 23:59 Intake Total 350 / 350 200 / 200 50 / 50 Output Total 350 / 350 950 / 950 Balance 0 / 0 200 / 200 -900 / -900 Intake: IV Fluids 350 / 350 200 / 200 50 / 50 Flexbumin 12.5 gm In 50 50 / 50 ml @ 60 mls/hr IVPB Q6H [facility] Rx#:[id number] Mycamine 100 MG In 0.9 % 100 / 100 Sodium Chloride (Mini-Bag +) 100 ML @ 100 mls/hr IVPB Q24H [facility] Rx#: [id number] Zosyn 3.375 GM In 100 / 100 100 / 100 Dextrose 5% (Minibag+) 100 ML 100 ML @ 25 mls/hr IVPB Q8HR [facility] Rx#: [id number] Vancocin 1,250 MG In 250 / 250 Dextrose 5% 250 ML @ 166. 67 mls/hr IVPB ONCE ONE Rx#:[id number] Output: Catheter 350 / 350 950 / 950 Other: Blood Glucose* 80 92 93 - General physical appearance no distress, cachectic, chronically ill - Eyes PERRL, normal ocular movement - ENT dry mucosa, atraumatic - Neck Neck exam: trachea midline - Respiratory normal expansion, clear to auscultation - Cardiovascular Cardiovascular exam: Present: tachycardia - Abdomen Abdomen: Present: bowel sounds present, soft, non tender. Absent: guarding, rebound - Incision Incision: Present: clean and dry, intact - Genitourinary other - Integumentary no rash, no growths - Neurologic CN 2-12 grossly intact - Psychiatric oriented to time, oriented to person, memory intact - Labs 10/05/16 03:19 10/05/16 03:19 p Short CBC 10/05/16 Range/Units 03:19 WBC 23.6 H (4.3-11.1) K/mcL Hgb 10.6 L (11.5-15.4) g/dL Hct 32.6 L (35.3-44.9) % Plt Count 372 (140-400) K/mcL Neutrophils # 21.7 H (1.6-8.9) K/mcL BMP 10/05/16 Range/Units 03:19 Sodium 132 L (136-145) mEq/L Potassium 3.4 L (3.5-4.5) mEq/L Chloride 90 L (98-109) mEq/L Carbon Dioxide 34 H (19-29) mEq/L BUN 15 (7-20) mg/dL Creatinine 0.50 L (0.57-1.11) mg/dL Glucose 108 H (70-99) mg/dL Calcium 8.5 L (8.6-10.8) mg/dL Liver Function 10/05/16 Range/Units 03:19 Total Bilirubin 0.6 (0.2-1.2) mg/dL AST 68 H (5-34) Units/L ALT 81 H (0-55) Units/L Alkaline Phosphatase 82 (38-126) Units/L Albumin 1.7 L (3.5-5.0) g/dL Vital Signs Temp Pulse Resp BP Pulse Ox 10/05/16 18:57 106 27 84/54 94 10/05/16 17:45 110 29 84/59 93 10/05/16 16:45 112 28 83/53 94 10/05/16 16:42 97.8 F 10/05/16 16:24 28 92 10/05/16 15:40 111 27 86/64 93 10/05/16 14:00 108 28 78/59 92 10/05/16 13:40 117 28 81/50 93 10/05/16 12:40 113 26 75/55 94 10/05/16 11:57 28 84/57 96 10/05/16 11:40 121 28 84/57 96 10/05/16 11:36 97.2 F L 10/05/16 10:40 119 27 91/59 96 10/05/16 09:40 107 25 89/61 92 10/05/16 08:40 115 26 90/61 93 10/05/16 07:48 107 26 88/56 92 10/05/16 07:43 97.2 F L 10/05/16 06:00 114 25 88/65 98 10/05/16 05:00 108 29 94/64 94 10/05/16 04:00 110 24 89/64 98 10/05/16 03:25 21 98 10/05/16 03:00 96.1 F L 110 28 88/62 97 10/05/16 02:00 109 24 92/60 96 10/05/16 01:00 111 24 105/61 98 10/05/16 00:05 29 96 10/05/16 00:00 116 26 83/63 97 10/04/16 23:00 97.4 F L 115 29 88/57 95 10/04/16 22:02 37 87/44 97 10/04/16 22:00 114 27 81/46 97 10/04/16 21:00 114 29 82/56 97 10/04/16 20:00 98.3 F 116 28 81/51 97 Intake and Output 10/05/16 10/05/16 10/05/16 07:59 15:59 23:59 Intake Total 350 / 350 200 / 200 50 / 50 Output Total 350 / 350 950 / 950 Balance 0 / 0 200 / 200 -900 / -900 Intake: IV Fluids 350 / 350 200 / 200 50 / 50 Flexbumin 12.5 gm In 50 50 / 50 ml @ 60 mls/hr IVPB Q6H [facility] Rx#:[id number] Mycamine 100 MG In 0.9 % 100 / 100 Sodium Chloride (Mini-Bag +) 100 ML @ 100 mls/hr IVPB Q24H [facility] Rx#: [id number] Zosyn 3.375 GM In 100 / 100 100 / 100 Dextrose 5% (Minibag+) 100 ML 100 ML @ 25 mls/hr IVPB Q8HR [facility] Rx#: [id number] Vancocin 1,250 MG In 250 / 250 Dextrose 5% 250 ML @ 166. 67 mls/hr IVPB ONCE ONE Rx#:[id number] Output: Catheter 350 / 350 950 / 950 Other: Blood Glucose* 80 92 93 - Attending Attestation I examined this patient and my medical decision-making was reviewed with the Resident Physician. I agree with the documented findings, disposition and treatment plan as described except to the extent set forth below. respiratory distress concern for aspiration volume overload
[2016-10-05] MEDS ORDERED: *HR* Alteplase (Cathflo) 2 MG VIAL IVP ONE (10:57)
--- NOTE | 2016-10-05 11:07 | Cardiology Progress Note ---
<Bernabe Kumar - Last Filed: 10/05/16 13:05> Date of Encounter: 10/05/16 Time of Encounter: 09:35 Assessment and Plan (1) Paroxysmal atrial tachycardia Current Visit: Yes Status: Acute Patient is currently hemodynamically stable. Has p waves present on telemetry. Rate ranging from 100-120 this AM. this is some improvement from yesterday. She also had a run of SVT overnight with 6 beats. Clinically she appears to be improving today. Currently she is on vancomycin, Zosyn, Levofloxacin and micafungin. I think most likely her tachycardia is secondary to her respiratory failure and sepsis. She was net negative just over 2L in the past 24 hours. Recommendations: Would continue to address any underlying causes of her tachycardia. Primary team is managing respiratory failure and Sepsis. She appears to be improving some clinically Would continue diuresis. Would decrease IV fluids as much as possible. (2) SVT (supraventricular tachycardia) Current Visit: Yes Status: Acute patient had a few epsiodes of SVT overnight. However only 6 beats. I think this is from her respiratory failure and sepsis. Would continue PRN beta avis. (3) Sepsis Current Visit: Yes Status: Acute Appears to be improving linically. Leukocytosis is trending down. . There is bilateral airspace disease noted on CT. This has changed significantly from CT of the chest. I think this is the likely source of infection. currently on broad spectrum antibiotics. Will defer management to ICU team. Qualifiers: Qualified Code(s): A41.9 - Sepsis, unspecified organism (4) Acute hypoxemic respiratory failure Current Visit: Yes Status: Acute improving currently on Bipap. multifactorial. Patient has marked anatomical abnormalities. Appears to be from prior compression fractures. Possible HAP versus aspiration PNA. On broad spectrum antibiotics. recommend continued diuresis if patient is able to tolerate. . (5) Kyphosis Current Visit: No Status: Chronic severe Chronic Likely contributing to her respiratory failure. Qualifiers: Spinal region: unspecified Qualified Code(s): M40.209 - Unspecified kyphosis, site unspecified (6) Recent major surgery Current Visit: Yes Status: Acute patient is POD #8 for ex lap with ileocectomy. management per surgery. Discussion w patient/family: The assessment and plan as outlined above was discussed with the patient and/or family members who expressed understanding and agreement. All questions were answered. Thank you for involving us in the care of your patient. Please call with any questions. Subjective Principal diagnosis: Acute hypoxic respiratory failure Interval history: No major evetns overnight. I did review her 24hour telemetry. She had a few runs of SVT ( longest being 6 beats). She continues to be in sinus tachycardia but at a lower rate today. Today Mrs. Brown states that she is feeling better. she states that she is breathing easier. sHe denies any pain or discomfort. She denies any new aches or pains. Denies abdominla pain at this time. She is currently on BIPAP. She denies any further complaints or concerns at this time. Objective Vital Signs, Last 4 Hours Temp Pulse Resp BP Pulse Ox 10/05/16 09:40 107 25 89/61 92 10/05/16 08:40 115 26 90/61 93 10/05/16 07:48 107 26 88/56 92 10/05/16 07:43 97.2 F L General: Conversant, No Apparent Distress, Other (currently on bipap. Alert and appears comfortable. ) HEENT: Atraumatic, Normocephaly, Mucus Membranes Moist Neck: No JVD, Normal carotid pulses Cardiac: Normal S1 and S2, No Murmur, Other (tachycardic ) Lungs: Normal Breath Sounds, No Wheeze, Rales, Rhonchi, Other (normalm effort of breathing ) Neuro: Alert and responsive, No focal deficits noted Abdomen: Soft, Non-Tender, Other (clean and well dressed. ) Skin: No rashes noted on visualized skin Musculoskeletal: No Chest Wall Tenderness Extremities: No Clubbing, No Cyanosis, Other (2 + thad to the level of the knee bilaterally) Results 10/05/16 03:19 10/05/16 03:19 Lab Results 10/04/16 10/04/16 10/05/16 11:38 11:39 03:19 WBC 23.6 H Hgb 10.6 L Hct 32.6 L Plt Count 372 Sodium Potassium Chloride Carbon Dioxide BUN Creatinine Glucose Calcium Total Bilirubin 0.7 AST 49 H ALT 69 H Alkaline Phosphatase 94 Troponin I 0.01 10/05/16 03:19 WBC Hgb Hct Plt Count Sodium 132 L Potassium 3.4 L Chloride 90 L Carbon Dioxide 34 H BUN 15 Creatinine 0.50 L Glucose 108 H Calcium 8.5 L Total Bilirubin 0.6 AST 68 H ALT 81 H Alkaline Phosphatase 82 Troponin I - VTE Documentation of Mechanical Device: Graduated compression elastic hosiery Consult Discharge Plan - Plan Referrals: Balbir Cole DO [Primary Care Provider] - (DR. COLE'S OFFICE WILL NOT MAKE A FOLLOW UP APPOINTMENT FOR US, THEY WANT THE PATIENT TO CALL AND MAKE THEIR OWN.) <Lorraine Vásquez - Last Filed: 10/05/16 17:54> Date of Encounter: 10/05/16 Assessment and Plan Discussion w patient/family: I examined this patient and my medical decision-making was reviewed with the Resident Physician. I agree with the documented findings, disposition and treatment plan. Ms. Brown demonstrated very mild improvement overnight but clinically remains guarded with poor prognosis. Overnight, she had runs of narrow complex , fast SVT that resolved spontaneously or with vagal maneuver. Otherwise, telemetry generally demonstrates sinus tachycardia and PACs. Due to hypotension , control of heart rates has been challenging. We have been unable to give her oral metoprolol. Recommend using prn doses of IV metoprolol for further episodes. If needed, can consider digoxin load. Replete electrolytes. Continue IV diuresis as tolerated. Objective Vital Signs, Last 4 Hours Temp Pulse Resp BP Pulse Ox 10/05/16 16:42 97.8 F 10/05/16 16:24 28 92 10/05/16 14:00 108 28 78/59 92 Results 10/05/16 03:19 10/05/16 03:19 Lab Results 10/05/16 10/05/16 10/05/16 03:19 03:19 10:43 WBC 23.6 H Hgb 10.6 L Hct 32.6 L Plt Count 372 Sodium 132 L Potassium 3.4 L Chloride 90 L Carbon Dioxide 34 H BUN 15 Creatinine 0.50 L Glucose 108 H Calcium 8.5 L Magnesium 1.5 L Total Bilirubin 0.6 AST 68 H ALT 81 H Alkaline Phosphatase 82
[2016-10-05 11:20] LABS: Magnesium 1.5 mg/dL (1.6-2.6); Phosphorous 3.4 mg/dL (2.3-4.7)
[2016-10-05 11:29] LABS: Ionized Calcium 1.05 mmol/L (1.15-1.35)
[2016-10-05] MEDS: 0.9 % Sodium Chloride 1,000 ML IVC SCH (12:30)
[2016-10-05] MEDS: Micafungin 100 MG in 0.9 % Sodium Chloride Mini Bag 100 ML IVPB SCH (13:14)
--- NOTE | 2016-10-05 14:31 | Palliative - Consult Note ---
Date of Encounter: 10/05/16 Time of Encounter: 14:20 - Assessment and Plan (1) Severe protein-calorie malnutrition Current Visit: Yes Status: Acute Assessment and plan: [employer] Developer following. Per staff, TPN to restart later today. Patient told daughter this am, she was "ok" with TPN, but did not want any artificial tube feeds either by NG or PEG. Monitor (2) Physical deconditioning Current Visit: Yes Status: Chronic Assessment and plan: PT/OT following. (3) Counseling regarding advanced care planning and goals of care Current Visit: Yes Status: Acute Assessment and plan: Patient was seen by our team in March and code status of DNR/DNI was established as well as advanced directives completed. Daughter, Kisha, DPOA at bedside and states she has been updated on clinical status. Patient this am discussed that she would consent to cardioversion if necessary, and is OK with TPN, but does not want tube feeding by NG or PEG. Daughter aware that she remains very fragile and states "taking it day by day". States she was independent prior to coming in hospital and lives with child and their spouse. We discussed if she does not improve, that her plan of care will need revised and daughter verbalized understanding. (4) S/P exploratory laparotomy Current Visit: Yes Status: Acute Palliative-CN HPI - Data of Consult Consult date: 10/05/16 Requesting Physician: Dalila Larry MD Primary Care Provider: Balbir Cole - Consult Narrative History of present illness: Ms. Brown is a 75 year old female known to the palliative care team from a previous visit who was originally admitted and taken to surgery for a small bowel obstruction. Patient has a history of protein malnutrition, and we saw her in March for that as well as failure to thrive. At that time, her advanced directives and code status were discussed and pt transitioned to DNR/ DNI status. At this point, she has had a complicated postop course, the last 24 -48 hours with increased work of breathing, fluid overload, and hypotension, and was transitioned to ICU yesterday. She remains a "Do not inubate" by her choice and is currently on bipap. TPN was temporarily discontinued r/t fluid overload, but may be restarted later today at a slower rate. Upon my visit, she remains on bipap, and having difficulty communicating. Daughter Kisha VILLALTA at bedside at providing information. Patient does follow simple commands, but is very weak. C/O pain bilateral heels, weakness, and shortness of breath at this time. D/W Dr. Bojorquez, pt had made know this am she was "ok" with cardioversion, but still declines CPR/ACLS/Defib for cardiac arrest. CC: Dalila Larry MD Past Med Surg Social Fam HX - Past Medical History Medical history: GERD Psychiatric history: no psych history - Past Surgical History Surgical History: hysterectomy, other (Surgery for Hiatal Hernia/[facility]) - Social History Smoking Status: Former smoker Smokeless Tobacco Status: No Alcohol use: none Drug use: none - Family History Father Family Member Ethnicity: Non- Living Status: Hx Family Cancer: Yes (lung cancer) Brother Family Member Ethnicity: Non- Living Status: Still Living Hx Family Cardiac Disorders: Yes (CO) Hx Family Respiratory Disorders: Yes (COPD) Sister Name: mio Brown Living Status: Hx Family Respiratory Disorders: Yes (COPD) Hx Family Cancer: Yes (lung cancer) Medications and Allergies Albuterol Sulfate [Albuterol Inhaler] 1 puff IH Q4-6H PRN 04/14/16 [History] Calcium Carbonate/Vitamin D3 [Calcium 500 mg Chewable Tablet] 1 each PO DAILY [History] Potassium 99 mg PO DAILY 04/14/16 [History] Magnesium Oxide [Mgo] 400 mg PO BID #30 tablet 04/17/16 [Rx] Metoprolol [Lopressor] 25 mg PO BID #30 tablet 04/17/16 [Rx] Cyanocobalamin (Vitamin B-12) [Vitamin B12] 1,000 mcg PO DAILY 09/22/16 [History ] Famotidine [Pepcid] 20 mg PO DAILY 09/22/16 [History] Allergies No Known Allergies Allergy (Verified 04/14/16 10:40) ROS unobtainable: due to mental status Palliative Care-Exam - Constitutional Vitals: Temp Pulse Resp BP Pulse Ox 97.2 F L 113 26 75/55 94 10/05/16 11:36 10/05/16 12:40 10/05/16 12:40 10/05/16 12:40 10/05/16 12:40 General appearance: Present: no acute distress - Head Head Exam: Present: normal inspection, normocephalic - Eye Eye exam: Present: normal appearance, PERRL - Respiratory Respiratory exam: Present: decreased breath sounds, CTAB Additional comments: Remains on bipap - Cardiovascular Cardiovascular exam: Present: +S1, +S2, tachycardia - GI/Abdominal Exam GI/Abdominal exam: Present: normal bowel sounds, soft additional comments: Abd incision D/I - Extremities Exam Extremities exam: Present: normal capillary refill, normal inspection Additional comments: JEREMY nevarez on bilaterally - Neurological Exam Neurological exam: Present: alert, strengths equal and symetr throughout - Skin Skin exam: Present: dry, warm Internal Medicine - CN: Reslt - Labs CBC & Chem 7: 10/05/16 03:19 10/05/16 03:19 Labs: Short CBC 10/05/16 Range/Units 03:19 WBC 23.6 H (4.3-11.1) K/mcL Hgb 10.6 L (11.5-15.4) g/dL Hct 32.6 L (35.3-44.9) % Plt Count 372 (140-400) K/mcL Neutrophils # 21.7 H (1.6-8.9) K/mcL BMP 10/05/16 03:19 Sodium 132 L Potassium 3.4 L Chloride 90 L Carbon Dioxide 34 H BUN 15 Creatinine 0.50 L Glucose 108 H Calcium 8.5 L Liver Function 10/05/16 Range/Units 03:19 Total Bilirubin 0.6 (0.2-1.2) mg/dL AST 68 H (5-34) Units/L ALT 81 H (0-55) Units/L Alkaline Phosphatase 82 (38-126) Units/L Albumin 1.7 L (3.5-5.0) g/dL - ABG Interpretation ABG results: ABG ABG pH 7.47 pH Units (7.32-7.45) H 10/04/16 12:10 ABG pCO2 49 mmHg (35-45) H 10/04/16 12:10 ABG pO2 67 mmHg (85-104) L 10/04/16 12:10 ABG O2 Saturation 94 % (95-98) L 10/04/16 12:10 PT/INR, D-dimer PT 10.9 Seconds (9.4-12.1) 09/22/16 12:48 Consult Discharge Plan - Plan Referrals: Balbir Cole DO [Primary Care Provider] - (DR. COLE'S OFFICE WILL NOT MAKE A FOLLOW UP APPOINTMENT FOR US, THEY WANT THE PATIENT TO CALL AND MAKE THEIR OWN.) Palliative Quality Palliative Quality: Screen for Code Status: Yes, Screen for Goals of Care: Yes, Screen for Pain: Yes, If Pain Regimen Started, Initiate Bowel Regimen: NA, Screen for Nausea/Vomitting: Yes Code Status: 09/22/16 20:07 Resuscitation Status: Active [RES] Routine Comment: Resuscitation Status: Full Code 09/22/16 20:41 Resuscitation Status: Active [RES] Routine Comment: DNRCCA per family Resuscitation Status: DNR-Comfort Care-Arrest 09/29/16 04:12 CODE [Resuscitation Status: Active] [RES] Routine Comment: Resuscitation Status: [id number]
--- NOTE | 2016-10-05 14:34 | Electrocardiograph Report ---
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
[2016-10-05] MEDS ORDERED: Clinimix E 5%-20% SOLUTION 2,000 ML with MVI, adult with vitamin K 10 ML IVC SCH (17:00)
--- NOTE | 2016-10-05 17:30 | Internal Med Progress Note ---
Date of Encounter: 10/05/16 Time of Encounter: 17:26 - Assessment and plan (1) Acute respiratory failure with hypoxia Current Visit: Yes Status: Acute Assessment and plan: Due to severe physical deconditioning, pleural effusions and PNA cont duoneb Cont BiPAP PRN cont clinimex strict I & O Strict NPO Broad spec abx Zosyn and Vancomycin + Micafungin WBC started trending down (2) Pneumonia Current Visit: Yes Status: Acute Qualifiers: Pneumonia type: due to unspecified organism Laterality: bilateral Lung location: lower lobe of lung Qualified Code(s): J18.9 - Pneumonia, unspecified organism (3) Small bowel obstruction Current Visit: Yes Status: Resolved Assessment and plan: SBO likely secondary to adhesions - s/p ex-lap with small bowel resection converted to ileocectomy POD #8 IV Morphine PRN - cont broad spec abx Zosyn and Vanco + Micafungin C. Diff - negative (4) S/P exploratory laparotomy Current Visit: Yes Status: Acute (5) Leukocytosis Current Visit: Yes Status: Acute Assessment and plan: WBC started trending down CT of Abd / Pelvis showed Pneumonia and anasarca Cont broad spec abx + Micafungin Qualifiers: Leukocytosis type: unspecified Qualified Code(s): D72.829 - Elevated white blood cell count, unspecified (6) PAT (paroxysmal atrial tachycardia) Current Visit: Yes Status: Acute Assessment and plan: Due to Resp failure improving (7) COPD (chronic obstructive pulmonary disease) Current Visit: No Status: Chronic Assessment and plan: Cont BiPAP for now Qualifiers: COPD type: unspecified COPD Qualified Code(s): J44.9 - Chronic obstructive pulmonary disease, unspecified (8) Physical deconditioning Current Visit: Yes Status: Chronic (9) Severe protein-calorie malnutrition Current Visit: Yes Status: Acute Assessment and plan: Cont clinimex now (10) DVT prophylaxis Current Visit: Yes Status: Acute Assessment and plan: Continue Lovenox - Subjective Interval history: This is a 75 y/o F with known h/o PSVT, COPD, who admitted here for small bowel obstruction and went for ex-lap with small bowel resection converted to ileocecotomy on 09/27/16. On 09/30/16 night pt went into SVT and Severe hypoxic respiratory failure so pt was transferred to PCU for close monitoring. Today pt is more alert, awake and O x3. Had BM this morning and passing gas ok. She denied any CP. NG tube was removed on 10/02/16, since then no nausea / vomiting. pt became more SOB / STAPLES and worsening respiratory condition. We gave Lasix x 2 doses. Still on NRB O2, with Spo2 in mid 90's. Pt is alert, awake and oriented x3, denied any CP. 10/05/16 - Pt was seen and examined in ICU. She is currently on 12 lit high flow O2. She is alert, awake and O x3. Denied any CP. Apparently pt went into SVT this morning which resolved with valsalva. Spoke to family ( son ) at bed side. - Constitutional Vitals: Temp Pulse Resp BP Pulse Ox 97.8 F 108 28 78/59 92 10/05/16 16:42 10/05/16 14:00 10/05/16 16:24 10/05/16 14:00 10/05/16 16:24 General appearance: Present: cachectic, cooperative, A&O X 3, severe distress, answers questions appropriately - Head Head exam: Present: atraumatic - Respiratory Respiratory exam: Present: decreased breath sounds, rales, respiratory distress , rhonchi, wheezes - Cardiovascular Cardiovascular exam: Present: +S1, +S2, tachycardia - GI/Abdominal GI/Abdominal exam: Present: soft. Absent: rebound, tenderness - Extremities Exam Extremities exam: Present: pedal edema. Absent: calf tenderness, tenderness - Psychiatric Psychiatric exam: Present: anxious Internal Medicine: Result - Labs CBC & Chem 7: 10/05/16 03:19 10/05/16 03:19 Labs: Short CBC 10/05/16 Range/Units 03:19 WBC 23.6 H (4.3-11.1) K/mcL Hgb 10.6 L (11.5-15.4) g/dL Hct 32.6 L (35.3-44.9) % Plt Count 372 (140-400) K/mcL Neutrophils # 21.7 H (1.6-8.9) K/mcL BMP 10/05/16 03:19 Sodium 132 L Potassium 3.4 L Chloride 90 L Carbon Dioxide 34 H BUN 15 Creatinine 0.50 L Glucose 108 H Calcium 8.5 L Liver Function 10/05/16 Range/Units 03:19 Total Bilirubin 0.6 (0.2-1.2) mg/dL AST 68 H (5-34) Units/L ALT 81 H (0-55) Units/L Alkaline Phosphatase 82 (38-126) Units/L Albumin 1.7 L (3.5-5.0) g/dL - ABG Interpretation ABG results: ABG ABG pH 7.47 pH Units (7.32-7.45) H 10/04/16 12:10 ABG pCO2 49 mmHg (35-45) H 10/04/16 12:10 ABG pO2 67 mmHg (85-104) L 10/04/16 12:10 ABG O2 Saturation 94 % (95-98) L 10/04/16 12:10 PT/INR, D-dimer PT 10.9 Seconds (9.4-12.1) 09/22/16 12:48 - VTE Documentation of Mechanical Device: Graduated compression elastic hosiery Consult Discharge Plan - Plan Referrals: Balbir Aranda DO [Primary Care Provider] - (DR. ARANDA'S OFFICE WILL NOT MAKE A FOLLOW UP APPOINTMENT FOR US, THEY WANT THE PATIENT TO CALL AND MAKE THEIR OWN.)
[2016-10-05] MEDS: Albumin 25% 12.5gm/50mL 12.5 GM/50 ML IV.SOLN IVPB SCH ×3 (18:04→23:07)
[2016-10-05] MEDS: Melatonin 3 MG TABLET PO SCH (22:09)
[2016-10-06] MEDS: Albumin 25% 12.5gm/50mL 12.5 GM/50 ML IV.SOLN IVPB SCH ×3 (04:21→16:06)
[2016-10-06] MEDS: Ipratropium/Albuterol Neb 3 ML IH SCH ×4 (04:37→21:35)
[2016-10-06 05:23] LABS: Basophils % 0.1 %; Eosinophils # 0.1 K/mcL (0.0-0.6); Eosinophils % 0.5 %; Hematocrit 30.6 % (35.3-44.9); Hemoglobin 10.2 g/dL (11.5-15.4); Immature Granulocytes % 1.8 % (0-4); Lymphocytes # 0.4 K/mcL (0.6-4.6); Lymphocytes % 2.2 %; Mean Corpuscular HGB Conc 33.3 g/dL (31.6-35.5); Mean Corpuscular Hemoglobin 30.3 pg (28.0-33.3); Mean Corpuscular Volume 90.8 fL (83.0-100.0); Mean Platelet Volume 10.6 fL (9.4-12.4); Neutrophils # 17.4 K/mcL (1.6-8.9); Platelet Count 421 K/mcL (140-400); Red Blood Count 3.37 M/mcL (3.82-4.97); Red Cell Distribution Width 13.9 % (11.5-14.5); Segmented Neutrophils % 90.4 %
[2016-10-06 05:36] LABS: INR 1.3; Prothrombin Time 14.4 Seconds (9.4-12.1)
[2016-10-06 05:37] LABS: Ionized Calcium 1.07 mmol/L (1.15-1.35)
[2016-10-06 05:39] LABS: Activated Partial Thrombo Time 28.5 Seconds (26.0-36.0)
[2016-10-06 05:46] LABS: Alanine Aminotransferase 78 Units/L (0-55); Albumin 2.4 g/dL (3.5-5.0); Albumin/Globulin Ratio 0.7 (1.1-2.2); Alkaline Phosphatase 68 Units/L (38-126); Aspartate Amino Transferase 57 Units/L (5-34); BUN/Creatinine Ratio 29 (6-26); Bilirubin,Total 0.5 mg/dL (0.2-1.2); Blood Urea Nitrogen 14 mg/dL (7-20); Calcium 8.8 mg/dL (8.6-10.8); Carbon Dioxide 39 mEq/L (19-29); Chloride 89 mEq/L (98-109); Globulin 3.3 g/dL (2.4-3.5); Glucose 138 mg/dL (70-99); Magnesium 1.7 mg/dL (1.6-2.6); Osmolality,Calculated 281 (280-300); Phosphorous 1.9 mg/dL (2.3-4.7); Potassium 2.7 mEq/L (3.5-4.5); Sodium 134 mEq/L (136-145); Total Protein 5.7 g/dL (6.0-8.3); Triglycerides 133 mg/dL (< 150); eGFR For African Americans > 60 (> 60); eGFR For Non-African Americans > 60 (> 60)
[2016-10-06] MEDS: *HR* Enoxaparin 30 MG/0.3 ML SYRINGE SQ SCH (06:07)
--- NOTE | 2016-10-06 06:45 | Pulmonology Progress Note ---
Date of Encounter: 10/06/16 Time of Encounter: 06:45 Assessment and Plan (1) Physical deconditioning Current Visit: Yes Status: Chronic Management was reviewed during multidisciplinary critical care rounds. Neuropsych: The patient is awake and follows commands but easily arousable no focal neurological deficit Pulm: Hypoxic Respiratory failure s/t to Cardiogenic and Non Cardiogenic Pulmonary edema (mediated by PNA); weaned off of Bilevel PAP support. Acceptable Sao2 on Hi Flow NC today Cards: Sinus tachycardia with periodic runs of SVT although no further episodes for last 12 hours. BP improving. Cardiology following. Cont diuresis for pulmonary edema FEN-GI: Dysphagia swallow exam today and then advance diet as tolerated s/p exploratory laparoscopy small bowel resection converted to ileocectomy small bowel obstruction. General surgery is following. Nutrition Following. Cont TPN today Renal: No evidence of acute kidney injury continue to monitor electrolytes while actively diuresing and replace per protocol ID: Evidence of sepsis likely s/t HAP without shock physiology treating broadly for possibility of hospital-acquired pneumonia with vancomycin and Zosyn and fungal coverage. Deescelate tomorrow if cultures remain negative Heme/Onc: DVT prophylaxis given hemoglobin and platelets are stable Endo: Glucose monitored Integ/MSK: Skin care per routine ICU protocol to prevent ulcers Lines: All lines examined without evidence of infection including right PICC and Benito Urinary catheter CODE: DNAR/DNI Prognosis remains poor but overall improving and can likely be discharged from the ICU later today or tomorrow I updated her adult daughter and healthcare per commercial attorney at bedside. Palliative Care service is also following with along with this patient (2) Unable to eat Current Visit: Yes Status: Acute (3) Hypotension Current Visit: Yes Status: Acute Qualifiers: Hypotension type: unspecified hypotension type Qualified Code(s): I95.9 - Hypotension, unspecified (4) SVT (supraventricular tachycardia) Current Visit: Yes Status: Acute (5) Severe protein-calorie malnutrition Current Visit: Yes Status: Acute (6) Acute hypoxemic respiratory failure Current Visit: Yes Status: Acute (7) Kyphosis Current Visit: No Status: Chronic Qualifiers: Spinal region: unspecified Qualified Code(s): M40.209 - Unspecified kyphosis, site unspecified (8) Hypomagnesemia Current Visit: Yes Status: Acute (9) S/P colectomy Current Visit: Yes Status: Acute (10) Sepsis Current Visit: Yes Status: Acute Qualifiers: Qualified Code(s): A41.9 - Sepsis, unspecified organism (11) Pneumonia Current Visit: Yes Status: Acute Qualifiers: Pneumonia type: due to unspecified organism Laterality: bilateral Lung location: lower lobe of lung Qualified Code(s): J18.9 - Pneumonia, unspecified organism (12) Volume overload Current Visit: Yes Status: Acute Qualifiers: Qualified Code(s): E87.70 - Fluid overload, unspecified (13) Counseling regarding advanced care planning and goals of care Current Visit: Yes Status: Acute Subjective Principal diagnosis: Acute hypoxic respiratory failure Interval history: Ms. Brown has done relatively well overnight she was able to be taken off the continuous positive airway pressure support was noted to have a thick mucoid secretions needed suctioning Objective PUL Vital signs: Last Vital Signs Temp 97.4 F L 10/06/16 05:13 Pulse 115 10/06/16 06:00 Resp 32 10/06/16 06:11 BP 85/67 10/06/16 06:11 Pulse Ox 88 10/06/16 06:11 General appearance: no acute distress Effort: mildly labored Auscultation: bilateral: diminished breath sounds, rales Cardiovascular: regular rate and rhythm Extremities: anasarca Musculoskeletal: other (She has severe kyphoscoliosis) normal mental status, non-focal exam mood appropriate Results - Laboratory Findings CBC and BMP: 10/06/16 04:59 10/06/16 04:59 ABG ABG pH 7.47 pH Units (7.32-7.45) H 10/04/16 12:10 ABG pCO2 49 mmHg (35-45) H 10/04/16 12:10 ABG pO2 67 mmHg (85-104) L 10/04/16 12:10 ABG O2 Saturation 94 % (95-98) L 10/04/16 12:10 PT/INR, D-dimer PT 14.4 Seconds (9.4-12.1) H 10/06/16 04:59 Abnormal lab findings: Abnormal lab results WBC 19.3 K/mcL (4.3-11.1) H 10/06/16 04:59 RBC 3.37 M/mcL (3.82-4.97) L 10/06/16 04:59 Hgb 10.2 g/dL (11.5-15.4) L 10/06/16 04:59 Hct 30.6 % (35.3-44.9) L 10/06/16 04:59 Plt Count 421 K/mcL (140-400) H 10/06/16 04:59 Myelocytes % 2.0 % (0) H 09/25/16 04:21 Neutrophils # 17.4 K/mcL (1.6-8.9) H 10/06/16 04:59 Lymphocytes # 0.4 K/mcL (0.6-4.6) L 10/06/16 04:59 Hypersegmented Neuts Present (Not Present) A 10/05/16 03:19 PT 14.4 Seconds (9.4-12.1) H 10/06/16 04:59 ABG pH 7.47 pH Units (7.32-7.45) H 10/04/16 12:10 ABG pCO2 49 mmHg (35-45) H 10/04/16 12:10 ABG pO2 67 mmHg (85-104) L 10/04/16 12:10 ABG HCO3 35.7 mEQ/L (21-27) H 10/04/16 12:10 ABG Total CO2 37.2 mEq/L (20-26) H 10/04/16 12:10 ABG O2 Saturation 94 % (95-98) L 10/04/16 12:10 ABG Base Excess 10.6 mEq/L (-2.0 to 3.0) H 10/04/16 12:10 Sodium 134 mEq/L (136-145) L 10/06/16 04:59 Potassium 2.7 mEq/L (3.5-4.5) L 10/06/16 04:59 Chloride 89 mEq/L (98-109) L 10/06/16 04:59 Carbon Dioxide 39 mEq/L (19-29) H 10/06/16 04:59 Creatinine 0.49 mg/dL (0.57-1.11) L 10/06/16 04:59 BUN/Creatinine Ratio 29 (6-26) H 10/06/16 04:59 Glucose 138 mg/dL (70-99) H 10/06/16 04:59 POC Glucose 158 (58-89) H 10/06/16 04:27 Ionized Calcium 1.07 mmol/L (1.15-1.35) L 10/06/16 04:59 Phosphorus 1.9 mg/dL (2.3-4.7) L 10/06/16 04:59 AST 57 Units/L (5-34) H 10/06/16 04:59 ALT 78 Units/L (0-55) H 10/06/16 04:59 Serum Total Protein 5.7 g/dL (6.0-8.3) L 10/06/16 04:59 Albumin 2.4 g/dL (3.5-5.0) L D 10/06/16 04:59 Albumin/Globulin Ratio 0.7 (1.1-2.2) L 10/06/16 04:59 Prealbumin 5.0 mg/dL (16.0-38.0) L 10/06/16 04:59 Urine Microscopic WBC 30-50 per hpf (0-3) H 09/28/16 02:48 Ur Squamous Epith Cells Moderate per lpf (None-Few) H 09/28/16 02:48 Urine Bacteria Moderate per hpf (None-Few) H 09/28/16 02:48 Urine Mucus Many (Few) H 09/28/16 02:48 Urine Yeast Many per hpf (None Seen) H 09/28/16 02:48 - Microbiology Findings Microbiology Findings: Microbiology, Last 48 Hours 10/04/16 09:45 Urine Culture - Final Urine,Clean Catch No growth. 10/04/16 09:45 Legionella Antigen - Final Urine,Catheterized Streptococcus pneumoniae Antigen (M - Final - Clinical Findings Intake & Output: Intake & Output 10/05/16 10/05/16 10/06/16 15:59 23:59 07:59 Intake Total 200 / 200 150 / 150 450 / 450 Output Total 1175 / 1175 350 / 350 Balance 200 / 200 -1025 / -1025 100 / 100 Weight 44.588 kg - VTE Documentation of Mechanical Device: Graduated compression elastic hosiery Consult Discharge Plan - Plan Referrals: Balbir Aranda DO [Primary Care Provider] - (DR. ARANDA'S OFFICE WILL NOT MAKE A FOLLOW UP APPOINTMENT FOR US, THEY WANT THE PATIENT TO CALL AND MAKE THEIR OWN.)
[2016-10-06] MEDS ORDERED: Furosemide 40 MG/4 ML VIAL IVP ONE (07:36)
[2016-10-06] MEDS: Magnesium Sulfate 2 GM in D5% in Water 100 ML IVPB PRN (07:46)
[2016-10-06] MEDS: Pantoprazole 40 MG VIAL IVP SCH (07:51)
[2016-10-06] MEDS: Piperacillin/Tazobactam 3.375 GM in D5% in Water (Mini-Bag+) 100 ML IVPB SCH ×2 (07:51→16:06)
[2016-10-06] MEDS: Calcium Gluconate 1,000 MG in D5% in Water 100 ML IVPB PRN ×2 (07:53→20:58)
[2016-10-06] MEDS: Vancomycin 750 MG in D5% in Water 250 ML IVPB SCH ×2 (11:47→21:05)
[2016-10-06] MEDS ORDERED: *HR* Dextrose 50 % in Water (Syg) 50 ML SYRINGE IVP PRN (11:57)
[2016-10-06] MEDS ORDERED: D5% in Water 1,000 ML IVC PRN (11:57)
[2016-10-06] MEDS ORDERED: Dextrose Gel 15 GM PO PRN ×2 (11:57)
--- NOTE | 2016-10-06 12:48 | Palliative Progress Note ---
Date of Encounter: 10/06/16 Time of Encounter: 11:50 - Assessment and plan (1) Severe protein-calorie malnutrition Current Visit: Yes Status: Acute Assessment and plan: Continues with TPN. Certified Welder following. Speech consult pending (2) Physical deconditioning Current Visit: Yes Status: Chronic Assessment and plan: PT/OT when stable (3) Counseling regarding advanced care planning and goals of care Current Visit: Yes Status: Acute Assessment and plan: Patient has improved clinical from crisis 48 hours ago. May transfer out of ICU soon. Await speech eval - she has expressed to her daughter (Kisha) she does not desire feeding tubes, so this may need re-addressed. Discussed with daughter that I would have social secretary stop by soon to begin discussing d/c plan, as I suspect she will need rehab stay, as she has had prolonged hospital stay with complications. Will continue to follow clinical course. (4) S/P exploratory laparotomy Current Visit: Yes Status: Acute - Time Spent With Patient Total time spent is greater than 50% in coordination of care (as documented) at patient's floor/unit and/or counseling patient: 25 - 35 minutes - Subjective Interval history: Patient awake and alert, daughter at bedside. She denies pain/shortness of breath/nausea at present. Has required some suctioning r/t secretions. TPN has been restarted at 30ml/hr. Patient choked with ice chips yesterday and daughter requesting formal swallow eval. No further episodes of SVT since yesterday am. Patient tolerating nasal cannula, refused bipap last night. - Constitutional Vitals: Abnormal lab results WBC 19.3 K/mcL (4.3-11.1) H 10/06/16 04:59 RBC 3.37 M/mcL (3.82-4.97) L 10/06/16 04:59 Hgb 10.2 g/dL (11.5-15.4) L 10/06/16 04:59 Hct 30.6 % (35.3-44.9) L 10/06/16 04:59 Plt Count 421 K/mcL (140-400) H 10/06/16 04:59 Myelocytes % 2.0 % (0) H 09/25/16 04:21 Neutrophils # 17.4 K/mcL (1.6-8.9) H 10/06/16 04:59 Lymphocytes # 0.4 K/mcL (0.6-4.6) L 10/06/16 04:59 Hypersegmented Neuts Present (Not Present) A 10/05/16 03:19 PT 14.4 Seconds (9.4-12.1) H 10/06/16 04:59 ABG pH 7.47 pH Units (7.32-7.45) H 10/04/16 12:10 ABG pCO2 49 mmHg (35-45) H 10/04/16 12:10 ABG pO2 67 mmHg (85-104) L 10/04/16 12:10 ABG HCO3 35.7 mEQ/L (21-27) H 10/04/16 12:10 ABG Total CO2 37.2 mEq/L (20-26) H 10/04/16 12:10 ABG O2 Saturation 94 % (95-98) L 10/04/16 12:10 ABG Base Excess 10.6 mEq/L (-2.0 to 3.0) H 10/04/16 12:10 Sodium 134 mEq/L (136-145) L 10/06/16 04:59 Potassium 2.7 mEq/L (3.5-4.5) L 10/06/16 04:59 Chloride 89 mEq/L (98-109) L 10/06/16 04:59 Carbon Dioxide 39 mEq/L (19-29) H 10/06/16 04:59 Creatinine 0.49 mg/dL (0.57-1.11) L 10/06/16 04:59 BUN/Creatinine Ratio 29 (6-26) H 10/06/16 04:59 Glucose 138 mg/dL (70-99) H 10/06/16 04:59 POC Glucose 144 (58-89) H 10/06/16 11:31 Ionized Calcium 1.07 mmol/L (1.15-1.35) L 10/06/16 04:59 Phosphorus 1.9 mg/dL (2.3-4.7) L 10/06/16 04:59 AST 57 Units/L (5-34) H 10/06/16 04:59 ALT 78 Units/L (0-55) H 10/06/16 04:59 Serum Total Protein 5.7 g/dL (6.0-8.3) L 10/06/16 04:59 Albumin 2.4 g/dL (3.5-5.0) L D 10/06/16 04:59 Albumin/Globulin Ratio 0.7 (1.1-2.2) L 10/06/16 04:59 Prealbumin 5.0 mg/dL (16.0-38.0) L 10/06/16 04:59 Urine Microscopic WBC 30-50 per hpf (0-3) H 09/28/16 02:48 Ur Squamous Epith Cells Moderate per lpf (None-Few) H 09/28/16 02:48 Urine Bacteria Moderate per hpf (None-Few) H 09/28/16 02:48 Urine Mucus Many (Few) H 09/28/16 02:48 Urine Yeast Many per hpf (None Seen) H 09/28/16 02:48 General appearance: Present: no acute distress - Respiratory Respiratory exam: Present: decreased breath sounds, CTAB - Cardiovascular Cardiovascular exam: Present: +S1, +S2, tachycardia - GI/Abdominal GI/Abdominal exam: Present: soft Additional comments: Dressing to abd incision D/I - Additional comments: Benito with clear yellow urine - Extremities Exam Additional comments: 1-2+ edema bilateral ankles/feet, justice hose present - Neurological Exam Neurological exam: Present: alert Additional comments: Very weak, can follow simple commands. Shakes head yes/no to questions. - Skin Skin exam: Present: dry, pallor, warm Palliative Quality Palliative Quality: Screen for Code Status: Yes, Screen for Goals of Care: Yes, Screen for Pain: Yes, If Pain Regimen Started, Initiate Bowel Regimen: NA, Screen for Nausea/Vomitting: Yes Code Status: 09/22/16 20:07 Resuscitation Status: Active [RES] Routine Comment: Resuscitation Status: Full Code 09/22/16 20:41 Resuscitation Status: Active [RES] Routine Comment: DNRCCA per family Resuscitation Status: DNR-Comfort Care-Arrest 09/29/16 04:12 CODE [Resuscitation Status: Active] [RES] Routine Comment: Resuscitation Status: [id number] - Labs CBC & Chem 7: 10/06/16 04:59 10/06/16 04:59 Labs: Laboratory Results - last 24 hr 10/05/16 10/05/16 10/05/16 16:16 16:38 19:18 WBC RBC Hgb Hct MCV MCH MCHC RDW Plt Count MPV Immature Gran % Seg Neutrophils % Lymphocytes % Monocytes % Eosinophils % Basophils % Neutrophils # Lymphocytes # Monocytes # Eosinophils # Basophils # PT INR APTT Sodium Potassium Chloride Carbon Dioxide BUN Creatinine Est GFR ( Amer) Est GFR (Non-Af Amer) BUN/Creatinine Ratio Glucose POC Glucose 93 H 129 H Calculated Osmolality Lactic Acid 1.1 Calcium Ionized Calcium Phosphorus Magnesium Total Bilirubin AST ALT Alkaline Phosphatase Serum Total Protein Albumin Globulin Albumin/Globulin Ratio Prealbumin Triglycerides Random Vancomycin 10/06/16 10/06/16 10/06/16 00:17 04:27 04:59 WBC 19.3 H RBC 3.37 L Hgb 10.2 L Hct 30.6 L MCV 90.8 MCH 30.3 MCHC 33.3 RDW 13.9 Plt Count 421 H MPV 10.6 Immature Gran % 1.8 Seg Neutrophils % 90.4 Lymphocytes % 2.2 Monocytes % 5.0 Eosinophils % 0.5 Basophils % 0.1 Neutrophils # 17.4 H Lymphocytes # 0.4 L Monocytes # 1.0 Eosinophils # 0.1 Basophils # 0.0 PT INR APTT Sodium Potassium Chloride Carbon Dioxide BUN Creatinine Est GFR ( Amer) Est GFR (Non-Af Amer) BUN/Creatinine Ratio Glucose POC Glucose 139 H 158 H Calculated Osmolality Lactic Acid Calcium Ionized Calcium Phosphorus Magnesium Total Bilirubin AST ALT Alkaline Phosphatase Serum Total Protein Albumin Globulin Albumin/Globulin Ratio Prealbumin Triglycerides Random Vancomycin 10/06/16 10/06/16 10/06/16 04:59 04:59 04:59 WBC RBC Hgb Hct MCV MCH MCHC RDW Plt Count MPV Immature Gran % Seg Neutrophils % Lymphocytes % Monocytes % Eosinophils % Basophils % Neutrophils # Lymphocytes # Monocytes # Eosinophils # Basophils # PT INR APTT Sodium 134 L Potassium 2.7 L Chloride 89 L Carbon Dioxide 39 H BUN 14 Creatinine 0.49 L Est GFR ( Amer) > 60 Est GFR (Non-Af Amer) > 60 BUN/Creatinine Ratio 29 H Glucose 138 H POC Glucose Calculated Osmolality 281 Lactic Acid Calcium 8.8 Ionized Calcium 1.07 L Phosphorus 1.9 L Magnesium 1.7 Total Bilirubin 0.5 AST 57 H ALT 78 H Alkaline Phosphatase 68 Serum Total Protein 5.7 L Albumin 2.4 L D Globulin 3.3 Albumin/Globulin Ratio 0.7 L Prealbumin 5.0 L Triglycerides 133 Random Vancomycin 4.1 10/06/16 10/06/16 10/06/16 04:59 07:24 11:31 WBC RBC Hgb Hct MCV MCH MCHC RDW Plt Count MPV Immature Gran % Seg Neutrophils % Lymphocytes % Monocytes % Eosinophils % Basophils % Neutrophils # Lymphocytes # Monocytes # Eosinophils # Basophils # PT 14.4 H INR 1.3 APTT 28.5 Sodium Potassium Chloride Carbon Dioxide BUN Creatinine Est GFR ( Amer) Est GFR (Non-Af Amer) BUN/Creatinine Ratio Glucose POC Glucose 147 H 144 H Calculated Osmolality Lactic Acid Calcium Ionized Calcium Phosphorus Magnesium Total Bilirubin AST ALT Alkaline Phosphatase Serum Total Protein Albumin Globulin Albumin/Globulin Ratio Prealbumin Triglycerides Random Vancomycin - ABG Interpretation ABG results: ABG ABG pH 7.47 pH Units (7.32-7.45) H 10/04/16 12:10 ABG pCO2 49 mmHg (35-45) H 10/04/16 12:10 ABG pO2 67 mmHg (85-104) L 10/04/16 12:10 ABG O2 Saturation 94 % (95-98) L 10/04/16 12:10 PT/INR, D-dimer PT 14.4 Seconds (9.4-12.1) H 10/06/16 04:59 Consult Discharge Plan - Plan Referrals: Balbir Aranda DO [Primary Care Provider] - (DR. ARANDA'S OFFICE WILL NOT MAKE A FOLLOW UP APPOINTMENT FOR US, THEY WANT THE PATIENT TO CALL AND MAKE THEIR OWN.)
[2016-10-06] MEDS: Micafungin 100 MG in 0.9 % Sodium Chloride Mini Bag 100 ML IVPB SCH (13:36)
[2016-10-06] MEDS: Insulin LISPRO 300 UNITS/3 ML VIAL SQ SCH ×2 (13:44→18:45)
--- NOTE | 2016-10-06 14:42 | Cardiology Progress Note ---
<Bernabe Kumar - Last Filed: 10/06/16 15:30> Date of Encounter: 10/06/16 Time of Encounter: 14:38 Assessment and Plan (1) Paroxysmal atrial tachycardia Current Visit: Yes Status: Acute Patient is currently hemodynamically stable. Has p waves present on telemetry. Rate ranging from 100-120 this AM. this is some improvement from yesterday. She also had a run of SVT yesterday which resolved with vagal maneuvers. Clinically she appears to be improving today. I think most likely her tachycardia is secondary to her respiratory failure and sepsis. Recommendations: Would continue to address any underlying causes of her tachycardia. Primary team is managing respiratory failure and Sepsis. She appears to be improving some clinically At this time it appears her symptoms are from her underlying respiratory illness. Would recommend resuming home metoprolol at lower dose 12.5 BID when able to take PO and when BP will tolerate. Can use PRN IV lopressor until able to resume PO. continue to monitor and replace electrolytes as needed. Cardiology will sign off at this time. Please call if we can be of any further assistence. Thank you for the consultation. (2) SVT (supraventricular tachycardia) Current Visit: Yes Status: Acute No furtherevents since yesterday morning. I think this is from her respiratory failure and sepsis. Would continue PRN beta avis. (3) NSVT (nonsustained ventricular tachycardia) Current Visit: Yes Status: Acute 6 beat run overnight. would resume metoprolol 12.5 mg BID if patient able to tolerate. (4) Sepsis Current Visit: Yes Status: Acute Appears to be improving linically. Leukocytosis is trending down. . There is bilateral airspace disease noted on CT. This has changed significantly from CT of the chest. I think this is the likely source of infection. currently on broad spectrum antibiotics. Will defer management to ICU team. Qualifiers: Qualified Code(s): A41.9 - Sepsis, unspecified organism (5) Acute hypoxemic respiratory failure Current Visit: Yes Status: Acute improving currently on Bipap. multifactorial. Patient has marked anatomical abnormalities. Appears to be from prior compression fractures. Possible HAP versus aspiration PNA. On broad spectrum antibiotics. recommend continued diuresis if patient is able to tolerate. . (6) Kyphosis Current Visit: No Status: Chronic severe Chronic Likely contributing to her respiratory failure. Qualifiers: Spinal region: unspecified Qualified Code(s): M40.209 - Unspecified kyphosis, site unspecified (7) Recent major surgery Current Visit: Yes Status: Acute patient is POD #9 for ex lap with ileocectomy. management per surgery. Discussion w patient/family: The assessment and plan as outlined above was discussed with the patient and/or family members who expressed understanding and agreement. All questions were answered. Thank you for involving us in the care of your patient. Please call with any questions. Subjective Principal diagnosis: Acute hypoxic respiratory failure Interval history: No major events overnight. Review of 24 hour telemetry reveals no further episodes of SVT since yesterday morning. She did have some runs of NSVT with longest being 6 beats. She continues to remain on the BIPAP. Today Mrs. Brown states that she is feeling better. she states that she is breathing easier. sHe denies any pain or discomfort. She denies any new aches or pains. Denies abdominal pain or discomfort at this time. She is currently on BIPAP. She denies any further complaints or concerns at this time. Objective Vital Signs, Last 4 Hours Temp Pulse Resp BP Pulse Ox 10/06/16 13:45 112 29 118/82 93 10/06/16 12:45 106 29 108/71 93 10/06/16 11:57 97.7 F 10/06/16 11:45 107 28 104/70 95 10/06/16 10:47 104 27 81/62 92 General: Conversant, No Apparent Distress HEENT: Atraumatic, Normocephaly, Mucus Membranes Moist Neck: No JVD, Normal carotid pulses Cardiac: Normal S1 and S2, No Murmur, Other (sinus tachycardia ) Lungs: Normal Breath Sounds, No Wheeze, Rales, Rhonchi, Other (effort of breathng is normal at this time. ) Neuro: Alert and responsive, No focal deficits noted Abdomen: Soft, Non-Tender Skin: No rashes noted on visualized skin Musculoskeletal: No Chest Wall Tenderness Extremities: No Clubbing, No Cyanosis, Normal Pulses, Other (mild pedal edema. improving. ) Results 10/06/16 04:59 10/06/16 04:59 Lab Results 10/06/16 10/06/16 10/06/16 04:59 04:59 04:59 WBC 19.3 H Hgb 10.2 L Hct 30.6 L Plt Count 421 H INR 1.3 APTT 28.5 Sodium 134 L Potassium 2.7 L Chloride 89 L Carbon Dioxide 39 H BUN 14 Creatinine 0.49 L Glucose 138 H Calcium 8.8 Magnesium 1.7 Total Bilirubin 0.5 AST 57 H ALT 78 H Alkaline Phosphatase 68 - VTE Documentation of Mechanical Device: Graduated compression elastic hosiery Consult Discharge Plan - Plan Referrals: Balbir Cole DO [Primary Care Provider] - (DR. COLE'S OFFICE WILL NOT MAKE A FOLLOW UP APPOINTMENT FOR US, THEY WANT THE PATIENT TO CALL AND MAKE THEIR OWN.) <Lorraine Vásquez - Last Filed: 10/06/16 16:53> Date of Encounter: 10/06/16 Assessment and Plan Discussion w patient/family: I examined this patient and my medical decision-making was reviewed with the Resident Physician. I agree with the documented findings, disposition and treatment plan. Ms. Brown has somewhat improved although clinically still guarded. No SVT overnight but a short run of NSVT. We recommend restarting low dose metoprolol , 12.5mg BID. No further recommendations at this time. Please call with questions. Objective Vital Signs, Last 4 Hours Pulse Resp BP Pulse Ox 10/06/16 16:40 115 30 116/77 94 10/06/16 15:45 111 29 108/66 93 10/06/16 14:45 108 28 105/59 93 10/06/16 13:45 112 29 118/82 93 Results 10/06/16 04:59 10/06/16 04:59 Lab Results 10/06/16 10/06/16 10/06/16 04:59 04:59 04:59 WBC 19.3 H Hgb 10.2 L Hct 30.6 L Plt Count 421 H INR 1.3 APTT 28.5 Sodium 134 L Potassium 2.7 L Chloride 89 L Carbon Dioxide 39 H BUN 14 Creatinine 0.49 L Glucose 138 H Calcium 8.8 Magnesium 1.7 Total Bilirubin 0.5 AST 57 H ALT 78 H Alkaline Phosphatase 68
--- NOTE | 2016-10-06 14:42 | General Surgery Progress Note ---
<Aidan Davis - Last Filed: 10/06/16 14:59> Date of Encounter: 10/06/16 Time of Encounter: 09:30 - Assessment and Plan (1) S/P colectomy Current Visit: Yes Status: Acute POD #9 s/p exploratory laparotomy with small bowel resection converted to ileocecectomy Continue supportive care Continue wound care Continue NPO due to aspiration concerns - speech therapy consulted, consider modified barium swallow Patient denies pain at this point (2) Leukocytosis Current Visit: Yes Status: Acute Trending down Last 19.3 < 23.6 < 31.0 Continue antibiotics Qualifiers: Leukocytosis type: unspecified Qualified Code(s): D72.829 - Elevated white blood cell count, unspecified (3) Respiratory distress Current Visit: Yes Status: Acute Improving Management per pulmonary (4) Unable to eat Current Visit: Yes Status: Acute continue TPN, currently at 30 ml/hr (5) Urinary retention Current Visit: Yes Status: Acute Continue oconnell to monitor I&Os (6) Physical deconditioning Current Visit: Yes Status: Chronic PT/OT when patient can tolerate (7) DVT prophylaxis Current Visit: Yes Status: Acute Continue lovenox Subjective Patient reports: no new complaints, pain is less, flatus, bowel movement, afebrile Objective Vital Signs - Last 8 Hours Temp Pulse Resp BP Pulse Ox 10/06/16 13:45 112 29 118/82 93 10/06/16 12:45 106 29 108/71 93 10/06/16 11:57 97.7 F 10/06/16 11:45 107 28 104/70 95 10/06/16 10:47 104 27 81/62 92 10/06/16 09:45 109 28 85/58 95 10/06/16 09:17 22 108/71 92 10/06/16 08:45 111 29 96/66 92 10/06/16 08:13 97.5 F L 10/06/16 07:45 108 30 98/69 95 Intake and Output 10/05/16 10/06/16 10/06/16 23:59 07:59 15:59 Intake Total 150 / 150 450 / 450 350 / 350 Output Total 1175 / 1175 350 / 350 1650 / 1650 Balance -1025 / -1025 100 / 100 -1300 / -1300 Intake: IV Fluids 150 / 150 450 / 450 350 / 350 Flexbumin 12.5 gm In 50 50 / 50 100 / 100 50 / 50 ml @ 60 mls/hr IVPB Q6H [facility] Rx#:[id number] Intralipid 20% 250 ML @ 250 / 250 21 mls/hr IVPB MoWeFr@ 1700 [facility] Rx#:[id number] Zosyn 3.375 GM In 100 / 100 100 / 100 Dextrose 5% (Minibag+) 100 ML 100 ML @ 25 mls/hr IVPB Q8HR [facility] Rx#: [id number] Potassium Chloride 20 mEq 300 / 300 /100 mL 20 meq In 100 ml @ 100 mls/hr IVPB Q1H PRN Rx#:[id number] Output: Stool 100 / 100 50 / 50 Catheter 1075 / 1075 300 / 300 1650 / 1650 Other: Stool Size Small Stool Consistency loose loose Stool Characteristics Mucoid Mucoid Stool Color Brown Brown Weight 44.588 kg 40.1 kg Blood Glucose* 129 158 144 Patient Weight 10/06/16 23:59 Weight 40.1 kg - General physical appearance well developed, no distress, cachectic, chronically ill - Eyes normal ocular movement - ENT atraumatic, normocephalic - Neck Neck exam: trachea midline - Respiratory other (increased respiratory effort) - Cardiovascular Cardiovascular exam: Present: tachycardia (mild, low 100s), regular rhythm - Abdomen Abdomen: Present: bowel sounds present, soft, non tender - Incision Incision: Present: clean and dry, intact - Labs 10/06/16 04:59 10/06/16 04:59 Diabetes panel 10/06/16 Range/Units 04:59 Sodium 134 L (136-145) mEq/L Potassium 2.7 L (3.5-4.5) mEq/L Chloride 89 L (98-109) mEq/L Carbon Dioxide 39 H (19-29) mEq/L BUN 14 (7-20) mg/dL Creatinine 0.49 L (0.57-1.11) mg/dL Glucose 138 H (70-99) mg/dL Calcium 8.8 (8.6-10.8) mg/dL AST 57 H (5-34) Units/L ALT 78 H (0-55) Units/L Alkaline Phosphatase 68 (38-126) Units/L Albumin 2.4 L D (3.5-5.0) g/dL Triglycerides 133 (< 150) mg/dL Calcium panel 10/06/16 Range/Units 04:59 Calcium 8.8 (8.6-10.8) mg/dL Phosphorus 1.9 L (2.3-4.7) mg/dL Albumin 2.4 L D (3.5-5.0) g/dL Pituitary panel 10/06/16 Range/Units 04:59 Sodium 134 L (136-145) mEq/L Potassium 2.7 L (3.5-4.5) mEq/L Chloride 89 L (98-109) mEq/L Carbon Dioxide 39 H (19-29) mEq/L BUN 14 (7-20) mg/dL Creatinine 0.49 L (0.57-1.11) mg/dL Glucose 138 H (70-99) mg/dL Calcium 8.8 (8.6-10.8) mg/dL Adrenal panel 10/06/16 Range/Units 04:59 Sodium 134 L (136-145) mEq/L Potassium 2.7 L (3.5-4.5) mEq/L Chloride 89 L (98-109) mEq/L Carbon Dioxide 39 H (19-29) mEq/L BUN 14 (7-20) mg/dL Creatinine 0.49 L (0.57-1.11) mg/dL Glucose 138 H (70-99) mg/dL Calcium 8.8 (8.6-10.8) mg/dL Total Bilirubin 0.5 (0.2-1.2) mg/dL AST 57 H (5-34) Units/L ALT 78 H (0-55) Units/L Alkaline Phosphatase 68 (38-126) Units/L Albumin 2.4 L D (3.5-5.0) g/dL - VTE Documentation of Mechanical Device: Graduated compression elastic hosiery Consult Discharge Plan - Plan Referrals: Balbir Cole DO [Primary Care Provider] - (DR. COLE'S OFFICE WILL NOT MAKE A FOLLOW UP APPOINTMENT FOR US, THEY WANT THE PATIENT TO CALL AND MAKE THEIR OWN.) <Sayda Benton - Last Filed: 10/06/16 18:54> Date of Encounter: 10/06/16 - Assessment and Plan (1) Urinary retention Current Visit: Yes Status: Acute (2) Physical deconditioning Current Visit: Yes Status: Chronic (3) Unable to eat Current Visit: Yes Status: Acute continue tpn (4) DVT prophylaxis Current Visit: Yes Status: Acute (5) S/P colectomy Current Visit: Yes Status: Acute agree with resident assessment, await input from speech (6) Respiratory distress Current Visit: Yes Status: Acute (7) SVT (supraventricular tachycardia) Current Visit: Yes Status: Acute management per cardiology (8) Leukocytosis Current Visit: Yes Status: Acute Qualifiers: Leukocytosis type: unspecified Qualified Code(s): D72.829 - Elevated white blood cell count, unspecified Subjective Patient reports: no new complaints, feels better, flatus, bowel movement, shortness of breath, afebrile Objective Vital Signs - Last 8 Hours Temp Pulse Resp BP Pulse Ox 10/06/16 17:40 110 32 123/82 93 10/06/16 17:13 97.5 F L 10/06/16 16:40 115 30 116/77 94 10/06/16 15:45 111 29 108/66 93 10/06/16 15:38 34 116/77 94 10/06/16 14:45 108 28 105/59 93 10/06/16 13:45 112 29 118/82 93 10/06/16 12:45 106 29 108/71 93 10/06/16 11:57 97.7 F 10/06/16 11:45 107 28 104/70 95 Intake and Output 10/06/16 10/06/16 10/06/16 07:59 15:59 23:59 Intake Total 450 / 450 1000 / 1000 720 / 720 Output Total 350 / 350 1650 / 1650 200 / 200 Balance 100 / 100 -650 / -650 520 / 520 Intake: IV Fluids 450 / 450 1000 / 1000 720 / 720 Clinimix E 5%-20% 720 / 720 SOLUTION 2,000 ML @ 30 mls/hr IVC .Q24H [facility] with [facility] Adult 10 ml Rx#: [id number] Flexbumin 12.5 gm In 50 100 / 100 50 / 50 ml @ 60 mls/hr IVPB Q6H [facility] Rx#:[id number] Calcium Gluconate 1,000 100 / 100 MG In Dextrose 5% 100 ML @ 50 mls/hr IVPB Q6HR PRN Rx#:[id number] Intralipid 20% 250 ML @ 250 / 250 21 mls/hr IVPB MoWeFr@ 1700 [facility] Rx#:[id number] Mycamine 100 MG In 0.9 % 100 / 100 Sodium Chloride (Mini-Bag +) 100 ML @ 100 mls/hr IVPB Q24H [facility] Rx#: [id number] Zosyn 3.375 GM In 100 / 100 100 / 100 Dextrose 5% (Minibag+) 100 ML 100 ML @ 25 mls/hr IVPB Q8HR [facility] Rx#: [id number] Potassium Chloride 20 mEq 400 / 400 /100 mL 20 meq In 100 ml @ 100 mls/hr IVPB Q1H PRN Rx#:[id number] Vancocin 750 MG In 250 / 250 Dextrose 5% 250 ML @ 250 mls/hr IVPB Q12H [facility] Rx#: [id number] Output: Stool 50 / 50 Catheter 300 / 300 1650 / 1650 200 / 200 Other: Stool Size Small Stool Consistency loose Stool Characteristics Mucoid Stool Color Brown Weight 44.588 kg 40.1 kg Blood Glucose* 158 110 Patient Weight 10/06/16 23:59 Weight 40.1 kg - General physical appearance no distress, cachectic, chronically ill - Eyes PERRL, normal ocular movement - ENT dry mucosa, atraumatic, normocephalic - Neck Neck exam: trachea midline - Respiratory normal expansion, clear to auscultation - Cardiovascular Cardiovascular exam: Present: tachycardia - Abdomen Abdomen: Present: bowel sounds present, soft, non tender - Incision Incision: Present: clean and dry, intact - Integumentary no growths - Neurologic CN 2-12 grossly intact - Musculoskeletal normal posture - Psychiatric oriented to time, oriented to person, memory intact - Labs 10/06/16 04:59 10/06/16 17:25 Diabetes panel 10/06/16 10/06/16 Range/Units 04:59 17:25 Sodium 134 L 134 L (136-145) mEq/L Potassium 2.7 L 3.2 L (3.5-4.5) mEq/L Chloride 89 L 87 L (98-109) mEq/L Carbon Dioxide 39 H 39 H (19-29) mEq/L BUN 14 11 (7-20) mg/dL Creatinine 0.49 L 0.45 L (0.57-1.11) mg/dL Glucose 138 H 115 H (70-99) mg/dL Calcium 8.8 8.6 (8.6-10.8) mg/dL AST 57 H (5-34) Units/L ALT 78 H (0-55) Units/L Alkaline Phosphatase 68 (38-126) Units/L Albumin 2.4 L D (3.5-5.0) g/dL Triglycerides 133 (< 150) mg/dL Calcium panel 10/06/16 10/06/16 Range/Units 04:59 17:25 Calcium 8.8 8.6 (8.6-10.8) mg/dL Phosphorus 1.9 L 4.0 D (2.3-4.7) mg/dL Albumin 2.4 L D (3.5-5.0) g/dL Pituitary panel 10/06/16 10/06/16 Range/Units 04:59 17:25 Sodium 134 L 134 L (136-145) mEq/L Potassium 2.7 L 3.2 L (3.5-4.5) mEq/L Chloride 89 L 87 L (98-109) mEq/L Carbon Dioxide 39 H 39 H (19-29) mEq/L BUN 14 11 (7-20) mg/dL Creatinine 0.49 L 0.45 L (0.57-1.11) mg/dL Glucose 138 H 115 H (70-99) mg/dL Calcium 8.8 8.6 (8.6-10.8) mg/dL Adrenal panel 10/06/16 10/06/16 Range/Units 04:59 17:25 Sodium 134 L 134 L (136-145) mEq/L Potassium 2.7 L 3.2 L (3.5-4.5) mEq/L Chloride 89 L 87 L (98-109) mEq/L Carbon Dioxide 39 H 39 H (19-29) mEq/L BUN 14 11 (7-20) mg/dL Creatinine 0.49 L 0.45 L (0.57-1.11) mg/dL Glucose 138 H 115 H (70-99) mg/dL Calcium 8.8 8.6 (8.6-10.8) mg/dL Total Bilirubin 0.5 (0.2-1.2) mg/dL AST 57 H (5-34) Units/L ALT 78 H (0-55) Units/L Alkaline Phosphatase 68 (38-126) Units/L Albumin 2.4 L D (3.5-5.0) g/dL - Attending Attestation I examined this patient and my medical decision-making was reviewed with the Resident Physician. I agree with the documented findings, disposition and treatment plan as described except to the extent set forth below.
--- NOTE | 2016-10-06 16:59 | Internal Med Progress Note ---
Date of Encounter: 10/06/16 Time of Encounter: 16:45 - Assessment and plan (1) Acute respiratory failure with hypoxia Current Visit: Yes Status: Acute Assessment and plan: Due to severe physical deconditioning, pleural effusions and PNA cont duoneb Cont BiPAP PRN cont clinimex strict I & O Strict NPO Broad spec abx Zosyn and Vancomycin + Micafungin WBC started trending down - today @19.3 (2) Pneumonia Current Visit: Yes Status: Acute Assessment and plan: Mostly aspirational - super infected with bacteria and yeast cont broad spec abx - Zosyn + Vanco and Micafungin Qualifiers: Pneumonia type: due to unspecified organism Laterality: bilateral Lung location: lower lobe of lung Qualified Code(s): J18.9 - Pneumonia, unspecified organism (3) Small bowel obstruction Current Visit: Yes Status: Resolved Assessment and plan: SBO likely secondary to adhesions - s/p ex-lap with small bowel resection converted to ileocectomy POD #9 IV Morphine PRN - cont broad spec abx Zosyn and Vanco + Micafungin C. Diff - negative (4) S/P exploratory laparotomy Current Visit: Yes Status: Acute (5) Leukocytosis Current Visit: Yes Status: Acute Assessment and plan: WBC started trending down CT of Abd / Pelvis showed Pneumonia and anasarca Cont broad spec abx + Micafungin Qualifiers: Leukocytosis type: unspecified Qualified Code(s): D72.829 - Elevated white blood cell count, unspecified (6) PAT (paroxysmal atrial tachycardia) Current Visit: Yes Status: Acute Assessment and plan: Due to Resp failure improving (7) COPD (chronic obstructive pulmonary disease) Current Visit: No Status: Chronic Assessment and plan: Cont BiPAP for now Qualifiers: COPD type: unspecified COPD Qualified Code(s): J44.9 - Chronic obstructive pulmonary disease, unspecified (8) Physical deconditioning Current Visit: Yes Status: Chronic Assessment and plan: . (9) Severe protein-calorie malnutrition Current Visit: Yes Status: Acute Assessment and plan: Cont clinimex now (10) DVT prophylaxis Current Visit: Yes Status: Acute Assessment and plan: Continue Lovenox - Subjective Interval history: This is a 75 y/o F with known h/o PSVT, COPD, who admitted here for small bowel obstruction and went for ex-lap with small bowel resection converted to ileocecotomy on 09/27/16. On 09/30/16 night pt went into SVT and Severe hypoxic respiratory failure so pt was transferred to PCU for close monitoring. Today pt is more alert, awake and O x3. Had BM this morning and passing gas ok. She denied any CP. NG tube was removed on 10/02/16, since then no nausea / vomiting. pt became more SOB / STAPLES and worsening respiratory condition. We gave Lasix x 2 doses. Still on NRB O2, with Spo2 in mid 90's. Pt is alert, awake and oriented x3, denied any CP. 10/05/16 - Pt was seen and examined in ICU. She is alert, awake and O x3. Denied any CP. Pt was doing well on high flow until now. She is currently on BiPAP. - Constitutional Vitals: Temp Pulse Resp BP Pulse Ox 97.7 F 115 30 116/77 94 10/06/16 11:57 10/06/16 16:40 10/06/16 16:40 10/06/16 16:40 10/06/16 16:40 General appearance: Present: cachectic, cooperative, A&O X 3, severe distress, answers questions appropriately - Head Head exam: Present: atraumatic, normal inspection - Respiratory Respiratory exam: Present: decreased breath sounds, rales, respiratory distress , wheezes. Absent: rhonchi - Cardiovascular Cardiovascular exam: Present: +S1, +S2, tachycardia - GI/Abdominal GI/Abdominal exam: Present: soft. Absent: distended, rebound, rigid - Extremities Exam Extremities exam: Present: pedal edema. Absent: calf tenderness, tenderness - Psychiatric Psychiatric exam: Present: anxious Internal Medicine: Result - Labs CBC & Chem 7: 10/06/16 04:59 10/06/16 04:59 Labs: Short CBC 10/06/16 Range/Units 04:59 WBC 19.3 H (4.3-11.1) K/mcL Hgb 10.2 L (11.5-15.4) g/dL Hct 30.6 L (35.3-44.9) % Plt Count 421 H (140-400) K/mcL Neutrophils # 17.4 H (1.6-8.9) K/mcL BMP 10/06/16 04:59 Sodium 134 L Potassium 2.7 L Chloride 89 L Carbon Dioxide 39 H BUN 14 Creatinine 0.49 L Glucose 138 H Calcium 8.8 Liver Function 10/06/16 Range/Units 04:59 Total Bilirubin 0.5 (0.2-1.2) mg/dL AST 57 H (5-34) Units/L ALT 78 H (0-55) Units/L Alkaline Phosphatase 68 (38-126) Units/L Albumin 2.4 L D (3.5-5.0) g/dL - ABG Interpretation ABG results: ABG ABG pH 7.47 pH Units (7.32-7.45) H 10/04/16 12:10 ABG pCO2 49 mmHg (35-45) H 10/04/16 12:10 ABG pO2 67 mmHg (85-104) L 10/04/16 12:10 ABG O2 Saturation 94 % (95-98) L 10/04/16 12:10 PT/INR, D-dimer PT 14.4 Seconds (9.4-12.1) H 10/06/16 04:59 - VTE Documentation of Mechanical Device: Intermittent pneumatic compression device Consult Discharge Plan - Plan Referrals: Balbir Aranda DO [Primary Care Provider] - (DR. ARANDA'S OFFICE WILL NOT MAKE A FOLLOW UP APPOINTMENT FOR US, THEY WANT THE PATIENT TO CALL AND MAKE THEIR OWN.)
[2016-10-06] MEDS ORDERED: Clinimix E 5%-20% SOLUTION 2,000 ML with MVI, adult with vitamin K 10 ML IVC SCH (17:00)
[2016-10-06 18:01] LABS: Ionized Calcium 1.06 mmol/L (1.15-1.35)
[2016-10-06 18:08] LABS: BUN/Creatinine Ratio 24 (6-26); Blood Urea Nitrogen 11 mg/dL (7-20); Calcium 8.6 mg/dL (8.6-10.8); Carbon Dioxide 39 mEq/L (19-29); Chloride 87 mEq/L (98-109); Glucose 115 mg/dL (70-99); Osmolality,Calculated 278 (280-300); Potassium 3.2 mEq/L (3.5-4.5); Sodium 134 mEq/L (136-145); eGFR For African Americans > 60 (> 60); eGFR For Non-African Americans > 60 (> 60)
[2016-10-06] MEDS: Melatonin 3 MG TABLET PO SCH (21:07)
[2016-10-06] MEDS: 0.9 % Sodium Chloride 1,000 ML IVC SCH ×2 (21:19→21:20)
[2016-10-07] MEDS: Insulin LISPRO 300 UNITS/3 ML VIAL SQ SCH ×4 (00:08→18:26)
[2016-10-07] MEDS: Piperacillin/Tazobactam 3.375 GM in D5% in Water (Mini-Bag+) 100 ML IVPB SCH ×3 (00:12→17:24)
[2016-10-07 03:41] LABS: Basophils % 0.2 %; Eosinophils # 0.1 K/mcL (0.0-0.6); Eosinophils % 0.8 %; Hematocrit 30.2 % (35.3-44.9); Hemoglobin 9.7 g/dL (11.5-15.4); Immature Granulocytes % 1.2 % (0-4); Lymphocytes # 0.4 K/mcL (0.6-4.6); Lymphocytes % 2.3 %; Mean Corpuscular HGB Conc 32.1 g/dL (31.6-35.5); Mean Corpuscular Hemoglobin 29.5 pg (28.0-33.3); Mean Corpuscular Volume 91.8 fL (83.0-100.0); Mean Platelet Volume 10.4 fL (9.4-12.4); Monocytes # 0.8 K/mcL (0.0-1.3); Monocytes % 4.5 %; Neutrophils # 15.6 K/mcL (1.6-8.9); Platelet Count 400 K/mcL (140-400); Red Blood Count 3.29 M/mcL (3.82-4.97); Red Cell Distribution Width 13.8 % (11.5-14.5)
[2016-10-07 03:47] LABS: Ionized Calcium 1.09 mmol/L (1.15-1.35)
[2016-10-07 03:53] LABS: INR 1.3; Prothrombin Time 13.7 Seconds (9.4-12.1)
[2016-10-07 03:54] LABS: Magnesium 1.7 mg/dL (1.6-2.6); Phosphorous 2.1 mg/dL (2.3-4.7)
[2016-10-07 03:56] LABS: Activated Partial Thrombo Time 28.2 Seconds (26.0-36.0); Alanine Aminotransferase 51 Units/L (0-55); Albumin 2.4 g/dL (3.5-5.0); Albumin/Globulin Ratio 0.8 (1.1-2.2); Alkaline Phosphatase 57 Units/L (38-126); Aspartate Amino Transferase 29 Units/L (5-34); BUN/Creatinine Ratio 23 (6-26); Bilirubin,Total 0.6 mg/dL (0.2-1.2); Blood Urea Nitrogen 10 mg/dL (7-20); Calcium 8.7 mg/dL (8.6-10.8); Carbon Dioxide 38 mEq/L (19-29); Chloride 89 mEq/L (98-109); Globulin 3.1 g/dL (2.4-3.5); Glucose 122 mg/dL (70-99); Osmolality,Calculated 274 (280-300); Potassium 3.7 mEq/L (3.5-4.5); Sodium 132 mEq/L (136-145); Total Protein 5.5 g/dL (6.0-8.3); eGFR For African Americans > 60 (> 60); eGFR For Non-African Americans > 60 (> 60)
[2016-10-07] MEDS: Ipratropium/Albuterol Neb 3 ML IH SCH ×4 (04:04→22:00)
[2016-10-07 05:13] LABS: Adenovirus Not Detected (Not Detect); Bordetella Pertussis Not Detected (Not Detect); Chlamydophila pneumoniae Not Detected (Not Detect); Coronavirus 229E Not Detected (Not Detect); Coronavirus HKU1 Not Detected (Not Detect); Coronavirus NL63 Not Detected (Not Detect); Coronavirus OC43 Not Detected (Not Detect); Human Metapneumovirus Not Detected (Not Detect); Human Rhinovirus/Enterovirus Not Detected (Not Detect); Influenza A Subtype 2009 H1 Not Detected (Not Detect); Influenza A Untypeable Not Detected (Not Detect); Influenza B Not Detected (Not Detect); Mycoplasma pneumoniae Not Detected (Not Detect); Parainfluenza Virus 1 Not Detected (Not Detect); Parainfluenza Virus 2 Not Detected (Not Detect); Parainfluenza Virus 3 Not Detected (Not Detect); Parainfluenza Virus 4 Not Detected (Not Detect); Respiratory Syncytial Virus Not Detected (Not Detect)
[2016-10-07] MEDS: *HR* Enoxaparin 30 MG/0.3 ML SYRINGE SQ SCH (05:25)
[2016-10-07] MEDS: Magnesium Sulfate 2 GM in D5% in Water 100 ML IVPB PRN (06:39)
[2016-10-07] MEDS ORDERED: Furosemide 40 MG/4 ML VIAL IVP ONE ×2 (07:08→10:19)
--- NOTE | 2016-10-07 07:24 | Pulmonology Progress Note ---
<Tim Qiu - Last Filed: 10/07/16 09:32> Date of Encounter: 10/07/16 Time of Encounter: 07:21 Assessment and Plan (1) Acute hypoxemic respiratory failure Current Visit: Yes Status: Acute She is no longer hypoxic on the BiPAP. We will attempt a weaning trial of the BiPAP. She did not tolerate this well last night, but I feel as if she is more positive on fluid intake due to her being on TPN, and that her volume overload may be contributing to her symptoms. Due to this patient's deconditioning, wasting, and kyphosis, it has been very difficult to wean her off the BiPAP. This point, I believe it is appropriate to step this patient's care down as she can be managed on BiPAP there. I spoken to Dr. Burns who has accepted the transfer of care to stepdown. (2) Pneumonia Current Visit: Yes Status: Acute Her leukocytosis has improved from yesterday. It is now 17.2. The current antimicrobial regimen that she is on seems to be appropriate for her management. We will continue Zosyn, vancomycin, micafungin. Qualifiers: Pneumonia type: due to unspecified organism Laterality: bilateral Lung location: lower lobe of lung Qualified Code(s): J18.9 - Pneumonia, unspecified organism (3) Volume overload Current Visit: Yes Status: Acute She has good diuresis with Lasix 40 every day up until this point. She has been on TPN the last few days and I believe this affected her fluid balance by her netting a positive amount. She has taken in 1172mL of fluid and has put out 722 mL of fluid. I have given her another 40 mg of Lasix. I will continue to pulse dose this throughout the day as much as her blood pressure tolerates it. (4) Severe protein-calorie malnutrition Current Visit: Yes Status: Acute Patient was restarted on 30 mL of TPN per hour. She is also getting a 250 mL infusion of lipids. The prognosis for this patient post hospital stay is very poor due to her severe muscle wasting and progressive weight loss over the past year. This was discussed with the family a few days ago and palliative care was consulted and is following her. (5) Paroxysmal atrial tachycardia Current Visit: Yes Status: Acute This patient had a few episodes of SVT last night with her rates going as high as 220 bpm. These episodes were short lived, and lasted approximately 20 seconds. They were aborted without the restorationism of valsalva maneuver. Her blood pressures have been more stable over the last couple days, and I have placed her on 2.5 mg Lopressor every 6 hours. We will continue monitoring her heart rate. (6) Small bowel obstruction Current Visit: Yes Status: Resolved This condition has improved since her surgery. Dr. Benton is following her for this and managing. (7) DVT prophylaxis Current Visit: Yes Status: Acute This patient is currently on 30 mg subcutaneous of enoxaparin. Subjective Principal diagnosis: Acute hypoxic respiratory failure Interval history: Patient was taken off BiPAP last night for a trial run, and did not tolerate this well. She desatted while on high flow oxygen at 15 L. Patient states that she is doing well but was real short of breath when they took the BiPAP off. She has no complaints at this time. Objective PUL Vital signs: Last Vital Signs Temp 97.0 F L 10/07/16 04:45 Pulse 111 10/07/16 06:00 Resp 34 10/07/16 06:00 BP 119/68 10/07/16 06:00 Pulse Ox 93 10/07/16 06:00 General appearance: no acute distress, alert, other (This patient is a cachectic 75-year-old female) Eyes: nonicteric ENT: oropharynx moist Effort: normal, other (On BiPAP) Auscultation: bilateral: rales Cardiovascular: other (Tachycardic but regular rhythm) Gastrointestinal: normoactive bowel sounds Integumentary: normal Extremities: no cyanosis, pink and warm, pulses normal, no ischemia or petechiae , other (No pitting edema) Musculoskeletal: other (Kyphotic thoracic spine) normal mental status, non-focal exam, pupils equal and round mood appropriate, affect normal Results - Laboratory Findings CBC and BMP: 10/07/16 03:26 10/07/16 03:26 ABG ABG pH 7.47 pH Units (7.32-7.45) H 10/04/16 12:10 ABG pCO2 49 mmHg (35-45) H 10/04/16 12:10 ABG pO2 67 mmHg (85-104) L 10/04/16 12:10 ABG O2 Saturation 94 % (95-98) L 10/04/16 12:10 PT/INR, D-dimer PT 13.7 Seconds (9.4-12.1) H 10/07/16 03:26 Abnormal lab findings: Abnormal lab results WBC 17.2 K/mcL (4.3-11.1) H 10/07/16 03:26 RBC 3.29 M/mcL (3.82-4.97) L 10/07/16 03:26 Hgb 9.7 g/dL (11.5-15.4) L 10/07/16 03:26 Hct 30.2 % (35.3-44.9) L 10/07/16 03:26 Myelocytes % 2.0 % (0) H 09/25/16 04:21 Neutrophils # 15.6 K/mcL (1.6-8.9) H 10/07/16 03:26 Lymphocytes # 0.4 K/mcL (0.6-4.6) L 10/07/16 03:26 Hypersegmented Neuts Present (Not Present) A 10/05/16 03:19 PT 13.7 Seconds (9.4-12.1) H 10/07/16 03:26 ABG pH 7.47 pH Units (7.32-7.45) H 10/04/16 12:10 ABG pCO2 49 mmHg (35-45) H 10/04/16 12:10 ABG pO2 67 mmHg (85-104) L 10/04/16 12:10 ABG HCO3 35.7 mEQ/L (21-27) H 10/04/16 12:10 ABG Total CO2 37.2 mEq/L (20-26) H 10/04/16 12:10 ABG O2 Saturation 94 % (95-98) L 10/04/16 12:10 ABG Base Excess 10.6 mEq/L (-2.0 to 3.0) H 10/04/16 12:10 Sodium 132 mEq/L (136-145) L 10/07/16 03:26 Chloride 89 mEq/L (98-109) L 10/07/16 03:26 Carbon Dioxide 38 mEq/L (19-29) H 10/07/16 03:26 Creatinine 0.43 mg/dL (0.57-1.11) L 10/07/16 03:26 Glucose 122 mg/dL (70-99) H 10/07/16 03:26 POC Glucose 117 (58-89) H 10/07/16 07:12 Calculated Osmolality 274 (280-300) L 10/07/16 03:26 Ionized Calcium 1.09 mmol/L (1.15-1.35) L 10/07/16 03:26 Phosphorus 2.1 mg/dL (2.3-4.7) L 10/07/16 03:26 Serum Total Protein 5.5 g/dL (6.0-8.3) L 10/07/16 03:26 Albumin 2.4 g/dL (3.5-5.0) L 10/07/16 03:26 Albumin/Globulin Ratio 0.8 (1.1-2.2) L 10/07/16 03:26 Prealbumin 5.0 mg/dL (16.0-38.0) L 10/06/16 04:59 Urine Microscopic RBC 5-15 per hpf (0-3) H 09/22/16 14:20 Ur Squamous Epith Cells Moderate per lpf (None-Few) H 09/22/16 14:20 Urine Mucus Many (Few) H 09/28/16 02:00 Urine Yeast Many per hpf (None Seen) H 09/28/16 02:00 - Microbiology Findings Microbiology Findings: Microbiology, Last 48 Hours 10/04/16 08:54 Blood Culture - Preliminary Peripheral Venipuncture No growth. 10/04/16 11:38 Blood Culture - Preliminary Peripheral Central Cath, Picc No growth. 10/04/16 11:38 Blood Culture - Preliminary Peripheral Central Cath, Picc No growth. 10/04/16 09:45 Urine Culture - Final Urine,Clean Catch No growth. - Clinical Findings Intake & Output: Intake & Output 10/06/16 10/06/16 10/07/16 15:59 23:59 07:59 Intake Total 1104 / 1104 1480 / 1480 1172 / 1172 Output Total 1650 / 1650 450 / 450 450 / 450 Balance -546 / -546 1030 / 1030 722 / 722 Weight 40.1 kg 44.1 kg - VTE Documentation of Mechanical Device: Intermittent pneumatic compression device Consult Discharge Plan - Plan Referrals: Balbir Cole DO [Primary Care Provider] - (DR. COLE'S OFFICE WILL NOT MAKE A FOLLOW UP APPOINTMENT FOR US, THEY WANT THE PATIENT TO CALL AND MAKE THEIR OWN.) <Ihsan aHmilton W - Last Filed: 10/07/16 10:24> Date of Encounter: 10/07/16 Assessment and Plan (1) Physical deconditioning Current Visit: Yes Status: Chronic (2) Unable to eat Current Visit: Yes Status: Acute (3) Hypotension Current Visit: Yes Status: Acute Qualifiers: Hypotension type: unspecified hypotension type Qualified Code(s): I95.9 - Hypotension, unspecified (4) SVT (supraventricular tachycardia) Current Visit: Yes Status: Acute (5) Severe protein-calorie malnutrition Current Visit: Yes Status: Acute (6) Acute hypoxemic respiratory failure Current Visit: Yes Status: Acute (7) Kyphosis Current Visit: No Status: Chronic Qualifiers: Spinal region: unspecified (8) Hypomagnesemia Current Visit: Yes Status: Acute (9) S/P colectomy Current Visit: Yes Status: Acute (10) Sepsis Current Visit: Yes Status: Acute (11) Pneumonia Current Visit: Yes Status: Acute Qualifiers: Pneumonia type: due to unspecified organism Laterality: bilateral Lung location: lower lobe of lung Qualified Code(s): J18.9 - Pneumonia, unspecified organism (12) Volume overload Current Visit: Yes Status: Acute (13) Counseling regarding advanced care planning and goals of care Current Visit: Yes Status: Acute Objective PUL Vital signs: Last Vital Signs Temp 97.0 F L 10/07/16 08:27 Pulse 107 10/07/16 08:00 Resp 33 10/07/16 08:00 BP 117/70 10/07/16 08:00 Pulse Ox 94 10/07/16 08:00 Results - Laboratory Findings CBC and BMP: 10/07/16 03:26 10/07/16 03:26 ABG ABG pH 7.47 pH Units (7.32-7.45) H 10/04/16 12:10 ABG pCO2 49 mmHg (35-45) H 10/04/16 12:10 ABG pO2 67 mmHg (85-104) L 10/04/16 12:10 ABG O2 Saturation 94 % (95-98) L 10/04/16 12:10 PT/INR, D-dimer PT 13.7 Seconds (9.4-12.1) H 10/07/16 03:26 Abnormal lab findings: Abnormal lab results WBC 17.2 K/mcL (4.3-11.1) H 10/07/16 03:26 RBC 3.29 M/mcL (3.82-4.97) L 10/07/16 03:26 Hgb 9.7 g/dL (11.5-15.4) L 10/07/16 03:26 Hct 30.2 % (35.3-44.9) L 10/07/16 03:26 Myelocytes % 2.0 % (0) H 09/25/16 04:21 Neutrophils # 15.6 K/mcL (1.6-8.9) H 10/07/16 03:26 Lymphocytes # 0.4 K/mcL (0.6-4.6) L 10/07/16 03:26 Hypersegmented Neuts Present (Not Present) A 10/05/16 03:19 PT 13.7 Seconds (9.4-12.1) H 10/07/16 03:26 ABG pH 7.47 pH Units (7.32-7.45) H 10/04/16 12:10 ABG pCO2 49 mmHg (35-45) H 10/04/16 12:10 ABG pO2 67 mmHg (85-104) L 10/04/16 12:10 ABG HCO3 35.7 mEQ/L (21-27) H 10/04/16 12:10 ABG Total CO2 37.2 mEq/L (20-26) H 10/04/16 12:10 ABG O2 Saturation 94 % (95-98) L 10/04/16 12:10 ABG Base Excess 10.6 mEq/L (-2.0 to 3.0) H 10/04/16 12:10 Sodium 132 mEq/L (136-145) L 10/07/16 03:26 Chloride 89 mEq/L (98-109) L 10/07/16 03:26 Carbon Dioxide 38 mEq/L (19-29) H 10/07/16 03:26 Creatinine 0.43 mg/dL (0.57-1.11) L 10/07/16 03:26 Glucose 122 mg/dL (70-99) H 10/07/16 03:26 POC Glucose 117 (58-89) H 10/07/16 07:12 Calculated Osmolality 274 (280-300) L 10/07/16 03:26 Ionized Calcium 1.09 mmol/L (1.15-1.35) L 10/07/16 03:26 Phosphorus 2.1 mg/dL (2.3-4.7) L 10/07/16 03:26 Serum Total Protein 5.5 g/dL (6.0-8.3) L 10/07/16 03:26 Albumin 2.4 g/dL (3.5-5.0) L 10/07/16 03:26 Albumin/Globulin Ratio 0.8 (1.1-2.2) L 10/07/16 03:26 Prealbumin 5.0 mg/dL (16.0-38.0) L 10/06/16 04:59 Urine Microscopic RBC 5-15 per hpf (0-3) H 09/22/16 14:20 Ur Squamous Epith Cells Moderate per lpf (None-Few) H 09/22/16 14:20 Urine Mucus Many (Few) H 09/28/16 02:00 Urine Yeast Many per hpf (None Seen) H 09/28/16 02:00 - Microbiology Findings Microbiology Findings: Microbiology, Last 48 Hours 10/04/16 08:54 Blood Culture - Preliminary Peripheral Venipuncture No growth. 10/04/16 11:38 Blood Culture - Preliminary Peripheral Central Cath, Picc No growth. 10/04/16 11:38 Blood Culture - Preliminary Peripheral Central Cath, Picc No growth. 10/04/16 09:45 Urine Culture - Final Urine,Clean Catch No growth. - Clinical Findings Intake & Output: Intake & Output 10/06/16 10/07/16 10/07/16 23:59 07:59 15:59 Intake Total 1480 / 1480 1172 / 1172 Output Total 450 / 450 450 / 450 125 / 125 Balance 1030 / 1030 722 / 722 -125 / -125 Weight 44.1 kg - Attending Attestation I examined this patient and my medical decision-making was reviewed with the Resident Physician. I agree with the documented findings, disposition and treatment plan as described except to the extent set forth below. Patient seen and examined at bedside Labs, radiology, chart personally reviewed. Management was reviewed during multidisciplinary critical care rounds. Neuropsych: The patient is awake and follows commands Pulm: Hypoxic Respiratory failure s/t to Cardiogenic and Non Cardiogenic Pulmonary edema (mediated by PNA); Cont BiPAP as needed Cards: Sinus tachycardia no further SVT BB started per Cardiology. Cont diuresis for pulmonary edema FEN-GI: Galt thick diet (fluids only per Surgery) s/p exploratory laparoscopy small bowel resection converted to ileocectomy small bowel obstruction. General surgery is following. Nutrition Following. Cont TPN today Renal: No evidence of acute kidney injury continue to monitor electrolytes while actively diuresing and replace per protocol ID: Evidence of sepsis likely s/t HAP deescalate ABx Heme/Onc: DVT prophylaxis given hemoglobin and platelets are stable Endo: Glucose monitored Integ/MSK: Skin care per routine ICU protocol to prevent ulcers Lines: All lines examined without evidence of infection including right PICC and Benito Urinary catheter CODE: DNAR/DNI Prognosis remains poor but overall stable transfer to Step Down Unit for ongoing care
[2016-10-07] MEDS: Calcium Gluconate 1,000 MG in D5% in Water 100 ML IVPB PRN (08:00)
[2016-10-07] MEDS: Pantoprazole 40 MG VIAL IVP SCH (08:21)
--- NOTE | 2016-10-07 09:28 | General Surgery Progress Note ---
<LakiaJoaquín - Last Filed: 10/07/16 11:38> Date of Encounter: 10/07/16 Time of Encounter: 09:10 - Assessment and Plan (1) S/P colectomy Current Visit: Yes Status: Acute POD# 10 exploratory laparotomy with small bowel resection converted to ileocecectomy Patient is malnourished and has risk of aspiration Continue NPO Continue supportive care and wound care (2) SVT (supraventricular tachycardia) Current Visit: Yes Status: Acute most likely secondary to respiratory failure and pneumonia DNR/ DNI status Currently stable Lopressor as needed (3) Unable to eat Current Visit: Yes Status: Acute Per speech therapy consult, patient is on Bipap and inappropriate for swallow therapy at this time Continue NPO and TPN (4) Pneumonia Current Visit: Yes Status: Acute Patient is improving WBC downtrending and currently at 17.2 Continue antibiotics Qualifiers: Pneumonia type: due to unspecified organism Laterality: bilateral Lung location: lower lobe of lung Qualified Code(s): J18.9 - Pneumonia, unspecified organism (5) Respiratory distress Current Visit: Yes Status: Acute Patient did not tolerate BIPAP weaning last night. Continue BIPAP for now (6) DVT prophylaxis Current Visit: Yes Status: Acute Lovenox 30 mg daily Subjective Patient reports: no new complaints, voiding w/o difficulty (via catheter), flatus, bowel movement (last night), afebrile Objective Vital Signs - Last 8 Hours Temp Pulse Resp BP Pulse Ox 10/07/16 08:27 97.0 F L 10/07/16 08:00 107 33 117/70 94 10/07/16 07:00 107 32 121/69 94 10/07/16 06:00 111 34 119/68 93 10/07/16 04:57 109 30 108/61 94 10/07/16 04:45 97.0 F L 10/07/16 04:04 32 125/71 91 10/07/16 03:49 107 32 125/80 91 10/07/16 02:54 105 34 104/80 93 10/07/16 02:00 111 30 119/73 92 Intake and Output 10/06/16 10/07/16 10/07/16 23:59 07:59 15:59 Intake Total 1480 / 1480 1172 / 1172 Output Total 450 / 450 450 / 450 125 / 125 Balance 1030 / 1030 722 / 722 -125 / -125 Intake: IV Fluids 1480 / 1480 1172 / 1172 Clinimix E 5%-20% 720 / 720 1072 / 1072 SOLUTION 2,000 ML @ 30 mls/hr IVC .Q24H [facility] with M.v.i. Adult 10 ml Rx#: [id number] Calcium Gluconate 1,000 210 / 210 MG In Dextrose 5% 100 ML @ 50 mls/hr IVPB Q6HR PRN Rx#:[id number] Zosyn 3.375 GM In 100 / 100 100 / 100 Dextrose 5% (Minibag+) 100 ML 100 ML @ 25 mls/hr IVPB Q8HR [facility] Rx#: [id number] Potassium Chloride 20 mEq 200 / 200 /100 mL 20 meq In 100 ml @ 100 mls/hr IVPB Q1H PRN Rx#:[id number] Vancocin 750 MG In 250 / 250 Dextrose 5% 250 ML @ 250 mls/hr IVPB Q12H [facility] Rx#: [id number] Oral 0 / 0 0 / 0 Output: Catheter 450 / 450 450 / 450 125 / 125 Other: Stool Size Small Small Stool Consistency liquid liquid Stool Color Brown Brown Yellow Weight 44.1 kg Blood Glucose* 117 117 Patient Weight 10/07/16 23:59 Weight 44.1 kg - General physical appearance no distress, cachectic, chronically ill - Eyes normal ocular movement - ENT atraumatic, normocephalic - Neck Neck exam: trachea midline - Respiratory other (increased expiratory effort ) - Cardiovascular Cardiovascular exam: Present: tachycardia, regular rhythm, distant heart sounds - Abdomen Abdomen: Present: bowel sounds present, soft, non tender - Incision Incision: Present: clean and dry, intact - Labs 10/07/16 03:26 10/07/16 03:26 Diabetes panel 10/06/16 10/07/16 Range/Units 17:25 03:26 Sodium 134 L 132 L (136-145) mEq/L Potassium 3.2 L 3.7 (3.5-4.5) mEq/L Chloride 87 L 89 L (98-109) mEq/L Carbon Dioxide 39 H 38 H (19-29) mEq/L BUN 11 10 (7-20) mg/dL Creatinine 0.45 L 0.43 L (0.57-1.11) mg/dL Glucose 115 H 122 H (70-99) mg/dL Calcium 8.6 8.7 (8.6-10.8) mg/dL AST 29 (5-34) Units/L ALT 51 (0-55) Units/L Alkaline Phosphatase 57 (38-126) Units/L Albumin 2.4 L (3.5-5.0) g/dL Calcium panel 10/06/16 10/07/16 10/07/16 Range/Units 17:25 03:26 03:26 Calcium 8.6 8.7 (8.6-10.8) mg/dL Phosphorus 4.0 D 2.1 L (2.3-4.7) mg/dL Albumin 2.4 L (3.5-5.0) g/dL Pituitary panel 10/06/16 10/07/16 Range/Units 17:25 03:26 Sodium 134 L 132 L (136-145) mEq/L Potassium 3.2 L 3.7 (3.5-4.5) mEq/L Chloride 87 L 89 L (98-109) mEq/L Carbon Dioxide 39 H 38 H (19-29) mEq/L BUN 11 10 (7-20) mg/dL Creatinine 0.45 L 0.43 L (0.57-1.11) mg/dL Glucose 115 H 122 H (70-99) mg/dL Calcium 8.6 8.7 (8.6-10.8) mg/dL Adrenal panel 10/06/16 10/07/16 Range/Units 17:25 03:26 Sodium 134 L 132 L (136-145) mEq/L Potassium 3.2 L 3.7 (3.5-4.5) mEq/L Chloride 87 L 89 L (98-109) mEq/L Carbon Dioxide 39 H 38 H (19-29) mEq/L BUN 11 10 (7-20) mg/dL Creatinine 0.45 L 0.43 L (0.57-1.11) mg/dL Glucose 115 H 122 H (70-99) mg/dL Calcium 8.6 8.7 (8.6-10.8) mg/dL Total Bilirubin 0.6 (0.2-1.2) mg/dL AST 29 (5-34) Units/L ALT 51 (0-55) Units/L Alkaline Phosphatase 57 (38-126) Units/L Albumin 2.4 L (3.5-5.0) g/dL - VTE Documentation of Mechanical Device: Intermittent pneumatic compression device Consult Discharge Plan - Plan Referrals: Balbir Aranda, [Primary Care Provider] - (DR. ARANDA'S OFFICE WILL NOT MAKE A FOLLOW UP APPOINTMENT FOR US, THEY WANT THE PATIENT TO CALL AND MAKE THEIR OWN.) <Sayda Benton - Last Filed: 10/07/16 16:26> Date of Encounter: 10/07/16 - Assessment and Plan (1) Urinary retention Current Visit: Yes Status: Acute patients still recieving diuresis, dc oconnell when appropriate (2) Physical deconditioning Current Visit: Yes Status: Chronic continue PT/OT as able (3) Unable to eat Current Visit: Yes Status: Acute resident comments inaccurate per speech: nectar thick liquid; mechanically altered textures; spoon feed liquids; assistance with feeds proceed when off bipap (4) DVT prophylaxis Current Visit: Yes Status: Acute (5) S/P colectomy Current Visit: Yes Status: Acute feed when off bipap prn pain control ambrose can be removed middle of next week PT/OT as able gi/dvt prophylaxis (6) Respiratory distress Current Visit: Yes Status: Acute (7) SVT (supraventricular tachycardia) Current Visit: Yes Status: Acute (8) Leukocytosis Current Visit: Yes Status: Acute continues to decrease daily, continue abx - zosyn Qualifiers: Leukocytosis type: unspecified Qualified Code(s): D72.829 - Elevated white blood cell count, unspecified Subjective Patient reports: no new complaints, feels better, voiding w/o difficulty, flatus , bowel movement, shortness of breath, afebrile Objective Vital Signs - Last 8 Hours Temp Pulse Resp BP Pulse Ox 10/07/16 16:19 36 94 10/07/16 15:48 114 36 110/76 94 10/07/16 14:00 112 32 99/66 92 10/07/16 12:00 112 32 90/63 94 10/07/16 10:35 32 94 10/07/16 10:00 108 32 97/61 94 10/07/16 08:27 97.0 F L Intake and Output 10/07/16 10/07/16 10/07/16 07:59 15:59 23:59 Intake Total 1172 / 1172 524 / 524 Output Total 450 / 450 1325 / 1325 Balance 722 / 722 -801 / -801 Intake: IV Fluids 1172 / 1172 524 / 524 Clinimix E 5%-20% 1072 / 1072 SOLUTION 2,000 ML @ 30 mls/hr IVC .Q24H [facility] with M.v.i. Adult 10 ml Rx#: [id number] Calcium Gluconate 1,000 110 / 110 MG In Dextrose 5% 100 ML @ 50 mls/hr IVPB Q6HR PRN Rx#:[id number] Magnesium Sulfate 2 GM In 104 / 104 Dextrose 5% 100 ML @ 50 mls/hr IVPB Q6H PRN Rx#: [id number] Zosyn 3.375 GM In 100 / 100 100 / 100 Dextrose 5% (Minibag+) 100 ML 100 ML @ 25 mls/hr IVPB Q8HR [facility] Rx#: [id number] Potassium Chloride 20 mEq 100 / 100 /100 mL 20 meq In 100 ml @ 100 mls/hr IVPB Q1H PRN Rx#:[id number] Sodium Phosphate 30 MMOL 110 / 110 In Dextrose 5% 100 ML @ 16 mls/hr IVPB Q12H PRN Rx#:[id number] Oral 0 / 0 Output: Catheter 450 / 450 1325 / 1325 Other: Stool Size Small Small Stool Consistency liquid liquid Stool Color Brown Brown Yellow Weight 44.1 kg Blood Glucose* 117 144 Patient Weight 10/07/16 23:59 Weight 44.1 kg - General physical appearance cachectic, chronically ill - Eyes PERRL, normal ocular movement - ENT dry mucosa, atraumatic, normocephalic - Neck Neck exam: trachea midline - Respiratory normal expansion, clear to auscultation, other (on BIPAP) - Cardiovascular Cardiovascular exam: Present: tachycardia - Abdomen Abdomen: Present: bowel sounds present, soft, non tender - Incision Incision: Present: clean and dry, intact - Integumentary no growths - Neurologic CN 2-12 grossly intact - Musculoskeletal other (kyphosis) - Psychiatric oriented to time, oriented to person, oriented to place, memory intact - Labs 10/07/16 03:26 10/07/16 03:26 Diabetes panel 10/06/16 10/07/16 Range/Units 17:25 03:26 Sodium 134 L 132 L (136-145) mEq/L Potassium 3.2 L 3.7 (3.5-4.5) mEq/L Chloride 87 L 89 L (98-109) mEq/L Carbon Dioxide 39 H 38 H (19-29) mEq/L BUN 11 10 (7-20) mg/dL Creatinine 0.45 L 0.43 L (0.57-1.11) mg/dL Glucose 115 H 122 H (70-99) mg/dL Calcium 8.6 8.7 (8.6-10.8) mg/dL AST 29 (5-34) Units/L ALT 51 (0-55) Units/L Alkaline Phosphatase 57 (38-126) Units/L Albumin 2.4 L (3.5-5.0) g/dL Calcium panel 10/06/16 10/07/16 10/07/16 Range/Units 17:25 03:26 03:26 Calcium 8.6 8.7 (8.6-10.8) mg/dL Phosphorus 4.0 D 2.1 L (2.3-4.7) mg/dL Albumin 2.4 L (3.5-5.0) g/dL Pituitary panel 10/06/16 10/07/16 Range/Units 17:25 03:26 Sodium 134 L 132 L (136-145) mEq/L Potassium 3.2 L 3.7 (3.5-4.5) mEq/L Chloride 87 L 89 L (98-109) mEq/L Carbon Dioxide 39 H 38 H (19-29) mEq/L BUN 11 10 (7-20) mg/dL Creatinine 0.45 L 0.43 L (0.57-1.11) mg/dL Glucose 115 H 122 H (70-99) mg/dL Calcium 8.6 8.7 (8.6-10.8) mg/dL Adrenal panel 10/06/16 10/07/16 Range/Units 17:25 03:26 Sodium 134 L 132 L (136-145) mEq/L Potassium 3.2 L 3.7 (3.5-4.5) mEq/L Chloride 87 L 89 L (98-109) mEq/L Carbon Dioxide 39 H 38 H (19-29) mEq/L BUN 11 10 (7-20) mg/dL Creatinine 0.45 L 0.43 L (0.57-1.11) mg/dL Glucose 115 H 122 H (70-99) mg/dL Calcium 8.6 8.7 (8.6-10.8) mg/dL Total Bilirubin 0.6 (0.2-1.2) mg/dL AST 29 (5-34) Units/L ALT 51 (0-55) Units/L Alkaline Phosphatase 57 (38-126) Units/L Albumin 2.4 L (3.5-5.0) g/dL - Attending Attestation I examined this patient and my medical decision-making was reviewed with the Resident Physician. I agree with the documented findings, disposition and treatment plan as described except to the extent set forth below.
[2016-10-07] MEDS ORDERED: *HR* Metoprolol 5 MG/5 ML VIAL IVP SCH (12:00)
[2016-10-07] MEDS ORDERED: Naloxone 0.4 MG/ML INJ IVP PRN (12:46)
[2016-10-07] MEDS ORDERED: Clinimix E 5%-20% SOLUTION 2,000 ML with MVI, adult with vitamin K 10 ML IVC SCH ×3 (12:46→17:00)
[2016-10-07] MEDS ORDERED: D5% in Water 1,000 ML IVC PRN (12:46)
[2016-10-07] MEDS ORDERED: Dextrose Gel 15 GM PO PRN ×2 (12:46)
[2016-10-07] MEDS ORDERED: *HR* Dextrose 50 % in Water (Syg) 50 ML SYRINGE IVP PRN (12:46)
[2016-10-07] MEDS ORDERED: Sodium Phosphate 30 MMOL in D5% in Water 100 ML IVPB PRN (12:46)
[2016-10-07] MEDS ORDERED: Calcium Gluconate 1,000 MG in D5% in Water 100 ML IVPB PRN (12:46)
[2016-10-07] MEDS ORDERED: D10% in Water 500 ML IVC PRN (12:46)
[2016-10-07] MEDS ORDERED: Albuterol 2.5 MG/3 ML NEBULIZER IH PRN (12:46)
[2016-10-07] MEDS ORDERED: *HR* LORazepam 0.5 MG TABLET PO PRN (12:46)
[2016-10-07] MEDS ORDERED: Magnesium Sulfate 2 GM in D5% in Water 100 ML IVPB PRN (12:46)
[2016-10-07] MEDS ORDERED: Ondansetron 4 MG/2 ML VIAL IVP PRN (12:46)
--- NOTE | 2016-10-07 15:49 | Event Note ---
Date of Encounter: 10/07/16 Time of Encounter: 15:40 Patient remains on bipap - hypoxia when taken off for just a few minutes last night. Still c/o shortness of breath at this time with bipap. Continues on diuretics. TPN remains at 30ml/hr. D/W daughter AMBAR Beard. Kisha stated that her mother again stated she did not want any type of feeding tube. Depending on her clinical status over the , will tentatively plan to meet with pt/ family on Monday to review clinical course.
[2016-10-07] MEDS: *HR* Metoprolol 5 MG/5 ML VIAL IVP SCH (17:23)
[2016-10-07 18:08] LABS: BUN/Creatinine Ratio 25 (6-26); Blood Urea Nitrogen 11 mg/dL (7-20); Calcium 8.4 mg/dL (8.6-10.8); Chloride 83 mEq/L (98-109); Glucose 106 mg/dL (70-99); Magnesium 1.8 mg/dL (1.6-2.6); Osmolality,Calculated 274 (280-300); Potassium 3.4 mEq/L (3.5-4.5); Sodium 132 mEq/L (136-145); eGFR For African Americans > 60 (> 60); eGFR For Non-African Americans > 60 (> 60)
[2016-10-07 18:12] LABS: Carbon Dioxide 43 mEq/L (19-29)
--- NOTE | 2016-10-07 18:22 | Internal Med Progress Note ---
Date of Encounter: 10/07/16 Time of Encounter: 18:20 - Assessment and plan (1) Acute respiratory failure with hypoxia Current Visit: Yes Status: Acute Assessment and plan: Due to severe physical deconditioning, pleural effusions and PNA cont duoneb Cont BiPAP PRN cont clinimex strict I & O Strict NPO Broad spec abx Zosyn and Vancomycin + Micafungin WBC started trending down - today @17 (2) Pneumonia Current Visit: Yes Status: Acute Assessment and plan: Mostly aspirational - super infected with bacteria and yeast cont broad spec abx - Zosyn + Vanco and Micafungin Qualifiers: Pneumonia type: due to unspecified organism Laterality: bilateral Lung location: lower lobe of lung Qualified Code(s): J18.9 - Pneumonia, unspecified organism (3) Small bowel obstruction Current Visit: Yes Status: Resolved Assessment and plan: SBO likely secondary to adhesions - s/p ex-lap with small bowel resection converted to ileocectomy POD #9 IV Morphine PRN - cont broad spec abx Zosyn and Vanco + Micafungin C. Diff - negative (4) Severe protein-calorie malnutrition Current Visit: Yes Status: Acute Assessment and plan: Pt does not want to go on tube feedings cont clinimex for now (5) S/P exploratory laparotomy Current Visit: Yes Status: Acute (6) Leukocytosis Current Visit: Yes Status: Acute Assessment and plan: WBC started trending down CT of Abd / Pelvis showed Pneumonia and anasarca Cont broad spec abx + Micafungin Qualifiers: Leukocytosis type: unspecified Qualified Code(s): D72.829 - Elevated white blood cell count, unspecified (7) PAT (paroxysmal atrial tachycardia) Current Visit: Yes Status: Acute Assessment and plan: Due to Resp failure improving (8) COPD (chronic obstructive pulmonary disease) Current Visit: No Status: Chronic Assessment and plan: Cont BiPAP for now Qualifiers: COPD type: unspecified COPD Qualified Code(s): J44.9 - Chronic obstructive pulmonary disease, unspecified (9) Physical deconditioning Current Visit: Yes Status: Chronic Assessment and plan: . (10) DVT prophylaxis Current Visit: Yes Status: Acute Assessment and plan: Continue Lovenox - Subjective Interval history: This is a 75 y/o F with known h/o PSVT, COPD, who admitted here for small bowel obstruction and went for ex-lap with small bowel resection converted to ileocecotomy on 09/27/16. On 09/30/16 night pt went into SVT and Severe hypoxic respiratory failure so pt was transferred to PCU for close monitoring. Today pt is more alert, awake and O x3. Had BM this morning and passing gas ok. She denied any CP. NG tube was removed on 10/02/16, since then no nausea / vomiting. pt became more SOB / STAPLES and worsening respiratory condition. We gave Lasix x 2 doses. Still on NRB O2, with Spo2 in mid 90's. Pt is alert, awake and oriented x3, denied any CP. 10/07/16 - Pt was seen and examined in ICU. She is alert, awake and O x3. Denied any CP. She is on BiPAP since last night. - Constitutional Vitals: Temp Pulse Resp BP Pulse Ox 97.3 F L 114 36 110/76 94 10/07/16 16:00 10/07/16 15:48 10/07/16 16:19 10/07/16 15:48 10/07/16 16:19 General appearance: Present: cachectic, cooperative, A&O X 3, severe distress, answers questions appropriately - Head Head exam: Present: atraumatic, normal inspection - Respiratory Respiratory exam: Present: decreased breath sounds, rales, respiratory distress , wheezes. Absent: rhonchi - Cardiovascular Cardiovascular exam: Present: +S1, +S2, tachycardia - GI/Abdominal GI/Abdominal exam: Present: soft. Absent: distended, rebound, rigid, tenderness - Extremities Exam Extremities exam: Present: pedal edema. Absent: calf tenderness, tenderness - Neurological Exam Neurological exam: Present: alert, oriented X3 Internal Medicine: Result - Labs CBC & Chem 7: 10/07/16 03:26 10/07/16 17:39 Labs: Short CBC 10/07/16 Range/Units 03:26 WBC 17.2 H (4.3-11.1) K/mcL Hgb 9.7 L (11.5-15.4) g/dL Hct 30.2 L (35.3-44.9) % Plt Count 400 (140-400) K/mcL Neutrophils # 15.6 H (1.6-8.9) K/mcL BMP 10/07/16 10/07/16 03:26 17:39 Sodium 132 L 132 L Potassium 3.7 3.4 L Chloride 89 L 83 L Carbon Dioxide 38 H 43 H* BUN 10 11 Creatinine 0.43 L 0.44 L Glucose 122 H 106 H Calcium 8.7 8.4 L Liver Function 10/07/16 Range/Units 03:26 Total Bilirubin 0.6 (0.2-1.2) mg/dL AST 29 (5-34) Units/L ALT 51 (0-55) Units/L Alkaline Phosphatase 57 (38-126) Units/L Albumin 2.4 L (3.5-5.0) g/dL Urine 09/28/16 Range/Units 02:00 Urine Color Yellow (Yellow) Urine Clarity Turbid A (Clear) Urine pH 6.0 (5.0-8.0) pH Units Ur Specific [place] > 1.030 H (1.010-1.025) Urine Protein Trace (Neg-Trace) mg/dL Urine Glucose (UA) Normal (Normal) mg/dL - ABG Interpretation ABG results: ABG ABG pH 7.47 pH Units (7.32-7.45) H 10/04/16 12:10 ABG pCO2 49 mmHg (35-45) H 10/04/16 12:10 ABG pO2 67 mmHg (85-104) L 10/04/16 12:10 ABG O2 Saturation 94 % (95-98) L 10/04/16 12:10 PT/INR, D-dimer PT 13.7 Seconds (9.4-12.1) H 10/07/16 03:26 - VTE Documentation of Mechanical Device: Intermittent pneumatic compression device Consult Discharge Plan - Plan Referrals: Balbir Aranda DO [Primary Care Provider] - (DR. ARANDA'S OFFICE WILL NOT MAKE A FOLLOW UP APPOINTMENT FOR US, THEY WANT THE PATIENT TO CALL AND MAKE THEIR OWN.)
[2016-10-07] MEDS ORDERED: Melatonin 3 MG TABLET PO SCH (21:00)
[2016-10-07] MEDS: *HR* Morphine 2 MG/ML SYRINGE IVP PRN (21:59)
[2016-10-08] MEDS: *HR* Metoprolol 5 MG/5 ML VIAL IVP SCH ×3 (00:43→12:07)
[2016-10-08] MEDS: Piperacillin/Tazobactam 3.375 GM in D5% in Water (Mini-Bag+) 100 ML IVPB SCH ×2 (00:43→08:20)
[2016-10-08] MEDS: Insulin LISPRO 300 UNITS/3 ML VIAL SQ SCH ×3 (00:44→12:07)
[2016-10-08] MEDS ORDERED: *HR* LORazepam 2 MG/ML VIAL IVP ONE (00:54)
[2016-10-08] MEDS ORDERED: *HR* LORazepam 2 MG/ML VIAL ONE (01:01)
[2016-10-08] MEDS: Ipratropium/Albuterol Neb 3 ML IH SCH ×3 (03:14→15:35)
[2016-10-08 04:31] LABS: ABG Base Excess 21.6 mEq/L (-2.0 to 3.0); ABG HCO3 50.8 mEQ/L (21-27); ABG Oxygen Saturation 95 % (95-98); ABG PH 7.39 pH Units (7.32-7.45); ABG PO2 76 mmHg (85-104); ABG TCO2 53.4 mEq/L (20-26)
[2016-10-08 04:32] LABS: Blood Gas FiO2 70 %
[2016-10-08 04:33] LABS: ABG PCO2 84 mmHg (35-45)
[2016-10-08 04:40] LABS: Basophils % 0.2 %; Eosinophils # 0.2 K/mcL (0.0-0.6); Hematocrit 30.2 % (35.3-44.9); Hemoglobin 9.8 g/dL (11.5-15.4); Immature Granulocytes % 1.9 % (0-4); Lymphocytes # 0.6 K/mcL (0.6-4.6); Lymphocytes % 3.4 %; Mean Corpuscular HGB Conc 32.5 g/dL (31.6-35.5); Mean Corpuscular Hemoglobin 30.2 pg (28.0-33.3); Mean Corpuscular Volume 92.9 fL (83.0-100.0); Mean Platelet Volume 10.4 fL (9.4-12.4); Neutrophils # 16.9 K/mcL (1.6-8.9); Platelet Count 406 K/mcL (140-400); Red Blood Count 3.25 M/mcL (3.82-4.97); Red Cell Distribution Width 13.6 % (11.5-14.5); Segmented Neutrophils % 88.5 %
[2016-10-08 04:49] LABS: Ionized Calcium 0.99 mmol/L (1.15-1.35)
[2016-10-08 04:57] LABS: Alanine Aminotransferase 41 Units/L (0-55); Albumin 2.1 g/dL (3.5-5.0); Albumin/Globulin Ratio 0.7 (1.1-2.2); Alkaline Phosphatase 52 Units/L (38-126); Aspartate Amino Transferase 26 Units/L (5-34); BUN/Creatinine Ratio 30 (6-26); Bilirubin,Total 0.3 mg/dL (0.2-1.2); Blood Urea Nitrogen 13 mg/dL (7-20); Calcium 8.4 mg/dL (8.6-10.8); Chloride 85 mEq/L (98-109); Globulin 3.2 g/dL (2.4-3.5); Glucose 144 mg/dL (70-99); Magnesium 2.3 mg/dL (1.6-2.6); Osmolality,Calculated 273 (280-300); Phosphorous 2.7 mg/dL (2.3-4.7); Potassium 4.1 mEq/L (3.5-4.5); Sodium 130 mEq/L (136-145); Total Protein 5.3 g/dL (6.0-8.3); eGFR For African Americans > 60 (> 60); eGFR For Non-African Americans > 60 (> 60)
[2016-10-08 05:02] LABS: Carbon Dioxide 40 mEq/L (19-29)
--- NOTE | 2016-10-08 05:16 | Event Note ---
Date of Encounter: 10/08/16 Time of Encounter: 05:09 Around 4:00AM i was paged about patient becoming hypotensive and unresponsive. I went to examine patient. At 1:00AM patient was given ativan 0.5mg IV once for anxiety. (Patient is has order for PO ativan PRN but is NPO). After ativan administration patient went to sleep according to nurse. Patients BP was in high 80s systolic with map 66. She is BiPAP with rate at 26/ min. HR 106. Not responsive to sternal rub. ABG drawn shows respiratory acidosis with metabolic compensation: pCO2 86. Last ABG was 4 days ago with pCO2 46. Due to concern of over sedation patient given flumazanil 0.2mg and there after 0.5mg flumazanil. There was no change in mental status. Patient initially admitted for SBO s/p exp lap complicated by postop aspiration pneumonia and has been in ICU for acute respiratory failure. She is DNRCCADNI. Family notified of patients acute change in mental status and also of her unstable hemodynamics. They do not want her to be treated with vasopressors. Daughter is driving in right now.
[2016-10-08] MEDS ORDERED: *HR* Enoxaparin 30 MG/0.3 ML SYRINGE SQ SCH (06:00)
--- NOTE | 2016-10-08 08:53 | Pulmonology Progress Note ---
<Ihsan Hamilton W - Last Filed: 10/08/16 11:27> Date of Encounter: 10/08/16 Assessment and Plan (1) Physical deconditioning Current Visit: Yes Status: Chronic (2) Unable to eat Current Visit: Yes Status: Acute (3) Hypotension Current Visit: Yes Status: Acute Qualifiers: Hypotension type: unspecified hypotension type Qualified Code(s): I95.9 - Hypotension, unspecified (4) SVT (supraventricular tachycardia) Current Visit: Yes Status: Acute (5) Severe protein-calorie malnutrition Current Visit: Yes Status: Acute (6) Acute hypoxemic respiratory failure Current Visit: Yes Status: Acute (7) Kyphosis Current Visit: No Status: Chronic Qualifiers: Spinal region: unspecified (8) Hypomagnesemia Current Visit: Yes Status: Acute (9) S/P colectomy Current Visit: Yes Status: Acute (10) Sepsis Current Visit: Yes Status: Acute (11) Pneumonia Current Visit: Yes Status: Acute Qualifiers: Pneumonia type: due to unspecified organism Laterality: bilateral Lung location: lower lobe of lung Qualified Code(s): J18.9 - Pneumonia, unspecified organism (12) Volume overload Current Visit: Yes Status: Acute (13) Counseling regarding advanced care planning and goals of care Current Visit: Yes Status: Acute Objective PUL Vital signs: Last Vital Signs Temp 96.3 F L 10/08/16 04:02 Pulse 108 10/08/16 08:00 Resp 31 10/08/16 09:48 BP 104/93 10/08/16 09:48 Pulse Ox 93 10/08/16 09:48 Results - Laboratory Findings CBC and BMP: 10/08/16 04:28 10/08/16 04:28 ABG ABG pH 7.39 pH Units (7.32-7.45) 10/08/16 04:18 ABG pCO2 84 mmHg (35-45) H* 10/08/16 04:18 ABG pO2 76 mmHg (85-104) L 10/08/16 04:18 ABG O2 Saturation 95 % (95-98) 10/08/16 04:18 PT/INR, D-dimer PT 13.7 Seconds (9.4-12.1) H 10/07/16 03:26 Abnormal lab findings: Abnormal lab results WBC 19.0 K/mcL (4.3-11.1) H 10/08/16 04:28 RBC 3.25 M/mcL (3.82-4.97) L 10/08/16 04:28 Hgb 9.8 g/dL (11.5-15.4) L 10/08/16 04:28 Hct 30.2 % (35.3-44.9) L 10/08/16 04:28 Plt Count 406 K/mcL (140-400) H 10/08/16 04:28 Myelocytes % 2.0 % (0) H 09/25/16 04:21 Neutrophils # 16.9 K/mcL (1.6-8.9) H 10/08/16 04:28 Hypersegmented Neuts Present (Not Present) A 10/05/16 03:19 PT 13.7 Seconds (9.4-12.1) H 10/07/16 03:26 ABG pCO2 84 mmHg (35-45) H* 10/08/16 04:18 ABG pO2 76 mmHg (85-104) L 10/08/16 04:18 ABG HCO3 50.8 mEQ/L (21-27) H 10/08/16 04:18 ABG Total CO2 53.4 mEq/L (20-26) H 10/08/16 04:18 ABG Base Excess 21.6 mEq/L (-2.0 to 3.0) H 10/08/16 04:18 Sodium 130 mEq/L (136-145) L 10/08/16 04:28 Chloride 85 mEq/L (98-109) L 10/08/16 04:28 Carbon Dioxide 40 mEq/L (19-29) H* 10/08/16 04:28 Creatinine 0.44 mg/dL (0.57-1.11) L 10/08/16 04:28 BUN/Creatinine Ratio 30 (6-26) H 10/08/16 04:28 Glucose 144 mg/dL (70-99) H 10/08/16 04:28 POC Glucose 152 (58-89) H 10/08/16 04:07 Calculated Osmolality 273 (280-300) L 10/08/16 04:28 Calcium 8.4 mg/dL (8.6-10.8) L 10/08/16 04:28 Ionized Calcium 0.99 mmol/L (1.15-1.35) L 10/08/16 04:28 Serum Total Protein 5.3 g/dL (6.0-8.3) L 10/08/16 04:28 Albumin 2.1 g/dL (3.5-5.0) L 10/08/16 04:28 Albumin/Globulin Ratio 0.7 (1.1-2.2) L 10/08/16 04:28 Prealbumin 5.0 mg/dL (16.0-38.0) L 10/06/16 04:59 Urine Microscopic RBC 5-15 per hpf (0-3) H 09/22/16 14:20 Ur Squamous Epith Cells Moderate per lpf (None-Few) H 09/22/16 14:20 Urine Mucus Many (Few) H 09/28/16 02:00 Urine Yeast Many per hpf (None Seen) H 09/28/16 02:00 B-(1,3)-D-Glucan Intrp INDETERMINATE (Negative) A 10/04/16 11:38 - Microbiology Findings Microbiology Findings: Microbiology, Last 48 Hours 10/04/16 08:54 Blood Culture - Preliminary Peripheral Venipuncture No growth. 10/04/16 11:38 Blood Culture - Preliminary Peripheral Central Cath, Picc No growth. 10/04/16 11:38 Blood Culture - Preliminary Peripheral Central Cath, Picc No growth. - Clinical Findings Intake & Output: Intake & Output 10/07/16 10/08/16 10/08/16 23:59 07:59 15:59 Intake Total 200 / 200 304 / 304 Output Total 1500 / 1500 350 / 350 Balance -1300 / -1300 -46 / -46 Consult Discharge Plan - Plan Referrals: Balbir Cole, [Primary Care Provider] - (DR. COLE'S OFFICE WILL NOT MAKE A FOLLOW UP APPOINTMENT FOR US, THEY WANT THE PATIENT TO CALL AND MAKE THEIR OWN.) - Attending Attestation I examined this patient and my medical decision-making was reviewed with the Resident Physician. I agree with the documented findings, disposition and treatment plan as described except to the extent set forth below. We independently had [id number] contact with the patient Patient decompensated over the course of the evening worsening respiratory acidosis lethargy with the times bridgette unresponsiveness intermittent hypotensive episodes. Given chronic frailty and debility is very unlikely patient was able to recover from this illness without chronic and likely continuous noninvasive ventilatory support. Given deterioration family has requested that patient be transitioned to comfort measures this was made by her healthcare power of [place] attorney and the rest of her adult children in the room and family members campus chaplain services have been provided CODE STATUS has been changed to reflect DNR comfort care we will stop all [id number] measures. The patient is unable or incompetent to participate in giving a history and/or making treatment decisions. The discussion was necessary for determining treatment decision. This discussion took place in the patient's room The total meeting time was 15 minutes <Steven Garcia - Last Filed: 10/08/16 12:25> Date of Encounter: 10/08/16 Time of Encounter: 08:53 Assessment and Plan (1) Acute hypoxemic respiratory failure Current Visit: Yes Status: Acute Patient is currently still on BiPAP but is no longer hypoxic. Patient has become unresponsive and the family has decided to withdraw further care. They have decided to make the patient DNR comfort care. The knitting tester has been called and they are waiting for family and then the BiPAP will be removed. (2) Pneumonia Current Visit: Yes Status: Acute Patient has a pneumonia with a leukocytosis of 19. Due to the patient's family wishing to make her DNR comfort care and withdrawing everything other than comfort measures we will discontinue antibiotics at this time. Qualifiers: Pneumonia type: due to unspecified organism Laterality: bilateral Lung location: lower lobe of lung Qualified Code(s): J18.9 - Pneumonia, unspecified organism (3) Severe protein-calorie malnutrition Current Visit: Yes Status: Acute Patient was on 30 mL of TPN per hour for severe protein calorie malnutrition but this will begin discontinued at this time due to the patient's family making her DNR comfort care and only wishing to have therapies that will make the patient comfortable. (4) Paroxysmal atrial tachycardia Current Visit: Yes Status: Acute Patient was episode of SVT throughout the night which was able to be controlled with vagal maneuvers. Her blood pressure this morning has been low in the 60s over 40s. The patient's family has elected to make her DNR Comfort Care. (5) Small bowel obstruction Current Visit: Yes Status: Acute Dr. Benton is following her for this and managing. (6) DVT prophylaxis Current Visit: Yes Status: Acute The patient was on 30 mg subcutaneous enoxaparin is to begin discontinued. The family has decided go to DNR comfort care for the patient. Subjective Principal diagnosis: Acute hypoxic respiratory failure Interval history: Per nursing and overnight physician the patient had an episode of unresponsiveness. Ativan 0.5 IV was given around 1 AM. Patient then went to sleep and around 4 AM was unresponsive. 0.2 mg of flumazenil and then 0.5 mg of flumazenil was given this did not seem to help. Around 6:15 AM the patient became more responsive and was talking to family. After that this morning she became unresponsive again and her blood pressure started to drop. Family decided it was time to go to comfort care. Objective PUL Vital signs: Last Vital Signs Temp 96.3 F L 10/08/16 04:02 Pulse 108 10/08/16 08:00 Resp 27 10/08/16 05:36 BP 90/55 10/08/16 05:36 Pulse Ox 94 10/08/16 05:36 General appearance: other (Patient was unresponsive) Eyes: nonicteric ENT: other (Unable to evaluate due to the patient being on a full BiPAP mask in would desat when mask was removed) Neck: supple Effort: mildly labored, other (Currently on BiPAP) Auscultation: bilateral: clear Cardiovascular: other (Heart was regular but tachycardic) Gastrointestinal: normoactive bowel sounds Integumentary: normal Extremities: no cyanosis, no edema, pink and warm Musculoskeletal: no deformities other (Patient was unresponsive to verbal or physical stimulation) other (Patient was unresponsive) Results - Laboratory Findings CBC and BMP: 10/08/16 04:28 10/08/16 04:28 ABG ABG pH 7.39 pH Units (7.32-7.45) 10/08/16 04:18 ABG pCO2 84 mmHg (35-45) H* 10/08/16 04:18 ABG pO2 76 mmHg (85-104) L 10/08/16 04:18 ABG O2 Saturation 95 % (95-98) 10/08/16 04:18 PT/INR, D-dimer PT 13.7 Seconds (9.4-12.1) H 10/07/16 03:26 Abnormal lab findings: Abnormal lab results WBC 19.0 K/mcL (4.3-11.1) H 10/08/16 04:28 RBC 3.25 M/mcL (3.82-4.97) L 10/08/16 04:28 Hgb 9.8 g/dL (11.5-15.4) L 10/08/16 04:28 Hct 30.2 % (35.3-44.9) L 10/08/16 04:28 Plt Count 406 K/mcL (140-400) H 10/08/16 04:28 Myelocytes % 2.0 % (0) H 09/25/16 04:21 Neutrophils # 16.9 K/mcL (1.6-8.9) H 10/08/16 04:28 Hypersegmented Neuts Present (Not Present) A 10/05/16 03:19 PT 13.7 Seconds (9.4-12.1) H 10/07/16 03:26 ABG pCO2 84 mmHg (35-45) H* 10/08/16 04:18 ABG pO2 76 mmHg (85-104) L 10/08/16 04:18 ABG HCO3 50.8 mEQ/L (21-27) H 10/08/16 04:18 ABG Total CO2 53.4 mEq/L (20-26) H 10/08/16 04:18 ABG Base Excess 21.6 mEq/L (-2.0 to 3.0) H 10/08/16 04:18 Sodium 130 mEq/L (136-145) L 10/08/16 04:28 Chloride 85 mEq/L (98-109) L 10/08/16 04:28 Carbon Dioxide 40 mEq/L (19-29) H* 10/08/16 04:28 Creatinine 0.44 mg/dL (0.57-1.11) L 10/08/16 04:28 BUN/Creatinine Ratio 30 (6-26) H 10/08/16 04:28 Glucose 144 mg/dL (70-99) H 10/08/16 04:28 POC Glucose 152 (58-89) H 10/08/16 04:07 Calculated Osmolality 273 (280-300) L 10/08/16 04:28 Calcium 8.4 mg/dL (8.6-10.8) L 10/08/16 04:28 Ionized Calcium 0.99 mmol/L (1.15-1.35) L 10/08/16 04:28 Serum Total Protein 5.3 g/dL (6.0-8.3) L 10/08/16 04:28 Albumin 2.1 g/dL (3.5-5.0) L 10/08/16 04:28 Albumin/Globulin Ratio 0.7 (1.1-2.2) L 10/08/16 04:28 Prealbumin 5.0 mg/dL (16.0-38.0) L 10/06/16 04:59 Urine Microscopic RBC 5-15 per hpf (0-3) H 09/22/16 14:20 Ur Squamous Epith Cells Moderate per lpf (None-Few) H 09/22/16 14:20 Urine Mucus Many (Few) H 09/28/16 02:00 Urine Yeast Many per hpf (None Seen) H 09/28/16 02:00 B-(1,3)-D-Glucan Intrp INDETERMINATE (Negative) A 10/04/16 11:38 - Microbiology Findings Microbiology Findings: Microbiology, Last 48 Hours 10/04/16 08:54 Blood Culture - Preliminary Peripheral Venipuncture No growth. 10/04/16 11:38 Blood Culture - Preliminary Peripheral Central Cath, Picc No growth. 10/04/16 11:38 Blood Culture - Preliminary Peripheral Central Cath, Picc No growth. - Clinical Findings Intake & Output: Intake & Output 10/07/16 10/08/16 10/08/16 23:59 07:59 15:59 Intake Total 200 / 200 304 / 304 Output Total 1500 / 1500 350 / 350 Balance -1300 / -1300 -46 / -46 - VTE Documentation of Mechanical Device: Graduated compression elastic hosiery
[2016-10-08] MEDS ORDERED: Pantoprazole 40 MG VIAL IVP SCH (09:00)
[2016-10-08] MEDS: *HR* Morphine 2 MG/ML SYRINGE IVP PRN ×3 (12:17→17:00)
[2016-10-08] MEDS: *HR* LORazepam 2 MG/ML VIAL IVP PRN ×2 (16:37→17:32)
--- NOTE | 2016-10-08 16:49 | General Surgery Progress Note ---
Date of Encounter: 10/08/16 Time of Encounter: 09:00 - Assessment and Plan (1) S/P colectomy Current Visit: Yes Status: Acute POD# 11 exploratory laparotomy with small bowel resection converted to ileocecectomy Patient was given 0.5mg Ativan IV at 1am and went to sleep. She became unresponsive and hypotensive at 4am and flumazenil was administered. The patient 's mental status has been fluctuating throughout the morning and the family was notified. Family met with primary team and has decided to change the patient's status to DNR comfort care. The family wishes to withdraw all treatment besides comfort measures at this time. (2) Unable to eat Current Visit: Yes Status: Acute Patient is DNR Comfort care. Follow comfort care protocol. (3) Pneumonia Current Visit: Yes Status: Acute The patient has respiratory distress with WBC = 19 today. She has changed her status to DNR comfort care and antibiotics will be discontinued at this time. Qualifiers: Pneumonia type: due to unspecified organism Laterality: bilateral Lung location: lower lobe of lung Qualified Code(s): J18.9 - Pneumonia, unspecified organism (4) Respiratory distress Current Visit: Yes Status: Acute Patient has changed her status to DNR Comfort care. BIPAP will be removed later today. (5) DVT prophylaxis Current Visit: Yes Status: Acute Lovenox 30 mg daily Subjective Patient reports: voiding w/o difficulty (urine catheter), afebrile, other ( Patient had overnight episode of decompensation with worsening respiratory acidosis and unresponsiveness) Objective Vital Signs - Last 8 Hours Resp BP Pulse Ox 10/08/16 09:48 31 104/93 93 Intake and Output 10/08/16 10/08/16 10/08/16 07:59 15:59 23:59 Intake Total 304 / 304 Output Total 350 / 350 Balance -46 / -46 Intake: IV Fluids 304 / 304 Magnesium Sulfate 2 GM In 104 / 104 Dextrose 5% 100 ML @ 50 mls/hr IVPB Q6H PRN Rx#: [id number] Zosyn 3.375 GM In 100 / 100 Dextrose 5% (Minibag+) 100 ML 100 ML @ 25 mls/hr IVPB Q8HR TORREY Rx#: [id number] Potassium Chloride 20 mEq 100 / 100 /100 mL 20 meq In 100 ml @ 100 mls/hr IVPB Q1H PRN Rx#:[id number] Output: Catheter 350 / 350 Other: Blood Glucose* 153 - General physical appearance cachectic, chronically ill, other (Patient is unresponsive) - Neck Neck exam: trachea midline - Respiratory clear to auscultation, other (patient is on BIPAP with increased respirator effort. ) - Cardiovascular Cardiovascular exam: Present: tachycardia, irregular rhythm - Abdomen Abdomen: Present: bowel sounds present, soft - Incision Incision: Present: clean and dry, intact - Labs 10/08/16 04:28 10/08/16 04:28 Diabetes panel 10/07/16 10/08/16 Range/Units 17:39 04:28 Sodium 132 L 130 L (136-145) mEq/L Potassium 3.4 L 4.1 (3.5-4.5) mEq/L Chloride 83 L 85 L (98-109) mEq/L Carbon Dioxide 43 H* 40 H* (19-29) mEq/L BUN 11 13 (7-20) mg/dL Creatinine 0.44 L 0.44 L (0.57-1.11) mg/dL Glucose 106 H 144 H (70-99) mg/dL Calcium 8.4 L 8.4 L (8.6-10.8) mg/dL AST 26 (5-34) Units/L ALT 41 (0-55) Units/L Alkaline Phosphatase 52 (38-126) Units/L Albumin 2.1 L (3.5-5.0) g/dL Calcium panel 10/07/16 10/08/16 Range/Units 17:39 04:28 Calcium 8.4 L 8.4 L (8.6-10.8) mg/dL Phosphorus 2.7 (2.3-4.7) mg/dL Albumin 2.1 L (3.5-5.0) g/dL Pituitary panel 10/07/16 10/08/16 Range/Units 17:39 04:28 Sodium 132 L 130 L (136-145) mEq/L Potassium 3.4 L 4.1 (3.5-4.5) mEq/L Chloride 83 L 85 L (98-109) mEq/L Carbon Dioxide 43 H* 40 H* (19-29) mEq/L BUN 11 13 (7-20) mg/dL Creatinine 0.44 L 0.44 L (0.57-1.11) mg/dL Glucose 106 H 144 H (70-99) mg/dL Calcium 8.4 L 8.4 L (8.6-10.8) mg/dL Adrenal panel 10/07/16 10/08/16 Range/Units 17:39 04:28 Sodium 132 L 130 L (136-145) mEq/L Potassium 3.4 L 4.1 (3.5-4.5) mEq/L Chloride 83 L 85 L (98-109) mEq/L Carbon Dioxide 43 H* 40 H* (19-29) mEq/L BUN 11 13 (7-20) mg/dL Creatinine 0.44 L 0.44 L (0.57-1.11) mg/dL Glucose 106 H 144 H (70-99) mg/dL Calcium 8.4 L 8.4 L (8.6-10.8) mg/dL Total Bilirubin 0.3 (0.2-1.2) mg/dL AST 26 (5-34) Units/L ALT 41 (0-55) Units/L Alkaline Phosphatase 52 (38-126) Units/L Albumin 2.1 L (3.5-5.0) g/dL - VTE Documentation of Mechanical Device: Graduated compression elastic hosiery Consult Discharge Plan - Plan Referrals: Balbir Aranda DO [Primary Care Provider] - (DR. ARANDA'S OFFICE WILL NOT MAKE A FOLLOW UP APPOINTMENT FOR US, THEY WANT THE PATIENT TO CALL AND MAKE THEIR OWN.)
[2016-10-08] MEDS ORDERED: Clinimix E 5%-20% SOLUTION 2,000 ML with MVI, adult with vitamin K 10 ML IVC SCH ×2 (17:00)
--- NOTE | 2016-10-08 17:31 | Event Note ---
Date of Encounter: 10/08/16 Time of Encounter: 16:25 Pt's respiratory status seems to be worsening, became more lethargic and confused with in last 24hrs. She also happaned to have an episode of unresponsiveness after receiving Ativan 0.5 mg IV x 1 dose last night. She also became hypotensive and severe respiratory acidosis with worsening PCo2. Health And [employer] Education Teacher Dr. Hamilton had family meeting this morning, family does not want any more aggressive care and requested for comfort care. When I saw pt this evening, she is resting comfortably, on high flow o2 at 15 lit. She denied of pain or any discomfort. She is getting Morphine and Ativan PRN for pain and respiratory distress. Family did not express any concerns at this point. They are ok to take her off the O2 since it's prolonging her suffering.
--- NOTE | 2016-10-08 18:44 | Discharge Summary ---
Date of Encounter: 10/09/16 Time of Encounter: 18:42 - Discharge Diagnosis (1) Severe sepsis Priority: Primary Status: Acute (2) Acute respiratory failure with hypoxia Priority: Primary Status: Acute (3) Pneumonia Priority: Primary Status: Acute Qualifiers: Pneumonia type: due to unspecified organism Laterality: bilateral Lung location: lower lobe of lung Qualified Code(s): J18.9 - Pneumonia, unspecified organism (4) Small bowel obstruction Priority: Primary Status: Resolved (5) Severe protein-calorie malnutrition Priority: Secondary Status: Acute (6) S/P exploratory laparotomy Priority: Secondary Status: Acute (7) Leukocytosis Priority: Secondary Status: Acute Qualifiers: Leukocytosis type: unspecified Qualified Code(s): D72.829 - Elevated white blood cell count, unspecified (8) PAT (paroxysmal atrial tachycardia) Priority: Secondary Status: Acute (9) COPD (chronic obstructive pulmonary disease) Priority: Secondary Status: Chronic Qualifiers: COPD type: unspecified COPD Qualified Code(s): J44.9 - Chronic obstructive pulmonary disease, unspecified (10) Physical deconditioning Priority: Secondary Status: Chronic (11) DVT prophylaxis Priority: Secondary Status: Acute (12) SVT (supraventricular tachycardia) Priority: Secondary Status: Acute - Discharge Medications Home Medications: Albuterol Sulfate [Albuterol Inhaler] 1 puff IH Q4-6H PRN 04/14/16 [History] Calcium Carbonate/Vitamin D3 [Calcium 500 mg Chewable Tablet] 1 each PO DAILY [History] Potassium 99 mg PO DAILY 04/14/16 [History] Magnesium Oxide [Mgo] 400 mg PO BID #30 tablet 04/17/16 [Rx] Metoprolol [Lopressor] 25 mg PO BID #30 tablet 04/17/16 [Rx] Cyanocobalamin (Vitamin B-12) [Vitamin B12] 1,000 mcg PO DAILY 09/22/16 [History ] Famotidine [Pepcid] 20 mg PO DAILY 09/22/16 [History] Allergies/Adverse Reactions: Allergies No Known Allergies Allergy (Verified 04/14/16 10:40) Date of admission: 09/22/16 18:26 Primary care physician: Balbir Shah Colopy Consults: 09/24/16 18:11 Consult to Physical Therapy [CONS] Routine Comment: Evaluate, develop and implement POC Reason for Consult: deconditioning OT [Consult to Occupational Therapy] [CONS] Routine Comment: Evaluate, develop and implement POC Reason for Consult: deconditioning; PT completed new consult need one from OT for placement 09/25/16 11:26 Consult to Invasive Line Access Team [CONS] Routine Reason for Consult: patient needs picc for tpn Line Type: PICC PICC line indications: Parental nutrition Time Notified: 11:27 Call Completed: No Consult to Nutrition [CONS] Routine Comment: Consulting Provider: NUTRITION Reason for Dietary Consult: TPN Start and Manage 09/27/16 09:54 consult to principal military analyst [Consult to Nutrition] [CONS] Routine Comment: Total fluid rate 75ml/hour (MIV + TPN) Consulting Provider: NUTRITION Reason for Dietary Consult: TPN Start and Manage 09/27/16 11:27 Consult to Invasive Line Access Team [CONS] Routine Reason for Consult: Picc Line Insertion Line Type: PICC 09/28/16 08:56 Consult to Tin Recovery Worker [CONS] Routine Reason for SW Consult: evaluate 09/30/16 15:39 Consult to Cardiology [CONS] Stat Comment: Consulting Provider: Cardiology Marie Reason for Consult: SVT, abnormal echo Call Completed: Yes 10/05/16 10:18 Consult to Palliative Care [CONS] Routine Comment: Consulting Provider: Palliative Care Marie Reason for Consult: protein-calorie deficiency, hypotension, fluid overload. DNRCCA/DNI. 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 Call Completed: No 10/06/16 11:37 Consult to Speech Therapy [CONS] Routine Comment: Evaluate, develop and implement POC Reason for Consult: swallow eval Call Completed: No - Patient Status Disposition: Condition: Critical - Discharge Instructions Follow Up With: Balbir Aranda DO [Primary Care Provider] - (DR. ARANDA'S OFFICE WILL NOT MAKE A FOLLOW UP APPOINTMENT FOR US, THEY WANT THE PATIENT TO CALL AND MAKE THEIR OWN.) Hospital course: This is a 75 y/o F with known h/o PSVT, PAT, COPD, severe malnutrition who admitted here for small bowel obstruction and went for ex-lap with small bowel resection converted to ileocecotomy on 09/27/16. Pt was continued on broad spectrum IV abx Levofloxacin initially. Also she was continued on NG tube with low intermittent suction, as well as started on TPN for her severe protein caloric malnutrition. On 09/30/16 night pt went into SVT and Severe hypoxic respiratory failure so pt was transferred to PCU for close monitoring. Pt was on 10 lit high flow O2 and noticed significant volume overload, so discontinued her IV fluids and pt was able to maintain her BP in 90's and low 100's ok. For her PAT she was started on shcduled IV Lopressor. She started passing gas and had BM on POD # 5, so d/c NG tube and started her on PO diet. However her respiratory status seems to be worsening and her WBC started trending up to 30, 000, at this point we did CTA of Abd / Pelvis / Chest which showed multi lobular pnuemonia. By this time we already broaden her abx coverage with Levofloxacin and Zosyn. Now she was placed on Vancomycin and Micafungin. Pt was transferred to ICU on 10/04/16 for further aggressive care. Pt and family strictly requetsed for DNR / DNI only. So we continued her on BiPAP and started her on aggressive diuresis. Her oxygen saturations maintained well on BiPAP, however since y/d she started having hypotensive episodes and unable to come off the BiPAP and she became more confused. At this point our summer counselor Dr. Hamilton and palliative care team did talk to the family and they requested to withdraw care and placed her on comfort measures only. I talked to the pt's family and answered all the questions. She did on 10/08/16. ICU nurse Ellen did pronounce her @ 6.13 PM on 10/08/16. - Time Spent with Patient Total time spent providing and/or coordinating discharge services: - Constitutional Vitals: Temp Pulse Resp BP Pulse Ox 96.3 F L 108 31 104/93 93 10/08/16 04:02 10/08/16 12:00 10/08/16 09:48 10/08/16 09:48 10/08/16 09:48 General appearance: Present: cachectic, cooperative, A&O X 3, severe distress, answers questions appropriately - VTE Documentation of Mechanical Device: Graduated compression elastic hosiery
[2016-10-08 19:42] VITALS: BP 68/42
[2016-10-08] MEDS ORDERED: Aminoglycoside Consult 1 EACH MC ONE (20:19)
[2016-10-09] MEDS ORDERED: Clinimix E 5%-20% SOLUTION 2,000 ML with MVI, adult with vitamin K 10 ML IVC SCH ×2 (17:00)
== END 2016-10-08 20:20 | disposition expired | DRG 221 ==
LOC: EMEROO 12:30 → 3ANU 18:26 → 2NNU 09-30 23:08 → ICNU 10-04 10:20
PROVIDERS: ADMIT Internal Medicine Hematology & Oncology; ATTEND Internal Medicine